=== PATIENT | female | born 1960 | race Caucasian/White ===

== ENCOUNTER 2016-11-30 17:01 | Emergency (ER) | payer BC, MEDICARE ==
--- NOTE | 2016-11-30 17:42 | ERPHSYRPT ---
- History of Present Illness Historian: patient Patient Subjective Stated Complaint: pt co loose stools for 3 months since gallbadder as been removed, pt states having a bm every 5 mins and is on new meds that do not work. Triage Nursing Assessment: pt alert and sob which she states is normal for her, skin w/d, and large and soft Timing/Duration: other (3 months) Activities at Onset: none Quality: aching Abdominal Pain Onset Location: other (left side) Pain Radiation: no radiation Severity of Pain-Max: moderate Severity of Pain-Current: moderate Modifying Factors: Improves With: nothing Associated Symptoms: diarrhea Previous symptoms: same symptoms as today Hx Tetanus, Diphtheria Vaccination/Date Given: Yes (2013) Hx Influenza Vaccination/Date Given: No Hx Pneumococcal Vaccination/Date Given: No Immunizations Up to Date: Yes <JULIET LAGOS - Last Filed: 11/30/16 19:10> <GERHARD TOUSSAINT - Last Filed: 11/30/16 20:03> - History of Present Illness Time Seen by Provider: 11/30/16 17:36 Physician History: The patient is a 56-year-old female status post cholecystectomy 3 months ago who is had daily diarrhea for the past 3 months. She saw a physician 2 weeks ago who gave her an antidiarrheal that hasn't worked. She states her abdomen on the left side is tender and painful. (JULIET LAGOS) Allergies/Adverse Reactions: Influenza Virus Vaccines [Influenza Virus Vaccine] Allergy (Intermediate, Verified 01/24/16 11:33) Swelling of Hands influenza virus vaccine, specific [influenza virus vacc,specific] Allergy ( Verified 01/24/16 11:33) oxycodone [Oxycodone] Allergy (Verified 01/24/16 11:33) Penicillins Allergy (Verified 01/24/16 11:33) venom-honey bee [bee venom (honey bee)] Allergy (Verified 01/24/16 11:33) methadone [Methadone] Adverse Reaction (Mild, Verified 01/24/16 11:33) Nausea oxycodone HCl [From OxyContin] Adverse Reaction (Mild, Verified 01/24/16 11:33) Nausea sulfamethoxazole [From Bactrim] Adverse Reaction (Unknown, Verified 01/24/16 11: 33) Nausea and Vomiting trimethoprim [From Bactrim] Adverse Reaction (Unknown, Verified 01/24/16 11:33) Nausea and Vomiting lurasidone [From Latuda] Adverse Reaction (Verified 11/30/16 17:16) Home Medications: Citalopram Hydrobromide 20 mg* [ceLEXa 20 MG] 20 mg PO DAILY 07/25/14 [ History] Lisinopril 20 mg PO DAILY 07/25/14 [History] Quetiapine Fumarate [Seroquel] 400 mg PO HS 07/25/14 [History] Simvastatin 20 mg PO DAILY 07/25/14 [History] Albuterol Sulfate [Proair Hfa] 90 mcg .ROUTE UD 01/18/16 [History] Magnesium Oxide 400 mg [Mag-Ox 400] 400 mg PO DAILY 01/18/16 [History] Sumatriptan Succinate [Imitrex] 100 mg PO DAILY 01/18/16 [History] Alprazolam 2 mg PO QID 01/24/16 [History] Levothyroxine Sodium 150 Mcg [Synthroid 150 Mcg] 150 mcg PO DAILY 01/24/16 [History] Armodafinil [Nuvigil] 150 mg DAILY 11/30/16 [History] - Review of Systems Constitutional: No Fever, No Chills Eyes: No Symptoms Ears, Nose, & Throat: No Symptoms Respiratory: No Cough, No Dyspnea Cardiac: No Chest Pain, No Edema, No Syncope Abdominal/Gastrointestinal: Abdominal Pain, Diarrhea Genitourinary Symptoms: No Dysuria Musculoskeletal: No Back Pain, No Neck Pain Skin: No Rash Neurological: No Dizziness, No Focal Weakness, No Sensory Changes Psychological: No Symptoms Endocrine: No Symptoms Hematologic/Lymphatic: No Symptoms Immunological/Allergic: No Symptoms All Other Systems: Reviewed and Negative <JULIET LAGOS - Last Filed: 11/30/16 19:10> - Past Medical History Pertinent Past Medical History: Yes Neurological History: Migraines ENT History: Other Cardiac History: Hypertension Respiratory History: COPD Endocrine Medical History: Hypothyroidism Musculoskeletal History: No Pertinent History GI Medical History: GERD, Gallbladder Disease, Ulcer, Other History: No Pertinent History Psycho-Social History: Anxiety, Bipolar, Depression Female Reproductive Disorders: No Pertinent History Other Medical History: stage IV skin cancer, Emergency visit to suture left thumb laceration, - Past Surgical History Past Surgical History: Yes Neuro Surgical History: No Pertinent History Cardiac: No Pertinent History Respiratory: No Pertinent History Gastrointestinal: Appendectomy, Cholecystectomy Genitourinary: No Pertinent History Musculoskeletal: No Pertinent History Female Surgical History: Hysterectomy Other Surgical History: tubes in ears, pre-cancerous polyps removed from colon - Social History Smoking Status: Former smoker How long have you smoked: 42 years Exposure to second hand smoke: No Drug Use: none Patient Lives Alone: No Significant Family History: hypertension - Female History Hx Last Menstrual Period: hyster Hx Now: No <JULIET LAGOS - Last Filed: 11/30/16 19:10> - Physical Exam General Appearance: no apparent distress, alert Eye Exam: PERRL/EOMI, eyes nml inspection Ears, Nose, Throat Exam: normal ENT inspection, pharynx normal, moist mucous membranes Neck Exam: normal inspection, non-tender, supple, full range of motion Respiratory Exam: normal breath sounds, lungs clear, No respiratory distress Cardiovascular Exam: regular rate/rhythm, normal heart sounds Gastrointestinal/Abdomen Exam: tenderness (left side), other (obese) Pelvic Exam: not done Rectal Exam: not done Back Exam: normal inspection, normal range of motion, No CVA tenderness, No vertebral tenderness Extremity Exam: normal inspection, normal range of motion, pelvis stable Neurologic Exam: alert, oriented x 3, cooperative, normal mood/affect, nml cerebellar function, sensation nml, No motor deficits Skin Exam: normal color, warm, dry SpO2 Interpretation: normal SpO2: 97 Oxygen Delivery: Room Air <JULIET LAGOS - Last Filed: 11/30/16 19:10> - CT Exams Abdomen/Pelvis CT Interpretation: Negative, Tele-radiologist Report <JULIET LAGOS - Last Filed: 11/30/16 19:10> - Progress Progress: improved Counseled pt/family regarding: lab results, diagnosis, need for follow-up, rad results <JULIET LAGOS - Last Filed: 11/30/16 19:10> <GERHARD TOUSSAINT - Last Filed: 11/30/16 20:03> - Progress Progress Note: 11/30/16 19:10 Case discussed and care transferred to Dr Toussaint at 19:00. (JULIET LAGOS) 11/30/16 20:01 The patient was initially seen per Dr Lagos. She has post cholecystectomy diarrhea chronically since GB surgery per Dr Bliss 3 month ago. She has seen Dr Bliss, Dr Blanco, and Dr Alvares GI. No new symptoms but it persists. No fever or chills. Some intermittent cramping very frequently. Abd soft and NT. Labs and CT reassuring. She plans follow up with Dr Jd Blanco. Will get stool for C diff when able. She might benefit from cholestyramine- that will be left to Dr Blanco's judgement. (GERHARD TOUSSAINT) <JULIET LAGOS. - Last Filed: 11/30/16 19:10> - Departure Time of Disposition: 20:02 Departure Disposition: Home Critical Care Time: No <GERHARD TOUSSAINT - Last Filed: 11/30/16 20:03> - Departure Clinical Impression: Post cholecystectomy diarrhea Condition: Stable Referrals: VENANCIO BLANCO [Primary Care Provider] - Instructions: Abdominal Pain-Adult, Cholecystectomy, Diarrhea and Traveler's Diarrhea -- Adult Additional Instructions: [place] diet with frequent fluids. Obtain stool sample for C diff. Follow up with Dr Jd Blanco and your GI Dr Alvares.
[2016-11-30] MEDS ORDERED: Sodium Chloride 0.9% 1000 ML 1,000 ML IV STA (17:44)
[2016-11-30 18:00] LABS: BASOPHIL % 0.1 % (0.0-0.4); Eosinophil % 1.6 % (0.00-5.0); Granulocytes % 63.4 % (36.0-66.0); Lymphocytes % 25.8 % (24.0-44.0); Mean Cell Volume 91.1 fl (78-100); Mean Corpuscular Hemoglobin 28.2 pg (26-32); Mean Platelet Volume 10.3 fl (6-9.5); Monocytes % 9.1 % (0.0-12.0); Platelet Count 279 K/mm3 (150-450); Red Blood Count 4.71 M/mm3 (4.1-5.4); Red Cell Distribution Width 14.3 % (11.5-14.0); White Blood Count 9.9 K/mm3 (4.0-10.5)
[2016-11-30] MEDS ORDERED: Sodium Chloride 0.9% 1000 ML 1,000 ML ONE (18:19)
[2016-11-30 19:18] LABS: Collection Type CATH; Ph 5.5 (5-6)
[2016-11-30 19:19] LABS: COMPLETE URINE MICROSCOPIC? NO
[2016-11-30 19:24] LABS: ANION GAP 10.7 MEQ/L (5-15); Carbon Dioxide 28.4 mEq/L (21-32); Potassium 3.5 mEq/L (3.5-5.1)
[2016-11-30 19:42] LABS: ALBUMIN 3.1 g/dL (3.4-5.0); BILIRUBIN,TOTAL 0.2 mg/dL (0.2-1.0); Direct Bilirubin 0.08 MG/DL (0.0-0.2); Total Protein 7.3 gm/dL (6.4-8.2)
[2016-11-30 20:07] VITALS: BP 136/84; PULSE 104; O2SAT 94
--- NOTE | 2016-12-01 08:45 | XRAY ---
Indication: Abdominal pain and diarrhea. Multiple contiguous axial images obtained through the abdomen and pelvis without contrast as ordered. Comparison: January 30, 2013 Lung bases again demonstrates minimal bibasilar atelectasis/scarring and left base bleb. Heart is not enlarged and again demonstrates tiny pericardial effusion. Noncontrasted stomach and bowel loops appear nonobstructed. Previous reported appendectomy, hysterectomy, and cholecystectomy. No free fluid/air. Stable fatty liver with hepatic cysts and left adrenal adenoma. Remaining pancreas, spleen, right adrenal gland, kidneys, ureters, and bladder appear unremarkable for noncontrast exam. Minimal aortoiliac calcifications without AAA. Osseous structures intact again with mild spinal degenerative changes. Impression: 1. No acute intra-abdominal/pelvic abnormalities on this noncontrast exam. 2. Stable fatty liver, hepatic cysts, and left adrenal adenoma. Comment: Preliminary interpretation was made by [facility]. No discrepancy. CT DI is 28.13
== END 2016-11-30 20:10 | disposition home or self-care (01) ==
LOC: ED 17:01
DX: K91.89 Other postprocedural complications and disorders of digestive system (principal); K59.1 Functional diarrhea; I10 Essential (primary) hypertension; E03.9 Hypothyroidism, unspecified; R10.9 Unspecified abdominal pain; Z79.899 Other long term (current) drug therapy
CPT/HCPCS: 36000; 36415; 74176; 80048; 80076; 81002; 83690; 85025; 96360; 99283; P9612

== ENCOUNTER 2017-04-27 12:27 | Inpatient (IN) | payer BC, MEDICARE ==
[2017-04-27] MEDS ORDERED: Zofran 4 MG/2 ML VIAL IV PRN (12:51)
[2017-04-27] MEDS ORDERED: PHARMACY DOSING REQUIRED: VANCOMYCIN IV ONE (12:54)
[2017-04-27] MEDS ORDERED: Sodium Chloride 0.9% 1000 ML 1,000 ML IV SCH (13:00)
[2017-04-27 13:30] LABS: BASOPHIL % 0.4 % (0.0-0.4); Eosinophil % 1.7 % (0.00-5.0); Granulocytes % 74.1 % (36.0-66.0); Mean Cell Volume 87.3 fl (78-100); Mean Corpuscular Hemoglobin 27.5 pg (26-32); Monocytes % 7.8 % (0.0-12.0); Platelet Count 289 K/mm3 (150-450); Red Blood Count 4.98 M/mm3 (4.1-5.4); Red Cell Distribution Width 15.2 % (11.5-14.0); White Blood Count 7.7 K/mm3 (4.0-10.5)
[2017-04-27 13:39] LABS: ALBUMIN 3.1 g/dL (3.4-5.0); ANION GAP 14.8 MEQ/L (5-15); BILIRUBIN,TOTAL 0.5 mg/dL (0.2-1.0); Carbon Dioxide 25.9 mEq/L (21-32); Potassium 4.2 mEq/L (3.5-5.1); Total Protein 8.3 gm/dL (6.4-8.2)
[2017-04-27] MEDS: ENOXAPARIN SODIUM SQ SCH (13:47)
[2017-04-27] MEDS: VANCOCIN 1 GM VIAL*** 1 GM in Sodium Chloride 0.9% 250 ML 250 ML IV SCH ×2 (13:47→22:09)
[2017-04-27] MEDS ORDERED: Norco 10/325 MG Tablet PO PRN (15:22)
[2017-04-27] MEDS ORDERED: Tessalon Perles 100 MG PO PRN (15:22)
[2017-04-27] MEDS ORDERED: ALPRAZOLAM 2 MG PO PRN (15:22)
[2017-04-27] MEDS: XANAX 1 MG PO PRN (16:43)
[2017-04-27] MEDS ORDERED: Sodium Chloride 0.9% 10 ML FLUSH Syringe IV PRN (17:14)
--- NOTE | 2017-04-27 17:14 | PCM.HP ---
History of Present Illness - Chief Complaint Chief Complaint: Cellulitis Date: 04/27/17 History of Present Illness: is a 56 year old female. left arm became swollen several weeks ago and was treated in the clinic by Cherie Oquendo with Bactrim there ws concern of allergic reaction to a bug bite at the time and she was given steroid as well. She initially had some mild improvement so stopped her bactrim then it suddenly worsened she came to clinic earlier this week and was starting to swell and be red on the right arm as well and the left was very tight and red and limiting some of her movement. She refused admission at that time and went home to continue the bactrim and keflex was added as well. It has not improved she has had chills and sweats and thought she was febrile swelling and pain in hands were worsening and much worse on the left. She otherwise has been doing well just suffering from her chronic depression/bipolar disorder and has been more shaking recently. - Review of Systems Constitutional: Fever, Chills Eyes: No Symptoms Ears, Nose, & Throat: No Symptoms Respiratory: No Cough, No Short Of Breath Cardiac: Edema, No Chest Pain, No Syncope Abdominal/Gastrointestinal: No Abdominal Pain, No Nausea, No Vomiting, No Diarrhea Genitourinary Symptoms: No Dysuria Musculoskeletal: No Back Pain, No Neck Pain Skin: No Rash Neurological: No Dizziness, No Focal Weakness, No Sensory Changes Psychological: No Symptoms Endocrine: No Symptoms Hematologic/Lymphatic: No Symptoms Immunological/Allergic: No Symptoms Medications & Allergies Home Medications: Home Medication List Citalopram Hydrobromide 20 mg* [ceLEXa 20 MG] 40 mg PO DAILY 07/25/14 [ History Confirmed 04/27/17] Lisinopril 20 mg PO DAILY 07/25/14 [History Confirmed 04/27/17] Albuterol Sulfate [Proair Hfa] 2 puffs IN Q4HPRN PRN 01/18/16 [History Confirmed 04/27/17] Magnesium Oxide 400 mg [Mag-Ox 400] 400 mg PO DAILY 01/18/16 [History Confirmed 04/27/17] Sumatriptan Succinate [Imitrex] 100 mg PO DAILY PRN PRN 01/18/16 [History Confirmed 04/27/17] Alprazolam 2 mg PO TIDPRN PRN 01/24/16 [History Confirmed 04/27/17] Levothyroxine Sodium 150 Mcg [Synthroid 150 Mcg] 150 mcg PO DAILY 01/24/16 [History Confirmed 04/27/17] Aripiprazole 10 mg [Abilify 10 MG] 15 mg PO DAILY 04/27/17 [History Confirmed 04/27/17] Benzonatate [Tessalon Perle] 100 mg PO QIDPRN PRN 04/27/17 [History Confirmed ] Cephalexin Mh 500 mg [Keflex 500 mg] 500 mg PO UD 04/27/17 [History Confirmed 04/27/17] Fenofibrate,Micronized 145 mg* [Tricor 145 MG] 145 mg PO DAILY 04/27/17 [ History Confirmed 04/27/17] Hydrocodone Bit/Acetaminophen [Hydrocodon-Acetaminophn 10-325] 1 each PO Q6HPRN PRN 04/27/17 [History Confirmed 04/27/17] Omeprazole 20 MG [Prilosec 20 mg] 20 mg PO DAILY 04/27/17 [History Confirmed 01/12] Sulfamethoxazole/Trimethoprim [Bactrim Ds Tablet] 1 each PO Q12H 04/27/17 [ History Confirmed 04/27/17] Allergies/Adverse Reactions: Allergies Allergy/AdvReac Type Severity Reaction Status Date / Time Influenza Virus Vaccines Allergy Intermediate Swelling Verified 04/27/17 13:40 [Influenza Virus Vaccine] of Hands influenza virus vaccine, Allergy Verified 04/27/17 13:40 specific [influenza virus vacc,specific] oxycodone [Oxycodone] Allergy Verified 04/27/17 13:40 Penicillins Allergy Verified 04/27/17 13:40 venom-honey bee Allergy Verified 04/27/17 13:40 [bee venom (honey bee)] oxycodone HCl AdvReac Mild Nausea Verified 04/27/17 13:40 [From OxyContin] - Past Medical History Past Medical History: Yes Neurological History: Migraines ENT History: Other Cardiac History: Hypertension Respiratory History: COPD Endocrine Medical History: Hypothyroidism Musculoskelatal History: No Pertinent History GI Medical History: GERD, Gallbladder Disease, Ulcer, Other History: No Pertinent History Pyscho-Social History: Anxiety, Bipolar, Depression Reproductive Disorders: No Pertinent History Comment: stage IV skin cancer - Female History Are you now?: No - Past Surgical History Past Surgical History: Yes Neuro Surgical History: No Pertinent History Cardiac History: No Pertinent History Respiratory Surgery: No Pertinent History GI Surgical History: Appendectomy, Cholecystectomy Genitourinary Surgical Hx: No Pertinent History Musculskeletal Surgical Hx: No Pertinent History Female Surgical History: Hysterectomy Other Surgical History: tubes in ears, pre-cancerous polyps removed from colon - Social History Smoking Status: Former smoker How long have you smoked: 42 years Exposure to second hand smoke: No Alcohol: None Drug Use: none Significant Family History: hypertension - Physical Exam Vital Signs: Vital Signs - 24 hr Temp Pulse Resp BP Pulse Ox 04/27/17 16:51 97.8 F 106 H 22 129/64 93 L 04/27/17 13:23 98.7 F 100 H 22 120/63 92 L 04/27/17 12:51 98.7 F 100 H 22 120/63 92 L General Appearance: no apparent distress, obese Neurologic Exam: alert, oriented x 3, cooperative Eye Exam: No scleral icterus, No pale conjunctivae Ears, Nose, Throat Exam: moist mucous membranes Neck Exam: non-tender, supple Respiratory Exam: normal breath sounds, lungs clear, No diminished breath sounds Cardiovascular Exam: regular rate/rhythm, normal heart sounds, normal peripheral pulses, murmur, edema, other Extremity Exam: No calf tenderness, No pedal edema Skin Exam: warm, other (left arm very edematous swollen firm hot red outlined to elbow range of motion not painful of fingers or wrist but the edema does restrict some more mild redness on the right wrist volar aspect) Results - Labs Lab/Micro Results: Lab Results-Last 24 Hours 04/27/17 04/27/17 04/27/17 Range/Units 13:00 13:00 13:05 WBC 7.7 (4.0-10.5) K/mm3 RBC 4.98 (4.1-5.4) M/mm3 Hgb 13.7 (12.0-16.0) gm/dl Hct 43.5 (35-47) % MCV 87.3 (78-100) fl MCH 27.5 (26-32) pg MCHC 31.5 L (32-36) g/dl RDW 15.2 H (11.5-14.0) % Plt Count 289 (150-450) K/mm3 MPV 10.0 H (6-9.5) fl Gran % 74.1 H (36.0-66.0) % Lymphocytes % 16.0 L (24.0-44.0) % Monocytes % 7.8 (0.0-12.0) % Eosinophils % 1.7 (0.00-5.0) % Basophils % 0.4 (0.0-0.4) % Basophils # 0.03 (0-0.4) Sodium 137 (136-145) mEq/L Potassium 4.2 (3.5-5.1) mEq/L Chloride 100 (98-107) mEq/L Carbon Dioxide 25.9 (21-32) mEq/L Anion Gap 14.8 (5-15) MEQ/L BUN 16 (9-20) mg/dL Creatinine 1.02 (0.55-1.30) mg/dl Estimated GFR 60 ML/MIN Glucose 146 H (70-110) MG/DL Lactic Acid 1.5 (0.4-2.0) Calcium 9.5 (8.5-10.1) mg/dL Total Bilirubin 0.50 (0.2-1.0) mg/dL AST 27 (15-37) U/L ALT 30 (12-78) U/L Alkaline Phosphatase 79 (46-116) U/L Serum Total Protein 8.3 H (6.4-8.2) gm/dL Albumin 3.1 L (3.4-5.0) g/dL Assessment/Plan (1) Cellulitis Current Visit: Yes Status: Acute Qualifiers: Site of cellulitis: extremity Site of cellulitis of extremity: upper extremity Laterality: left Qualified Code(s): L03.114 - Cellulitis of left upper limb Assessment & Plan: failed bactrim + Keflex (following Rocephin IM in office) use vancomycin, wbc ok tylenol for fever use her chronic pain mediations for her pain will d/c her iv fluids with normal labs and her tolerating po well and her edema keep arms elevated use ice tid if tolerated continue home medications for bipolar and hyperlipidemia lovenox for ppx Code(s): L03.90 - CELLULITIS, UNSPECIFIED (2) Failure of outpatient treatment Current Visit: Yes Status: Acute Code(s): Z78.9 - OTHER SPECIFIED HEALTH STATUS (3) COPD (chronic obstructive pulmonary disease) Current Visit: Yes Status: Chronic (4) Bipolar 1 disorder, depressed Current Visit: Yes Status: Chronic (5) Morbid obesity Current Visit: Yes Status: Chronic Code(s): E66.01 - MORBID (SEVERE) OBESITY DUE TO EXCESS CALORIES
[2017-04-27] MEDS: Sodium Chloride 0.9% 10 ML FLUSH Syringe IV SCH (22:15)
[2017-04-28] MEDS: XANAX 1 MG PO PRN ×3 (01:40→16:37)
[2017-04-28] MEDS: Sodium Chloride 0.9% 10 ML FLUSH Syringe IV SCH ×3 (06:42→22:27)
[2017-04-28] MEDS: SYNTHROID 150 MCG PO SCH ×2 (08:26→22:24)
[2017-04-28] MEDS: Abilify 10 MG PO SCH ×2 (08:26→22:25)
[2017-04-28] MEDS: MAG-OX 400 PO SCH ×2 (08:26→22:24)
[2017-04-28] MEDS: ceLEXa 20 MG PO SCH ×2 (08:26→22:25)
[2017-04-28] MEDS: Protonix 40MG Tablet PO SCH ×2 (08:26→22:25)
[2017-04-28] MEDS: Tricor 145 MG PO SCH ×2 (08:27→22:24)
[2017-04-28] MEDS: Zestril 20 MG PO SCH ×2 (08:27→22:24)
[2017-04-28] MEDS: ENOXAPARIN SODIUM SQ SCH (09:15)
[2017-04-28] MEDS: VANCOCIN 1 GM VIAL*** 1 GM in Sodium Chloride 0.9% 250 ML 250 ML IV SCH ×2 (09:15→22:29)
[2017-04-28] MEDS ORDERED: NON-FORMULARY ITEM (Omeprazole 20 Mg [Prilosec 20 Mg] 20 MG) PO SCH (10:00)
--- NOTE | 2017-04-28 12:26 | PCM.NOTE ---
Date and Time: 04/28/17 1222 Subjective Assessment: She reports that her arms are better. She reports she would like to have tylenol ordered for pain. On review of her orders, it is already ordered. She states it started with her left arm and then she had some problems with her right arm too with redness. She failed outpatient treatment. Dr. Katiana Decker's admission note reviewed. - Review of Systems Constitutional: No Symptoms Eyes: No Symptoms Ears, Nose, & Throat: No Symptoms Respiratory: No Symptoms Cardiac: No Symptoms Abdominal/Gastrointestinal: No Symptoms Genitourinary Symptoms: No Symptoms Musculoskeletal: No Symptoms Skin: Other (tenderness of skin on arms) Objective Exam General Appearance: no apparent distress, obese Neurologic Exam: alert, cooperative, normal mood/affect Skin Exam: normal color, warm, dry, other (areas of erytema marked on arms bilat. Worse on medial aspect of right wrist and also left forearm. No active drainage. The areas of redness have not extended past the marked lines.) Respiratory Exam: normal breath sounds, lungs clear, No crackles/rales, No rhonchi, No wheezing Cardiovascular Exam: regular rate/rhythm, normal heart sounds, No murmur, No friction rub, No gallop Gastrointestinal/Abdomen Exam: soft, normal bowel sounds, No tenderness, No distention, No mass Extremity Exam: other (no c/c) OBJECTIVE DATA Vital Signs: Vital Signs - 24 hr Temp Pulse Resp BP Pulse Ox 04/28/17 12:00 98.7 F 99 H 18 103/51 96 04/28/17 07:26 98.1 F 97 H 18 137/63 96 04/28/17 04:00 98.3 F 94 H 20 117/58 92 L 04/28/17 00:00 98.8 F 94 H 21 125/60 94 L 04/27/17 20:00 98.3 F 103 H 18 135/65 93 L 04/27/17 16:51 97.8 F 106 H 22 129/64 93 L 04/27/17 13:23 98.7 F 100 H 22 120/63 92 L 04/27/17 12:51 98.7 F 100 H 22 120/63 92 L Oxygen-Last 24 hours O2 Percentage 2 Liters = 28% Pain Assessment - Last Documented Pain Intensity 4 Pain Scale Used 0-10 Pain Scale Intake and Output: Intake & Output 04/26/17 04/27/17 04/28/17 04/29/17 06:59 06:59 06:59 06:59 Intake Total 2090 480 Output Total 700 Balance 1390 480 Weight 122.561 kg Lab Results: Lab Results-Last 24 Hours 04/27/17 04/27/17 04/27/17 Range/Units 13:00 13:00 13:05 WBC 7.7 (4.0-10.5) K/mm3 RBC 4.98 (4.1-5.4) M/mm3 Hgb 13.7 (12.0-16.0) gm/dl Hct 43.5 (35-47) % MCV 87.3 (78-100) fl MCH 27.5 (26-32) pg MCHC 31.5 L (32-36) g/dl RDW 15.2 H (11.5-14.0) % Plt Count 289 (150-450) K/mm3 MPV 10.0 H (6-9.5) fl Gran % 74.1 H (36.0-66.0) % Lymphocytes % 16.0 L (24.0-44.0) % Monocytes % 7.8 (0.0-12.0) % Eosinophils % 1.7 (0.00-5.0) % Basophils % 0.4 (0.0-0.4) % Basophils # 0.03 (0-0.4) Sodium 137 (136-145) mEq/L Potassium 4.2 (3.5-5.1) mEq/L Chloride 100 (98-107) mEq/L Carbon Dioxide 25.9 (21-32) mEq/L Anion Gap 14.8 (5-15) MEQ/L BUN 16 (9-20) mg/dL Creatinine 1.02 (0.55-1.30) mg/dl Estimated GFR 60 ML/MIN Glucose 146 H (70-110) MG/DL Lactic Acid 1.5 (0.4-2.0) Calcium 9.5 (8.5-10.1) mg/dL Total Bilirubin 0.50 (0.2-1.0) mg/dL AST 27 (15-37) U/L ALT 30 (12-78) U/L Alkaline Phosphatase 79 (46-116) U/L Serum Total Protein 8.3 H (6.4-8.2) gm/dL Albumin 3.1 L (3.4-5.0) g/dL Multi-Disciplinary Progress Notes: Multi-Disciplinary Progress Notes 04/27/17 13:17 Pharmacy Note by INSULATION SUPERVISOR,PHARM Pharmacy to dose vancomycin. Start 1G Q12H. Get vanc trough 6/4 at 0930. Monitor levels and renal function and adjust dose if needed. -Hemanth Guerrero , ChastityD Candidate Initialized on 04/27/17 13:17 - END OF NOTE Assessment/Plan (1) Cellulitis of arm, left Current Visit: Yes Status: Acute Assessment & Plan: Continue with vancomycin. Blood cultures are in lab. Code(s): L03.114 - CELLULITIS OF LEFT UPPER LIMB (2) Cellulitis of arm, right Current Visit: Yes Status: Acute Code(s): L03.113 - CELLULITIS OF RIGHT UPPER LIMB (3) Bipolar 1 disorder, depressed Current Visit: Yes Status: Chronic Assessment & Plan: Stable at this time.
[2017-04-28] MEDS: TYLENOL 325 MG PO PRN (14:55)
[2017-04-29] MEDS: XANAX 1 MG PO PRN ×3 (01:58→17:33)
[2017-04-29] MEDS: TYLENOL 325 MG PO PRN (07:11)
[2017-04-29] MEDS ORDERED: TROUGH DRUG LEVELS IJ ONE (09:30)
[2017-04-29] MEDS: ENOXAPARIN SODIUM SQ SCH (09:55)
[2017-04-29] MEDS: VANCOCIN 1 GM VIAL*** 1 GM in Sodium Chloride 0.9% 250 ML 250 ML IV SCH (09:55)
--- NOTE | 2017-04-29 10:20 | PCM.NOTE ---
Date and Time: 04/29/17 1008 Subjective Assessment: She reports tingling pain in her right wrist. She is using ice and this helps some. She denies any chest pain, shortness of breath or abdominal pain. She is eating well and denies constipation. - Review of Systems Constitutional: No Symptoms Eyes: No Symptoms Ears, Nose, & Throat: No Symptoms Respiratory: No Symptoms Cardiac: No Symptoms Abdominal/Gastrointestinal: No Symptoms Genitourinary Symptoms: No Symptoms Musculoskeletal: Other (pain in arms bilat and redness of forearms bilat) Skin: Other (pain in arms bilat and redness of forearms bilat) Objective Exam General Appearance: no apparent distress, alert, obese Neurologic Exam: alert, cooperative, normal mood/affect Skin Exam: normal color, warm, dry, other (right forarm with area of erythema and tenderness about 5 x 6 cm; left fore arm with area of erythema and tenderness that is more diffuse. No drainage, no fluctulance) Respiratory Exam: normal breath sounds, lungs clear, No crackles/rales, No rhonchi, No wheezing Cardiovascular Exam: regular rate/rhythm, normal heart sounds, No murmur, No friction rub, No gallop Gastrointestinal/Abdomen Exam: soft, normal bowel sounds, No tenderness, No distention, No mass Extremity Exam: other (no c/c/e of legs.) OBJECTIVE DATA Vital Signs: Vital Signs - 24 hr Temp Pulse Resp BP Pulse Ox 04/29/17 07:09 97.8 F 89 18 115/63 95 04/29/17 04:16 97.6 F 90 20 89/50 96 04/29/17 00:14 98.7 F 95 H 21 115/56 96 04/28/17 20:43 98.1 F 87 18 122/62 93 L 04/28/17 16:00 98.5 F 88 18 116/64 96 04/28/17 12:00 98.7 F 99 H 18 103/51 96 Pain Assessment - Last Documented Pain Intensity 8 Pain Scale Used 0-10 Pain Scale Intake and Output: Intake & Output 04/27/17 04/28/17 04/29/17 04/30/17 06:59 06:59 06:59 06:59 Intake Total 2090 2980 480 Output Total 700 500 Balance 1390 2480 480 Weight 122.561 kg Assessment/Plan (1) Cellulitis of arm, left Current Visit: Yes Status: Acute Assessment & Plan: Continue with vancomycin. Code(s): L03.114 - CELLULITIS OF LEFT UPPER LIMB (2) Cellulitis of arm, right Current Visit: Yes Status: Acute Assessment & Plan: Continue with vancomycin. Code(s): L03.113 - CELLULITIS OF RIGHT UPPER LIMB (3) Bipolar 1 disorder, depressed Current Visit: Yes Status: Chronic Assessment & Plan: Stable on current medication.
[2017-04-29] MEDS: Sodium Chloride 0.9% 10 ML FLUSH Syringe IV SCH ×3 (10:55→23:04)
[2017-04-29] MEDS: VANCOCIN 1 GM VIAL*** 1.5 GM in Sodium Chloride 0.9% 500 ML 500 ML IV SCH (17:28)
[2017-04-29] MEDS: Tricor 145 MG PO SCH (23:01)
[2017-04-29] MEDS: MAG-OX 400 PO SCH (23:02)
[2017-04-29] MEDS: Abilify 10 MG PO SCH (23:02)
[2017-04-29] MEDS: SYNTHROID 150 MCG PO SCH (23:02)
[2017-04-29] MEDS: Protonix 40MG Tablet PO SCH (23:02)
[2017-04-29] MEDS: ceLEXa 20 MG PO SCH (23:02)
[2017-04-29] MEDS: Zestril 20 MG PO SCH (23:03)
[2017-04-30] MEDS: XANAX 1 MG PO PRN ×2 (01:25→21:53)
[2017-04-30 06:02] LABS: ANION GAP 9.2 MEQ/L (5-15); BLOOD UREA NITROGEN 11 mg/dL (9-20); CHLORIDE 103 mEq/L (98-107); Glucose 149 MG/DL (70-110); Potassium 3.9 mEq/L (3.5-5.1); SODIUM 138 mEq/L (136-145)
[2017-04-30] MEDS: VANCOCIN 1 GM VIAL*** 1.5 GM in Sodium Chloride 0.9% 500 ML 500 ML IV SCH ×2 (06:36→17:59)
--- NOTE | 2017-04-30 08:03 | PCM.NOTE ---
Date and Time: 04/30/17 0758 Subjective Assessment: the left arm looks a little better the right is worse she is allergic to penicillins sshe ate greasy carnival food last night and vomitted this am and had an episode of diarrhea. She has not had fever but the swelling and pain in the hands and arms is severe she is trying to keep elevated and is using the ice. She feels they will suddenly swell up worse then go back down intermittently. she was given kenalog a few weeks ago and it improved the swelling some. Objective Exam General Appearance: no apparent distress, obese Neurologic Exam: alert, oriented x 3, cooperative Skin Exam: warm, other (hot indurated red with blistering on the bilateral forarms with pitting edema distal to the cellulitis areas.) Eye Exam: No scleral icterus Ears, Nose, Throat Exam: moist mucous membranes Neck Exam: non-tender, supple Respiratory Exam: normal breath sounds, lungs clear Cardiovascular Exam: regular rate/rhythm, normal heart sounds, normal peripheral pulses Gastrointestinal/Abdomen Exam: soft, normal bowel sounds, No tenderness Extremity Exam: No calf tenderness OBJECTIVE DATA Vital Signs: Vital Signs - 24 hr Temp Pulse Resp BP Pulse Ox 04/30/17 07:02 98.4 F 97 H 18 112/54 94 L 04/30/17 04:19 98.5 F 101 H 23 119/58 92 L 04/30/17 04:00 98.4 F 96 H 20 116/57 92 L 04/29/17 23:52 98.4 F 96 H 20 116/57 92 L 04/29/17 20:00 98.6 F 92 H 24 131/62 93 L 04/29/17 16:00 98.4 F 87 18 136/53 96 04/29/17 11:26 98.2 F 93 H 18 136/65 93 L Pain Assessment - Last Documented Pain Intensity 3 Pain Scale Used 0-10 Pain Scale Intake and Output: Intake & Output 04/27/17 04/28/17 04/29/17 04/30/17 11:59 11:59 11:59 11:59 Intake Total 2570 2980 3295 Output Total 700 500 Balance 1870 2480 3295 Weight 122.561 kg Lab Results: Lab Results-Last 24 Hours 04/29/17 04/30/17 Range/Units 09:40 05:10 Sodium 138 (136-145) mEq/L Potassium 3.9 (3.5-5.1) mEq/L Chloride 103 (98-107) mEq/L Carbon Dioxide 30.0 (21-32) mEq/L Anion Gap 9.2 (5-15) MEQ/L BUN 11 (9-20) mg/dL Creatinine 0.88 (0.55-1.30) mg/dl Estimated GFR > 60 ML/MIN Glucose 149 H (70-110) MG/DL Calcium 9.0 (8.5-10.1) mg/dL Vancomycin Trough 6.8 L (10-20) UG/ML Multi-Disciplinary Progress Notes: Multi-Disciplinary Progress Notes 04/29/17 11:42 Pharmacy Note by Ryan Littlejohn [facility] VANCOMYCIN DOSING: VANCOMYCIN TROUGH CAME BACK 6.8 SO DOSE INCREASED FROM 1G TO 1.5G. NEXT TROUGH FOR 05/01/17 Initialized on 04/29/17 11:42 - END OF NOTE Assessment/Plan (1) Cellulitis Current Visit: Yes Status: Acute Qualifiers: Site of cellulitis: extremity Site of cellulitis of extremity: upper extremity Laterality: unspecified laterality Qualified Code(s): L03.119 - Cellulitis of unspecified part of limb Assessment & Plan: bilateral upper extremities left mildly improved right the same or possibly a little worse. vanc dose was increased with the low trough given lack of significant clinically improvement will add gram neg coverage as well with rocephin with her severity of symptoms will try hydrocortisone IV to see if this can improve keep elevated and ice no other areas involved Code(s): L03.90 - CELLULITIS, UNSPECIFIED (2) Failure of outpatient treatment Current Visit: Yes Status: Acute Code(s): Z78.9 - OTHER SPECIFIED HEALTH STATUS (3) COPD (chronic obstructive pulmonary disease) Current Visit: Yes Status: Chronic (4) Bipolar 1 disorder, depressed Current Visit: Yes Status: Chronic (5) Morbid obesity Current Visit: Yes Status: Chronic Code(s): E66.01 - MORBID (SEVERE) OBESITY DUE TO EXCESS CALORIES
[2017-04-30] MEDS: solu-CORTEF 100MG IV SCH ×3 (08:43→19:31)
[2017-04-30] MEDS: ENOXAPARIN SODIUM SQ SCH (10:54)
[2017-04-30] MEDS: ROCEPHIN 1 Gm-D5w 50 ml Bag** 1 G/50 ML IVPB IV SCH (11:41)
[2017-04-30] MEDS: Sodium Chloride 0.9% 10 ML FLUSH Syringe IV SCH (13:04)
[2017-04-30] MEDS: MAG-OX 400 PO SCH (21:53)
[2017-04-30] MEDS: SYNTHROID 150 MCG PO SCH (21:53)
[2017-04-30] MEDS: Protonix 40MG Tablet PO SCH (21:54)
[2017-04-30] MEDS: Tricor 145 MG PO SCH (21:54)
[2017-04-30] MEDS: ceLEXa 20 MG PO SCH (21:54)
[2017-04-30] MEDS: Abilify 10 MG PO SCH (21:54)
[2017-04-30] MEDS: Zestril 20 MG PO SCH (21:54)
[2017-05-01] MEDS: solu-CORTEF 100MG IV SCH ×4 (00:49→17:27)
[2017-05-01] MEDS: Sodium Chloride 0.9% 10 ML FLUSH Syringe IV SCH ×5 (00:49→22:19)
[2017-05-01] MEDS: TYLENOL 325 MG PO PRN (06:48)
[2017-05-01] MEDS ORDERED: Abilify 10 MG PO SCH (08:09)
[2017-05-01 08:47] LABS: INR 1.08 (0.8-3.0); PROTIME 12.1 SECONDS (9.95-12.35)
[2017-05-01 08:50] LABS: PTT 32.3 SECONDS (25.3-37.0)
[2017-05-01] MEDS: VANCOCIN 1 GM VIAL*** 1.5 GM in Sodium Chloride 0.9% 500 ML 500 ML IV SCH (09:29)
[2017-05-01] MEDS: ROCEPHIN 1 Gm-D5w 50 ml Bag** 1 G/50 ML IVPB IV SCH (11:10)
[2017-05-01] MEDS: ENOXAPARIN SODIUM SQ SCH (11:10)
[2017-05-01] MEDS: XANAX 1 MG PO PRN (11:24)
--- NOTE | 2017-05-01 11:27 | XRAY ---
Indication: Ultrasound guidance for PICC line placement. Initial sonographic imaging of the right upper extremity was performed for localization of patent veins. A patent cephalic vein identified above the elbow. Ultrasound guidance was then used for PICC line insertion. Full PICC line insertion is reported separately.
--- NOTE | 2017-05-01 11:32 | XRAY ---
Indication: Long-term IV access and therapy for cellulitis. Difficulty with venous access. Informed consent obtained. Patient was placed on the fluoroscopic table in a supine position. Initial sonographic imaging of the right upper extremity was performed for localization of patent veins. The right upper extremity was then prepped and draped in sterile fashion. Tourniquet applied. 1% lidocaine plain used for local anesthesia. Using ultrasound guidance and a micropuncture needle, a cephalic vein above the elbow was successfully percutaneously cannulized. A floppy tip 0.018 guidewire inserted. Tourniquet released. Needle was exchanged for a 5 [place] dilator peel-away sheath catheter. Ultimately a 5 [place] double-lumen PICC line was inserted over a longer 0.018 guidewire with the tip positioned in the distal SVC using fluoroscopic guidance. Guidewire removed. Both ports flushed with heparinized saline. Catheter was secured. Postoperative instructions and orders given. Patient discharged in good condition. Impression: Technically successful right upper extremity PICC line placement using ultrasound and fluoroscopic guidance. No immediate complications. Approximately 5 cc blood loss. Approximately 0.9 minute of fluoroscopy used.
[2017-05-01] MEDS: VANCOCIN 1 GM VIAL*** 1.75 GM in Sodium Chloride 0.9% 500 ML 500 ML IV SCH (17:27)
[2017-05-01] MEDS ORDERED: Desyrel 150 MG PO SCH (22:00)
[2017-05-01] MEDS: Protonix 40MG Tablet PO SCH (22:16)
[2017-05-01] MEDS: Tricor 145 MG PO SCH (22:16)
[2017-05-01] MEDS: Zestril 20 MG PO SCH (22:16)
[2017-05-01] MEDS: ceLEXa 20 MG PO SCH (22:16)
[2017-05-01] MEDS: MAG-OX 400 PO SCH (22:16)
[2017-05-01] MEDS: SYNTHROID 150 MCG PO SCH (22:16)
[2017-05-02] MEDS: solu-CORTEF 100MG IV SCH ×2 (00:46→06:45)
[2017-05-02] MEDS: XANAX 1 MG PO PRN (00:46)
[2017-05-02] MEDS: VANCOCIN 1 GM VIAL*** 1.75 GM in Sodium Chloride 0.9% 500 ML 500 ML IV SCH (06:44)
[2017-05-02] MEDS: Sodium Chloride 0.9% 10 ML FLUSH Syringe IV SCH (07:08)
[2017-05-02] MEDS: TYLENOL 325 MG PO PRN (07:50)
[2017-05-02 08:05] VITALS: O2SAT 91
--- NOTE | 2017-05-02 08:17 | PCM.DCORD ---
- Discharge Discharge Date: 05/02/17 Disposition: Home, Self-Care Condition: Stable Prescriptions: New Ceftriaxone 1 GM/50 ML PREMIX* [ROCEPHIN 1 Gm-D5w 50 ml Bag] 1 g IV Q24H10 #0 ivpb Vancomycin HCl/D5w [Vancomycin 1.5 Gram/250 ml-D5w] 1.75 gm IV Q12H #0 plast..bag Continue Citalopram Hydrobromide 20 mg* [ceLEXa 20 MG] 40 mg PO DAILY Lisinopril 20 mg PO DAILY Albuterol Sulfate [Proair Hfa] 2 puffs IN Q4HPRN PRN PRN Reason: Shortness Of Breath/Wheezing Magnesium Oxide 400 mg [Mag-Ox 400] 400 mg PO DAILY Sumatriptan Succinate [Imitrex] 100 mg PO DAILY PRN PRN PRN Reason: migraine Alprazolam 2 mg PO TIDPRN PRN PRN Reason: Anxiety Levothyroxine Sodium 150 Mcg [Synthroid 150 Mcg] 150 mcg PO DAILY Omeprazole 20 MG [Prilosec 20 mg] 20 mg PO DAILY Hydrocodone Bit/Acetaminophen [Hydrocodon-Acetaminophn 10-325] 1 each PO Q6HPRN PRN PRN Reason: Pain Fenofibrate,Micronized 145 mg* [Tricor 145 MG] 145 mg PO DAILY Benzonatate [Tessalon Perle] 100 mg PO QIDPRN PRN PRN Reason: cough Aripiprazole 10 mg [Abilify 10 MG] 15 mg PO DAILY Discontinued Cephalexin Mh 500 mg [Keflex 500 mg] 500 mg PO UD Sulfamethoxazole/Trimethoprim [Bactrim Ds Tablet] 1 each PO Q12H Instructions: Cellulitis -- Adult Additional Instructions: have cbc, bmp and vanc trough drawn Sunday am outpatient infusions of vanc and ceftriaxone through sunday evening with follow up in office on Sunday. Follow up with: VENANCIO BLANCO [Primary Care Provider] - 1 Week Forms: Discharge Instructions, Patient Portal Information
[2017-05-02] MEDS: ENOXAPARIN SODIUM SQ SCH (09:08)
[2017-05-02] MEDS: ROCEPHIN 1 Gm-D5w 50 ml Bag** 1 G/50 ML IVPB IV SCH (09:08)
[2017-05-02 12:03] VITALS: BP 134/61; PULSE 76
--- NOTE | 2017-05-02 18:12 | PCM.DS ---
Discharge Summary Date of Admission: 04/27/17 12:27 Date of Discharge: 05/02/17 Admitting Physician: VENANCIO BLANCO Primary Care Provider: VENANCIO BLANCO Allergies Allergies Influenza Virus Vaccines [Influenza Virus Vaccine] Allergy (Intermediate, Verified 04/27/17 13:40) Swelling of Hands influenza virus vaccine, specific [influenza virus vacc,specific] Allergy ( Verified 04/27/17 13:40) oxycodone [Oxycodone] Allergy (Verified 04/27/17 13:40) Penicillins Allergy (Verified 04/27/17 13:40) venom-honey bee [bee venom (honey bee)] Allergy (Verified 04/27/17 13:40) oxycodone HCl [From OxyContin] Adverse Reaction (Mild, Verified 04/27/17 13:40) Nausea Hospital Summary - Hospital Course Hospital Course: she presented with cellulitis and swelling in the bilateral arms that had not improved after 2 weeks of therapy as an outpatient. She was treated with bactrim but didn't complete treatment and rocephin and then keflex with bactrim and it continued to worsen and spread. She was admitted and started on vancomycin after about 48 hours the trough levels were subtherapeutic still and dose was adjusted but there was little improvement in the cellulites thus hydrocortisone and ceftriaxone were added and she did have good improvement. She did have PICC line placed with the poor access after losing her peripheral access. She otherwise did well and used trazodone which helped her sleep more. She was showing improvement but still some redness and induration at the site and will continue for 4 more days on the iv vancomycin bid and ceftriaxone as an outpatient and we will recheck the arms then and decide on PICC removal vs continued therapy. - Vitals & Intake/Output Vital Signs: Vital Signs Temperature 97.5 F 05/02/17 11:00 Pulse Rate 76 05/02/17 11:00 Respiratory Rate 20 05/02/17 11:00 Blood Pressure 134/61 05/02/17 11:00 O2 Sat by Pulse Oximetry 91 L 05/02/17 11:00 Oxygen-Last Documented O2 Percentage 2 Liters = 28% Intake & Output: Intake & Output 04/30/17 05/01/17 05/02/17 05/03/17 11:59 11:59 11:59 11:59 Intake Total 3775 2640 2480 Balance 3775 2640 2480 Weight 122.561 kg - Lab Result Diagrams: 04/27/17 13:00 04/30/17 05:10 Micro Results-Entire Visit: Microbiology 04/27/17 13:15 - Final Blood Not Reportable Blood Culture - Final NO GROWTH 04/27/17 13:00 - Final Blood Not Reportable Blood Culture - Final NO GROWTH - Radiology Exams Ordered Rad Exams-Entire Visit: Radiology Procedures Category Date Time Status GUIDANCE FOR NEEDLE PLACEMENT [US] Routine Exams 05/01/17 Completed PICC LINE PLACEMENT Routine Exams 05/01/17 08:09 Completed - Procedures and Test Procedures and Tests throughout Hospitalization: Therapy Orders & Screens 04/27/17 13:42 OT Screen per Nursing Assess ONCE Comment: Protocol Order Physician Instructions: Greater than 3 points order OT Admission Screening Reason For Exam: Triggered on Admission Diagnosis: Cellulitis Open Wound/Cellutlitis/Pressure Ulcers: Yes Acute Fx/ORIF/Change in wt bearing status: No Severe MUSCULOSKELETAL pain: No ADL Dysfunction: No Acute CVA w/Hemiparesis/Hemiplegia: No Decreased Functional Mobility/Strength: No Sprain/Strain: No Acute Post-op Mobility Dysfunction: No Total Points: 5 PT Screen per Nursing Assess ONCE Comment: Protocol Order Physician Instructions: Greater than 3 points order PT Admission Screenin Reason For Exam: Triggered on Admission Diagnosis: Cellulitis Open Wound/Cellutlitis/Pressure Ulcers: Yes Acute Fx/ORIF/Change in wt bearing status: No Severe MUSCULOSKELETAL pain: No ADL Dysfunction: No Acute CVA w/Hemiparesis/Hemiplegia: No Decreased Functional Mobility/Strength: No Sprain/Strain: No Acute Post-op Mobility Dysfunction: No Total Points: 5 Discharge Exam General Appearance: no apparent distress, alert, obese Neurologic Exam: alert, oriented x 3, cooperative, normal mood/affect, nml cerebellar function, sensation nml, No motor deficits Skin Exam: normal color, warm, dry, other (indurated and red on the medial aspect ulnar side of the right wrist and large indurated volar aspect of the left forearm but hte redness has improved and the warmth and edema is improving as well now.) Eye Exam: PERRL, EOMI, eyes nml inspection Ears, Nose, Throat Exam: normal ENT inspection, pharynx normal, moist mucous membranes Neck Exam: normal inspection, non-tender, supple, full range of motion Respiratory Exam: normal breath sounds, lungs clear, No respiratory distress Cardiovascular Exam: regular rate/rhythm, normal heart sounds Gastrointestinal/Abdomen Exam: soft, No tenderness, No mass Extremity Exam: normal inspection, normal range of motion Back Exam: normal inspection, normal range of motion, No CVA tenderness, No vertebral tenderness Pelvic Exam: deferred Rectal Exam: deferred Final Diagnosis/Problem List - Final Discharge Diagnosis/Problem (1) Cellulitis Status: Acute (2) Failure of outpatient treatment Status: Acute (3) COPD (chronic obstructive pulmonary disease) Status: Chronic (4) Bipolar 1 disorder, depressed Status: Chronic (5) Morbid obesity Status: Chronic - Discharge Discharge Date: 05/02/17 Disposition: Home, Self-Care Condition: Stable Prescriptions: New Ceftriaxone 1 GM/50 ML PREMIX* [ROCEPHIN 1 Gm-D5w 50 ml Bag] 1 g IV Q24H10 #0 ivpb Vancomycin HCl/D5w [Vancomycin 1.5 Gram/250 ml-D5w] 1.75 gm IV Q12H #0 plast..bag Trazodone HCl 150 mg PO HS #30 tablet Continue Citalopram Hydrobromide 20 mg* [ceLEXa 20 MG] 40 mg PO DAILY Lisinopril 20 mg PO DAILY Albuterol Sulfate [Proair Hfa] 2 puffs IN Q4HPRN PRN PRN Reason: Shortness Of Breath/Wheezing Magnesium Oxide 400 mg [Mag-Ox 400] 400 mg PO DAILY Sumatriptan Succinate [Imitrex] 100 mg PO DAILY PRN PRN PRN Reason: migraine Alprazolam 2 mg PO TIDPRN PRN PRN Reason: Anxiety Levothyroxine Sodium 150 Mcg [Synthroid 150 Mcg] 150 mcg PO DAILY Omeprazole 20 MG [Prilosec 20 mg] 20 mg PO DAILY Hydrocodone Bit/Acetaminophen [Hydrocodon-Acetaminophn 10-325] 1 each PO Q6HPRN PRN PRN Reason: Pain Fenofibrate,Micronized 145 mg* [Tricor 145 MG] 145 mg PO DAILY Benzonatate [Tessalon Perle] 100 mg PO QIDPRN PRN PRN Reason: cough Aripiprazole 10 mg [Abilify 10 MG] 15 mg PO DAILY Discontinued Cephalexin Mh 500 mg [Keflex 500 mg] 500 mg PO UD Sulfamethoxazole/Trimethoprim [Bactrim Ds Tablet] 1 each PO Q12H Instructions: Cellulitis -- Adult Additional Instructions: have cbc, bmp and vanc trough drawn Sunday outpatient infusions of vanc and ceftriaxone through sunday evening with follow up in office on Sunday. PLEASE ARRIVE THIS EVENING AT 5:00 PM FOR YOUR FIRST DOSE OF IV ANTIBIOTICS. YOU MUST REGISTER PRIOR TO THIS FIRST DOSE, AND WILL BE DIRECTED TO OUTPATIENT INFUSION. YOU WILL HAVE IV ANTIBIOTICS TWICE DAILY THROUGH SUNDAY EVENING. MAKE SURE YOU KEEP FOLLOWUP APPOINTMENT WITH DR BLANCO 05/07/17 AT 8:45 AM. Follow up with: VENANCIO BLANCO [Primary Care Provider] - 05/07/17 8:45 am Forms: Discharge Instructions, Patient Portal Information
--- NOTE | 2017-05-07 22:23 | PCM.NOTE ---
Date and Time: 05/02/17 0801 Subjective Assessment: continues to have the swelling in the arms a little better today restless in the legs today has picc now in arm doing well with this Objective Exam General Appearance: obese Neurologic Exam: alert, oriented x 3, cooperative Skin Exam: warm, other (warm red swollen bilateral arms slightly improved picc in right upper arm no problems) OBJECTIVE DATA Vital Signs: Pain Assessment - Last Documented Pain Intensity 0 Pain Scale Used 0-10 Pain Scale Assessment/Plan (1) Cellulitis Status: Acute Qualifiers: Site of cellulitis: extremity Site of cellulitis of extremity: upper extremity Laterality: unspecified laterality Qualified Code(s): L03.119 - Cellulitis of unspecified part of limb Code(s): L03.90 - CELLULITIS, UNSPECIFIED (2) Failure of outpatient treatment Status: Acute Code(s): Z78.9 - OTHER SPECIFIED HEALTH STATUS (3) COPD (chronic obstructive pulmonary disease) Status: Chronic (4) Bipolar 1 disorder, depressed Status: Chronic (5) Morbid obesity Status: Chronic Code(s): E66.01 - MORBID (SEVERE) OBESITY DUE TO EXCESS CALORIES
--- NOTE | 2017-05-07 22:25 | PCM.NOTE ---
Date and Time: 05/01/17 0800 Subjective Assessment: late entry note seen 05/01/2017 at 0800 she was improving with the cellulitis and much better then the prv day but still very warm and red and vanc level subtherapeutic she wants to go home but the arms are still very indurated. Objective Exam General Appearance: obese Neurologic Exam: alert, oriented x 3 Skin Exam: warm, other (edematous firm warm red wrist bilateral volar surface with some pitting edema in the hands.) Respiratory Exam: normal breath sounds, lungs clear Cardiovascular Exam: regular rate/rhythm, normal heart sounds Extremity Exam: No pedal edema OBJECTIVE DATA Vital Signs: Pain Assessment - Last Documented Pain Intensity 0 Pain Scale Used 0-10 Pain Scale Assessment/Plan (1) Cellulitis Status: Acute Qualifiers: Site of cellulitis: extremity Site of cellulitis of extremity: upper extremity Laterality: unspecified laterality Qualified Code(s): L03.119 - Cellulitis of unspecified part of limb Code(s): L03.90 - CELLULITIS, UNSPECIFIED (2) Failure of outpatient treatment Status: Acute Code(s): Z78.9 - OTHER SPECIFIED HEALTH STATUS (3) COPD (chronic obstructive pulmonary disease) Status: Chronic (4) Bipolar 1 disorder, depressed Status: Chronic (5) Morbid obesity Status: Chronic Code(s): E66.01 - MORBID (SEVERE) OBESITY DUE TO EXCESS CALORIES
== END 2017-05-02 11:45 | disposition home or self-care (01) | DRG 603 ==
LOC: MED SURG 12:27
PROVIDERS: ADMIT Family Medicine; ATTEND Family Medicine
DX: L03.114 Cellulitis of left upper limb (principal); L03.113 Cellulitis of right upper limb; Z78.9 Other specified health status; J44.9 Chronic obstructive pulmonary disease, unspecified; F31.9 Bipolar disorder, unspecified; E78.5 Hyperlipidemia, unspecified; E66.01 Morbid (severe) obesity due to excess calories; Z79.899 Other long term (current) drug therapy
CPT/HCPCS: 36415; 36569; 76942; 77001; 80048; 80053; 80202; 83605; 85025; 85610; 85730; 87040; 87493; C1769; J0696; J1642; J1650; J1720; J2405; J3370; A9270-GY

== ENCOUNTER 2017-05-05 10:02 | Observation (INO) | payer BC ==
[2017-05-05] MEDS ORDERED: Phenergan 25 MG INJ IV PRN (10:39)
[2017-05-05] MEDS ORDERED: DEXTROSE IV SCH (11:00)
[2017-05-05] MEDS ORDERED: ALPRAZOLAM 2 MG PO PRN (11:00)
[2017-05-05] MEDS ORDERED: Norco 10/325 MG Tablet PO PRN (11:00)
[2017-05-05] MEDS ORDERED: VANCOMYCIN IV SCH (11:00)
[2017-05-05] MEDS ORDERED: Ventolin Hfa MDI IH PRN (11:00)
--- NOTE | 2017-05-05 11:09 | PCM.HP ---
History of Present Illness - Chief Complaint Chief Complaint: respiratory distress Date: 05/05/17 History of Present Illness: is a 56 year old female. being treated for bilateral arm cellulitis with outpatient IV infusions of vanc and Rocephin after protracted coarse and failure to outpatient antibiotics and was improving. She has PICC in right upper arm but today at her infusion she arrived very short of breath and respiratory rate up to 40. She did not feel she could walk due to the shortness of breath she was also having new swelling around the picc line site and some warmth and redness around the picc line site. She is not vomiting and no fever. Chronic coughing. - Review of Systems Constitutional: No Fever, No Chills Eyes: No Symptoms Ears, Nose, & Throat: No Symptoms Respiratory: Cough, Short Of Breath, Wheezing Cardiac: No Chest Pain, No Edema, No Syncope Abdominal/Gastrointestinal: No Abdominal Pain, No Nausea, No Vomiting, No Diarrhea Genitourinary Symptoms: No Dysuria Musculoskeletal: Back Pain, No Neck Pain Skin: Cellulitis Neurological: No Dizziness, No Focal Weakness, No Sensory Changes Psychological: Anxiety, Depression, Emotional Lability Endocrine: No Symptoms Hematologic/Lymphatic: No Symptoms Immunological/Allergic: No Symptoms Medications & Allergies Home Medications: Home Medication List Citalopram Hydrobromide 20 mg* [ceLEXa 20 MG] 40 mg PO HS 07/25/14 [History Confirmed 05/05/17] Lisinopril 20 mg PO HS 07/25/14 [History Confirmed 05/05/17] Albuterol Sulfate [Proair Hfa] 2 puffs IN Q4HPRN PRN 01/18/16 [History Confirmed 05/05/17] Magnesium Oxide 400 mg [Mag-Ox 400] 400 mg PO HS 01/18/16 [History Confirmed 05/05/17] Sumatriptan Succinate [Imitrex] 100 mg PO DAILY PRN PRN 01/18/16 [History Confirmed 05/05/17] Alprazolam 2 mg PO TIDPRN PRN 01/24/16 [History Confirmed 05/05/17] Levothyroxine Sodium 150 Mcg [Synthroid 150 Mcg] 150 mcg PO HS 01/24/16 [ History Confirmed 05/05/17] Aripiprazole 10 mg [Abilify 10 MG] 15 mg PO HS 04/27/17 [History Confirmed 05/05/17] Benzonatate [Tessalon Perle] 100 mg PO QIDPRN PRN 04/27/17 [History Confirmed ] Fenofibrate,Micronized 145 mg* [Tricor 145 MG] 145 mg PO HS 04/27/17 [ History Confirmed 05/05/17] Hydrocodone Bit/Acetaminophen [Hydrocodon-Acetaminophn 10-325] 1 each PO Q6HPRN PRN 04/27/17 [History Confirmed 05/05/17] Omeprazole 20 MG [Prilosec 20 mg] 20 mg PO HS 04/27/17 [History Confirmed ] Ceftriaxone 1 GM/50 ML PREMIX* [ROCEPHIN 1 Gm-D5w 50 ml Bag] 1 g IV Q24H10 #0 ivpb 05/02/17 [Rx Confirmed 05/05/17] Trazodone HCl 150 mg PO HS #30 tablet 05/02/17 [Rx Confirmed 05/05/17] Vancomycin HCl/D5w [Vancomycin 1.5 Gram/250 ml-D5w] 1.75 gm IV Q12H #0 plast..bag 05/02/17 [Rx Confirmed 05/05/17] Allergies/Adverse Reactions: Allergies Allergy/AdvReac Type Severity Reaction Status Date / Time Influenza Virus Vaccines Allergy Intermediate Swelling Verified 05/05/17 10:49 [Influenza Virus Vaccine] of Hands influenza virus vaccine, Allergy Verified 05/05/17 10:49 specific [influenza virus vacc,specific] oxycodone [Oxycodone] Allergy Verified 05/05/17 10:49 Penicillins Allergy Verified 05/05/17 10:49 venom-honey bee Allergy Verified 05/05/17 10:49 [bee venom (honey bee)] oxycodone HCl AdvReac Mild Nausea Verified 05/05/17 10:49 [From OxyContin] - Past Medical History Past Medical History: Yes Neurological History: Migraines ENT History: Other Cardiac History: Hypertension Respiratory History: COPD Endocrine Medical History: Hypothyroidism Musculoskelatal History: No Pertinent History GI Medical History: GERD, Gallbladder Disease, Ulcer, Other History: No Pertinent History Pyscho-Social History: Anxiety, Bipolar, Depression Reproductive Disorders: No Pertinent History Comment: stage IV skin cancer - Female History Are you now?: No - Past Surgical History Past Surgical History: Yes Neuro Surgical History: No Pertinent History Cardiac History: No Pertinent History Respiratory Surgery: No Pertinent History GI Surgical History: Appendectomy, Cholecystectomy Genitourinary Surgical Hx: No Pertinent History Musculskeletal Surgical Hx: No Pertinent History Female Surgical History: Hysterectomy Other Surgical History: tubes in ears, pre-cancerous polyps removed from colon - Social History Smoking Status: Former smoker How long have you smoked: 42 years Exposure to second hand smoke: No Alcohol: None Drug Use: none Significant Family History: hypertension - Physical Exam Vital Signs: Vital Signs - 24 hr Temp Pulse Resp BP Pulse Ox 05/05/17 10:14 98.7 F 69 30 H 178/87 93 L 05/05/17 10:12 98.7 F 69 22 178/87 93 L General Appearance: mild distress, obese Neurologic Exam: alert, oriented x 3, cooperative Eye Exam: No scleral icterus, No pale conjunctivae Ears, Nose, Throat Exam: moist mucous membranes Neck Exam: non-tender, supple Respiratory Exam: diminished breath sounds, No crackles/rales, No rhonchi, No wheezing Cardiovascular Exam: regular rate/rhythm, normal peripheral pulses, edema ( bilateral hands improved trace legs) Gastrointestinal/Abdomen Exam: soft, normal bowel sounds, No tenderness Extremity Exam: other (right hand with swelling pitting edema slightly improved and redness in the forarm slightly improved but new redness proximal to the PICC line insertion in the right upper extremity left arm redness and induration is improving and swelling is improving.) Skin Exam: warm, dry Results - Radiology Impressions Radiology Exams & Impressions: Radiology Procedures Category Date Time Status CHEST 1 VIEW (PORTABLE) Routine Exams 05/05/17 11:08 Ordered Ultrasound Unilateral Extremities [VENOUS UNILAT/ Exams 05/05/17 10:37 Ordered LIMITED EXTREMIT] [US] Routine - Other Procedures and Tests Respiratory Therapy 05/05/17 10:39 EKG STAT Oxygen NASAL CANNULA 2 lpm Respiratory Therapy Consult ROUTINE Assessment/Plan (1) Respiratory distress Current Visit: Yes Status: Acute Assessment & Plan: getting cxr, bnp, cbc, cmp, supplemental O2 she was 89% on room air at rest when arrived she has no significant wheezing currently. will await labs if BNP elevated and renal function ok will treat with iv lasix if wheezing develops start steroids and nebs start lovenox at ppx dosing for now get right upper extremity ultrasound rule out DVT with the PICC Code(s): R06.00 - DYSPNEA, UNSPECIFIED (2) COPD (chronic obstructive pulmonary disease) Current Visit: Yes Status: Chronic (3) Bipolar 1 disorder, depressed Current Visit: Yes Status: Chronic Assessment & Plan: will decrease her celexa and her abilify and see how we do in case the PICC needs pulled and we can't get access and have to use linezolid would need to get off the celexa, trazodone combo with the linezolid (4) Morbid obesity Current Visit: Yes Status: Chronic Code(s): E66.01 - MORBID (SEVERE) OBESITY DUE TO EXCESS CALORIES (5) Cellulitis of arm, left Current Visit: Yes Status: Acute Assessment & Plan: continue vanc and Rocephin Code(s): L03.114 - CELLULITIS OF LEFT UPPER LIMB (6) Cellulitis of arm, right Current Visit: Yes Status: Acute Code(s): L03.113 - CELLULITIS OF RIGHT UPPER LIMB
[2017-05-05] MEDS ORDERED: PROVENTIL COMMON CANISTER IH PRN (11:19)
[2017-05-05] MEDS ORDERED: Abilify 10 MG PO SCH (11:30)
[2017-05-05] MEDS ORDERED: Zestril 20 MG PO SCH (11:30)
[2017-05-05] MEDS ORDERED: Protonix 40MG Tablet PO SCH (11:30)
[2017-05-05] MEDS ORDERED: ceLEXa 20 MG PO SCH (11:30)
[2017-05-05] MEDS ORDERED: SYNTHROID 150 MCG PO SCH (11:30)
[2017-05-05] MEDS ORDERED: MAG-OX 400 PO SCH (11:30)
[2017-05-05 12:05] LABS: Mean Cell Volume 88.5 fl (78-100); Mean Corpuscular Hemoglobin 27.4 pg (26-32); Mean Platelet Volume 10.1 fl (6-9.5); Platelet Count 240 K/mm3 (150-450); Red Blood Count 4.16 M/mm3 (4.1-5.4); White Blood Count 6.9 K/mm3 (4.0-10.5)
[2017-05-05] MEDS: ENOXAPARIN SODIUM SQ SCH (12:15)
[2017-05-05 12:22] LABS: ALBUMIN 2.7 g/dL (3.4-5.0); ALKALINE PHOSPHATASE 60 U/L (46-116); ANION GAP 11.6 MEQ/L (5-15); BLOOD UREA NITROGEN 9 mg/dL (9-20); CHLORIDE 105 mEq/L (98-107); Carbon Dioxide 27.2 mEq/L (21-32); Glucose 97 MG/DL (70-110); Potassium 3.4 mEq/L (3.5-5.1); SGOT/AST 18 U/L (15-37); SGPT/ALT 29 U/L (12-78); SODIUM 140 mEq/L (136-145); Total Protein 7.1 gm/dL (6.4-8.2)
[2017-05-05 13:10] LABS: Collection Type VOID
[2017-05-05 13:11] LABS: COMPLETE URINE MICROSCOPIC? NO
[2017-05-05] MEDS ORDERED: Lasix 40 MG/4 ML IV ONE (14:18)
[2017-05-05] MEDS ORDERED: Klor Con 10 MEQ PO ONE ×2 (14:18→16:33)
[2017-05-05] MEDS ORDERED: Lasix 40 MG/4 ML ONE (16:33)
[2017-05-05] MEDS: TYLENOL 325 MG PO PRN ×2 (16:36→21:28)
[2017-05-05 17:54] LABS: Eosinophil 2 % (0.00-3.0); Platelet Estimate NORMAL (NORMAL); Total Cells Counted 100
[2017-05-05] MEDS: VANCOCIN 1 GM VIAL*** 1.75 GM in Sodium Chloride 0.9% 500 ML 500 ML IV SCH (18:36)
[2017-05-05] MEDS: Zestril 20 MG PO SCH (21:26)
[2017-05-05] MEDS: ceLEXa 20 MG PO SCH (21:26)
[2017-05-05] MEDS: MAG-OX 400 PO SCH (21:26)
[2017-05-05] MEDS: Protonix 40MG Tablet PO SCH (21:27)
[2017-05-05] MEDS: Desyrel 150 MG PO SCH (21:27)
[2017-05-05] MEDS: SYNTHROID 150 MCG PO SCH (21:27)
[2017-05-05] MEDS: Abilify 10 MG PO SCH (21:27)
[2017-05-05] MEDS: XANAX 1 MG PO PRN (21:29)
[2017-05-05] MEDS ORDERED: NON-FORMULARY ITEM (Trazodone Hcl [Trazodone Hcl] 150 MG) PO SCH (22:00)
--- NOTE | 2017-05-05 22:39 | XRAY ---
Indication: Short of breath. Comparison: May 01, 2016. Portable chest underinflated and clear. Heart is not enlarged for AP portable technique. Bony thorax intact again with spinal degenerative changes. New right arm PICC line with the tip projecting over the SVC. Impression: Nonacute underinflated chest. Comment: Preliminary interpretation was made by [facility]. No discrepancy.
--- NOTE | 2017-05-05 22:43 | XRAY ---
Indication: Cellulitis. Edema. 2-dimensional sonogram and color Doppler imaging of the major veins of the right arm was performed. Comparison: None There is a PICC line in the cephalic vein with minimal echogenic thrombus around the PICC line. No thrombus seen in the remaining right jugular, subclavian, axillary, basilic, brachial, radial, or ulnar veins. Impression: PICC line in the cephalic vein with surrounding thrombus. Remaining right arm venous ultrasound negative. Comment: Preliminary report was given.
[2017-05-06] MEDS: TYLENOL 325 MG PO PRN (06:08)
[2017-05-06] MEDS: VANCOCIN 1 GM VIAL*** 1.75 GM in Sodium Chloride 0.9% 500 ML 500 ML IV SCH ×2 (06:45→18:01)
[2017-05-06] MEDS ORDERED: ROCEPHIN 1 Gm-D5w 50 ml Bag** 1 G/50 ML IVPB IV SCH (09:00)
[2017-05-06 09:55] LABS: ANION GAP 8.6 MEQ/L (5-15); BLOOD UREA NITROGEN 10 mg/dL (9-20); CHLORIDE 107 mEq/L (98-107); Carbon Dioxide 30.6 mEq/L (21-32); Glucose 115 MG/DL (70-110); SODIUM 142 mEq/L (136-145)
[2017-05-06] MEDS ORDERED: PREVNAR 13 SYRINGE IM ONE (10:00)
[2017-05-06] MEDS ORDERED: NON-FORMULARY ITEM (Omeprazole 20 Mg [Prilosec 20 Mg] 20 MG) PO SCH (10:00)
[2017-05-06] MEDS: ENOXAPARIN SODIUM SQ SCH (10:00)
[2017-05-06] MEDS ORDERED: CEFTRIAXONE IV SCH (10:00)
[2017-05-06] MEDS ORDERED: Lasix 40 MG/4 ML IV ONE (11:03)
[2017-05-06] MEDS ORDERED: Klor Con 10 MEQ PO ONE (11:05)
--- NOTE | 2017-05-06 11:13 | PCM.DCORD ---
- Discharge Discharge Date: 05/06/17 Disposition: Home, Self-Care Condition: Stable Prescriptions: New Aripiprazole 10 mg [Abilify 10 MG] 10 mg PO HS #30 tablet Citalopram Hydrobromide 20 mg* [ceLEXa 20 MG] 20 mg PO HS #30 tablet Doxycycline Hyclate 100 mg [Vibramycin 100 MG] 100 mg PO BID #10 tab Aspirin EC 325 mg [Ecotrin 325 MG] 325 mg PO DAILY #30 tablet.ec Continue Lisinopril 20 mg PO HS Albuterol Sulfate [Proair Hfa] 2 puffs IN Q4HPRN PRN PRN Reason: Shortness Of Breath/Wheezing Magnesium Oxide 400 mg [Mag-Ox 400] 400 mg PO HS Sumatriptan Succinate [Imitrex] 100 mg PO DAILY PRN PRN PRN Reason: migraine Alprazolam 2 mg PO TIDPRN PRN PRN Reason: Anxiety Levothyroxine Sodium 150 Mcg [Synthroid 150 Mcg] 150 mcg PO HS Omeprazole 20 MG [Prilosec 20 mg] 20 mg PO HS Fenofibrate,Micronized 145 mg* [Tricor 145 MG] 145 mg PO HS Benzonatate [Tessalon Perle] 100 mg PO QIDPRN PRN PRN Reason: cough Trazodone HCl 150 mg PO HS #30 tablet Discontinued Citalopram Hydrobromide 20 mg* [ceLEXa 20 MG] 40 mg PO HS Hydrocodone Bit/Acetaminophen [Hydrocodon-Acetaminophn 10-325] 1 each PO Q6HPRN PRN PRN Reason: Pain Aripiprazole 10 mg [Abilify 10 MG] 15 mg PO HS Ceftriaxone 1 GM/50 ML PREMIX* [ROCEPHIN 1 Gm-D5w 50 ml Bag] 1 g IV Q24H10 #0 ivpb Vancomycin HCl/D5w [Vancomycin 1.5 Gram/250 ml-D5w] 1.75 gm IV Q12H #0 plast..bag Follow up with: VENANCIO BLANCO [Primary Care Provider] - 1 Week
[2017-05-06] MEDS: XANAX 1 MG PO PRN ×2 (14:25→22:56)
[2017-05-06] MEDS: MAG-OX 400 PO SCH (16:21)
[2017-05-06] MEDS: Abilify 10 MG PO SCH (22:09)
[2017-05-06] MEDS: Protonix 40MG Tablet PO SCH (22:10)
[2017-05-06] MEDS: SYNTHROID 150 MCG PO SCH (22:10)
[2017-05-06] MEDS: Zestril 20 MG PO SCH (22:10)
[2017-05-06] MEDS: Desyrel 150 MG PO SCH (22:10)
[2017-05-06] MEDS: ceLEXa 20 MG PO SCH (22:10)
[2017-05-07] MEDS ORDERED: TROUGH DRUG LEVELS IJ ONE (06:00)
[2017-05-07 07:06] VITALS: BP 126/73; PULSE 102; O2SAT 91
--- NOTE | 2017-05-07 09:00 | XRAY ---
Indication: Possible broken PICC line. Comparison: One day earlier. Portable chest remains underinflated and clear without cardiomegaly. There has been interval removal of PICC line without remnant. Comment: Preliminary interpretation was made by [facility]. No discrepancy.
--- NOTE | 2017-05-07 09:02 | XRAY ---
Indication: Possible broken PICC line. Comparison: None 2 views of the right humerus intact without PICC line or radiopaque foreign body.
--- NOTE | 2017-05-07 21:35 | PCM.DS ---
Discharge Summary Date of Admission: 05/05/17 10:02 Date of Discharge: 05/06/17 Admitting Physician: VENANCIO BLANCO Primary Care Provider: VENANCIO BLANCO Allergies Allergies Influenza Virus Vaccines [Influenza Virus Vaccine] Allergy (Intermediate, Verified 05/05/17 10:49) Swelling of Hands influenza virus vaccine, specific [influenza virus vacc,specific] Allergy ( Verified 05/05/17 10:49) oxycodone [Oxycodone] Allergy (Verified 05/05/17 10:49) Penicillins Allergy (Verified 05/05/17 10:49) venom-honey bee [bee venom (honey bee)] Allergy (Verified 05/05/17 10:49) oxycodone HCl [From OxyContin] Adverse Reaction (Mild, Verified 05/05/17 10:49) Nausea Hospital Summary - Hospital Course Hospital Course: she was receving outpatient infusions of vancomycin and ceftraixone for a refractory case of cellulitis fo the upper extremities when she showed up with respirtatyr distress with her restpiratory rate int eh 38 to 40 range and sat in the low 90's in outpatient she was too short of breath to walk back to her car. She was admitted for observation and found to have a increased swelling proximal and distal to the PICC line in the right upper arm and warm red tender area as well as swelling and signs of volume overload. She improved with supplemental oxygen and iv lasix X 2 doses. She completed an additional 3 doses of vanc and 1 extra dose of rocephin. The ultrasound showed superficial thrombus in the right cephalic around the PICC corresponding with the area of discomfort. she was given low dose lovenox on arrival ppx dose. WIth the symptomatic thrombus the PICC was removed. Initially it was felt to be broken but in fact it was cut to 46 cm prior to insertion and 46 cm of PICC was removed without complication. The symptoms in the right upper arm were improving she still had swelling and warmth in her arms distally that was improving. S Her restlessness she has had improved with decreasing her celexa and abilify. restart oral antibiotics, start aspirin compresses to right arm. f/u in 1 week decrease the celexa and abilify. - Vitals & Intake/Output Vital Signs: Vital Signs Temperature 97.4 F 05/07/17 06:45 Pulse Rate 102 H 06/12/17 06:45 Respiratory Rate 20 05/07/17 06:45 Blood Pressure 126/73 05/07/17 06:45 O2 Sat by Pulse Oximetry 91 L 05/07/17 06:45 Oxygen-Last Documented O2 Percentage 2 Liters = 28% Intake & Output: Intake & Output 05/05/17 05/06/17 05/07/17 05/08/17 11:59 11:59 11:59 11:59 Intake Total 1020 1999 Output Total 1850 4750 Balance -830 -2750 Weight 125.645 kg - Lab Result Diagrams: 05/05/17 11:15 05/06/17 09:15 Lab Results-Last 24 Hrs: Lab Results-Last 24 Hours 05/07/17 Range/Units 06:10 Vancomycin Trough 16.3 (10-20) UG/ML - Radiology Exams Ordered Rad Exams-Entire Visit: Radiology Procedures Category Date Time Status CHEST 1 VIEW (PORTABLE) Stat Exams 05/06/17 22:19 Completed HUMERUS Stat Exams 05/06/17 23:33 Completed - Procedures and Test Procedures and Tests throughout Hospitalization: Therapy Orders & Screens 05/05/17 10:39 EKG STAT Comment: Oxygen NASAL CANNULA 2 lpm Comment: Respiratory Therapy Consult ROUTINE Comment: Reason For Exam: 05/05/17 10:44 OT Screen per Nursing Assess ONCE Comment: Protocol Order Physician Instructions: Greater than 3 points order OT Admission Screening Reason For Exam: Triggered on Admission Diagnosis: SOB Open Wound/Cellutlitis/Pressure Ulcers: Yes Acute Fx/ORIF/Change in wt bearing status: No Severe MUSCULOSKELETAL pain: No ADL Dysfunction: No Acute CVA w/Hemiparesis/Hemiplegia: No Decreased Functional Mobility/Strength: No Sprain/Strain: No Acute Post-op Mobility Dysfunction: No Total Points: 5 PT Screen per Nursing Assess Comment: Protocol Order Physician Instructions: Greater than 3 points order PT Admission Screenin Reason For Exam: Triggered on Admission Diagnosis: SOB Open Wound/Cellutlitis/Pressure Ulcers: Yes Acute Fx/ORIF/Change in wt bearing status: No Severe MUSCULOSKELETAL pain: No ADL Dysfunction: No Acute CVA w/Hemiparesis/Hemiplegia: No Decreased Functional Mobility/Strength: No Sprain/Strain: No Acute Post-op Mobility Dysfunction: No Total Points: 5 05/05/17 12:21 Respiratory MDI PRN Comment: Diagnosis: respiratory distress Discharge Exam General Appearance: no apparent distress, alert, obese Neurologic Exam: alert, oriented x 3, cooperative, normal mood/affect, nml cerebellar function, sensation nml, No motor deficits Skin Exam: normal color, warm, dry Eye Exam: PERRL, EOMI, eyes nml inspection Ears, Nose, Throat Exam: normal ENT inspection, pharynx normal, moist mucous membranes Neck Exam: normal inspection, non-tender, supple, full range of motion Respiratory Exam: normal breath sounds, lungs clear, No respiratory distress Cardiovascular Exam: regular rate/rhythm, normal heart sounds Gastrointestinal/Abdomen Exam: soft, No tenderness, No mass Extremity Exam: normal inspection, normal range of motion, tenderness (right upper arm minimal bilateral distal still with redness and swelling but improved and warmth improvign.) Back Exam: normal inspection, normal range of motion, No CVA tenderness, No vertebral tenderness Pelvic Exam: deferred Rectal Exam: deferred Final Diagnosis/Problem List - Final Discharge Diagnosis/Problem (1) Respiratory distress Status: Acute (2) COPD (chronic obstructive pulmonary disease) Status: Chronic (3) Bipolar 1 disorder, depressed Status: Chronic (4) Morbid obesity Status: Chronic (5) Cellulitis of arm, left Status: Acute (6) Cellulitis of arm, right Status: Acute (7) Superficial thrombophlebitis of arm Status: Acute - Discharge Discharge Date: 05/07/17 Disposition: Home, Self-Care Condition: Stable Prescriptions: New Aripiprazole 10 mg [Abilify 10 MG] 10 mg PO HS #30 tablet Citalopram Hydrobromide 20 mg* [ceLEXa 20 MG] 20 mg PO HS #30 tablet Doxycycline Hyclate 100 mg [Vibramycin 100 MG] 100 mg PO BID #10 tab Aspirin EC 325 mg [Ecotrin 325 MG] 325 mg PO DAILY #30 tablet.ec Continue Lisinopril 20 mg PO HS Albuterol Sulfate [Proair Hfa] 2 puffs IN Q4HPRN PRN PRN Reason: Shortness Of Breath/Wheezing Magnesium Oxide 400 mg [Mag-Ox 400] 400 mg PO HS Sumatriptan Succinate [Imitrex] 100 mg PO DAILY PRN PRN PRN Reason: migraine Alprazolam 2 mg PO TIDPRN PRN PRN Reason: Anxiety Levothyroxine Sodium 150 Mcg [Synthroid 150 Mcg] 150 mcg PO HS Omeprazole 20 MG [Prilosec 20 mg] 20 mg PO HS Fenofibrate,Micronized 145 mg* [Tricor 145 MG] 145 mg PO HS Benzonatate [Tessalon Perle] 100 mg PO QIDPRN PRN PRN Reason: cough Trazodone HCl 150 mg PO HS #30 tablet Discontinued Citalopram Hydrobromide 20 mg* [ceLEXa 20 MG] 40 mg PO HS Hydrocodone Bit/Acetaminophen [Hydrocodon-Acetaminophn 10-325] 1 each PO Q6HPRN PRN PRN Reason: Pain Aripiprazole 10 mg [Abilify 10 MG] 15 mg PO HS Ceftriaxone 1 GM/50 ML PREMIX* [ROCEPHIN 1 Gm-D5w 50 ml Bag] 1 g IV Q24H10 #0 ivpb Vancomycin HCl/D5w [Vancomycin 1.5 Gram/250 ml-D5w] 1.75 gm IV Q12H #0 plast..bag Instructions: Chronic Obstructive Pulmonary Disease Follow up with: VENANCIO BLANCO [Primary Care Provider] - 1 Week
== END 2017-05-07 06:56 | disposition home or self-care (01) ==
LOC: MED SURG 10:02
PROVIDERS: ADMIT Family Medicine; ATTEND Family Medicine
DX: J44.9 Chronic obstructive pulmonary disease, unspecified (principal); F31.9 Bipolar disorder, unspecified; E66.01 Morbid (severe) obesity due to excess calories; L03.114 Cellulitis of left upper limb; L03.113 Cellulitis of right upper limb; I80.8 Phlebitis and thrombophlebitis of other sites; E03.9 Hypothyroidism, unspecified; I10 Essential (primary) hypertension; K21.9 Gastro-esophageal reflux disease without esophagitis; F41.8 Other specified anxiety disorders; Z85.828 Personal history of other malignant neoplasm of skin; Z72.0 Tobacco use
CPT/HCPCS: 36415; 71010; 73060; 80048; 80053; 80202; 81002; 83880; 85025; 90670; 93005; 93971; 94760; G0009; G0378; J0696; J1650; J1940; J3370; A9270-GY

== ENCOUNTER 2018-09-18 15:31 | Emergency (ER) | payer BC, MEDICARE ==
[2018-09-18] MEDS ORDERED: Pepcid 20 MG VIAL IV ONE ×2 (15:36→15:58)
[2018-09-18] MEDS ORDERED: Zofran 4 MG/2 ML VIAL IV ONE (15:36)
[2018-09-18] MEDS ORDERED: Carafate 1 GM PO ONE ×2 (15:36→15:58)
[2018-09-18] MEDS ORDERED: NITRO-BID 2% UD PACKETS TOP ONE (15:39)
[2018-09-18] MEDS ORDERED: BABY ASPIRIN 81 MG CHEW PO ONE (15:39)
--- NOTE | 2018-09-18 15:44 | ERPHSYRPT ---
- History of Present Illness Time Seen by Provider: 09/18/18 15:36 Historian: patient, old records Exam Limitations: no limitations Physician History: patient with CP x 10 days; substernal; heaviness with N&V; unable to keep anything down for 10-14 days; no blood or coffee ground emesis; hx of GI problems; no relief with antacids of GI meds; chronic diarrhea since GB out over a year ago; no fever but with chills; no travel or known exposures; cough mild non-productive or clear; had a breathing treatment at LMDs office before coming here; no relief; Timing/Duration: day(s) (-14), constant, gradual onset, worse Activities at Onset: rest Quality: fullness, pressure, tightness Location: substernal Chest Pain Radiation: back Severity of Pain-Max: severe (8/10) Severity of Pain-Current: severe (8/10) Modifying Factors: Improves With: eating Associated Symptoms: nausea, vomiting, heartburn, cough, chills, back pain Prior Chest Pain/Cardiac Workup: no prior chest pain Nitro Today/Relief: no nitro taken today, provided by ED Aspirin Treatment Today: provided at home Allergies/Adverse Reactions: Influenza Virus Vaccines [Influenza Virus Vaccine] Allergy (Intermediate, Verified 09/18/18 15:36) Swelling of Hands Penicillins Allergy (Verified 09/18/18 15:36) venom-honey bee [bee venom (honey bee)] Allergy (Verified 09/18/18 15:36) oxycodone HCl [From OxyContin] Adverse Reaction (Mild, Verified 09/18/18 15:36) Nausea Home Medications: Lisinopril 20 mg PO HS 07/25/14 [History] Albuterol Sulfate [Proair Hfa] 2 puffs IN Q4HPRN PRN 01/18/16 [History] Magnesium Oxide 400 mg [Mag-Ox 400] 400 mg PO HS 01/18/16 [History] Sumatriptan Succinate [Imitrex] 100 mg PO DAILY PRN PRN 01/18/16 [History] ALPRAZolam [Alprazolam] 2 mg PO TIDPRN PRN 01/24/16 [History] Levothyroxine Sodium 150 Mcg [Synthroid 150 Mcg] 150 mcg PO HS 01/24/16 [ History] Fenofibrate,Micronized 145 mg* [Tricor 145 MG] 145 mg PO HS 04/27/17 [History ] Divalproex Sodium [Depakote] 500 mg BID 09/18/18 [History] Metformin HCl 500 mg [Glucophage 500 MG] 500 mg BID 09/18/18 [History] PANTOPRAZOLE 40 mg Tablet [Protonix 40MG Tablet] 40 mg .ROUTE DAILY [History] Topiramate 25 mg DAILY 09/18/18 [History] Vortioxetine Hydrobromide [Trintellix] 20 mg DAILY 09/18/18 [History] Hx Tetanus, Diphtheria Vaccination/Date Given: Yes (2013) Hx Influenza Vaccination/Date Given: No Hx Pneumococcal Vaccination/Date Given: No - Review of Systems Constitutional: Chills Eyes: No Symptoms Ears, Nose, & Throat: No Symptoms Respiratory: Cough, Wheezing, No Cyanosis, No Dyspnea Cardiac: Chest Pain, No Palpitations, No Syncope, No Orthopnea Abdominal/Gastrointestinal: Nausea, Vomiting, Diarrhea (chronic), No Abdominal Pain, No Hematemesis, No Melena Genitourinary Symptoms: No Symptoms Musculoskeletal: Back Pain, No Fall, No Injury Skin: No Symptoms Neurological: No Symptoms Psychological: No Symptoms Endocrine: No Symptoms Hematologic/Lymphatic: No Symptoms Immunological/Allergic: No Symptoms - Past Medical History Pertinent Past Medical History: Yes Neurological History: No Pertinent History ENT History: Other Cardiac History: High Cholesterol, Hypertension Respiratory History: COPD, Pneumonia Endocrine Medical History: Diabetes Type II, Hypothyroidism Musculoskeletal History: No Pertinent History GI Medical History: GERD, Gallbladder Disease, Ulcer, Other History: No Pertinent History Psycho-Social History: Anxiety, Bipolar, Depression Female Reproductive Disorders: No Pertinent History Other Medical History: stage IV skin cancer - Past Surgical History Past Surgical History: Yes Neuro Surgical History: No Pertinent History Cardiac: No Pertinent History Respiratory: No Pertinent History Gastrointestinal: Appendectomy, Cholecystectomy Genitourinary: No Pertinent History Musculoskeletal: No Pertinent History Female Surgical History: Hysterectomy Other Surgical History: tubes in ears, pre-cancerous polyps removed from colon - Social History Smoking Status: Former smoker How long have you smoked: 42 years Exposure to second hand smoke: No Alcohol Use: None Drug Use: none Patient Lives Alone: No Significant Family History: heart disease, diabetes, hypertension - Female History Hx Now: No - Nursing Vital Signs Nursing Vital Signs: Initial Vital Signs Temperature 98.3 F 09/18/18 15:43 Pulse Rate 75 09/18/18 15:43 Respiratory Rate 20 09/18/18 15:43 Blood Pressure 160/110 09/18/18 15:43 O2 Sat by Pulse Oximetry 94 L 09/18/18 15:43 Pain Scale Pain Intensity 6 - Physical Exam General Appearance: moderate distress, alert, anxiety, obese Eye Exam: PERRL/EOMI, eyes nml inspection Ears, Nose, Throat Exam: normal ENT inspection, TMs normal, pharynx normal, moist mucous membranes Neck Exam: normal inspection, non-tender, supple, full range of motion, No carotid bruit, No JVD Respiratory Exam: normal breath sounds, lungs clear, respiratory distress (mild tachypnea), airway intact, No chest tenderness, No crackles/rales, No rhonchi, No wheezing, No pleural rub Cardiovascular Exam: regular rate/rhythm, normal heart sounds, normal peripheral pulses, capillary refill 2-3 sec, edema (trace), No murmur, No friction rub Gastrointestinal/Abdomen Exam: soft, normal bowel sounds, tenderness (epig and periumbilical only), distention (softly), No guarding, No pulsatile mass, No rebound, No organomegaly Pelvic Exam: deferred Rectal Exam: deferred Back Exam: normal inspection, normal range of motion, No CVA tenderness, No rash Extremity Exam: normal inspection, normal range of motion, pedal edema, No werner 's sign Neurologic Exam: alert, oriented x 3, cooperative, 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, normal mood/affect Skin Exam: normal color, warm, dry, No rash, No petechiae, No cyanosis SpO2 Interpretation: normal SpO2: 96 Oxygen Delivery: Room Air - Course Nursing assessment & vital signs reviewed: Yes EKG Interpreted by Me: RATE (70), Sinus Rhythm, NORMAL AXIS, NORMAL INTERVALS, NORMAL QRS, NORMAL ST-T, Other (compared to ekg from 05/05/17) Rhythm Strip: Rate (70), Normal Sinus Rhythm - Radiology Exams Chest X-ray Interpretation: Reviewed by me, Teleradiologist Report, No Pneumonia, No Pneumothorax, Nml Heart Size, No Infiltrates (COPD and hilar stranding vs atelectasis) Ordered Tests: Active Orders 24 hr Category Date Time Status EKG-ER Only STAT Care 09/18/18 15:36 Active IV Insertion STAT Care 09/18/18 15:36 Active NPO (ED) STAT Care 09/18/18 15:36 Active Re-Check Vital Signs STAT Care 09/18/18 15:36 Active CHEST 1 VIEW (PORTABLE) Stat Exams 09/18/18 15:37 Completed AMYLASE Stat Lab 09/18/18 15:50 Completed CBC W DIFF Stat Lab 09/18/18 15:50 Completed CMP Stat Lab 09/18/18 15:50 Completed LIPASE Stat Lab 09/18/18 15:50 Completed Lactic Acid Stat Lab 09/18/18 15:50 Completed Manual Differential NC Stat Lab 09/18/18 15:50 Completed NT PRO BNP Stat Lab 09/18/18 15:50 Completed Occult Blood,Stool Other Stat Lab 09/18/18 15:36 Uncollected PROTIME WITH INR Stat Lab 09/18/18 15:50 Completed TROPONIN Q3H Lab 09/18/18 15:50 Completed TROPONIN Q3H Lab 09/18/18 18:45 Ordered TROPONIN Q3H Lab 09/18/18 21:45 Ordered TROPONIN Q3H Lab 09/19/18 00:45 Ordered TROPONIN Q3H Lab 09/19/18 03:45 Ordered Medication Summary Generic Name Dose Route Start Last Admin Trade Name Freq PRN Reason Stop Dose Admin Sodium Chloride 1,000 mls @ 50 mls/hr 09/18/18 15:45 09/18/18 16:01 Sodium Chloride 0.9% 1000 Ml IV 10/18/18 15:44 50 mls/hr .Q20H YUMIKO Administration Lidocaine HCl 10 ml 09/18/18 16:00 09/18/18 16:03 Xylocaine Hcl Viscous * MM 10/18/18 15:59 10 ml UD PRN Administration PAIN Discontinued Medications Generic Name Dose Route Start Last Admin Trade Name Freq PRN Reason Stop Dose Admin Aspirin 324 mg 09/18/18 15:39 09/18/18 16:12 Baby Aspirin 81 Mg Chew PO 09/18/18 15:40 Not Given STAT ONE Famotidine 20 mg 09/18/18 15:36 09/18/18 16:02 Pepcid 20 Mg Vial IV 09/18/18 15:37 20 mg STAT ONE Administration Famotidine Confirm 09/18/18 15:58 Pepcid 20 Mg Vial Administered 09/18/18 15:59 Dose 20 mg IV .STK-MED ONE Nitroglycerin 1 gm 09/18/18 15:39 09/18/18 16:02 Nitro-Bid 2% Ud Packets TOP 09/18/18 15:40 1 gm STAT ONE Administration Nitroglycerin Confirm 09/18/18 15:58 Nitro-Bid 2% Ud Packets Administered 09/18/18 15:59 Dose 1 gm .ROUTE .STK-MED ONE Ondansetron HCl 4 mg 09/18/18 15:36 09/18/18 16:02 Zofran 4 Mg/2 Ml Vial IV 09/18/18 15:37 4 mg STAT ONE Administration Ondansetron HCl Confirm 09/18/18 15:57 Zofran 4 Mg/2 Ml Vial Administered 09/18/18 15:58 Dose 4 mg .ROUTE .STK-MED ONE Sucralfate 1 g 09/18/18 15:36 09/18/18 16:02 Carafate 1 Gm PO 09/18/18 15:37 1 g STAT ONE Administration Sucralfate Confirm 09/18/18 15:58 Carafate 1 Gm Administered 09/18/18 15:59 Dose 1 g PO .STK-MED ONE Lab/Rad Data: Laboratory Result Diagrams 09/18/18 15:50 09/18/18 15:50 Laboratory Results 09/18/18 09/18/18 09/18/18 Range/Units 15:57 15:50 15:50 WBC (4.0-10.5) K/mm3 RBC (4.1-5.4) M/mm3 Hgb (12.0-16.0) gm/dl Hct (35-47) % MCV (78-100) fl MCH (26-32) pg MCHC (32-36) g/dl RDW (11.5-14.0) % Plt Count (150-450) K/mm3 MPV (6-9.5) fl Segmented Neutrophils (36.0-66.0) % Lymphocytes (Manual) (24-44) % Monocytes (Manual) (0.0-12.0) % Eosinophils (Manual) (0.00-3.0) % Platelet Estimate (NORMAL) RBC Morphology PT 12.6 H (9.95-12.35) SECONDS INR 1.08 (0.8-3.0) Sodium (137-145) mmol/L Potassium (3.5-5.1) mmol/L Chloride (98-107) mmol/L Carbon Dioxide (22-30) mmol/L Anion Gap (5-15) MEQ/L BUN (7-17) mg/dL Creatinine (0.52-1.04) mg/dL Estimated GFR ML/MIN Glucose (74-106) mg/dL Lactic Acid (0.4-2.0) Calcium (8.4-10.2) mg/dL Total Bilirubin (0.2-1.3) mg/dL AST (14-36) U/L ALT (0-35) U/L Alkaline Phosphatase (38-126) U/L Troponin I < 0.012 (0.000-0.034) ng/mL NT-Pro-B Natriuret Pep (0-900) pg/mL Serum Total Protein (6.3-8.2) g/dL Albumin (3.5-5.0) g/dL Amylase (30-110) U/L Lipase (23-300) U/L Influenza Type A Ag NEGATIVE (NEGATIVE) Influenza Type B Ag NEGATIVE (NEGATIVE) RSV (PCR) NEGATIVE (Negative) 09/18/18 09/18/18 09/18/18 Range/Units 15:50 15:50 15:50 WBC 8.7 (4.0-10.5) K/mm3 RBC 5.00 (4.1-5.4) M/mm3 Hgb 13.9 (12.0-16.0) gm/dl Hct 43.9 (35-47) % MCV 87.8 (78-100) fl MCH 27.8 (26-32) pg MCHC 31.7 L (32-36) g/dl RDW 14.4 H (11.5-14.0) % Plt Count 246 (150-450) K/mm3 MPV 9.8 H (6-9.5) fl Segmented Neutrophils 46 (36.0-66.0) % Lymphocytes (Manual) 41 (24-44) % Monocytes (Manual) 9 (0.0-12.0) % Eosinophils (Manual) 4 H (0.00-3.0) % Platelet Estimate NORMAL (NORMAL) RBC Morphology NORMAL PT (9.95-12.35) SECONDS INR (0.8-3.0) Sodium 140 (137-145) mmol/L Potassium 4.5 (3.5-5.1) mmol/L Chloride 102 (98-107) mmol/L Carbon Dioxide 26 (22-30) mmol/L Anion Gap 16.2 H (5-15) MEQ/L BUN 18 H (7-17) mg/dL Creatinine 0.73 (0.52-1.04) mg/dL Estimated GFR > 60.0 ML/MIN Glucose 99 (74-106) mg/dL Lactic Acid 1.8 (0.4-2.0) Calcium 10.0 (8.4-10.2) mg/dL Total Bilirubin 0.50 (0.2-1.3) mg/dL AST 23 (14-36) U/L ALT 21 (0-35) U/L Alkaline Phosphatase 97 (38-126) U/L Troponin I (0.000-0.034) ng/mL NT-Pro-B Natriuret Pep 136 (0-900) pg/mL Serum Total Protein 7.8 (6.3-8.2) g/dL Albumin 4.5 (3.5-5.0) g/dL Amylase 54 (30-110) U/L Lipase 59 (23-300) U/L Influenza Type A Ag (NEGATIVE) Influenza Type B Ag (NEGATIVE) RSV (PCR) (Negative) reviewed - Progress Progress: improved (after meds), re-examined (after meds) Air Movement: good Progress Note: 09/18/18 15:50 will get ekg; cxr; labs; monitor and recheck after IV fluids and meds; EKG ok; VS and sats ok 09/18/18 16:22 resting comfortably; pain and heaviness improving; kept oral meds down- no N&V now; VS improved; sats ok; CBC and lactic ok; CXR ok; will monitor and recheck 09/18/18 16:32 BS; Renal fx a nd lytes all ok; INR ok; colleen and lip ok; pBNP ok; anion gap increase at 16.2; Trop pending; at bedside; no change 09/18/18 16:35 much improved symptoms; Trop = 0.012; will consult Dr Blanco for disposition. She has lost 40#s in last few months 09/18/18 16:42 RSV and Influ neg for A&B 09/18/18 16:56 patietn feeling ok; VS ok; reviewed results; Dr Blanco consulted and will see the patient in the office on Sunday at 3 pm. instructions given Discussed with : Yusef (consulted) Will see patient in: office (3pm Sunday09-23-18) Counseled pt/family regarding: lab results, diagnosis, need for follow-up, rad results - Departure Time of Disposition: 16:58 Departure Disposition: Home Clinical Impression: Chest pain due to GERD, COPD (chronic obstructive pulmonary disease), Reflux esophagitis Condition: Good Critical Care Time: No Referrals: VENANCIO BLANCO [Primary Care Provider] - Instructions: Chronic Obstructive Pulmonary Disease, Atypical Chest Pain, Acid Reflux (Gastroesophageal Reflux Disease), Adult (DC) Additional Instructions: bland diet; follow up Dr Blanco's office Sunday 3 pm 09-23-18 continue home meds Follow-up with family doctor as directed. Call for appointment. Return if any problems. If you smoke please stop. Call or follow up with your family doctor for assistance if you need it to stop. Please wear your seatbelt when driving. Have a nice day. Thank you for allowing us to participate in your care today. :o) Dr Tariq Sampson Prescriptions: Ondansetron [Zofran Odt] 4 mg PO Q8H PRN PRN #10 tab.rapdis PRN Reason: Vomiting Sucralfate 1000 mg/10 ml [Carafate SUSPENSION 1000 MG/10 ML] 1 gm PO ACHS # 16 oz
[2018-09-18] MEDS ORDERED: Sodium Chloride 0.9% 1000 ML 1,000 ML IV SCH (15:45)
[2018-09-18] MEDS ORDERED: Zofran 4 MG/2 ML VIAL ONE (15:57)
[2018-09-18] MEDS ORDERED: Sodium Chloride 0.9% 1000 ML 1,000 ML ONE (15:58)
[2018-09-18] MEDS ORDERED: NITRO-BID 2% UD PACKETS ONE (15:58)
[2018-09-18] MEDS ORDERED: XYLOCAINE HCl Viscous MM PRN (16:00)
[2018-09-18 16:04] LABS: Hematocrit 43.9 % (35-47); Hemoglobin 13.9 gm/dl (12.0-16.0); Mean Cell Volume 87.8 fl (78-100); Mean Corpuscular Hemoglobin 27.8 pg (26-32); Mean Corpuscular Hgb Concent. 31.7 g/dl (32-36); Mean Platelet Volume 9.8 fl (6-9.5); Platelet Count 246 K/mm3 (150-450); Red Cell Distribution Width 14.4 % (11.5-14.0); White Blood Count 8.7 K/mm3 (4.0-10.5)
[2018-09-18] MEDS ORDERED: XYLOCAINE HCl Viscous ONE (16:05)
[2018-09-18 16:21] LABS: INR 1.08 (0.8-3.0)
[2018-09-18 16:27] LABS: ALBUMIN 4.5 g/dL (3.5-5.0); ALKALINE PHOSPHATASE 97 U/L (38-126); AMYLASE 54 U/L (30-110); ANION GAP 16.2 MEQ/L (5-15); BLOOD UREA NITROGEN 18 mg/dL (7-17); CHLORIDE 102 mmol/L (98-107); Carbon Dioxide 26 mmol/L (22-30); Creatinine 1 0.73 mg/dL (0.52-1.04); Glucose 99 mg/dL (74-106); LIPASE 59 U/L (23-300); NT PRO BNP 136 pg/mL (0-900); Potassium 4.5 mmol/L (3.5-5.1); SGOT/AST 23 U/L (14-36); SGPT/ALT 21 U/L (0-35); SODIUM 140 mmol/L (137-145); Total Protein 7.8 g/dL (6.3-8.2)
--- NOTE | 2018-09-18 16:27 | XRAY ---
Indication: Cough and chest pain. Comparison: May 06, 2017. Portable chest remains clear again with incidental left midlung calcified granuloma. Heart and mediastinal structures within normal limits for AP portable technique. Bony thorax intact again with mild degenerative changes and old left 7 rib fracture. Impression: Nonacute chest with chronic features.
[2018-09-18 16:39] LABS: INFLUENZA A NEGATIVE (NEGATIVE); INFLUENZA B NEGATIVE (NEGATIVE); RESPIRATORY SYNCTIAL VIRUS NEGATIVE (Negative)
[2018-09-18 16:41] LABS: Eosinophil 4 % (0.00-3.0); Lymphocytes 41 % (24-44); Monocyte 9 % (0.0-12.0); Neutrophils 46 % (36.0-66.0); Total Cells Counted 100
[2018-09-18 16:42] LABS: Platelet Estimate NORMAL (NORMAL)
[2018-09-18 17:16] VITALS: BP 122/69; PULSE 70; O2SAT 98
== END 2018-09-18 17:16 | disposition home or self-care (01) ==
LOC: ED 15:31
DX: K21.0 Gastro-esophageal reflux disease with esophagitis (principal); J44.9 Chronic obstructive pulmonary disease, unspecified; K52.9 Noninfective gastroenteritis and colitis, unspecified; R11.2 Nausea with vomiting, unspecified; Z79.899 Other long term (current) drug therapy; E11.9 Type 2 diabetes mellitus without complications; Z79.84 Long term (current) use of oral hypoglycemic drugs; I10 Essential (primary) hypertension
CPT/HCPCS: 36000; 36415; 71045; 80053; 82150; 83605; 83690; 83880; 84484; 85025; 85610; 87631; 93005; 96360; 96374; 96375; 99284; J2405; A9270-GY

== ENCOUNTER 2019-05-01 20:37 | Emergency (ER) | payer BC, MEDICARE ==
[2019-05-01] MEDS ORDERED: Sodium Chloride 0.9% 1000 ML 1,000 ML ONE (22:31)
[2019-05-01] MEDS ORDERED: Sodium Chloride 0.9% 1000 ML 1,000 ML IV STA (22:32)
[2019-05-01] MEDS ORDERED: MORPHINE SULFATE 2 MG INJ IV ONE (22:32)
--- NOTE | 2019-05-01 22:37 | ERPHSYRPT ---
- History of Present Illness Source: patient Exam Limitations: no limitations Timing/Duration: yesterday Severity: moderate Modifying Factors: Improves With: nothing Hx Tetanus, Diphtheria Vaccination/Date Given: Yes (2013) Hx Influenza Vaccination/Date Given: No Hx Pneumococcal Vaccination/Date Given: No <JOSE BOX - Last Filed: 05/01/19 22:34> <ELIANA MARCANO - Last Filed: 05/02/19 04:45> - History of Present Illness Time Seen by Provider: 05/01/19 22:34 Physician History: Yogi is a 58-year-old white female with history of diabetes type 1, hypothyroidism, COPD, pneumonia, hypercholesterolemia, high blood pressure, GERD , gallbladder disease, anxiety, bipolar depression Patient arrives with complaint of suprapubic in back pain symptoms since yesterday patient states she's been dry heaving she has not had any fevers she has no chest pain or shortness of breath. patient states she is unable to urinate Past medical history includes diabetes type 2, hypothyroidism, COPD, pneumonia, hypercholesterolemia, high blood pressure, GERD, gallbladder disease, anxiety, bipolar depression. Past surgical history includes appendectomy, cholecystectomy, hysterectomy, myringotomy tubes, (JOSE BOX) Allergies/Adverse Reactions: Influenza Virus Vaccines [Influenza Virus Vaccine] Allergy (Intermediate, Verified 09/18/18 15:36) Swelling of Hands Penicillins Allergy (Verified 09/18/18 15:36) venom-honey bee [bee venom (honey bee)] Allergy (Verified 09/18/18 15:36) oxycodone HCl [From OxyContin] Adverse Reaction (Mild, Verified 09/18/18 15:36) Nausea Home Medications: Lisinopril 20 mg PO HS 07/25/14 [History] Albuterol Sulfate [Proair Hfa] 2 puffs IN Q4HPRN PRN 01/18/16 [History] Magnesium Oxide 400 mg [Mag-Ox 400] 400 mg PO HS 01/18/16 [History] Sumatriptan Succinate [Imitrex] 100 mg PO DAILY PRN PRN 01/18/16 [History] ALPRAZolam [Alprazolam] 2 mg PO TIDPRN PRN 01/24/16 [History] Levothyroxine Sodium 150 Mcg [Synthroid 150 Mcg] 150 mcg PO HS 01/24/16 [ History] Fenofibrate,Micronized 145 mg* [Tricor 145 MG] 145 mg PO HS 04/27/17 [History ] Divalproex Sodium [Depakote] 500 mg BID 09/18/18 [History] Metformin HCl 500 mg [Glucophage 500 MG] 500 mg BID 09/18/18 [History] PANTOPRAZOLE 40 mg Tablet [Protonix 40MG Tablet] 40 mg .ROUTE DAILY [History] Topiramate 25 mg DAILY 09/18/18 [History] Vortioxetine Hydrobromide [Trintellix] 20 mg DAILY 09/18/18 [History] - Review of Systems Constitutional: No Fever, No Chills Eyes: No Symptoms Ears, Nose, & Throat: No Symptoms Respiratory: No Cough, No Dyspnea Cardiac: No Chest Pain, No Edema, No Syncope Abdominal/Gastrointestinal: Abdominal Pain, Nausea, No Diarrhea, No Constipation , No Hematemesis, No Hematochezia, No Melena, No Dysphagia, No Appetite Changes Genitourinary Symptoms: Urinary Retention Musculoskeletal: Back Pain (low back pain) Skin: No Rash Neurological: No Dizziness, No Focal Weakness, No Sensory Changes Psychological: No Symptoms Endocrine: No Symptoms All Other Systems: Reviewed and Negative <JOSE BOX - Last Filed: 05/01/19 22:34> - Past Medical History Pertinent Past Medical History: Yes Neurological History: No Pertinent History ENT History: Other Cardiac History: High Cholesterol, Hypertension Respiratory History: COPD, Pneumonia Endocrine Medical History: Diabetes Type II, Hypothyroidism Musculoskeletal History: No Pertinent History GI Medical History: GERD, Gallbladder Disease, Ulcer, Other History: No Pertinent History Psycho-Social History: Anxiety, Bipolar, Depression Female Reproductive Disorders: No Pertinent History Other Medical History: stage IV skin cancer - Past Surgical History Past Surgical History: Yes Neuro Surgical History: No Pertinent History Cardiac: No Pertinent History Respiratory: No Pertinent History Gastrointestinal: Appendectomy, Cholecystectomy Genitourinary: No Pertinent History Musculoskeletal: No Pertinent History Female Surgical History: Hysterectomy Other Surgical History: tubes in ears, pre-cancerous polyps removed from colon - Social History Smoking Status: Former smoker How long have you smoked: 42 years Exposure to second hand smoke: No Alcohol Use: None Drug Use: none Patient Lives Alone: No Significant Family History: heart disease, diabetes, hypertension <CHARUJOSE MG - Last Filed: 05/01/19 22:34> - Physical Exam General Appearance: moderate distress, alert Eye Exam: PERRL/EOMI, eyes nml inspection Ears, Nose, Throat Exam: normal ENT inspection, TMs normal, pharynx normal, moist mucous membranes Neck Exam: normal inspection, non-tender, supple, full range of motion Respiratory Exam: normal breath sounds, lungs clear, No respiratory distress Cardiovascular Exam: regular rate/rhythm, normal heart sounds, normal peripheral pulses, capillary refill <2 sec Gastrointestinal/Abdomen Exam: soft, normal bowel sounds, tenderness ( suprapubic tenderness) Back Exam: CVA tenderness Extremity Exam: normal inspection, normal range of motion, pelvis stable Neurologic Exam: alert, oriented x 3, cooperative, 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, normal mood/affect, nml cerebellar function, nml station & gait, sensation nml, No motor deficits Skin Exam: normal color, warm, dry, No rash SpO2 Interpretation: normal (98%) SpO2: 98 <CHARUJOSE MG - Last Filed: 05/01/19 22:34> - Nursing Vital Signs Nursing Vital Signs: Initial Vital Signs Temperature 99.8 F 05/01/19 21:27 Pulse Rate 108 H 05/01/19 21:27 Respiratory Rate 22 05/01/19 21:27 Blood Pressure 95/50 05/01/19 21:27 O2 Sat by Pulse Oximetry 98 05/01/19 21:27 Pain Scale Pain Intensity 7 - Course Nursing assessment & vital signs reviewed: Yes EKG Interpreted by Me: RATE (94), Right [place] Deviation, NORMAL INTERVALS, NORMAL QRS, Other (no comparison ekg. no acute ishemia) <ELIANA MARCANO - Last Filed: 05/02/19 04:45> Ordered Tests: Active Orders 24 hr Category Date Time Status IV Insertion STAT Care 05/01/19 22:32 Active ABDOMEN AND PELVIS W/0 CONTRAS [CT] Stat Exams 05/02/19 00:41 Taken AMYLASE Stat Lab 05/01/19 22:32 Completed CBC W DIFF Stat Lab 05/01/19 22:32 Completed CMP Stat Lab 05/01/19 22:32 Completed CULTURE,URINE Stat Lab 05/01/19 23:30 Received LIPASE Stat Lab 05/01/19 22:32 Completed Lactic Acid Stat Lab 05/02/19 00:45 Completed TROPONIN Q3H Lab 05/02/19 03:45 Completed TROPONIN Q3H Lab 05/02/19 06:45 Ordered TROPONIN Q3H Lab 05/02/19 09:45 Ordered TROPONIN Q3H Lab 05/02/19 12:45 Ordered TROPONIN Q3H Lab 05/02/19 15:45 Ordered TROPONIN Q3H Lab 05/02/19 18:45 Ordered TROPONIN Q3H Lab 05/02/19 21:45 Ordered UA W/RFX UR CULTURE Stat Lab 05/01/19 23:30 Completed Medication Summary Discontinued Medications Generic Name Dose Route Start Last Admin Trade Name Freq PRN Reason Stop Dose Admin Sodium Chloride Confirm 05/01/19 22:31 Sodium Chloride 0.9% 1000 Ml Administered 05/01/19 22:32 Dose 1,000 mls @ ud .ROUTE .STK-MED ONE Sodium Chloride 1,000 mls @ 999 mls/hr 05/01/19 22:32 05/01/19 23:46 Sodium Chloride 0.9% 1000 Ml IV 05/01/19 23:32 999 mls/hr .Q1H1M STA Administration Sodium Chloride 1,000 mls @ 999 mls/hr 05/02/19 00:40 05/02/19 01:49 Sodium Chloride 0.9% 1000 Ml IV 05/02/19 01:40 999 mls/hr .Q1H1M STA Administration Sodium Chloride Confirm 05/02/19 01:42 Sodium Chloride 0.9% 1000 Ml Administered 05/02/19 01:43 Dose 1,000 mls @ ud .ROUTE .STK-MED ONE Morphine Sulfate 2 mg 05/01/19 22:32 05/02/19 01:49 Morphine Sulfate 2 Mg Inj IV 05/01/19 22:33 2 mg STAT ONE Administration Morphine Sulfate Confirm 05/02/19 01:42 Morphine Sulfate 2 Mg Inj Administered 05/02/19 01:43 Dose 2 mg .ROUTE .STK-MED ONE Ondansetron HCl 4 mg 05/02/19 03:13 05/02/19 03:57 Zofran 4 Mg/2 Ml Vial IV 05/02/19 03:14 4 mg STAT ONE Administration Ondansetron HCl Confirm 05/02/19 03:51 Zofran 4 Mg/2 Ml Vial Administered 05/02/19 03:52 Dose 4 mg .ROUTE .STK-MED ONE Lab/Rad Data: Laboratory Result Diagrams 05/01/19 22:32 05/01/19 22:32 Laboratory Results 05/02/19 05/02/19 05/01/19 Range/Units 03:45 00:45 23:30 WBC (4.0-10.5) K/mm3 RBC (4.1-5.4) M/mm3 Hgb (12.0-16.0) gm/dl Hct (35-47) % MCV (78-100) fl MCH (26-32) pg MCHC (32-36) g/dl RDW (11.5-14.0) % Plt Count (150-450) K/mm3 MPV (6-9.5) fl Gran % (36.0-66.0) % Eos # (Auto) (0-0.5) Absolute Lymphs (auto) (1.0-4.6) Absolute Monos (auto) (0.0-1.3) Lymphocytes % (24.0-44.0) % Monocytes % (0.0-12.0) % Eosinophils % (0.00-5.0) % Basophils % (0.0-0.4) % Absolute Granulocytes (1.4-6.9) Basophils # (0-0.4) Sodium (137-145) mmol/L Potassium (3.5-5.1) mmol/L Chloride (98-107) mmol/L Carbon Dioxide (22-30) mmol/L Anion Gap (5-15) MEQ/L BUN (7-17) mg/dL Creatinine (0.52-1.04) mg/dL Estimated GFR ML/MIN Glucose (74-106) mg/dL Lactic Acid 1.3 (0.4-2.0) Calcium (8.4-10.2) mg/dL Total Bilirubin (0.2-1.3) mg/dL AST (14-36) U/L ALT (0-35) U/L Alkaline Phosphatase (38-126) U/L Troponin I < 0.012 (0.000-0.034) ng/mL Serum Total Protein (6.3-8.2) g/dL Albumin (3.5-5.0) g/dL Amylase (30-110) U/L Lipase (23-300) U/L Urine Color YELLOW (YELLOW) Urine Appearance CLEAR (CLEAR) Urine pH 5.0 (5-6) Ur Specific [place] 1.008 (1.005-1.025) Urine Protein NEGATIVE (Negative) Urine Ketones NEGATIVE (NEGATIVE) Urine Blood NEGATIVE (0-5) Fredrick/ul Urine Nitrite NEGATIVE (NEGATIVE) Urine Bilirubin NEGATIVE (NEGATIVE) Urine Urobilinogen NEGATIVE (0-1) mg/dL Ur Leukocyte Esterase NEGATIVE (NEGATIVE) Urine WBC (Auto) NONE (0-5) /HPF Urine RBC (Auto) NONE (0-2) /HPF U Epithel Cells (Auto) NONE (FEW) /HPF Urine Bacteria (Auto) NONE (NEGATIVE) /HPF Urine Mucus (Auto) SLIGHT (NEGATIVE) /HPF Urine Culture Reflexed ORDERED SEPARATELY (NO) Urine Glucose NEGATIVE (NEGATIVE) mg/dL 05/01/19 05/01/19 Range/Units 22:32 22:32 WBC 9.5 (4.0-10.5) K/mm3 RBC 5.09 (4.1-5.4) M/mm3 Hgb 14.8 (12.0-16.0) gm/dl Hct 46.2 (35-47) % MCV 90.8 (78-100) fl MCH 29.1 (26-32) pg MCHC 32.0 (32-36) g/dl RDW 16.0 H (11.5-14.0) % Plt Count 161 (150-450) K/mm3 MPV 9.9 H (6-9.5) fl Gran % 61.1 (36.0-66.0) % Eos # (Auto) 0.15 (0-0.5) Absolute Lymphs (auto) 2.68 (1.0-4.6) Absolute Monos (auto) 0.87 (0.0-1.3) Lymphocytes % 28.1 (24.0-44.0) % Monocytes % 9.1 (0.0-12.0) % Eosinophils % 1.6 (0.00-5.0) % Basophils % 0.1 (0.0-0.4) % Absolute Granulocytes 5.82 (1.4-6.9) Basophils # 0.01 (0-0.4) Sodium 135 L (137-145) mmol/L Potassium 4.4 (3.5-5.1) mmol/L Chloride 95 L (98-107) mmol/L Carbon Dioxide 26 (22-30) mmol/L Anion Gap 18.5 H (5-15) MEQ/L BUN 20 H (7-17) mg/dL Creatinine 1.56 H (0.52-1.04) mg/dL Estimated GFR 36.2 ML/MIN Glucose 103 (74-106) mg/dL Lactic Acid (0.4-2.0) Calcium 9.7 (8.4-10.2) mg/dL Total Bilirubin 0.60 (0.2-1.3) mg/dL AST 24 (14-36) U/L ALT 20 (0-35) U/L Alkaline Phosphatase 76 (38-126) U/L Troponin I (0.000-0.034) ng/mL Serum Total Protein 8.1 (6.3-8.2) g/dL Albumin 4.5 (3.5-5.0) g/dL Amylase 76 (30-110) U/L Lipase 71 (23-300) U/L Urine Color (YELLOW) Urine Appearance (CLEAR) Urine pH (5-6) Ur Specific [place] (1.005-1.025) Urine Protein (Negative) Urine Ketones (NEGATIVE) Urine Blood (0-5) Fredrick/ul Urine Nitrite (NEGATIVE) Urine Bilirubin (NEGATIVE) Urine Urobilinogen (0-1) mg/dL Ur Leukocyte Esterase (NEGATIVE) Urine WBC (Auto) (0-5) /HPF Urine RBC (Auto) (0-2) /HPF U Epithel Cells (Auto) (FEW) /HPF Urine Bacteria (Auto) (NEGATIVE) /HPF Urine Mucus (Auto) (NEGATIVE) /HPF Urine Culture Reflexed (NO) Urine Glucose (NEGATIVE) mg/dL <JOSE BOX - Last Filed: 05/01/19 22:34> - Progress Progress: improved, re-examined Counseled pt/family regarding: lab results, diagnosis, need for follow-up <ELIANA MARCANO - Last Filed: 05/02/19 04:45> - Progress Progress Note: 05/02/19 04:29 pt states she no longer has any abd pain. pt states she is feeling well. pt is mehrdad pos. after 2 liters of ns, sbp improved. pt states her normal sbp is 110- 120.She states she wants to go home. she does not want marina cath to stay in place. her difficulty urinating sx have been present for 2 weeks. pt does not have cp, soa or abd pain. her back pain has resolved. 05/02/19 04:31 (ELIANA MARCANO) <JOSE BOX - Last Filed: 05/01/19 22:34> - Departure Departure Disposition: Home Critical Care Time: No <ELIANA MARCANO - Last Filed: 05/02/19 04:45> - Departure Clinical Impression: Difficulty urinating, Dehydration Condition: Stable Referrals: ARIEL [facility] FOWL [Primary Care Provider] - Additional Instructions: drink plenty of fluids. follow up with primary doctor today for further management
[2019-05-01 22:50] LABS: BASOPHIL % 0.1 % (0.0-0.4); Basophil (Absolute #) 0.01 (0-0.4); Eosinophil % 1.6 % (0.00-5.0); Eosinophil (Absolute #) 0.15 (0-0.5); Granulocyte Absolute (ANC) 5.82 (1.4-6.9); Granulocytes % 61.1 % (36.0-66.0); Hematocrit 46.2 % (35-47); Hemoglobin 14.8 gm/dl (12.0-16.0); Lymphocyte (Absolute #) 2.68 (1.0-4.6); Lymphocytes % 28.1 % (24.0-44.0); Mean Cell Volume 90.8 fl (78-100); Mean Corpuscular Hemoglobin 29.1 pg (26-32); Mean Platelet Volume 9.9 fl (6-9.5); Monocyte (Absolute #) 0.87 (0.0-1.3); Monocytes % 9.1 % (0.0-12.0); Platelet Count 161 K/mm3 (150-450); Red Blood Count 5.09 M/mm3 (4.1-5.4); White Blood Count 9.5 K/mm3 (4.0-10.5)
[2019-05-01 23:03] LABS: ALBUMIN 4.5 g/dL (3.5-5.0); ANION GAP 18.5 MEQ/L (5-15); BILIRUBIN,TOTAL 0.6 mg/dL (0.2-1.3); Calcium 9.7 mg/dL (8.4-10.2); Creatinine 1 1.56 mg/dL (0.52-1.04); Potassium 4.4 mmol/L (3.5-5.1); Total Protein 8.1 g/dL (6.3-8.2)
[2019-05-02 00:34] LABS: Appearance CLEAR (CLEAR); Bilirubin NEGATIVE (NEGATIVE); Blood NEGATIVE Ery/ul (0-5); Glucose NEGATIVE (NEGATIVE); Ketones NEGATIVE (NEGATIVE); Leukocyte Esterase NEGATIVE (NEGATIVE); Mucus SLIGHT /HPF (NEGATIVE); Nitrite NEGATIVE (NEGATIVE); Protein,Urine Dip NEGATIVE (Negative); Specific Gravity 1.008 (1.005-1.025); Urobilinogen NEGATIVE mg/dL (0-1)
[2019-05-02] MEDS ORDERED: Sodium Chloride 0.9% 1000 ML 1,000 ML IV STA (00:40)
[2019-05-02] MEDS ORDERED: MORPHINE SULFATE 2 MG INJ ONE (01:42)
[2019-05-02] MEDS ORDERED: Sodium Chloride 0.9% 1000 ML 1,000 ML ONE (01:42)
[2019-05-02] MEDS ORDERED: Zofran 4 MG/2 ML VIAL IV ONE (03:13)
[2019-05-02] MEDS ORDERED: Zofran 4 MG/2 ML VIAL ONE (03:51)
[2019-05-02 04:37] VITALS: BP 118/82; PULSE 85; O2SAT 97
--- NOTE | 2019-05-02 09:48 | XRAY ---
Indication: Suprapubic and flank pain. Multiple contiguous axial images obtained through the abdomen and pelvis without contrast as ordered. Comparison: December 27, 2018. Lung bases again demonstrates minimal fibrosis/scarring and left base bleb. No infiltrate or effusion. Heart is not enlarged. Noncontrasted stomach and bowel loops again appear nonobstructed. Stable appendectomy, cholecystectomy, and hysterectomy. Liver again demonstrates diffuse fatty attenuation with multiple cysts. Stable small left adrenal adenoma. [place] catheter empties the urinary bladder. No free fluid/air. Remaining liver, gallbladder, pancreas, spleen, adrenal glands, kidneys, and ureters appear unremarkable for noncontrast exam. Stable mild aortoiliac calcifications without AAA. Osseous structures intact again with mild degenerative changes throughout the spine. Right femoral head demonstrates stable heterogeneous serpiginous bony lesion again infarct versus avascular necrosis. Impression: 1. [place] catheter in situ. 2. Stable fatty liver, hepatic cysts, and left adrenal adenoma. 3. Stable right femur head serpiginous lesion, infarct versus avascular necrosis. 4. No acute intra-abdominal/pelvic abnormalities on this noncontrast exam. Comment: Preliminary interpretation was made by [facility]. No critical discrepancy. CT DI 23.68
== END 2019-05-02 04:59 | disposition home or self-care (01) ==
LOC: ED 20:37
DX: R39.198 Other difficulties with micturition (principal); R33.9 Retention of urine, unspecified; E86.0 Dehydration; R10.9 Unspecified abdominal pain; M54.9 Dorsalgia, unspecified; M54.5 Low back pain; I10 Essential (primary) hypertension; E11.9 Type 2 diabetes mellitus without complications; E03.9 Hypothyroidism, unspecified; E78.00 Pure hypercholesterolemia, unspecified; J44.9 Chronic obstructive pulmonary disease, unspecified; Z79.899 Other long term (current) drug therapy
CPT/HCPCS: 36000; 36415; 74176; 80053; 81001; 82150; 83605; 83690; 84484; 85025; 87086; 96360; 96361; 96374; 96375; 99284; J2270; J2405

== ENCOUNTER 2019-05-21 19:07 | Emergency (ER) | payer BC, MEDICARE ==
[2019-05-21] MEDS ORDERED: Sodium Chloride 0.9% 1000 ML 1,000 ML ONE ×2 (19:11→20:15)
--- NOTE | 2019-05-21 19:24 | ERPHSYRPT ---
- History of Present Illness Time Seen by Provider: 05/21/19 19:18 Historian: patient, EMS Exam Limitations: no limitations Physician History: 58 y/o obese white female with h/o diabetes, hypothyroidism, copd, htn, gerdz, anxiety, bipolar issues, and depression presents to ED via EMS for sudden onset of bilat upper abd pain. 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 pt arrives and now c/o associated cp. no soa. no vomiting or diarrhea. Last visit 05/01/19 bp 95/50 and hr 108. pt had an extensive negative workup including cardiac evaluation and ct abd/pelvis. pt has lost 30 pounds in last month. it is intentional in order for her to receive a right hip replacement. pts bp medication has not changed . pt has appt with pcp in the morning Timing/Duration: today, sudden Activities at Onset: other (driving) Quality: fullness Pain Radiation: no radiation Severity of Pain-Max: mild Severity of Pain-Current: mild Modifying Factors: Improves With: nothing Associated Symptoms: chest pain, nausea, weakness Previous symptoms: same symptoms as today Allergies/Adverse Reactions: Influenza Virus Vaccines [Influenza Virus Vaccine] Allergy (Intermediate, Verified 09/18/18 15:36) Swelling of Hands Penicillins Allergy (Verified 09/18/18 15:36) venom-honey bee [bee venom (honey bee)] Allergy (Verified 09/18/18 15:36) oxycodone HCl [From OxyContin] Adverse Reaction (Mild, Verified 09/18/18 15:36) Nausea Home Medications: Lisinopril 20 mg PO DAILY 07/25/14 [History] Albuterol Sulfate [Proair Hfa] 2 puffs IN Q4HPRN PRN 01/18/16 [History] Magnesium Oxide 400 mg [Mag-Ox 400] 400 mg PO DAILY 01/18/16 [History] Sumatriptan Succinate [Imitrex] 100 mg PO DAILY PRN PRN 01/18/16 [History] ALPRAZolam [Alprazolam] 2 mg PO TIDPRN PRN 01/24/16 [History] Levothyroxine Sodium 150 Mcg [Synthroid 150 Mcg] 150 mcg PO DAILY 01/24/16 [History] Fenofibrate,Micronized 145 mg* [Tricor 145 MG] 145 mg PO DAILY 04/27/17 [ History] Divalproex Sodium [Depakote] 500 mg PO DAILY 09/18/18 [History] PANTOPRAZOLE 40 mg Tablet [Protonix 40MG Tablet] 40 mg PO DAILY 09/18/18 [ History] Topiramate 25 mg PO DAILY 09/18/18 [History] Vortioxetine Hydrobromide [Trintellix] 20 mg PO DAILY 09/18/18 [History] Citalopram Hydrobromide 20 mg* [ceLEXa 20 MG] 20 mg PO DAILY 05/21/19 [ History] Hx Tetanus, Diphtheria Vaccination/Date Given: Yes (2013) Hx Influenza Vaccination/Date Given: No Hx Pneumococcal Vaccination/Date Given: No - Review of Systems Constitutional: Weakness Eyes: No Symptoms Ears, Nose, & Throat: No Symptoms Respiratory: No Symptoms Cardiac: No Symptoms Abdominal/Gastrointestinal: Abdominal Pain (mild bilat upper), Nausea, No Vomiting, No Diarrhea Genitourinary Symptoms: No Symptoms Musculoskeletal: No Symptoms Skin: No Symptoms Neurological: No Symptoms Psychological: No Symptoms Endocrine: No Symptoms Hematologic/Lymphatic: No Symptoms Immunological/Allergic: No Symptoms All Other Systems: Reviewed and Negative - Past Medical History Pertinent Past Medical History: Yes Neurological History: No Pertinent History ENT History: Other Cardiac History: High Cholesterol, Hypertension Respiratory History: COPD, Pneumonia Endocrine Medical History: Diabetes Type II, Hypothyroidism Musculoskeletal History: No Pertinent History GI Medical History: GERD, Gallbladder Disease, Ulcer, Other History: No Pertinent History Psycho-Social History: Anxiety, Bipolar, Depression Female Reproductive Disorders: No Pertinent History Other Medical History: stage IV skin cancer - Past Surgical History Past Surgical History: Yes Neuro Surgical History: No Pertinent History Cardiac: No Pertinent History Respiratory: No Pertinent History Gastrointestinal: Appendectomy, Cholecystectomy Genitourinary: No Pertinent History Musculoskeletal: No Pertinent History Female Surgical History: Hysterectomy Other Surgical History: tubes in ears, pre-cancerous polyps removed from colon - Social History Smoking Status: Former smoker How long have you smoked: 42 years Exposure to second hand smoke: No Alcohol Use: None Drug Use: none Patient Lives Alone: No Significant Family History: heart disease, diabetes, hypertension - Nursing Vital Signs Nursing Vital Signs: Initial Vital Signs Temperature 98.7 F 05/21/19 19:13 Pulse Rate 105 H 05/21/19 19:13 Respiratory Rate 20 05/21/19 19:13 Blood Pressure 86/52 05/21/19 19:13 O2 Sat by Pulse Oximetry 98 05/21/19 19:13 Pain Scale Pain Intensity 4 - Physical Exam General Appearance: no apparent distress, alert, anxiety Eye Exam: PERRL/EOMI, eyes nml inspection Ears, Nose, Throat Exam: normal ENT inspection, moist mucous membranes Neck Exam: normal inspection, non-tender, supple, full range of motion Respiratory Exam: normal breath sounds, lungs clear, airway intact, No chest tenderness, No respiratory distress Cardiovascular Exam: regular rate/rhythm, normal heart sounds, normal peripheral pulses Gastrointestinal/Abdomen Exam: soft, normal bowel sounds, No tenderness, No guarding Pelvic Exam: deferred Rectal Exam: not done Back Exam: normal inspection, normal range of motion, No CVA tenderness, No vertebral tenderness Extremity Exam: normal inspection, normal range of motion, No pelvis stable Neurologic Exam: alert, oriented x 3, cooperative, shaper setter II-XII nml as tested SpO2: 98 - Course Nursing assessment & vital signs reviewed: Yes EKG Interpreted by Me: RATE (110), Sinus Rhythm, Sinus Tach, NORMAL INTERVALS, NORMAL QRS, Other (s1/q111 pattern new) Ordered Tests: Active Orders 24 hr Category Date Time Status AMYLASE Stat Lab 05/21/19 19:39 Completed CBC W DIFF Stat Lab 05/21/19 19:39 Completed CMP Stat Lab 05/21/19 19:39 Completed LIPASE Stat Lab 05/21/19 19:39 Completed Lactic Acid Stat Lab 05/21/19 19:34 Completed PROTIME WITH INR Stat Lab 05/21/19 19:39 Completed TROPONIN Q3H Lab 05/21/19 19:39 Completed TROPONIN Q3H Lab 05/21/19 19:39 Received TROPONIN Q3H Lab 05/22/19 01:30 Ordered TROPONIN Q3H Lab 05/22/19 04:30 Ordered TROPONIN Q3H Lab 05/22/19 07:30 Ordered UA W/RFX UR CULTURE Stat Lab 05/21/19 20:55 Completed Medication Summary Discontinued Medications Generic Name Dose Route Start Last Admin Trade Name Freq PRN Reason Stop Dose Admin Sodium Chloride 1,000 mls @ 999 mls/hr 05/21/19 19:27 05/21/19 19:43 Sodium Chloride 0.9% 1000 Ml IV 05/21/19 20:27 999 mls/hr .Q1H1M STA Administration Sodium Chloride 1,000 mls @ 999 mls/hr 05/21/19 19:51 05/21/19 20:17 Sodium Chloride 0.9% 1000 Ml IV 05/21/19 20:51 999 mls/hr .Q1H1M STA Administration Sodium Chloride Confirm 05/21/19 20:15 Sodium Chloride 0.9% 1000 Ml Administered 05/21/19 20:16 Dose 1,000 mls @ ud .ROUTE .STK-MED ONE Ondansetron HCl 4 mg 05/21/19 19:28 05/21/19 19:45 Zofran 4 Mg/2 Ml Vial IV 05/21/19 19:29 4 mg STAT ONE Administration Ondansetron HCl Confirm 05/21/19 19:44 Zofran 4 Mg/2 Ml Vial Administered 05/21/19 19:45 Dose 4 mg .ROUTE .STK-MED ONE Lab/Rad Data: Laboratory Result Diagrams 05/21/19 19:39 05/21/19 19:39 Laboratory Results 05/21/19 05/21/19 05/21/19 Range/Units 20:55 19:39 19:39 WBC (4.0-10.5) K/mm3 RBC (4.1-5.4) M/mm3 Hgb (12.0-16.0) gm/dl Hct (35-47) % MCV (78-100) fl MCH (26-32) pg MCHC (32-36) g/dl RDW (11.5-14.0) % Plt Count (150-450) K/mm3 MPV (6-9.5) fl Gran % (36.0-66.0) % Eos # (Auto) (0-0.5) Absolute Lymphs (auto) (1.0-4.6) Absolute Monos (auto) (0.0-1.3) Lymphocytes % (24.0-44.0) % Monocytes % (0.0-12.0) % Eosinophils % (0.00-5.0) % Basophils % (0.0-0.4) % Absolute Granulocytes (1.4-6.9) Basophils # (0-0.4) PT 12.7 H (9.95-12.35) SECONDS INR 1.12 (0.8-3.0) Sodium (137-145) mmol/L Potassium (3.5-5.1) mmol/L Chloride (98-107) mmol/L Carbon Dioxide (22-30) mmol/L Anion Gap (5-15) MEQ/L BUN (7-17) mg/dL Creatinine (0.52-1.04) mg/dL Estimated GFR ML/MIN Glucose (74-106) mg/dL Lactic Acid (0.4-2.0) Calcium (8.4-10.2) mg/dL Total Bilirubin (0.2-1.3) mg/dL AST (14-36) U/L ALT (0-35) U/L Alkaline Phosphatase (38-126) U/L Troponin I < 0.012 (0.000-0.034) ng/mL Serum Total Protein (6.3-8.2) g/dL Albumin (3.5-5.0) g/dL Amylase (30-110) U/L Lipase (23-300) U/L Urine Color YELLOW (YELLOW) Urine Appearance SLIGHTLY CLOUDY (CLEAR) Urine pH 6.0 (5-6) Ur Specific Cascade 1.012 (1.005-1.025) Urine Protein NEGATIVE (Negative) Urine Ketones NEGATIVE (NEGATIVE) Urine Blood SMALL (0-5) Fredrick/ul Urine Nitrite NEGATIVE (NEGATIVE) Urine Bilirubin NEGATIVE (NEGATIVE) Urine Urobilinogen NEGATIVE (0-1) mg/dL Ur Leukocyte Esterase NEGATIVE (NEGATIVE) Urine WBC (Auto) NONE (0-5) /HPF Urine RBC (Auto) 26-50 (0-2) /HPF U Hyaline Cast (Auto) 6-10 (0-2) /LPF U Epithel Cells (Auto) RARE (FEW) /HPF Urine Bacteria (Auto) NONE (NEGATIVE) /HPF Urine Mucus (Auto) SLIGHT (NEGATIVE) /HPF Urine Culture Reflexed NO (NO) Urine Glucose NEGATIVE (NEGATIVE) mg/dL Valproic Acid (50-100) ug/mL 05/21/19 05/21/19 05/21/19 Range/Units 19:39 19:39 19:34 WBC 7.7 (4.0-10.5) K/mm3 RBC 4.19 (4.1-5.4) M/mm3 Hgb 12.4 (12.0-16.0) gm/dl Hct 38.6 (35-47) % MCV 92.1 (78-100) fl MCH 29.6 (26-32) pg MCHC 32.1 (32-36) g/dl RDW 15.9 H (11.5-14.0) % Plt Count 181 (150-450) K/mm3 MPV 9.5 (6-9.5) fl Gran % 59.3 (36.0-66.0) % Eos # (Auto) 0.12 (0-0.5) Absolute Lymphs (auto) 2.12 (1.0-4.6) Absolute Monos (auto) 0.90 (0.0-1.3) Lymphocytes % 27.4 (24.0-44.0) % Monocytes % 11.6 (0.0-12.0) % Eosinophils % 1.6 (0.00-5.0) % Basophils % 0.1 (0.0-0.4) % Absolute Granulocytes 4.59 (1.4-6.9) Basophils # 0.01 (0-0.4) PT (9.95-12.35) SECONDS INR (0.8-3.0) Sodium 138 (137-145) mmol/L Potassium 3.7 (3.5-5.1) mmol/L Chloride 103 (98-107) mmol/L Carbon Dioxide 25 (22-30) mmol/L Anion Gap 13.9 (5-15) MEQ/L BUN 21 H (7-17) mg/dL Creatinine 1.52 H (0.52-1.04) mg/dL Estimated GFR 37.3 ML/MIN Glucose 100 (74-106) mg/dL Lactic Acid 1.8 (0.4-2.0) Calcium 8.7 (8.4-10.2) mg/dL Total Bilirubin 0.40 (0.2-1.3) mg/dL AST 13 L (14-36) U/L ALT 15 (0-35) U/L Alkaline Phosphatase 63 (38-126) U/L Troponin I (0.000-0.034) ng/mL Serum Total Protein 6.5 (6.3-8.2) g/dL Albumin 3.5 (3.5-5.0) g/dL Amylase 62 (30-110) U/L Lipase 67 (23-300) U/L Urine Color (YELLOW) Urine Appearance (CLEAR) Urine pH (5-6) Ur Specific Cascade (1.005-1.025) Urine Protein (Negative) Urine Ketones (NEGATIVE) Urine Blood (0-5) Fredrick/ul Urine Nitrite (NEGATIVE) Urine Bilirubin (NEGATIVE) Urine Urobilinogen (0-1) mg/dL Ur Leukocyte Esterase (NEGATIVE) Urine WBC (Auto) (0-5) /HPF Urine RBC (Auto) (0-2) /HPF U Hyaline Cast (Auto) (0-2) /LPF U Epithel Cells (Auto) (FEW) /HPF Urine Bacteria (Auto) (NEGATIVE) /HPF Urine Mucus (Auto) (NEGATIVE) /HPF Urine Culture Reflexed (NO) Urine Glucose (NEGATIVE) mg/dL Valproic Acid (50-100) ug/mL 05/21/19 Range/Units 19:20 WBC (4.0-10.5) K/mm3 RBC (4.1-5.4) M/mm3 Hgb (12.0-16.0) gm/dl Hct (35-47) % MCV (78-100) fl MCH (26-32) pg MCHC (32-36) g/dl RDW (11.5-14.0) % Plt Count (150-450) K/mm3 MPV (6-9.5) fl Gran % (36.0-66.0) % Eos # (Auto) (0-0.5) Absolute Lymphs (auto) (1.0-4.6) Absolute Monos (auto) (0.0-1.3) Lymphocytes % (24.0-44.0) % Monocytes % (0.0-12.0) % Eosinophils % (0.00-5.0) % Basophils % (0.0-0.4) % Absolute Granulocytes (1.4-6.9) Basophils # (0-0.4) PT (9.95-12.35) SECONDS INR (0.8-3.0) Sodium (137-145) mmol/L Potassium (3.5-5.1) mmol/L Chloride (98-107) mmol/L Carbon Dioxide (22-30) mmol/L Anion Gap (5-15) MEQ/L BUN (7-17) mg/dL Creatinine (0.52-1.04) mg/dL Estimated GFR ML/MIN Glucose (74-106) mg/dL Lactic Acid (0.4-2.0) Calcium (8.4-10.2) mg/dL Total Bilirubin (0.2-1.3) mg/dL AST (14-36) U/L ALT (0-35) U/L Alkaline Phosphatase (38-126) U/L Troponin I (0.000-0.034) ng/mL Serum Total Protein (6.3-8.2) g/dL Albumin (3.5-5.0) g/dL Amylase (30-110) U/L Lipase (23-300) U/L Urine Color (YELLOW) Urine Appearance (CLEAR) Urine pH (5-6) Ur Specific Cascade (1.005-1.025) Urine Protein (Negative) Urine Ketones (NEGATIVE) Urine Blood (0-5) Fredrick/ul Urine Nitrite (NEGATIVE) Urine Bilirubin (NEGATIVE) Urine Urobilinogen (0-1) mg/dL Ur Leukocyte Esterase (NEGATIVE) Urine WBC (Auto) (0-5) /HPF Urine RBC (Auto) (0-2) /HPF U Hyaline Cast (Auto) (0-2) /LPF U Epithel Cells (Auto) (FEW) /HPF Urine Bacteria (Auto) (NEGATIVE) /HPF Urine Mucus (Auto) (NEGATIVE) /HPF Urine Culture Reflexed (NO) Urine Glucose (NEGATIVE) mg/dL Valproic Acid 43.7 L (50-100) ug/mL - Progress Progress: improved Progress Note: 05/21/19 19:52 pt states she does not want narcotic pain medications, does not want oxygen, and refuses xrays and ct scans. 05/21/19 21:15 pt wants to go home. she is taking her iv out herself. Counseled pt/family regarding: lab results, diagnosis, need for follow-up - Departure Departure Disposition: Home Clinical Impression: Chest pain, Weakness, Nausea Condition: Fair Critical Care Time: No Referrals: ARIEL WHITTINGTON RESE[facility] LABORATORY SPECIALIST [Primary Care Provider] - Additional Instructions: drink plenty of fluids. stop your blood pressure medications now. keep you primary doctor appointment tomorrow morning.
[2019-05-21 19:39] LABS: BASOPHIL % 0.1 % (0.0-0.4); Basophil (Absolute #) 0.01 (0-0.4); Eosinophil % 1.6 % (0.00-5.0); Eosinophil (Absolute #) 0.12 (0-0.5); Granulocyte Absolute (ANC) 4.59 (1.4-6.9); Granulocytes % 59.3 % (36.0-66.0); Hematocrit 38.6 % (35-47); Hemoglobin 12.4 gm/dl (12.0-16.0); Lymphocyte (Absolute #) 2.12 (1.0-4.6); Lymphocytes % 27.4 % (24.0-44.0); Mean Cell Volume 92.1 fl (78-100); Mean Corpuscular Hemoglobin 29.6 pg (26-32); Mean Corpuscular Hgb Concent. 32.1 g/dl (32-36); Mean Platelet Volume 9.5 fl (6-9.5); Monocytes % 11.6 % (0.0-12.0); Platelet Count 181 K/mm3 (150-450); Red Blood Count 4.19 M/mm3 (4.1-5.4); Red Cell Distribution Width 15.9 % (11.5-14.0); White Blood Count 7.7 K/mm3 (4.0-10.5)
[2019-05-21] MEDS: Sodium Chloride 0.9% 1000 ML 1,000 ML IV STA ×2 (19:43→20:17)
[2019-05-21] MEDS ORDERED: Zofran 4 MG/2 ML VIAL ONE (19:44)
[2019-05-21] MEDS: Zofran 4 MG/2 ML VIAL IV ONE (19:45)
[2019-05-21 19:47] LABS: INR 1.12 (0.8-3.0); PROTIME 12.7 SECONDS (9.95-12.35)
[2019-05-21 19:51] LABS: ALBUMIN 3.5 g/dL (3.5-5.0); ANION GAP 13.9 MEQ/L (5-15); BILIRUBIN,TOTAL 0.4 mg/dL (0.2-1.3); Calcium 8.7 mg/dL (8.4-10.2); Creatinine 1 1.52 mg/dL (0.52-1.04); Potassium 3.7 mmol/L (3.5-5.1); Total Protein 6.5 g/dL (6.3-8.2)
[2019-05-21 21:13] LABS: Appearance SLIGHTLY CLOUDY (CLEAR); Bilirubin NEGATIVE (NEGATIVE); Blood SMALL Ery/ul (0-5); Epithelial Cells RARE /HPF (FEW); Glucose NEGATIVE (NEGATIVE); Ketones NEGATIVE (NEGATIVE); Leukocyte Esterase NEGATIVE (NEGATIVE); Mucus SLIGHT /HPF (NEGATIVE); Nitrite NEGATIVE (NEGATIVE); Protein,Urine Dip NEGATIVE (Negative); RBC 26-50 /HPF (0-2); Specific Gravity 1.012 (1.005-1.025); Urobilinogen NEGATIVE mg/dL (0-1)
[2019-05-21 21:16] VITALS: BP 98/68; PULSE 98
[2019-05-21 21:21] VITALS: O2SAT 98
== END 2019-05-21 21:26 | disposition home or self-care (01) ==
LOC: ED 19:07
DX: R07.9 Chest pain, unspecified (principal); R53.1 Weakness; R11.0 Nausea
CPT/HCPCS: 36415; 80053; 80164; 81001; 82150; 83605; 83690; 84484; 85025; 85610; 96360; 96361; 96374; 99284; J2405

== ENCOUNTER 2019-07-13 22:31 | Emergency (ER) | payer BC, MEDICARE ==
[2019-07-13 22:54] VITALS: O2SAT 98
--- NOTE | 2019-07-13 23:22 | ERPHSYRPT ---
- History of Present Illness Time Seen by Provider: 07/13/19 22:50 Source: patient Exam Limitations: no limitations Patient Subjective Stated Complaint: pt states she has been having pain in her lt leg and swelling yesterday Triage Nursing Assessment: pt alert and oriented, answers questions approp. pt ambulatoryw ith slow limping gait noted. respirations nonlabored with lungs cta. pitting edema noted to lt ankle and foot. red rash noted to bilat knees and lower legs. not raised, pt reports is not itching. Physician History: 58 y/o obese white female with h/o copd and bipolar disease presents with red spots on bilat lower ext and swelling left foot and ankle. denies injury. sx worsening over a day or two. not pain and no soa. does have some achiness behind left knee. no trauma. Quality: constant Severity of Pain-Max: mild Severity of Pain-Current: mild Lower Extremities Pain: foot: left, ankle: left Modifying Factors: Improves With: movement Associated Symptoms: none Allergies/Adverse Reactions: Influenza Virus Vaccines [Influenza Virus Vaccine] Allergy (Intermediate, Verified 07/13/19 22:54) Swelling of Hands Penicillins Allergy (Verified 07/13/19 22:54) venom-honey bee [bee venom (honey bee)] Allergy (Verified 07/13/19 22:54) oxycodone HCl [From OxyContin] Adverse Reaction (Mild, Verified 07/13/19 22:54) Nausea tape Allergy (Uncoded 07/13/19 22:54) Home Medications: Lisinopril 20 mg PO DAILY 07/25/14 [History] Albuterol Sulfate [Proair Hfa] 2 puffs IN Q4HPRN PRN 01/18/16 [History] Magnesium Oxide 400 mg [Mag-Ox 400] 400 mg PO DAILY 01/18/16 [History] Sumatriptan Succinate [Imitrex] 100 mg PO DAILY PRN PRN 01/18/16 [History] ALPRAZolam [Alprazolam] 2 mg PO TIDPRN PRN 01/24/16 [History] Levothyroxine Sodium 150 Mcg [Synthroid 150 Mcg] 150 mcg PO DAILY 01/24/16 [History] Fenofibrate,Micronized 145 mg* [Tricor 145 MG] 145 mg PO DAILY 04/27/17 [ History] Divalproex Sodium [Depakote] 500 mg PO DAILY 09/18/18 [History] PANTOPRAZOLE 40 mg Tablet [Protonix 40MG Tablet] 40 mg PO DAILY 09/18/18 [ History] Topiramate 25 mg PO DAILY 09/18/18 [History] Vortioxetine Hydrobromide [Trintellix] 20 mg PO DAILY 09/18/18 [History] Citalopram Hydrobromide 20 mg* [ceLEXa 20 MG] 20 mg PO DAILY 05/21/19 [ History] Hx Tetanus, Diphtheria Vaccination/Date Given: Yes (2013) Hx Influenza Vaccination/Date Given: No Hx Pneumococcal Vaccination/Date Given: No Immunizations Up to Date: Yes - Review of Systems Constitutional: No Symptoms Ears, Nose, & Throat: No Symptoms Respiratory: No Symptoms Cardiac: No Symptoms Abdominal/Gastrointestinal: No Symptoms Genitourinary Symptoms: No Symptoms Musculoskeletal: Other (left foot and ankle swelling mild) Skin: Other (mild left foot and ankle swelling) Neurological: No Symptoms Psychological: No Symptoms Endocrine: No Symptoms Hematologic/Lymphatic: No Symptoms Immunological/Allergic: No Symptoms All Other Systems: Reviewed and Negative - Past Medical History Pertinent Past Medical History: Yes Neurological History: No Pertinent History ENT History: Other Cardiac History: High Cholesterol, Hypertension Respiratory History: COPD, Pneumonia Endocrine Medical History: Diabetes Type II, Hypothyroidism Musculoskeletal History: No Pertinent History GI Medical History: GERD, Gallbladder Disease, Ulcer, Other History: No Pertinent History Psycho-Social History: Anxiety, Bipolar, Depression Female Reproductive Disorders: No Pertinent History Other Medical History: stage IV skin cancer - Past Surgical History Past Surgical History: Yes Neuro Surgical History: No Pertinent History Cardiac: No Pertinent History Respiratory: No Pertinent History Gastrointestinal: Appendectomy, Cholecystectomy Genitourinary: No Pertinent History Musculoskeletal: No Pertinent History Female Surgical History: Hysterectomy Other Surgical History: tubes in ears, pre-cancerous polyps removed from colon - Social History Smoking Status: Former smoker How long have you smoked: 42 years Exposure to second hand smoke: No Alcohol Use: None Drug Use: none Patient Lives Alone: No Significant Family History: heart disease, diabetes, hypertension - Nursing Vital Signs Nursing Vital Signs: Initial Vital Signs Temperature 97.7 F 07/13/19 22:45 Pulse Rate 89 07/13/19 22:45 Respiratory Rate 18 07/13/19 22:45 Blood Pressure 132/87 07/13/19 22:45 O2 Sat by Pulse Oximetry 98 07/13/19 22:45 Pain Scale Pain Intensity 8 - Physical Exam General Appearance: no apparent distress, alert, anxiety Eyes, Ears, Nose, Throat Exam: normal ENT inspection, moist mucous membranes Neck Exam: normal inspection, non-tender, supple, full range of motion Cardiovascular/Respiratory Exam: chest non-tender, normal breath sounds, regular rate/rhythm, heart sounds normal, no ecchymosis, no respiratory distress Gastrointestinal/Abdominal Exam: non-tender, soft Back Exam: normal inspection, normal range of motion, No CVA tenderness, No vertebral tenderness Hips Exam: bilateral: non-tender, normal inspection, normal range of motion, no evidence of injury Legs Exam: bilateral leg: non-tender, normal inspection, normal range of motion , no evidence of injury Knees Exam: bilateral knee: non-tender, normal inspection, normal range of motion, no evidence of injury Ankle Exam: right ankle: normal inspection, left ankle: swelling, bilateral ankle: non-tender, normal range of motion Foot Exam: right foot: normal inspection, left foot: swelling, bilateral foot: non-tender, normal range of motion, no evidence of injury Neuro/Tendon Exam: normal sensation, normal motor functions, normal tendon functions, responds to pain, no evidence tendon injury Mental Status Exam: alert, oriented x 3, cooperative Skin Exam: normal color, warm, dry SpO2 Interpretation: normal SpO2: 98 O2 Delivery: Room Air - Course Nursing assessment & vital signs reviewed: Yes Ordered Tests: Active Orders 24 hr Category Date Time Status CBC Stat Lab 07/13/19 23:13 Completed D-DIMER QUANTITATION Stat Lab 07/13/19 23:13 Completed Lab/Rad Data: Laboratory Result Diagrams 07/13/19 23:13 Laboratory Results 07/13/19 07/13/19 Range/Units 23:13 23:13 WBC 6.6 (4.0-10.5) K/mm3 RBC 4.50 (4.1-5.4) M/mm3 Hgb 12.5 (12.0-16.0) gm/dl Hct 40.8 (35-47) % MCV 90.7 (78-100) fl MCH 27.8 (26-32) pg MCHC 30.6 L (32-36) g/dl RDW 15.4 H (11.5-14.0) % Plt Count 244 (150-450) K/mm3 MPV 9.6 H (6-9.5) fl D-Dimer 613 H* (215-500) ng/mL - Progress Progress: unchanged Progress Note: 07/14/19 00:32 plan d/w pt. d dimer was elevated. will give a single dose of lovenox and schedule outpt venous doppler for later today. Counseled pt/family regarding: lab results, diagnosis, need for follow-up - Departure Departure Disposition: Home Clinical Impression: Left ankle swelling, Elevated d-dimer Condition: Stable Critical Care Time: No Referrals: ARIEL WHITTINGTON NP [Primary Care Provider] -
[2019-07-13 23:50] LABS: Hematocrit 40.8 % (35-47); Hemoglobin 12.5 gm/dl (12.0-16.0); Mean Cell Volume 90.7 fl (78-100); Mean Corpuscular Hemoglobin 27.8 pg (26-32); Mean Corpuscular Hgb Concent. 30.6 g/dl (32-36); Mean Platelet Volume 9.6 fl (6-9.5); Platelet Count 244 K/mm3 (150-450); Red Cell Distribution Width 15.4 % (11.5-14.0); White Blood Count 6.6 K/mm3 (4.0-10.5)
[2019-07-14] MEDS ORDERED: ENOXAPARIN SODIUM SQ STA (00:34)
[2019-07-14] MEDS ORDERED: ENOXAPARIN SODIUM SQ ONE (00:41)
[2019-07-14 00:48] VITALS: BP 141/83; PULSE 85
== END 2019-07-14 01:00 | disposition home or self-care (01) ==
LOC: ED 22:31
DX: M25.472 Effusion, left ankle (principal); R79.89 Other specified abnormal findings of blood chemistry
CPT/HCPCS: 36415; 85027; 85379; 96372; 99283; J1650

== ENCOUNTER 2019-07-19 23:10 | Emergency (ER) | payer BC, MEDICARE | END 2019-07-20 01:30 | disposition home or self-care (01) | LOC: ED 07-20 01:30 ==

== ENCOUNTER 2019-08-24 01:04 | Emergency (ER) | payer BC, MEDICARE ==
[2019-08-24] MEDS ORDERED: Zofran 4 MG/2 ML VIAL IV ONE (01:44)
[2019-08-24] MEDS ORDERED: Hydromorphone 1 mg/ml Ampule IV ONE (01:45)
--- NOTE | 2019-08-24 01:50 | ERPHSYRPT ---
- History of Present Illness Time Seen by Provider: 08/24/19 01:40 Source: patient, EMS Exam Limitations: no limitations Patient Subjective Stated Complaint: pt states, "I was taking a shower and I felt a pop in my left hip and I had excruciating pain". Pt states, "I had scans last week about a possible hip replacement". Triage Nursing Assessment: pt arrived via ambulance to rm 4, c/o rt hip pain/rt buttock pain. Pt has large dark purple bruise to rt hip area. Pt felt a pop in the shower to hip and has been in excruciating pain ever since this happened at 2200. Pt also states she fell about 4 days ago, has several various bruises and scratches over body. Pt also states, "I've had some recent scans to get a hip replacement but the Dr said I have to lose weight first". Lungs clear, heart tones reg, abd large and soft with active bs x4 quad, non-tender. Physician History: Patient fell 3 days ago - has been walking since. Tonight took shower and felt a "pop" R hip and pain since. Brought in by EMS screaming in pain. Noted however to be able to assist with transfer from bed to commode when she felt she needed to urinate and was unable on bedpan. Indicates pain in R hip and also R flank/back/muscular area. Method of Injury: other (Standing in shower; felt a pop in Right Hip - pain since) Occurred: just prior to arrival Quality: constant Severity of Pain-Max: severe Severity of Pain-Current: severe (screaming in pain - after intake in ER patient needed to urinate; able to assist with transfer to commode without apparent pain.) Lower Extremities Pain: hip: right Modifying Factors: Improves With: nothing Allergies/Adverse Reactions: Influenza Virus Vaccines [Influenza Virus Vaccine] Allergy (Intermediate, Verified 07/13/19 22:54) Swelling of Hands Penicillins Allergy (Verified 07/13/19 22:54) venom-honey bee [bee venom (honey bee)] Allergy (Verified 07/13/19 22:54) oxycodone HCl [From OxyContin] Adverse Reaction (Mild, Verified 07/13/19 22:54) Nausea tape Allergy (Uncoded 07/13/19 22:54) Home Medications: Lisinopril 10 mg PO DAILY 07/25/14 [History] Albuterol Sulfate [Proair Hfa] 2 puffs IN Q4HPRN PRN 01/18/16 [History] Sumatriptan Succinate [Imitrex] 100 mg PO DAILY PRN PRN 01/18/16 [History] ALPRAZolam [Alprazolam] 2 mg PO TIDPRN PRN 01/24/16 [History] Levothyroxine Sodium 150 Mcg [Synthroid 150 Mcg] 150 mcg PO DAILY 01/24/16 [History] Fenofibrate,Micronized 145 mg* [Tricor 145 MG] 145 mg PO DAILY 04/27/17 [ History] Divalproex Sodium [Depakote] 500 mg PO DAILY 09/18/18 [History] Topiramate 25 mg PO DAILY 09/18/18 [History] Vortioxetine Hydrobromide [Trintellix] 20 mg PO DAILY 09/18/18 [History] Citalopram Hydrobromide 20 mg* [ceLEXa 20 MG] 20 mg PO DAILY 05/21/19 [ History] Hx Tetanus, Diphtheria Vaccination/Date Given: Yes Hx Influenza Vaccination/Date Given: No Hx Pneumococcal Vaccination/Date Given: No Immunizations Up to Date: Yes - Review of Systems Constitutional: No Symptoms Neurological: Headache (took Imitrex prior to shower) All Other Systems: Reviewed and Negative - Past Medical History Pertinent Past Medical History: Yes Neurological History: No Pertinent History ENT History: Other Cardiac History: High Cholesterol, Hypertension Respiratory History: COPD, Pneumonia Endocrine Medical History: Hypothyroidism Musculoskeletal History: No Pertinent History, Other (Has been evaluated for hip replacement due to hip pain - states it is the same side as current R hip pain) GI Medical History: GERD, Gallbladder Disease, Ulcer, Other History: No Pertinent History Psycho-Social History: Anxiety, Bipolar, Depression Female Reproductive Disorders: No Pertinent History Other Medical History: stage IV skin cancer - Past Surgical History Past Surgical History: Yes Neuro Surgical History: No Pertinent History Cardiac: No Pertinent History Respiratory: No Pertinent History Gastrointestinal: Appendectomy, Cholecystectomy Genitourinary: No Pertinent History Musculoskeletal: No Pertinent History Female Surgical History: Hysterectomy Other Surgical History: tubes in ears, pre-cancerous polyps removed from colon - Social History Smoking Status: Former smoker How long have you smoked: 42 years Exposure to second hand smoke: No Alcohol Use: None Drug Use: none Patient Lives Alone: No Significant Family History: heart disease, diabetes, hypertension - Female History Hx Now: No - Nursing Vital Signs Nursing Vital Signs: Initial Vital Signs Temperature 97.5 F 08/24/19 01:06 Pulse Rate 99 H 08/24/19 01:06 Respiratory Rate 20 08/24/19 01:06 Blood Pressure 140/96 08/24/19 01:06 O2 Sat by Pulse Oximetry 92 L 08/24/19 01:06 Pain Scale Pain Intensity [] 10 Pain Intensity 0 - Physical Exam General Appearance: severe distress (screaming and crying on arrival in ER; once settled in the apparent discomfort subsided), alert, anxiety Cardiovascular/Respiratory Exam: chest non-tender, normal breath sounds, heart sounds normal Gastrointestinal/Abdominal Exam: non-tender, soft Back Exam: normal inspection, muscle spasm (just below the R rib cage; tenderness with palpation of R flank musculature) Hips Exam: right: limited range of motion, pain, soft tissue tenderness, left: non-tender, normal inspection, no evidence of injury Neuro/Tendon Exam: normal sensation, normal motor functions Mental Status Exam: alert, oriented x 3 Skin Exam: normal color (Except for areas of ecchymosis R hip and other areas of bruising on R side and R LE (pt attributes to fall several days ago)), warm, dry SpO2 Interpretation: normal SpO2: 92 O2 Delivery: Room Air - Course Nursing assessment & vital signs reviewed: Yes - CT Exams Lumbar Spine CT Interpretation: Negative (No acute changes) Pelvis CT Interpretation: Negative (Negative for acute changes; R femoral head chronic changes ) Ordered Tests: Active Orders 24 hr Category Date Time Status LUMBAR SPINE W/O [CT] Stat Exams 08/24/19 01:50 Taken PELVIS WITHOUT CONTRAST [CT] Stat Exams 08/24/19 01:53 Taken Medication Summary Discontinued Medications Generic Name Dose Route Start Last Admin Trade Name Freq PRN Reason Stop Dose Admin Hydromorphone HCl 1 mg 08/24/19 01:45 08/24/19 02:04 Hydromorphone 1 Mg/Ml Ampule IV 08/24/19 01:46 1 mg STAT ONE Administration Hydromorphone HCl Confirm 08/24/19 01:55 Hydromorphone 1 Mg/Ml Ampule Administered 08/24/19 01:56 Dose 1 mg .ROUTE .STK-MED ONE Ondansetron HCl 4 mg 08/24/19 01:44 08/24/19 02:00 Zofran 4 Mg/2 Ml Vial IV 08/24/19 01:45 4 mg STAT ONE Administration Ondansetron HCl Confirm 08/24/19 01:55 Zofran 4 Mg/2 Ml Vial Administered 08/24/19 01:56 Dose 4 mg .ROUTE .STK-MED ONE Promethazine HCl 25 mg 08/24/19 03:04 08/24/19 03:08 Phenergan 25 Mg Inj IV 08/24/19 03:05 25 mg STAT ONE Administration Promethazine HCl Confirm 08/24/19 03:07 Phenergan 25 Mg Inj Administered 08/24/19 03:08 Dose 25 mg .ROUTE .STK-MED ONE - Progress Progress: improved Progress Note: 08/24/19 04:38 Asleap in room; dilaudid and phenergan helped ease the discomfort. 08/24/19 05:[address] results with (patient gave consent) at bedside; no findings of fracture, dislocation or other acute findings. Has a clear chronic process involving the Right femoral head consistant with her current evaluation for surgery. - Departure Departure Disposition: Home Clinical Impression: Hip pain, acute Qualifiers: Laterality: right Qualified Code(s): M25.551 - Pain in right hip Condition: Stable Critical Care Time: No Referrals: ADELSO HODGES [Primary Care Provider] - Instructions: Hip Pain (DC) Additional Instructions: Follow up with primary care provider for any chronic pain medications; keep your appointment with orthopedics as scheduled.
[2019-08-24] MEDS ORDERED: Zofran 4 MG/2 ML VIAL ONE (01:55)
[2019-08-24] MEDS ORDERED: Hydromorphone 1 mg/ml Ampule ONE (01:55)
[2019-08-24] MEDS ORDERED: Phenergan 25 MG INJ IV ONE (03:04)
[2019-08-24] MEDS ORDERED: Phenergan 25 MG INJ ONE (03:07)
[2019-08-24 04:33] VITALS: O2SAT 92
[2019-08-24 05:37] VITALS: BP 121/80; PULSE 68
--- NOTE | 2019-08-24 09:31 | XRAY ---
Indication: Pain following fall. Multiple contiguous axial images obtained through the lumbar spine. Sagittal and coronal reformatted images obtained. Comparison: CT abdomen/pelvis May 02, 2019. Axial images negative for acute fracture, suspicious bone lesions, or spinal canal stenosis. Stable L2-L5 minimal annular disc bulge and mild/moderate L3-S1 bilateral degenerative facet hypertrophy. Also stable mild bilateral SI joint degenerative changes. Sagittal and coronal reformatted images demonstrates normal alignment with vertebral body height/disc spaces maintained. No acute compression fracture or subluxation. Visualized noncontrasted soft tissues again demonstrates scattered aortoiliac calcifications, fatty liver, hepatic cysts, left adrenal adenoma, and cholecystectomy. Impression: 1. Negative acute fracture/subluxation. 2. Stable multilevel degenerative changes and incidental soft tissue CT findings. Comment: Preliminary interpretation was made by [facility]. No critical discrepancy. CTDI 70.52
--- NOTE | 2019-08-24 09:37 | XRAY ---
Indication: Right hip pain following fall. MRI proven right hip avascular necrosis. Multiple contiguous axial images obtained through the right hip. Two-dimensional sagittal and coronal reformatted images obtained. Comparison: CT abdomen/pelvis May 02, 2019. No acute fracture or dislocation. Stable right femur head MRI proven avascular necrosis. Elsewhere no suspicious bony lesions or bony remodeling. Visualized noncontrasted soft tissues again demonstrates minimal vascular calcifications and right gluteal subcutaneous calcified injection granulomas. Impression: Stable right femur head MRI proven avascular necrosis. Negative acute fracture/dislocation. Comment: Preliminary interpretation was made by [facility]. No discrepancy. CTDI 35.91
== END 2019-08-24 05:32 | disposition home or self-care (01) ==
LOC: ED 01:04
DX: M25.551 Pain in right hip (principal)
CPT/HCPCS: 72131; 72192; 96374; 96375; 99284; J1170; J2405; J2550

== ENCOUNTER 2020-05-07 01:50 | Emergency (ER) | payer BC, MEDICARE ==
[2020-05-07] MEDS ORDERED: SUBLIMAZE 100 MCG/2 ML IV ONE (02:23)
[2020-05-07] MEDS ORDERED: SUBLIMAZE 100 MCG/2 ML ONE (02:26)
[2020-05-07] MEDS ORDERED: Sodium Chloride 0.9% 1000 ML 1,000 ML ONE (02:29)
[2020-05-07] MEDS ORDERED: Sodium Chloride 0.9% 1000 ML 1,000 ML IV SCH (02:30)
[2020-05-07 03:02] LABS: Absolute Neutrophil Ct (ANC) 4.79 (1.4-6.9); BASOPHIL % 0.2 % (0.0-0.4); Basophil (Absolute #) 0.02 (0-0.4); Eosinophil % 1.3 % (0.00-5.0); Eosinophil (Absolute #) 0.12 (0-0.5); Hematocrit 43.3 % (35-47); Hemoglobin 14.1 gm/dl (12.0-16.0); Lymphocyte (Absolute #) 3.22 (1.0-4.6); Lymphocytes % 35.3 % (24.0-44.0); Mean Cell Volume 90.8 fl (78-100); Mean Corpuscular Hemoglobin 29.6 pg (26-32); Mean Corpuscular Hgb Concent. 32.6 g/dl (32-36); Mean Platelet Volume 9.3 fl (7.5-11.0); Monocyte (Absolute #) 0.97 (0.0-1.3); Monocytes % 10.6 % (0.0-12.0); Neutrophil % 52.6 % (36.0-66.0); Platelet Count 211 K/mm3 (150-450); Red Blood Count 4.77 M/mm3 (4.1-5.4); Red Cell Distribution Width 15.6 % (11.5-14.0); White Blood Count 9.1 K/mm3 (4.0-10.5)
[2020-05-07 03:03] LABS: INR 1.04 (0.8-3.0); PROTIME 11.8 SECONDS (9.95-12.35)
[2020-05-07 03:04] LABS: Appearance SLIGHTLY CLOUDY (CLEAR); Bilirubin NEGATIVE (NEGATIVE); Blood NEGATIVE Ery/ul (0-5); Epithelial Cells RARE /HPF (FEW); Glucose NEGATIVE (NEGATIVE); Ketones NEGATIVE (NEGATIVE); Leukocyte Esterase TRACE (NEGATIVE); Mucus SLIGHT /HPF (NEGATIVE); Nitrite NEGATIVE (NEGATIVE); Protein,Urine Dip NEGATIVE (Negative); Specific Gravity 1.018 (1.005-1.025); Urobilinogen NEGATIVE mg/dL (0-1); WBC 0-2 /HPF (0-5)
[2020-05-07 03:05] LABS: PTT 33.6 SECONDS (25.3-37.0)
[2020-05-07 03:07] LABS: ALBUMIN 4.3 g/dL (3.5-5.0); ALKALINE PHOSPHATASE 82 U/L (38-126); AMYLASE 79 U/L (30-110); BLOOD UREA NITROGEN 26 mg/dL (7-17); CHLORIDE 96 mmol/L (98-107); Calcium 9.6 mg/dL (8.4-10.2); Carbon Dioxide 31 mmol/L (22-30); Creatinine 1 0.85 mg/dL (0.52-1.04); Glucose 119 mg/dL (74-106); LIPASE 86 U/L (23-300); SGOT/AST 18 U/L (14-36); SGPT/ALT 14 U/L (0-35); SODIUM 137 mmol/L (137-145); Total Protein 8.1 g/dL (6.3-8.2)
--- NOTE | 2020-05-07 04:02 | ERPHSYRPT ---
- History of Present Illness Patient Subjective Stated Complaint: pt states that she took a shower and felt off, pt states that her chest began to hurt, pt states that pain is radiating to her back, pt states that she took 2mg xanax at 0000, pt states that it is not helping to calm her down, pt states that she feels "jelly", EMS states that pt had 2 nitro in route with some relief Triage Nursing Assessment: pt came into the er via ambulance, pt is axo x3, pt c /o chest pain that radiates to back, pt states 9/10 pain to back and chest, heart tones clear, clear lung sounds in all lobes, strong pulses in all extremities, no edema present, vitals wnl Physician History: Is a 59-year-old female who took a shower this evening and after the shower developed some substernal pressure type pain that went through the back. She denies any shortness of air she denies any diaphoresis nausea or vomiting. She took 2 nitroglycerin from EMS which did not help. She does not take aspirins because her PCP feels that she bleeds too easily. Risk factors include family history hypertension and cholesterol Timing/Duration: hour(s) (2) Activities at Onset: none Quality: pressure Location: substernal Chest Pain Radiation: back Severity of Pain-Max: moderate Severity of Pain-Current: moderate Modifying Factors: Improves With: nothing Associated Symptoms: denies symptoms Nitro Today/Relief: 0.4 mg x 2 Aspirin Treatment Today: no aspirin today Allergies/Adverse Reactions: Influenza Virus Vaccines [Influenza Virus Vaccine] Allergy (Intermediate, Verified 05/07/20 02:22) Swelling of Hands Penicillins Allergy (Verified 05/07/20 02:22) venom-honey bee [bee venom (honey bee)] Allergy (Verified 05/07/20 02:22) oxycodone HCl [From OxyContin] Adverse Reaction (Mild, Verified 05/07/20 02:22) Nausea tape Allergy (Uncoded 05/07/20 02:22) Home Medications: lisinopriL [Lisinopril] 10 mg PO DAILY 07/25/14 [History] Sumatriptan Succinate [Imitrex] 100 mg PO DAILY PRN PRN 01/18/16 [History] ALPRAZolam [Alprazolam] 2 mg PO TIDPRN PRN 01/24/16 [History] Levothyroxine Sodium 150 Mcg [Synthroid 150 Mcg] 150 mcg PO DAILY 01/24/16 [History] Divalproex Sodium [Depakote] 2 tab PO DAILY 09/18/18 [History] Vortioxetine Hydrobromide [Trintellix] 20 mg PO DAILY 09/18/18 [History] Atorvastatin Calcium [Lipitor 20MG Tablet] 20 mg PO DAILY 05/07/20 [History] Furosemide [Lasix] 20 mg PO DAILY 05/07/20 [History] Gabapentin 300 mg PO TID 05/07/20 [History] Potassium Chloride 10 Meq Tab* [Klor Con 10 MEQ] 10 meq PO DAILY 05/07/20 [ History] Hx Tetanus, Diphtheria Vaccination/Date Given: No Hx Influenza Vaccination/Date Given: No Hx Pneumococcal Vaccination/Date Given: No Travel Risk - International Travel Have you traveled outside of the country in past 3 weeks: No - Coronavirus Screening Close contact with a COVID-19 positive Pt in past 14-21 Days: No - Review of Systems Constitutional: No Fever, No Chills Eyes: No Symptoms Ears, Nose, & Throat: No Symptoms Respiratory: No Cough, No Dyspnea Cardiac: Chest Pain, No Edema, No Syncope Abdominal/Gastrointestinal: No Abdominal Pain, No Nausea, No Vomiting, No Diarrhea Genitourinary Symptoms: No Dysuria Musculoskeletal: No Back Pain, No Neck Pain Skin: No Rash Neurological: No Dizziness, No Focal Weakness, No Sensory Changes Psychological: No Symptoms Endocrine: No Symptoms All Other Systems: Reviewed and Negative - Past Medical History Pertinent Past Medical History: Yes Neurological History: No Pertinent History ENT History: Other Cardiac History: High Cholesterol, Hypertension Respiratory History: COPD, Pneumonia Endocrine Medical History: Hypothyroidism Musculoskeletal History: No Pertinent History, Other GI Medical History: GERD, Gallbladder Disease, Ulcer, Other History: No Pertinent History Psycho-Social History: Anxiety, Bipolar, Depression Female Reproductive Disorders: No Pertinent History Other Medical History: stage IV skin cancer - Past Surgical History Past Surgical History: Yes Neuro Surgical History: No Pertinent History Cardiac: No Pertinent History Respiratory: No Pertinent History Gastrointestinal: Appendectomy, Cholecystectomy Genitourinary: No Pertinent History Musculoskeletal: No Pertinent History Female Surgical History: Hysterectomy Other Surgical History: tubes in ears, pre-cancerous polyps removed from colon - Social History Smoking Status: Former smoker How long have you smoked: 42 years Exposure to second hand smoke: No Alcohol Use: None Drug Use: none Patient Lives Alone: No Significant Family History: heart disease, diabetes, hypertension - Female History Hx Now: No - Nursing Vital Signs Nursing Vital Signs: Initial Vital Signs Temperature 98.4 F 05/07/20 01:58 Pulse Rate 88 05/07/20 01:58 Respiratory Rate 14 05/07/20 01:58 Blood Pressure 147/77 05/07/20 01:58 O2 Sat by Pulse Oximetry 97 05/07/20 01:58 Pain Scale Pain Intensity 5 - Physical Exam General Appearance: mild distress, alert Eye Exam: PERRL/EOMI, eyes nml inspection Ears, Nose, Throat Exam: normal ENT inspection, moist mucous membranes Neck Exam: normal inspection, non-tender, supple, full range of motion Respiratory Exam: normal breath sounds, lungs clear, No respiratory distress Cardiovascular Exam: regular rate/rhythm, normal heart sounds Gastrointestinal/Abdomen Exam: soft, No tenderness, No mass Back Exam: normal inspection, No CVA tenderness, No vertebral tenderness Extremity Exam: normal inspection, normal range of motion Neurologic Exam: alert, oriented x 3, cooperative, normal mood/affect, sensation nml, No motor deficits Skin Exam: normal color, warm, dry SpO2: 95 - Course Nursing assessment & vital signs reviewed: Yes EKG Interpreted by Me: RATE (91), Right [place] Deviation, NORMAL INTERVALS, Non- specific ST Changes Ordered Tests: Active Orders 24 hr Category Date Time Status EKG-ER Only STAT Care 05/07/20 03:22 Active IV Insertion STAT Care 05/07/20 03:23 Active CHEST 1 VIEW (PORTABLE) Stat Exams 05/07/20 02:23 Taken AMYLASE Stat Lab 05/07/20 02:50 Completed CBC W DIFF Stat Lab 05/07/20 02:50 Completed CMP Stat Lab 05/07/20 02:50 Completed D-DIMER QUANTITATIVE Stat Lab 05/07/20 02:50 Completed LIPASE Stat Lab 05/07/20 02:50 Completed Lactic Acid Stat Lab 05/07/20 02:50 Completed MAGNESIUM Stat Lab 05/07/20 02:50 Completed PROTIME WITH INR Stat Lab 05/07/20 02:50 Completed PTT Stat Lab 05/07/20 02:50 Completed TROPONIN Q3H Lab 05/07/20 02:50 Completed TROPONIN Q3H Lab 05/07/20 05:40 Completed TROPONIN Q3H Lab 05/07/20 08:30 Ordered TROPONIN Q3H Lab 05/07/20 11:30 Ordered TROPONIN Q3H Lab 05/07/20 14:30 Ordered UA W/RFX UR CULTURE Stat Lab 05/07/20 02:45 Completed Medication Summary Generic Name Dose Route Start Last Admin Trade Name Freq PRN Reason Stop Dose Admin Sodium Chloride 1,000 mls @ 100 mls/hr 05/07/20 02:30 05/07/20 02:31 Sodium Chloride 0.9% 1000 Ml IV 06/06/20 02:29 100 mls/hr .Q10H YUMIKO Administration Discontinued Medications Generic Name Dose Route Start Last Admin Trade Name Freq PRN Reason Stop Dose Admin Fentanyl Citrate 75 mcg 05/07/20 02:23 05/07/20 02:31 Sublimaze 100 Mcg/2 Ml IV 05/07/20 02:24 75 mcg STAT ONE Administration Fentanyl Citrate Confirm 05/07/20 02:26 Sublimaze 100 Mcg/2 Ml Administered 05/07/20 02:27 Dose 100 mcg .ROUTE .[place] Lab/Rad Data: Laboratory Result Diagrams 05/07/20 02:50 05/07/20 02:50 Laboratory Results 05/07/20 05/07/20 05/07/20 Range/Units 05:40 02:50 02:50 WBC (4.0-10.5) K/mm3 RBC (4.1-5.4) M/mm3 Hgb (12.0-16.0) gm/dl Hct (35-47) % MCV (78-100) fl MCH (26-32) pg MCHC (32-36) g/dl RDW (11.5-14.0) % Plt Count (150-450) K/mm3 MPV (7.5-11.0) fl Gran % (36.0-66.0) % Eos # (Auto) (0-0.5) Absolute Lymphs (auto) (1.0-4.6) Absolute Monos (auto) (0.0-1.3) Lymphocytes % (24.0-44.0) % Monocytes % (0.0-12.0) % Eosinophils % (0.00-5.0) % Basophils % (0.0-0.4) % Absolute Granulocytes (1.4-6.9) Basophils # (0-0.4) PT 11.8 (9.95-12.35) SECONDS INR 1.04 (0.8-3.0) APTT 33.6 (25.3-37.0) SECONDS D-Dimer 287 (215-500) ng/mL Sodium (137-145) mmol/L Potassium (3.5-5.1) mmol/L Chloride (98-107) mmol/L Carbon Dioxide (22-30) mmol/L Anion Gap (5-15) MEQ/L BUN (7-17) mg/dL Creatinine (0.52-1.04) mg/dL Estimated GFR ML/MIN Glucose (74-106) mg/dL Lactic Acid (0.4-2.0) Calcium (8.4-10.2) mg/dL Magnesium (1.6-2.3) mg/dL Total Bilirubin (0.2-1.3) mg/dL AST (14-36) U/L ALT (0-35) U/L Alkaline Phosphatase (38-126) U/L Troponin I < 0.012 < 0.012 (0.000-0.034) ng/mL Serum Total Protein (6.3-8.2) g/dL Albumin (3.5-5.0) g/dL Amylase (30-110) U/L Lipase (23-300) U/L Urine Color (YELLOW) Urine Appearance (CLEAR) Urine pH (5-6) Ur Specific [place] (1.005-1.025) Urine Protein (Negative) Urine Ketones (NEGATIVE) Urine Blood (0-5) Fredrick/ul Urine Nitrite (NEGATIVE) Urine Bilirubin (NEGATIVE) Urine Urobilinogen (0-1) mg/dL Ur Leukocyte Esterase (NEGATIVE) Urine WBC (Auto) (0-5) /HPF Urine RBC (Auto) (0-2) /HPF U Epithel Cells (Auto) (FEW) /HPF Urine Bacteria (Auto) (NEGATIVE) /HPF Urine Mucus (Auto) (NEGATIVE) /HPF Urine Culture Reflexed (NO) Urine Glucose (NEGATIVE) mg/dL 05/07/20 05/07/20 05/07/20 Range/Units 02:50 02:50 02:50 WBC 9.1 (4.0-10.5) K/mm3 RBC 4.77 (4.1-5.4) M/mm3 Hgb 14.1 (12.0-16.0) gm/dl Hct 43.3 (35-47) % MCV 90.8 (78-100) fl MCH 29.6 (26-32) pg MCHC 32.6 (32-36) g/dl RDW 15.6 H (11.5-14.0) % Plt Count 211 (150-450) K/mm3 MPV 9.3 (7.5-11.0) fl Gran % 52.6 (36.0-66.0) % Eos # (Auto) 0.12 (0-0.5) Absolute Lymphs (auto) 3.22 (1.0-4.6) Absolute Monos (auto) 0.97 (0.0-1.3) Lymphocytes % 35.3 (24.0-44.0) % Monocytes % 10.6 (0.0-12.0) % Eosinophils % 1.3 (0.00-5.0) % Basophils % 0.2 (0.0-0.4) % Absolute Granulocytes 4.79 (1.4-6.9) Basophils # 0.02 (0-0.4) PT (9.95-12.35) SECONDS INR (0.8-3.0) APTT (25.3-37.0) SECONDS D-Dimer (215-500) ng/mL Sodium 137 (137-145) mmol/L Potassium 4.0 (3.5-5.1) mmol/L Chloride 96 L (98-107) mmol/L Carbon Dioxide 31 H (22-30) mmol/L Anion Gap 13.0 (5-15) MEQ/L BUN 26 H (7-17) mg/dL Creatinine 0.85 (0.52-1.04) mg/dL Estimated GFR > 60.0 ML/MIN Glucose 119 H (74-106) mg/dL Lactic Acid 1.0 (0.4-2.0) Calcium 9.6 (8.4-10.2) mg/dL Magnesium 2.0 (1.6-2.3) mg/dL Total Bilirubin 0.50 (0.2-1.3) mg/dL AST 18 (14-36) U/L ALT 14 (0-35) U/L Alkaline Phosphatase 82 (38-126) U/L Troponin I (0.000-0.034) ng/mL Serum Total Protein 8.1 (6.3-8.2) g/dL Albumin 4.3 (3.5-5.0) g/dL Amylase 79 (30-110) U/L Lipase 86 (23-300) U/L Urine Color (YELLOW) Urine Appearance (CLEAR) Urine pH (5-6) Ur Specific [place] (1.005-1.025) Urine Protein (Negative) Urine Ketones (NEGATIVE) Urine Blood (0-5) Fredrick/ul Urine Nitrite (NEGATIVE) Urine Bilirubin (NEGATIVE) Urine Urobilinogen (0-1) mg/dL Ur Leukocyte Esterase (NEGATIVE) Urine WBC (Auto) (0-5) /HPF Urine RBC (Auto) (0-2) /HPF U Epithel Cells (Auto) (FEW) /HPF Urine Bacteria (Auto) (NEGATIVE) /HPF Urine Mucus (Auto) (NEGATIVE) /HPF Urine Culture Reflexed (NO) Urine Glucose (NEGATIVE) mg/dL 05/07/20 Range/Units 02:45 WBC (4.0-10.5) K/mm3 RBC (4.1-5.4) M/mm3 Hgb (12.0-16.0) gm/dl Hct (35-47) % MCV (78-100) fl MCH (26-32) pg MCHC (32-36) g/dl RDW (11.5-14.0) % Plt Count (150-450) K/mm3 MPV (7.5-11.0) fl Gran % (36.0-66.0) % Eos # (Auto) (0-0.5) Absolute Lymphs (auto) (1.0-4.6) Absolute Monos (auto) (0.0-1.3) Lymphocytes % (24.0-44.0) % Monocytes % (0.0-12.0) % Eosinophils % (0.00-5.0) % Basophils % (0.0-0.4) % Absolute Granulocytes (1.4-6.9) Basophils # (0-0.4) PT (9.95-12.35) SECONDS INR (0.8-3.0) APTT (25.3-37.0) SECONDS D-Dimer (215-500) ng/mL Sodium (137-145) mmol/L Potassium (3.5-5.1) mmol/L Chloride (98-107) mmol/L Carbon Dioxide (22-30) mmol/L Anion Gap (5-15) MEQ/L BUN (7-17) mg/dL Creatinine (0.52-1.04) mg/dL Estimated GFR ML/MIN Glucose (74-106) mg/dL Lactic Acid (0.4-2.0) Calcium (8.4-10.2) mg/dL Magnesium (1.6-2.3) mg/dL Total Bilirubin (0.2-1.3) mg/dL AST (14-36) U/L ALT (0-35) U/L Alkaline Phosphatase (38-126) U/L Troponin I (0.000-0.034) ng/mL Serum Total Protein (6.3-8.2) g/dL Albumin (3.5-5.0) g/dL Amylase (30-110) U/L Lipase (23-300) U/L Urine Color YELLOW (YELLOW) Urine Appearance SLIGHTLY CLOUDY (CLEAR) Urine pH 5.0 (5-6) Ur Specific [place] 1.018 (1.005-1.025) Urine Protein NEGATIVE (Negative) Urine Ketones NEGATIVE (NEGATIVE) Urine Blood NEGATIVE (0-5) Fredrick/ul Urine Nitrite NEGATIVE (NEGATIVE) Urine Bilirubin NEGATIVE (NEGATIVE) Urine Urobilinogen NEGATIVE (0-1) mg/dL Ur Leukocyte Esterase TRACE (NEGATIVE) Urine WBC (Auto) 0-2 (0-5) /HPF Urine RBC (Auto) NONE (0-2) /HPF U Epithel Cells (Auto) RARE (FEW) /HPF Urine Bacteria (Auto) NONE (NEGATIVE) /HPF Urine Mucus (Auto) SLIGHT (NEGATIVE) /HPF Urine Culture Reflexed NO (NO) Urine Glucose NEGATIVE (NEGATIVE) mg/dL - Progress Progress: improved Progress Note: 05/07/20 06:19 Patient had a 3-hour plus troponin drawn which was negative - Departure Departure Disposition: Home Clinical Impression: Chest pain Condition: Stable Critical Care Time: No Referrals: CECE WOODARD [Primary Care Provider] - Instructions: Chest Pain (DC)
[2020-05-07 06:28] VITALS: BP 135/82; PULSE 76; O2SAT 97
--- NOTE | 2020-05-07 13:32 | XRAY ---
Exam: AP upright portable chest film from 05/07/2020. Comparison: AP portable chest film from 02/04/2020. Indication: Chest pain, back pain. Findings: The level of inspiration is not as deep as that seen on 02/04/2020. The transverse heart size appears normal. Minimal linear scarring or atelectasis is again seen at the lateral left lung base. Otherwise, the lung nichols appear clear. The patient is noted to be large. No vascular congestion, pneumothorax, or pleural fluid is seen. EKG leads are seen in place. Vascular calcification is seen within the left carotid artery bifurcation. Some degenerative changes are seen within both the cervical spine and lower thoracic spine. Impression: 1. Mild scarring versus atelectasis at lateral left lung base representing no significant change from 03/16/2020. 2. Otherwise, mildly hypoinflated chest with no evidence of other acute cardiopulmonary disease.
== END 2020-05-07 06:28 | disposition home or self-care (01) ==
LOC: ED 01:50
DX: R07.9 Chest pain, unspecified (principal); I10 Essential (primary) hypertension; E03.9 Hypothyroidism, unspecified; J44.9 Chronic obstructive pulmonary disease, unspecified; F31.9 Bipolar disorder, unspecified; K21.9 Gastro-esophageal reflux disease without esophagitis; Z85.828 Personal history of other malignant neoplasm of skin; Z79.899 Other long term (current) drug therapy
CPT/HCPCS: 36000; 36415; 71045; 80053; 81001; 82150; 83605; 83690; 83735; 84484; 85025; 85379; 85610; 85730; 93005; 96374; 99284; J3010

== ENCOUNTER 2020-05-09 18:54 | Emergency (ER) | payer BC, MEDICARE ==
[2020-05-09 19:14] VITALS: PULSE 107
--- NOTE | 2020-05-09 19:59 | ERPHSYRPT ---
- History of Present Illness Time Seen by Provider: 05/09/20 19:24 Source: patient Exam Limitations: no limitations Patient Subjective Stated Complaint: pt reports increased anxiety from normal. pt reports she typically manages her anxiety with PRN xanax but cannot seem to get through this episode. pt states that she had a recent tele visit with Dr Woodard and receieved new medication, but states that she is now having nightmare and has discontinued it. 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 pt also reports neck and back pain that is chronic for her and she is taking norco 10 for that. pt denies any thoughts of harming herself or others. Triage Nursing Assessment: pt is aox3, pupils perrl, afebrile, resps easy and non labored, cap refill < 3 seconds, radial pulses strong and equal, pt skin pink warm dry. pt tearful on exam, pt is pleasant, cooperative, talkative with staff. Physician History: 59 years old female with history of anxiety, bipolar disorder, PTSD on multiple medications presented via EMS with worsening anxiety for the last few weeks and prior to arrival she had some arguments with her significant other which according to her for the flash point. Patient reports she has been recently stressed out and her anxiety does not seems to be getting under control. She was evaluated by primary care, recent changes in her anxiety meds but she stopped taking as she was getting nightmares and some other side effects. Patient reports she takes Xanax as needed but has not taken today. Patient reports recently she feels that everything is closing out and she was having some difficulty breathing, palpitations after any kind of arguments. 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 She denies any suicidal or homicidal ideations now or in the past. Patient reports she wants some help from psych/psychotherapy. She denies any ideas of hopelessness, helplessness. She does have disturbed sleep but denies any guilt feeling. L Timing/Duration: week(s), gradual onset, worse Severity of Symptoms-Max: severe Severity of Symptoms-Current: moderate Context related to: significant other Associated Symptoms: anxiety, depressed, No suicidal ideation Previous symptoms: same symptoms as today Allergies/Adverse Reactions: Influenza Virus Vaccines [Influenza Virus Vaccine] Allergy (Intermediate, Verified 05/07/20 02:22) Swelling of Hands Penicillins Allergy (Verified 05/07/20 02:22) venom-honey bee [bee venom (honey bee)] Allergy (Verified 05/07/20 02:22) oxycodone HCl [From OxyContin] Adverse Reaction (Mild, Verified 05/07/20 02:22) Nausea tape Allergy (Uncoded 05/07/20 02:22) Home Medications: lisinopriL [Lisinopril] 10 mg PO DAILY 07/25/14 [History] Sumatriptan Succinate [Imitrex] 100 mg PO DAILY PRN PRN 01/18/16 [History] ALPRAZolam [Alprazolam] 2 mg PO TIDPRN PRN 01/24/16 [History] Levothyroxine Sodium 150 Mcg [Synthroid 150 Mcg] 150 mcg PO DAILY 01/24/16 [History] Divalproex Sodium [Depakote] 2 tab PO DAILY 09/18/18 [History] Vortioxetine Hydrobromide [Trintellix] 20 mg PO DAILY 09/18/18 [History] Atorvastatin Calcium [Lipitor 20MG Tablet] 20 mg PO DAILY 05/07/20 [History] Furosemide [Lasix] 20 mg PO DAILY 05/07/20 [History] Gabapentin 300 mg PO TID 05/07/20 [History] Potassium Chloride 10 Meq Tab* [Klor Con 10 MEQ] 10 meq PO DAILY 05/07/20 [ History] Hx Tetanus, Diphtheria Vaccination/Date Given: No Hx Influenza Vaccination/Date Given: No Hx Pneumococcal Vaccination/Date Given: Yes Immunizations Up to Date: Yes Travel Risk - International Travel Have you traveled outside of the country in past 3 weeks: No If Yes, where;: N - Coronavirus Screening Are you exhibiting any of the following symptoms?: No Close contact with a COVID-19 positive Pt in past 14-21 Days: No - Past Medical History Pertinent Past Medical History: Yes Neurological History: No Pertinent History ENT History: Other Cardiac History: High Cholesterol, Hypertension Respiratory History: COPD, Pneumonia Endocrine Medical History: Hypothyroidism Musculoskeletal History: No Pertinent History, Other GI Medical History: GERD, Gallbladder Disease, Ulcer, Other History: No Pertinent History Psycho-Social History: Anxiety, Bipolar, Depression Female Reproductive Disorders: No Pertinent History Other Medical History: stage IV skin cancer - Past Surgical History Past Surgical History: Yes Neuro Surgical History: No Pertinent History Cardiac: No Pertinent History Respiratory: No Pertinent History Gastrointestinal: Appendectomy, Cholecystectomy Genitourinary: No Pertinent History Musculoskeletal: No Pertinent History Female Surgical History: Hysterectomy Other Surgical History: tubes in ears, pre-cancerous polyps removed from colon - Social History Smoking Status: Former smoker How long have you smoked: 42 years Exposure to second hand smoke: Yes Alcohol Use: None Drug Use: none Patient Lives Alone: No Significant Family History: heart disease, diabetes, hypertension - Female History Hx Now: No - Review of Systems Constitutional: No Symptoms Eyes: No Symptoms Ears, Nose, & Throat: No Symptoms Respiratory: No Symptoms Cardiac: No Symptoms Abdominal/Gastrointestinal: No Symptoms Genitourinary Symptoms: No Symptoms Musculoskeletal: No Symptoms Skin: No Symptoms Neurological: No Symptoms Psychological: Anxiety, Depression, Emotional Lability, No Suicidal Ideations, No Homicidal Ideations Hematologic/Lymphatic: No Symptoms Immunological/Allergic: No Symptoms - Nursing Vital Signs Nursing Vital Signs: Initial Vital Signs Temperature 98 F 05/09/20 18:56 Pulse Rate 107 H 05/09/20 18:56 Respiratory Rate 20 05/09/20 18:56 Blood Pressure 159/94 05/09/20 18:56 O2 Sat by Pulse Oximetry 98 05/09/20 18:56 Pain Scale Pain Intensity 4 - Physical Exam General Appearance: no apparent distress, alert, anxiety Eyes, Ears, Nose, Throat Exam: normal ENT inspection, TMs normal, pharynx normal Neck Exam: normal inspection, non-tender, supple, full range of motion Respiratory Exam: normal breath sounds, lungs clear Cardiovascular Exam: regular rate/rhythm, normal heart sounds Gastrointestinal/Abdominal Exam: soft, normal bowel sounds, No tenderness Extremities Exam: normal inspection Current Suicidality: denies suicide plan Neurological Exam: alert, 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, 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 as tested Appearance: appropriate appearance, appropriate insight, neat, no memory impairment Behavior/Eye Contact/Speech: alert & cooperative, good eye contact, normal speech Thoughts/Hallucinations: normal thought pattern Skin Exam: normal color SpO2 Interpretation: normal SpO2: 98 O2 Delivery: Room Air Ordered Tests: Active Orders 24 hr Category Date Time Status Clean Catch Urine Specimen STAT Care 05/09/20 19:44 Active ACETAMINOPHEN Stat Lab 05/09/20 20:12 Completed CBC W DIFF Stat Lab 05/09/20 20:12 Completed CMP Stat Lab 05/09/20 20:12 Completed ETHYL ALCOHOL Stat Lab 05/09/20 20:12 Completed SALICYLATE Stat Lab 05/09/20 20:12 Completed Urine Triage Profile Stat Lab 05/09/20 21:47 Completed Lab/Rad Data: Laboratory Result Diagrams 05/09/20 20:12 05/09/20 20:12 Laboratory Results 05/09/20 05/09/20 05/09/20 Range/Units 21:47 20:12 20:12 WBC 9.3 (4.0-10.5) K/mm3 RBC 4.91 (4.1-5.4) M/mm3 Hgb 14.4 (12.0-16.0) gm/dl Hct 45.5 (35-47) % MCV 92.7 (78-100) fl MCH 29.3 (26-32) pg MCHC 31.6 L (32-36) g/dl RDW 15.6 H (11.5-14.0) % Plt Count 225 (150-450) K/mm3 MPV 9.7 (7.5-11.0) fl Gran % 57.2 (36.0-66.0) % Eos # (Auto) 0.13 (0-0.5) Absolute Lymphs (auto) 3.03 (1.0-4.6) Absolute Monos (auto) 0.79 (0.0-1.3) Lymphocytes % 32.7 (24.0-44.0) % Monocytes % 8.5 (0.0-12.0) % Eosinophils % 1.4 (0.00-5.0) % Basophils % 0.2 (0.0-0.4) % Absolute Granulocytes 5.31 (1.4-6.9) Basophils # 0.02 (0-0.4) Sodium 140 (137-145) mmol/L Potassium 4.1 (3.5-5.1) mmol/L Chloride 100 (98-107) mmol/L Carbon Dioxide 31 H (22-30) mmol/L Anion Gap 13.4 (5-15) MEQ/L BUN 20 H (7-17) mg/dL Creatinine 1.03 (0.52-1.04) mg/dL Estimated GFR 58.3 ML/MIN Glucose 117 H (74-106) mg/dL Calcium 9.9 (8.4-10.2) mg/dL Total Bilirubin 0.50 (0.2-1.3) mg/dL AST 20 (14-36) U/L ALT 16 (0-35) U/L Alkaline Phosphatase 83 (38-126) U/L Serum Total Protein 8.4 H (6.3-8.2) g/dL Albumin 4.4 (3.5-5.0) g/dL Salicylates 1.0 L (2-20) mg/dL Urine Opiates Level NEGATIVE (NEGATIVE) Ur Methadone NEGATIVE (NEGATIVE) Acetaminophen < 10 L (10-30) ug/ml Urine Barbiturates NEGATIVE (NEGATIVE) Ur Phencyclidine (PCP) NEGATIVE (NEGATIVE) Urine Amphetamine NEGATIVE (NEGATIVE) U Benzodiazepine Level POSITIVE (NEGATIVE) Urine Cocaine NEGATIVE (NEGATIVE) Urine Marijuana (THC) NEGATIVE (NEGATIVE) Ethyl Alcohol < 10 (0-10) mg/dL - Progress Progress: improved, re-examined Progress Note: Medically cleared. Behavioral health has evaluated. Do not think patient is a threat to self or anyone else, recommended outpatient follow-up which she will. I have asked patient multiple times in different ways and she denies suicidal/ homicidal ideations. Discussed signs symptoms of worsening needing return to ER which she seems understanding. Stable for discharge. Counseled pt/family regarding: lab results, diagnosis, need for follow-up, smoking cessation - Departure Departure Disposition: Home Clinical Impression: Anxiety attack, Depressive disorder Condition: Stable Critical Care Time: No Referrals: CECE WOODARD [Primary Care Provider] - (1-2 days for reevaluation) Instructions: Anxiety, Adult (DC) Additional Instructions: Call for outpatient therapist at [phone] for appointment in the morning. Take medications which you have at home as recommended. Call 911 or return to ER if has worsening anxiety, depressive symptoms or suicidal/homicidal ideations.
[2020-05-09 20:17] LABS: Absolute Neutrophil Ct (ANC) 5.31 (1.4-6.9); BASOPHIL % 0.2 % (0.0-0.4); Basophil (Absolute #) 0.02 (0-0.4); Eosinophil % 1.4 % (0.00-5.0); Eosinophil (Absolute #) 0.13 (0-0.5); Hematocrit 45.5 % (35-47); Hemoglobin 14.4 gm/dl (12.0-16.0); Lymphocyte (Absolute #) 3.03 (1.0-4.6); Lymphocytes % 32.7 % (24.0-44.0); Mean Cell Volume 92.7 fl (78-100); Mean Corpuscular Hemoglobin 29.3 pg (26-32); Mean Corpuscular Hgb Concent. 31.6 g/dl (32-36); Mean Platelet Volume 9.7 fl (7.5-11.0); Monocyte (Absolute #) 0.79 (0.0-1.3); Monocytes % 8.5 % (0.0-12.0); Neutrophil % 57.2 % (36.0-66.0); Platelet Count 225 K/mm3 (150-450); Red Blood Count 4.91 M/mm3 (4.1-5.4); Red Cell Distribution Width 15.6 % (11.5-14.0); White Blood Count 9.3 K/mm3 (4.0-10.5)
[2020-05-09 20:31] LABS: ACETAMINOPHEN < 10 ug/ml (10-30); ALBUMIN 4.4 g/dL (3.5-5.0); ALKALINE PHOSPHATASE 83 U/L (38-126); ANION GAP 13.4 MEQ/L (5-15); BLOOD UREA NITROGEN 20 mg/dL (7-17); CHLORIDE 100 mmol/L (98-107); Calcium 9.9 mg/dL (8.4-10.2); Carbon Dioxide 31 mmol/L (22-30); Creatinine 1 1.03 mg/dL (0.52-1.04); ETHYL ALCOHOL < 10 mg/dL (0-10); Glucose 117 mg/dL (74-106); Potassium 4.1 mmol/L (3.5-5.1); SGOT/AST 20 U/L (14-36); SGPT/ALT 16 U/L (0-35); SODIUM 140 mmol/L (137-145); Total Protein 8.4 g/dL (6.3-8.2)
[2020-05-09 22:06] LABS: Amphetamine,Urine NEGATIVE (NEGATIVE); Barbiturate,Urine NEGATIVE (NEGATIVE); Benzodiazepine,Urine POSITIVE (NEGATIVE); Cocaine,Urine NEGATIVE (NEGATIVE); Methadone,Urine NEGATIVE (NEGATIVE); Opiate,Urine NEGATIVE (NEGATIVE); PCP,Urine NEGATIVE (NEGATIVE); THC,Urine NEGATIVE (NEGATIVE)
[2020-05-09 22:44] VITALS: BP 129/90
[2020-05-10 06:13] VITALS: O2SAT 98
== END 2020-05-09 22:44 | disposition home or self-care (01) ==
LOC: ED 18:54
DX: F41.9 Anxiety disorder, unspecified (principal); F32.9 Major depressive disorder, single episode, unspecified; F43.10 Post-traumatic stress disorder, unspecified; Z79.899 Other long term (current) drug therapy; I10 Essential (primary) hypertension; J44.9 Chronic obstructive pulmonary disease, unspecified; E03.9 Hypothyroidism, unspecified; E78.00 Pure hypercholesterolemia, unspecified; K21.9 Gastro-esophageal reflux disease without esophagitis
CPT/HCPCS: 36415; 80053; 80307; 85025; 99283; G0481; 90791; Q3014; G0480

== ENCOUNTER 2020-09-11 23:45 | Emergency (ER) | payer BC, MEDICARE ==
[2020-09-12 00:03] VITALS: O2SAT 98
--- NOTE | 2020-09-12 00:09 | ERPHSYRPT ---
- History of Present Illness Time Seen by Provider: 09/12/20 00:03 Source: patient Exam Limitations: no limitations Patient Subjective Stated Complaint: pt states "Dr. Woodard has been treating my foot. Tonight it feels like it needs pop." Triage Nursing Assessment: pt ambulated into the er; pt is axo x4; c/o wound to left foot and toes; states 9/10 pain to left foot; red rash to left foot; dry skin present to left foot; tender with palpation; strong pedal pulses; good cap refill; hypertension Physician History: Patient is 59-year-old female came to the emergency room with rash on her left foot which is scaly and painful. Restasis only around lateral margin of the left foot on dorsum area and redness is not extending above the ankle and also only on the lateral part of the foot with some area which is open. Timing/Duration: week(s) (8 weeks), gradual onset Location: feet Possible Causes: no cause identified Associated Symptoms: change in skin texture Allergies/Adverse Reactions: Influenza Virus Vaccines [Influenza Virus Vaccine] Allergy (Intermediate, Verified 09/11/20 23:50) Swelling of Hands Penicillins Allergy (Verified 09/11/20 23:50) venom-honey bee [bee venom (honey bee)] Allergy (Verified 09/11/20 23:50) tape Allergy (Uncoded 09/11/20 23:50) Home Medications: lisinopriL [Lisinopril] 10 mg PO DAILY 07/25/14 [History] Sumatriptan Succinate [Imitrex] 100 mg PO DAILY PRN PRN 01/18/16 [History] ALPRAZolam [Alprazolam] 2 mg PO TIDPRN PRN 01/24/16 [History] Levothyroxine Sodium 150 Mcg [Synthroid 150 Mcg] 150 mcg PO DAILY 01/24/16 [History] Divalproex Sodium [Depakote] 2 tab PO DAILY 09/18/18 [History] Vortioxetine Hydrobromide [Trintellix] 20 mg PO DAILY 09/18/18 [History] Atorvastatin Calcium [Lipitor 20MG Tablet] 20 mg PO DAILY 05/07/20 [History] Furosemide [Lasix] 20 mg PO DAILY 05/07/20 [History] Gabapentin 300 mg PO TID 05/07/20 [History] Potassium Chloride 10 Meq Tab* [Klor Con 10 MEQ] 10 meq PO DAILY 05/07/20 [History] Hx Tetanus, Diphtheria Vaccination/Date Given: No (unknown) Hx Influenza Vaccination/Date Given: No Hx Pneumococcal Vaccination/Date Given: No Travel Risk - International Travel Have you traveled outside of the country in past 3 weeks: No - Coronavirus Screening Are you exhibiting any of the following symptoms?: No Close contact with a COVID-19 positive Pt in past 14-21 Days: No - Review of Systems Constitutional: No Symptoms Eyes: No Symptoms Ears, Nose, & Throat: No Symptoms Respiratory: No Symptoms Cardiac: No Symptoms Abdominal/Gastrointestinal: No Symptoms Genitourinary Symptoms: No Symptoms Musculoskeletal: No Symptoms Skin: Rash, Skin Lesions, Dryness - Past Medical History Pertinent Past Medical History: Yes Neurological History: No Pertinent History ENT History: Other Cardiac History: High Cholesterol, Hypertension Respiratory History: COPD, Pneumonia Endocrine Medical History: Hypothyroidism Musculoskeletal History: No Pertinent History, Other GI Medical History: GERD, Gallbladder Disease, Ulcer, Other History: No Pertinent History Psycho-Social History: Anxiety, Bipolar, Depression Female Reproductive Disorders: No Pertinent History Other Medical History: stage IV skin cancer - Past Surgical History Past Surgical History: Yes Neuro Surgical History: No Pertinent History Cardiac: No Pertinent History Respiratory: No Pertinent History Gastrointestinal: Appendectomy, Cholecystectomy Genitourinary: No Pertinent History Musculoskeletal: No Pertinent History Female Surgical History: Hysterectomy Other Surgical History: tubes in ears, pre-cancerous polyps removed from colon - Social History Smoking Status: Former smoker How long have you smoked: 42 years Exposure to second hand smoke: Yes Alcohol Use: None Drug Use: none Patient Lives Alone: No Significant Family History: heart disease, diabetes, hypertension - Female History Hx Now: No - Nursing Vital Signs Nursing Vital Signs: Initial Vital Signs Temperature 97.4 F 09/11/20 23:52 Pulse Rate 82 09/11/20 23:52 Respiratory Rate 18 09/11/20 23:52 Blood Pressure 210/135 09/11/20 23:52 O2 Sat by Pulse Oximetry 98 09/11/20 23:52 Pain Scale Pain Intensity 9 - Physical Exam General Appearance: no apparent distress Eye Exam: PERRL/EOMI Ears, Nose, Throat Exam: normal ENT inspection Neck Exam: normal inspection Respiratory Exam: normal breath sounds Cardiovascular Exam: regular rate/rhythm Extremity Exam: normal inspection Skin Exam: other (dry scally skin with some open area) SpO2: 98 - Course Nursing assessment & vital signs reviewed: Yes - Progress Progress: unchanged Counseled pt/family regarding: diagnosis, need for follow-up - Departure Departure Disposition: Home Clinical Impression: Dermatitis infectiosa eczematoides Condition: Stable Critical Care Time: No Referrals: CECE WOODARD [Primary Care Provider] - Follow Up with PCP/3 days Instructions: Eczema (Atopic Dermatitis)
[2020-09-12 00:24] VITALS: BP 162/98; PULSE 80
[2020-09-12] MEDS ORDERED: KENALOG 0.1% CREAM 15 GM TP SCH (10:00)
== END 2020-09-12 00:22 | disposition home or self-care (01) ==
LOC: ED 23:45
DX: L30.8 Other specified dermatitis (principal); L30.9 Dermatitis, unspecified; Z85.828 Personal history of other malignant neoplasm of skin
CPT/HCPCS: 99283; A9270-GY

== ENCOUNTER 2021-06-25 19:06 | Emergency (ER) | payer BC, MEDICARE ==
[2021-06-25] MEDS ORDERED: Pepcid 20 MG VIAL IV ONE ×2 (19:32→19:36)
[2021-06-25] MEDS ORDERED: BENADRYL 50 MG/ML IV ONE (19:32)
[2021-06-25] MEDS ORDERED: solu-MEDROL 125 MG, Sterile H2O 10 ml 2 ML IV ONE ×2 (19:32)
[2021-06-25] MEDS ORDERED: BENADRYL 50 MG/ML ONE (19:36)
[2021-06-25] MEDS ORDERED: solu-MEDROL ONE (19:36)
[2021-06-25] MEDS ORDERED: Sterile H2O 10 ml IJ ONE (19:36)
--- NOTE | 2021-06-25 19:43 | ERPHSYRPT ---
- History of Present Illness Time Seen by Provider: 06/25/21 19:25 Source: patient Exam Limitations: no limitations Patient Subjective Stated Complaint: "My throat feels tight." Triage Nursing Assessment: Patient reported acute onset of tightness in her throat and difficulty moving air. Denied shortness of breath. Denied known exposure to new lotions, food, fragerances, or medications. Took three benadryl last night. Denied headache, dizziness, chest pain, N/V/D. pain rated 8/10 and radiating into the right side of the neck. Oropharynx erythematous without tonsilar exudate. Neck supple without lymphadenopathy. heart tones S1/S2 RRR. Lungs vesicular without adeventitious sounds. No stridor noted. Peripheral pulses +2 bilateral. Gait steady. Physician History: This is a morbidly obese 60-year-old white female patient of Dr. 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 She has no no specific new exposures. She is been taking lisinopril but only for about 5 to 6 months. Patient did take 325 mg Benadryl last night. She has not had any wheezing. She has no chest pain and no shortness of breath. She has no nausea vomiting or diarrhea. Patient has a history of bipolar disorder, depression, anxiety and gastroesophageal reflux disease. Timing/Duration: yesterday Severity: mild (To moderate) Associated Symptoms: denies symptoms, No shortness of breath, No heartburn, No cough, No chest pain, No rash Allergies/Adverse Reactions: Influenza Virus Vaccines [Influenza Virus Vaccine] Allergy (Intermediate, Verified 09/11/20 23:50) Swelling of Hands venom-honey bee [bee venom (honey bee)] Allergy (Verified 09/11/20 23:50) famotidine [From Pepcid] Adverse Reaction (Intermediate, Verified 06/25/21 20:03) hot, flushed, diaphoresis, and chest pain. tape Allergy (Uncoded 09/11/20 23:50) Home Medications: ALPRAZolam [Alprazolam] 1 mg PO TIDPRN PRN 01/24/16 [History] Divalproex Sodium [Depakote] 2 tab PO DAILY 09/18/18 [History] Vortioxetine Hydrobromide [Trintellix] 20 mg PO DAILY 09/18/18 [History] Atorvastatin Calcium [Lipitor 20MG Tablet] 20 mg PO DAILY 05/07/20 [History] Furosemide [Lasix] 20 mg PO DAILY 05/07/20 [History] Gabapentin 300 mg PO TID 05/07/20 [History] Potassium Chloride 10 Meq Tab* [Klor Con 10 MEQ] 20 meq PO DAILY 05/07/20 [History] Amlodipine Besylate 2.5 mg PO DAILY 06/25/21 [History] Divalproex Sodium 1,000 mg PO DAILY 06/25/21 [History] Famotidine [Pepcid] 40 mg PO DAILY 06/25/21 [History] Furosemide 20 mg [Lasix 20 mg] 60 mg pe PO DAILY 06/25/21 [History] Hydrocodone/Acetaminophen [Hydrocodone-Acetamin 10-325 mg] 1 tab PO TID PRN 06/25/21 [History] Levothyroxine Sodium 88 Mcg [Synthroid 88 Mcg] 88 mcg PO DAILY 06/25/21 [History] Montelukast Sodium 10 mg [Singulair 10 MG] 10 mg PO DAILY 06/25/21 [History] PANTOPRAZOLE 40 mg Tablet [Protonix 40MG Tablet] 40 mg PO DAILY 06/25/21 [History] Topiramate 50 mg PO DAILY 06/25/21 [History] Zonisamide 100 mg PO TID 06/25/21 [History] Hx Tetanus, Diphtheria Vaccination/Date Given: No (unknown) Hx Influenza Vaccination/Date Given: No Hx Pneumococcal Vaccination/Date Given: No Travel Risk - International Travel Have you traveled outside of the country in past 3 weeks: No - Coronavirus Screening Are you exhibiting any of the following symptoms?: No Close contact with a COVID-19 positive Pt in past 14-21 Days: No - Vaccine Status Have you recieved a Covid-19 vaccination: No - Review of Systems Constitutional: No Symptoms Eyes: No Symptoms Ears, Nose, & Throat: Other (Tightness in her throat and mild tongue swelling) Cardiac: No Symptoms Abdominal/Gastrointestinal: No Symptoms Genitourinary Symptoms: No Symptoms Musculoskeletal: No Symptoms Skin: No Symptoms Neurological: No Symptoms Psychological: No Symptoms Endocrine: No Symptoms Hematologic/Lymphatic: No Symptoms Immunological/Allergic: No Symptoms All Other Systems: Reviewed and Negative - Past Medical History Pertinent Past Medical History: Yes Neurological History: No Pertinent History ENT History: Other Cardiac History: High Cholesterol, Hypertension Respiratory History: COPD, Pneumonia Endocrine Medical History: Hypothyroidism Musculoskeletal History: No Pertinent History, Other GI Medical History: GERD, Gallbladder Disease, Ulcer, Other History: No Pertinent History Psycho-Social History: Anxiety, Bipolar, Depression Female Reproductive Disorders: No Pertinent History Other Medical History: stage IV skin cancer - Past Surgical History Past Surgical History: Yes Neuro Surgical History: No Pertinent History Cardiac: No Pertinent History Respiratory: No Pertinent History Gastrointestinal: Appendectomy, Cholecystectomy Genitourinary: No Pertinent History Musculoskeletal: No Pertinent History Female Surgical History: Hysterectomy Other Surgical History: tubes in ears, pre-cancerous polyps removed from colon - Social History Smoking Status: Former smoker How long have you smoked: 42 years Exposure to second hand smoke: Yes Alcohol Use: None Drug Use: none Patient Lives Alone: No Significant Family History: heart disease, diabetes, hypertension - Female History Hx Now: No - Nursing Vital Signs Nursing Vital Signs: Initial Vital Signs Respiratory Rate 20 06/25/21 19:07 Blood Pressure 181/112 06/25/21 19:07 O2 Sat by Pulse Oximetry 100 06/25/21 19:07 Pain Scale Pain Intensity 8 - Physical Exam General Appearance: no apparent distress, alert, anxiety, obese Eye Exam: PERRL/EOMI, eyes nml inspection Ears, Nose, Throat Exam: moist mucous membranes, other (Swelling tongue bilaterally.) Neck Exam: normal inspection, non-tender, supple, full range of motion Respiratory Exam: normal breath sounds, lungs clear, No chest tenderness, No respiratory distress, No wheezing, No stridor Cardiovascular Exam: regular rate/rhythm, normal heart sounds, normal peripheral pulses Gastrointestinal/Abdomen Exam: soft, normal bowel sounds, No tenderness Pelvic Exam: not done Rectal Exam: not done Back Exam: normal inspection, normal range of motion, No CVA tenderness, No vertebral tenderness Extremity Exam: normal inspection, normal range of motion, pelvis stable Neurologic Exam: alert, oriented x 3, cooperative, stove mechanic II-XII nml as tested, normal mood/affect, nml cerebellar function, nml station & gait, sensation nml Skin Exam: normal color, warm, dry Lymphatic Exam: No adenopathy SpO2 Interpretation: normal SpO2: 100 O2 Delivery: Room Air - Course Nursing assessment & vital signs reviewed: Yes EKG Interpreted by Me: RATE (78), Sinus Rhythm, Right [place] Deviation, NORMAL INTERVALS, NORMAL QRS, NORMAL ST-T, Other (There are no acute ischemic changes on today's EKG. When compared to EKG dated 05/07/2020, there are no acute changes) Ordered Tests: Active Orders 24 hr Category Date Time Status EKG-ER Only STAT Care 06/25/21 19:43 Active IV Insertion STAT Care 06/25/21 19:43 Active Pulse Oximetry (ED) STAT Care 06/25/21 19:43 Active CBC W DIFF Stat Lab 06/25/21 19:50 Completed CMP Stat Lab 06/25/21 19:50 Completed TROPONIN Q3H Lab 06/25/21 19:50 Completed TROPONIN Q3H Lab 06/25/21 22:45 Ordered TROPONIN Q3H Lab 06/26/21 01:45 Ordered TROPONIN Q3H Lab 06/26/21 04:45 Ordered TROPONIN Q3H Lab 06/26/21 07:45 Ordered Transfer Order Routine Transfer 06/25/21 Ordered Medication Summary Discontinued Medications Generic Name Dose Route Start Last Admin Trade Name Freq PRN Reason Stop Dose Admin Methylprednisolone Sodium 0 mg 06/25/21 19:32 06/25/21 19:38 Succinate 125 mg/ Sterile IV 06/25/21 19:33 125 mg Water 2 ml STAT ONE Administration Diphenhydramine HCl 50 mg 06/25/21 19:32 06/25/21 19:38 Benadryl 50 Mg/Ml IV 06/25/21 19:33 50 mg STAT ONE Administration Diphenhydramine HCl Confirm 06/25/21 19:36 Benadryl 50 Mg/Ml Administered 06/25/21 19:37 Dose 50 mg .ROUTE .STK-MED ONE Enalaprilat 0.625 mg 06/25/21 20:20 06/25/21 20:25 Vasotec I.V. 2.5 Mg IV 06/25/21 20:21 0.625 mg STAT ONE Administration Enalaprilat Confirm 06/25/21 20:24 Vasotec I.V. 2.5 Mg Administered 06/25/21 20:25 Dose 2.5 mg IV .STK-MED ONE Famotidine 40 mg 06/25/21 19:32 06/25/21 19:38 Pepcid 20 Mg Vial IV 06/25/21 19:33 40 mg STAT ONE Administration Famotidine Confirm 06/25/21 19:36 Pepcid 20 Mg Vial Administered 06/25/21 19:37 Dose 40 mg IV .STK-MED ONE Methylprednisolone Sodium Succinate Confirm 06/25/21 19:36 Solu-Medrol Administered 06/25/21 19:37 Dose 125 mg .ROUTE .STK-MED ONE Sterile Water Confirm 06/25/21 19:36 Sterile H2o 10 Ml Administered 06/25/21 19:37 Dose 10 ml IJ .STK-MED ONE Lab/Rad Data: Laboratory Result Diagrams 06/25/21 19:50 06/25/21 19:50 Laboratory Results 06/25/21 06/25/21 06/25/21 Range/Units 19:50 19:50 19:50 WBC 8.5 (4.0-10.5) K/mm3 RBC 5.10 (4.1-5.4) M/mm3 Hgb 14.4 (12.0-16.0) gm/dl Hct 46.8 (35-47) % MCV 91.8 (78-100) fl MCH 28.2 (26-32) pg MCHC 30.8 L (32-36) g/dl RDW 15.5 H (11.5-14.0) % Plt Count 190 (150-450) K/mm3 MPV 10.8 (7.5-11.0) fl Gran % 59.6 (36.0-66.0) % Eos # (Auto) 0.12 (0-0.5) Absolute Lymphs (auto) 2.67 (1.0-4.6) Absolute Monos (auto) 0.64 (0.0-1.3) Lymphocytes % 31.3 (24.0-44.0) % Monocytes % 7.5 (0.0-12.0) % Eosinophils % 1.4 (0.00-5.0) % Basophils % 0.2 (0.0-0.4) % Absolute Granulocytes 5.08 (1.4-6.9) Basophils # 0.02 (0-0.4) Sodium 139 (137-145) mmol/L Potassium 4.6 (3.5-5.1) mmol/L Chloride 101 (98-107) mmol/L Carbon Dioxide 24 (22-30) mmol/L Anion Gap 18.7 H (5-15) MEQ/L BUN 17 (7-17) mg/dL Creatinine 0.76 (0.52-1.04) mg/dL Estimated GFR > 60.0 ML/MIN Glucose 115 H (74-106) mg/dL Calcium 9.5 (8.4-10.2) mg/dL Total Bilirubin 0.80 (0.2-1.3) mg/dL AST 29 (14-36) U/L ALT 13 (0-35) U/L Alkaline Phosphatase 82 (38-126) U/L Troponin I < 0.012 (0.000-0.034) ng/mL Serum Total Protein 8.3 H (6.3-8.2) g/dL Albumin 4.4 (3.5-5.0) g/dL - Progress Progress: improved Counseled pt/family regarding: lab results, diagnosis, need for follow-up - Departure Departure Disposition: Home Clinical Impression: Allergic reaction, Hypertension Condition: Stable Critical Care Time: No Referrals: CECE WOODARD [Primary Care Provider] - Additional Instructions: Stop your Reglan and lisinopril until you speak with your prescribing physician to obtain further recommendations. Continue your prescribed Pepcid. Use Benadryl 25 mg orally 3 times a day for the next 4 days. Prescriptions: Prednisone 10 mg [Deltasone 10 mg] 10 mg PO TID #12 tablet
[2021-06-25 20:12] LABS: Absolute Neutrophil Ct (ANC) 5.08 (1.4-6.9); BASOPHIL % 0.2 % (0.0-0.4); Basophil (Absolute #) 0.02 (0-0.4); Eosinophil % 1.4 % (0.00-5.0); Eosinophil (Absolute #) 0.12 (0-0.5); Hematocrit 46.8 % (35-47); Hemoglobin 14.4 gm/dl (12.0-16.0); Lymphocyte (Absolute #) 2.67 (1.0-4.6); Lymphocytes % 31.3 % (24.0-44.0); Mean Cell Volume 91.8 fl (78-100); Mean Corpuscular Hemoglobin 28.2 pg (26-32); Mean Corpuscular Hgb Concent. 30.8 g/dl (32-36); Mean Platelet Volume 10.8 fl (7.5-11.0); Monocyte (Absolute #) 0.64 (0.0-1.3); Monocytes % 7.5 % (0.0-12.0); Neutrophil % 59.6 % (36.0-66.0); Platelet Count 190 K/mm3 (150-450); Red Cell Distribution Width 15.5 % (11.5-14.0); White Blood Count 8.5 K/mm3 (4.0-10.5)
[2021-06-25 20:14] VITALS: BP 159/112
[2021-06-25] MEDS ORDERED: VASOTEC I.V. 2.5 MG IV ONE ×2 (20:20→20:24)
[2021-06-25 20:23] LABS: ALBUMIN 4.4 g/dL (3.5-5.0); ALKALINE PHOSPHATASE 82 U/L (38-126); ANION GAP 18.7 MEQ/L (5-15); BLOOD UREA NITROGEN 17 mg/dL (7-17); CHLORIDE 101 mmol/L (98-107); Calcium 9.5 mg/dL (8.4-10.2); Carbon Dioxide 24 mmol/L (22-30); Creatinine 1 0.76 mg/dL (0.52-1.04); EST GLOMERULAR FILTRATION RATE > 60.0 ML/MIN; Glucose 115 mg/dL (74-106); Potassium 4.6 mmol/L (3.5-5.1); SGOT/AST 29 U/L (14-36); SGPT/ALT 13 U/L (0-35); SODIUM 139 mmol/L (137-145); Total Protein 8.3 g/dL (6.3-8.2)
[2021-06-25 21:18] VITALS: PULSE 86; O2SAT 99
== END 2021-06-25 21:16 | disposition home or self-care (01) ==
LOC: ED 19:06
DX: T78.40XA Allergy, unspecified, initial encounter (principal); X58.XXXA Exposure to other specified factors, initial encounter; I10 Essential (primary) hypertension; J44.9 Chronic obstructive pulmonary disease, unspecified
CPT/HCPCS: 36000; 36415; 80053; 84484; 85025; 93005; 94760; 96374; 96375; 99284; J1200; J2930

== ENCOUNTER 2021-11-17 08:58 | Observation (INO) | payer BC, MEDICARE ==
[2021-11-17] MEDS ORDERED: Sodium Chloride 0.9% 1000 ML 1,000 ML IV STA (09:16)
[2021-11-17] MEDS ORDERED: solu-MEDROL 125 MG, Sterile H2O 10 ml 2 ML IV ONE ×2 (09:18)
[2021-11-17] MEDS ORDERED: HYDROCODONE-ACETAMIN 2.5-108/5 ML SOLUTION PO STA (09:19)
--- NOTE | 2021-11-17 09:25 | ERPHSYRPT ---
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 This occurred approximately 2 weeks ago. Patient complains of headache, cough and body aches over the last several days. She was seen by urgent care. Her symptoms have worsened in the last few days. She has had no nausea vomiting or diarrhea. She denies chest pain. She has mild shortness of breath. Patient has a history of elevated cholesterol, hypothyroidism, hypertension, COPD, anxiety and depression. She is a former smoker. Patient is not vaccinated for the COVID-19 virus. Patient has an allergy to influenza viral vaccines. Since her symptoms are worsening she has sought medical attention in the emergency department today. Timing/Duration: day(s) (Several days), worse Cough Quality/Degree: moderate Possible Cause: occasional episodes Modifying Factors: Improves With: albuterol inhaler, coughing Associated Symptoms: fever, cough, shortness of breath, sore throat, No chest pain/soreness Allergies/Adverse Reactions: Influenza Virus Vaccines [Influenza Virus Vaccine] Allergy (Intermediate, Verified 11/17/21 09:05) Swelling of Hands venom-honey bee [bee venom (honey bee)] Allergy (Verified 11/17/21 09:05) famotidine [From Pepcid] Adverse Reaction (Intermediate, Verified 11/17/21 09:05) hot, flushed, diaphoresis, and chest pain. tape Allergy (Uncoded 11/17/21 09:05) Home Medications: ALPRAZolam [Alprazolam] 1 mg PO TIDPRN PRN 01/24/16 [History] Divalproex Sodium [Depakote] 2 tab PO DAILY 09/18/18 [History] Vortioxetine Hydrobromide [Trintellix] 20 mg PO DAILY 09/18/18 [History] Atorvastatin Calcium [Lipitor 20MG Tablet] 20 mg PO DAILY 05/07/20 [History] Furosemide [Lasix] 20 mg PO DAILY 05/07/20 [History] Gabapentin 300 mg PO TID 05/07/20 [History] Potassium Chloride 10 Meq Tab* [Klor Con 10 MEQ] 20 meq PO DAILY 05/07/20 [History] Amlodipine Besylate 2.5 mg PO DAILY 06/25/21 [History] Divalproex Sodium 1,000 mg PO DAILY 06/25/21 [History] Famotidine [Pepcid] 40 mg PO DAILY 06/25/21 [History] Furosemide 20 mg [Lasix 20 mg] 60 mg pe PO DAILY 06/25/21 [History] Hydrocodone/Acetaminophen [Hydrocodone-Acetamin 10-325 mg] 1 tab PO TID PRN 06/25/21 [History] Levothyroxine Sodium 88 Mcg [Synthroid 88 Mcg] 88 mcg PO DAILY 06/25/21 [History] Montelukast Sodium 10 mg [Singulair 10 MG] 10 mg PO DAILY 06/25/21 [History] PANTOPRAZOLE 40 mg Tablet [Protonix 40MG Tablet] 40 mg PO DAILY 06/25/21 [History] Topiramate 50 mg PO DAILY 06/25/21 [History] Zonisamide 100 mg PO TID 06/25/21 [History] Hx Tetanus, Diphtheria Vaccination/Date Given: No (unknown) Hx Influenza Vaccination/Date Given: No Hx Pneumococcal Vaccination/Date Given: No Travel Risk - International Travel Have you traveled outside of the country in past 3 weeks: No - Coronavirus Screening Are you exhibiting any of the following symptoms?: Yes Symptoms: Fever, Cough: New Onset, Shortness of Breath, Headaches/Body Aches/Fatigue Close contact with a COVID-19 positive Pt in past 14-21 Days: Yes - Vaccine Status Have you recieved a Covid-19 vaccination: No - Review of Systems Constitutional: No Symptoms Eyes: No Symptoms Ears, Nose, & Throat: No Symptoms Respiratory: Cough, Dyspnea Cardiac: No Symptoms Abdominal/Gastrointestinal: No Symptoms Genitourinary Symptoms: No Symptoms Musculoskeletal: Arthralgias, Myalgias Skin: No Symptoms Neurological: Headache Psychological: No Symptoms Endocrine: No Symptoms Hematologic/Lymphatic: No Symptoms Immunological/Allergic: No Symptoms All Other Systems: Reviewed and Negative - Past Medical History Pertinent Past Medical History: Yes Neurological History: No Pertinent History ENT History: Other Cardiac History: High Cholesterol, Hypertension Respiratory History: COPD, Pneumonia Endocrine Medical History: Hypothyroidism Musculoskeletal History: No Pertinent History, Other GI Medical History: GERD, Gallbladder Disease, Ulcer, Other History: No Pertinent History Psycho-Social History: Anxiety, Bipolar, Depression Female Reproductive Disorders: No Pertinent History Other Medical History: stage IV skin cancer - Past Surgical History Past Surgical History: Yes Neuro Surgical History: No Pertinent History Cardiac: No Pertinent History Respiratory: No Pertinent History Gastrointestinal: Appendectomy, Cholecystectomy Genitourinary: No Pertinent History Musculoskeletal: No Pertinent History Female Surgical History: Hysterectomy Other Surgical History: tubes in ears, pre-cancerous polyps removed from colon - Social History Smoking Status: Former smoker How long have you smoked: 42 years Exposure to second hand smoke: Yes Alcohol Use: None Drug Use: none Patient Lives Alone: No Significant Family History: heart disease, diabetes, hypertension - Nursing Vital Signs Nursing Vital Signs: Initial Vital Signs Temperature 99.2 F 11/17/21 09:06 Pulse Rate 84 11/17/21 09:06 Respiratory Rate 18 11/17/21 09:06 Blood Pressure 148/89 11/17/21 09:06 O2 Sat by Pulse Oximetry 93 L 11/17/21 09:06 Pain Scale Pain Intensity 0 - Physical Exam General Appearance: mild distress, alert, anxiety Eye Exam: PERRL/EOMI, eyes nml inspection Ears, Nose, Throat Exam: normal ENT inspection, moist mucous membranes Neck Exam: normal inspection, non-tender, supple, full range of motion Respiratory Exam: normal breath sounds, lungs clear, airway intact, No chest tenderness, No respiratory distress Cardiovascular Exam: regular rate/rhythm, normal heart sounds, normal peripheral pulses Gastrointestinal/Abdomen Exam: soft, normal bowel sounds, No tenderness Pelvic Exam: not done Rectal Exam: not done Back Exam: normal inspection, normal range of motion, No CVA tenderness, No vertebral tenderness Extremity Exam: normal inspection, normal range of motion, pelvis stable Neurologic Exam: alert, oriented x 3, cooperative, blurb writer II-XII nml as tested, normal mood/affect, nml cerebellar function, nml station & gait, sensation nml Skin Exam: normal color, warm, dry Lymphatic Exam: No adenopathy SpO2 Interpretation: normal O2 Delivery: Room Air - Course Nursing assessment & vital signs reviewed: Yes EKG Interpreted by Me: RATE (84), Right [place] Deviation, NORMAL INTERVALS, NORMAL QRS, NORMAL ST-T, Other (No change on EKG when compared to the EKG dated 09/20/2021. There are no acute ischemic changes on today's EKG.) Ordered Tests: Active Orders 24 hr Category Date Time Status Speed Belt Sander STAT Care 11/17/21 09:17 Active EKG-ER Only STAT Care 11/17/21 09:16 Active IV Insertion STAT Care 11/17/21 09:16 Active Isolation, Initiate & Maintain STAT Care 11/17/21 09:16 Active Pulse Oximetry (ED) STAT Care 11/17/21 09:16 Active CHEST 1 VIEW (PORTABLE) Stat Exams 11/17/21 09:16 Completed CHEST WITH CONTRAST [CT] Stat Exams 11/17/21 11:18 Completed BLOOD CULTURE Stat Lab 11/17/21 09:15 Received CBC W DIFF Stat Lab 11/17/21 09:16 Completed CMP Stat Lab 11/17/21 10:06 Completed D-DIMER QUANTITATIVE Stat Lab 11/17/21 09:16 Completed Ferritin Stat Lab 11/17/21 10:06 Completed INFLUENZA A+B FLAVIA Stat Lab 11/17/21 09:16 Completed LDH-LACTATE DEHYDROGENASE Stat Lab 11/17/21 10:06 Completed Lactic Acid Stat Lab 11/17/21 09:16 Completed [place] Screen Stat Lab 11/17/21 10:06 Completed TROPONIN Q3H Lab 11/17/21 10:06 Completed TROPONIN Q3H Lab 11/17/21 12:38 Completed TROPONIN Q3H Lab 11/17/21 15:30 Ordered TROPONIN Q3H Lab 11/17/21 18:30 Ordered TROPONIN Q3H Lab 11/17/21 21:30 Ordered Medication Summary Discontinued Medications Generic Name Dose Route Start Last Admin Trade Name Freq PRN Reason Stop Dose Admin Hydrocodone Bitart/Acetaminophen 10 ml 11/17/21 09:19 11/17/21 10:12 Hydrocodone/Acetaminophen 5 Ml Udcup PO 11/17/21 09:20 10 ml STAT STA Administration Hydrocodone Bitart/Acetaminophen Confirm 11/17/21 10:11 Hydrocodone/Acetaminophen 5 Ml Udcup Administered 11/17/21 10:12 Dose 10 ml .ROUTE .STK-MED ONE Al Hydrox/Mg Hydrox/Simethicone Confirm 11/17/21 13:03 Mag Hydrox/Al Hydrox/Simeth 30 Ml Udcup Administered 11/17/21 13:04 Dose 30 ml .ROUTE .STK-MED ONE Methylprednisolone Sodium 0 mg 11/17/21 09:18 11/17/21 10:12 Succinate 125 mg/ Sterile IV 11/17/21 09:19 125 mg Water 2 ml STAT ONE Administration Enoxaparin Sodium 40 mg 11/17/21 12:25 11/17/21 13:24 Enoxaparin Sodium 40 Mg/0.4 Ml Syringe SQ 11/17/21 12:26 40 mg STAT ONE Administration Enoxaparin Sodium Confirm 11/17/21 13:03 Enoxaparin Sodium 80 Mg/0.8 Ml Syringe Administered 11/17/21 13:04 Dose 80 mg SQ .STK-MED ONE Sodium Chloride 1,000 mls @ 999 mls/hr 11/17/21 09:16 11/17/21 11:18 Sodium Chloride 0.9% 1000 Ml IV 11/17/21 10:16 Infused .Q1H1M STA Infusion Sodium Chloride Confirm 11/17/21 10:11 Sodium Chloride 0.9% 1000 Ml Administered 11/17/21 10:12 Dose 1,000 mls @ ud .ROUTE .STK-MED ONE Lidocaine HCl Confirm 11/17/21 13:02 Lidocaine Hcl Viscous 1 Ml Administered 11/17/21 13:03 Dose 15 ml .ROUTE .STK-MED ONE Magnesium Hydroxide 45 ml 11/17/21 12:25 11/17/21 13:25 Mag Hydrx/Alum Hyd/Simeth/Lido 45 Ml Bottle PO 11/17/21 12:26 45 ml STAT ONE Administration Methylprednisolone Sodium Succinate Confirm 11/17/21 10:11 Methylprednis Sod Succ 125 Mg/2 Ml Vial Administered 11/17/21 10:12 Dose 125 mg .ROUTE .STK-MED ONE Ondansetron HCl 4 mg 11/17/21 11:16 11/17/21 11:32 Ondansetron Hcl 4 Mg/2 Ml Vial IV 11/17/21 11:17 4 mg STAT ONE Administration Ondansetron HCl Confirm 11/17/21 11:19 Ondansetron Hcl 4 Mg/2 Ml Vial Administered 11/17/21 11:20 Dose 4 mg .ROUTE .STK-MED ONE Lab/Rad Data: Laboratory Result Diagrams 11/17/21 09:16 11/17/21 10:06 Laboratory Results 11/17/21 11/17/21 11/17/21 Range/Units 12:38 10:06 10:06 WBC (4.0-10.5) K/mm3 RBC (4.1-5.4) M/mm3 Hgb (12.0-16.0) gm/dl Hct (35-47) % MCV (78-100) fl MCH (26-32) pg MCHC (32-36) g/dl RDW (11.5-14.0) % Plt Count (150-450) K/mm3 MPV (7.5-11.0) fl Gran % (36.0-66.0) % Eos # (Auto) (0-0.5) Absolute Lymphs (auto) (1.0-4.6) Absolute Monos (auto) (0.0-1.3) Lymphocytes % (24.0-44.0) % Monocytes % (0.0-12.0) % Eosinophils % (0.00-5.0) % Basophils % (0.0-0.4) % Absolute Granulocytes (1.4-6.9) Basophils # (0-0.4) D-Dimer (215-500) ng/mL Sodium (137-145) mmol/L Potassium (3.5-5.1) mmol/L Chloride (98-107) mmol/L Carbon Dioxide (22-30) mmol/L Anion Gap (5-15) MEQ/L BUN (7-17) mg/dL Creatinine (0.52-1.04) mg/dL Estimated GFR ML/MIN Glucose (74-106) mg/dL Lactic Acid (0.4-2.0) Calcium (8.4-10.2) mg/dL Ferritin 157 (11.1-264) ng/mL Total Bilirubin (0.2-1.3) mg/dL AST (14-36) U/L ALT (0-35) U/L Alkaline Phosphatase (38-126) U/L Lactate Dehydrogenase (120-246) U/L Troponin I < 0.012 (0.000-0.034) ng/mL Serum Total Protein (6.3-8.2) g/dL Albumin (3.5-5.0) g/dL Monoscreen NEGATIVE (Negative) Influenza Type A Ag (NEGATIVE) Influenza Type B Ag (NEGATIVE) Group A Strep Antibody (NEGATIVE) 11/17/21 11/17/21 11/17/21 Range/Units 10:06 10:06 09:16 WBC (4.0-10.5) K/mm3 RBC (4.1-5.4) M/mm3 Hgb (12.0-16.0) gm/dl Hct (35-47) % MCV (78-100) fl MCH (26-32) pg MCHC (32-36) g/dl RDW (11.5-14.0) % Plt Count (150-450) K/mm3 MPV (7.5-11.0) fl Gran % (36.0-66.0) % Eos # (Auto) (0-0.5) Absolute Lymphs (auto) (1.0-4.6) Absolute Monos (auto) (0.0-1.3) Lymphocytes % (24.0-44.0) % Monocytes % (0.0-12.0) % Eosinophils % (0.00-5.0) % Basophils % (0.0-0.4) % Absolute Granulocytes (1.4-6.9) Basophils # (0-0.4) D-Dimer (215-500) ng/mL Sodium 137 (137-145) mmol/L Potassium 3.4 L (3.5-5.1) mmol/L Chloride 108 H (98-107) mmol/L Carbon Dioxide 24 (22-30) mmol/L Anion Gap 8.5 (5-15) MEQ/L BUN 12 (7-17) mg/dL Creatinine 0.99 (0.52-1.04) mg/dL Estimated GFR > 60.0 ML/MIN Glucose 97 (74-106) mg/dL Lactic Acid (0.4-2.0) Calcium 8.5 (8.4-10.2) mg/dL Ferritin (11.1-264) ng/mL Total Bilirubin 0.40 (0.2-1.3) mg/dL AST 37 H (14-36) U/L ALT 19 (0-35) U/L Alkaline Phosphatase 67 (38-126) U/L Lactate Dehydrogenase 218 (120-246) U/L Troponin I < 0.012 (0.000-0.034) ng/mL Serum Total Protein 7.2 (6.3-8.2) g/dL Albumin 3.7 (3.5-5.0) g/dL Monoscreen (Negative) Influenza Type A Ag (NEGATIVE) Influenza Type B Ag (NEGATIVE) Group A Strep Antibody NOT DETECTED (NEGATIVE) 11/17/21 11/17/21 11/17/21 Range/Units 09:16 09:16 09:16 WBC 3.3 L (4.0-10.5) K/mm3 RBC 4.86 (4.1-5.4) M/mm3 Hgb 13.7 (12.0-16.0) gm/dl Hct 44.7 (35-47) % MCV 92.0 (78-100) fl MCH 28.2 (26-32) pg MCHC 30.6 L (32-36) g/dl RDW 15.1 H (11.5-14.0) % Plt Count 162 (150-450) K/mm3 MPV 10.5 (7.5-11.0) fl Gran % 55.3 (36.0-66.0) % Eos # (Auto) 0 (0-0.5) Absolute Lymphs (auto) 1.13 (1.0-4.6) Absolute Monos (auto) 0.34 (0.0-1.3) Lymphocytes % 34.1 (24.0-44.0) % Monocytes % 10.3 (0.0-12.0) % Eosinophils % 0.0 (0.00-5.0) % Basophils % 0.3 (0.0-0.4) % Absolute Granulocytes 1.83 (1.4-6.9) Basophils # 0.01 (0-0.4) D-Dimer 845 H* (215-500) ng/mL Sodium (137-145) mmol/L Potassium (3.5-5.1) mmol/L Chloride (98-107) mmol/L Carbon Dioxide (22-30) mmol/L Anion Gap (5-15) MEQ/L BUN (7-17) mg/dL Creatinine (0.52-1.04) mg/dL Estimated GFR ML/MIN Glucose (74-106) mg/dL Lactic Acid 0.9 (0.4-2.0) Calcium (8.4-10.2) mg/dL Ferritin (11.1-264) ng/mL Total Bilirubin (0.2-1.3) mg/dL AST (14-36) U/L ALT (0-35) U/L Alkaline Phosphatase (38-126) U/L Lactate Dehydrogenase (120-246) U/L Troponin I (0.000-0.034) ng/mL Serum Total Protein (6.3-8.2) g/dL Albumin (3.5-5.0) g/dL Monoscreen (Negative) Influenza Type A Ag (NEGATIVE) Influenza Type B Ag (NEGATIVE) Group A Strep Antibody (NEGATIVE) 11/17/21 Range/Units 09:16 WBC (4.0-10.5) K/mm3 RBC (4.1-5.4) M/mm3 Hgb (12.0-16.0) gm/dl Hct (35-47) % MCV (78-100) fl MCH (26-32) pg MCHC (32-36) g/dl RDW (11.5-14.0) % Plt Count (150-450) K/mm3 MPV (7.5-11.0) fl Gran % (36.0-66.0) % Eos # (Auto) (0-0.5) Absolute Lymphs (auto) (1.0-4.6) Absolute Monos (auto) (0.0-1.3) Lymphocytes % (24.0-44.0) % Monocytes % (0.0-12.0) % Eosinophils % (0.00-5.0) % Basophils % (0.0-0.4) % Absolute Granulocytes (1.4-6.9) Basophils # (0-0.4) D-Dimer (215-500) ng/mL Sodium (137-145) mmol/L Potassium (3.5-5.1) mmol/L Chloride (98-107) mmol/L Carbon Dioxide (22-30) mmol/L Anion Gap (5-15) MEQ/L BUN (7-17) mg/dL Creatinine (0.52-1.04) mg/dL Estimated GFR ML/MIN Glucose (74-106) mg/dL Lactic Acid (0.4-2.0) Calcium (8.4-10.2) mg/dL Ferritin (11.1-264) ng/mL Total Bilirubin (0.2-1.3) mg/dL AST (14-36) U/L ALT (0-35) U/L Alkaline Phosphatase (38-126) U/L Lactate Dehydrogenase (120-246) U/L Troponin I (0.000-0.034) ng/mL Serum Total Protein (6.3-8.2) g/dL Albumin (3.5-5.0) g/dL Monoscreen (Negative) Influenza Type A Ag NEGATIVE (NEGATIVE) Influenza Type B Ag NEGATIVE (NEGATIVE) Group A Strep Antibody (NEGATIVE) - Progress Progress: improved, re-examined Air Movement: good Progress Note: 11/17/21 10:23 Chest x-ray shows no acute cardiopulmonary process. 11/17/21 12:24 CTA of the chest shows no pulmonary embolus. There are COVID-19 features including minimally diffuse bilateral peripheral, patchy airspace disease 11/17/21 13:43 Medical decision making: This patient has COVID-19 infection. I spoke with Dr. Decker who is the hospitalist for our Covid unit. I did explain to him that the patient does have an influenza virus vaccine allergy including streaking of the arm that needed to be treated with vancomycin. He stated to me that there is no cross-reactivity and therefore it is okay to use remdesivir medications. He will see the patient in the hospital. Blood Culture(s) Obtained: Yes Discussed with Dr.: Other (Dr. Kevin Decker) Counseled pt/family regarding: lab results, diagnosis, need for follow-up, rad results - Departure Departure Disposition: In-patient Admission Clinical Impression: COVID-19 virus infection, Hypoxia Condition: Fair Critical Care Time: Yes Critical Care Time(excluding separately billable procedures): Critical 30-74 mins (30) Referrals: CECE WOODARD MD [Primary Care Provider] - Follow up/PCP as directed
[2021-11-17] MEDS ORDERED: HYDROCODONE-ACETAMIN 2.5-108/5 ML SOLUTION ONE (10:11)
[2021-11-17] MEDS ORDERED: solu-MEDROL ONE (10:11)
[2021-11-17] MEDS ORDERED: Sodium Chloride 0.9% 1000 ML 1,000 ML ONE (10:11)
--- NOTE | 2021-11-17 10:11 | XRAY ---
Indication: Fever and cough. Person: May 07, 2020. Portable chest again demonstrates left base subsegmental atelectasis/scarring. Remaining heart and lungs unremarkable. Bony thorax intact again with osteopenia and degenerative changes. No new/acute findings.
[2021-11-17 10:21] LABS: INFLUENZA A NEGATIVE (NEGATIVE); INFLUENZA B NEGATIVE (NEGATIVE)
[2021-11-17 10:29] LABS: Absolute Neutrophil Ct (ANC) 1.83 (1.4-6.9); BASOPHIL % 0.3 % (0.0-0.4); Basophil (Absolute #) 0.01 (0-0.4); Eosinophil (Absolute #) 0 (0-0.5); Hematocrit 44.7 % (35-47); Hemoglobin 13.7 gm/dl (12.0-16.0); Lymphocyte (Absolute #) 1.13 (1.0-4.6); Lymphocytes % 34.1 % (24.0-44.0); Mean Corpuscular Hemoglobin 28.2 pg (26-32); Mean Corpuscular Hgb Concent. 30.6 g/dl (32-36); Mean Platelet Volume 10.5 fl (7.5-11.0); Monocyte (Absolute #) 0.34 (0.0-1.3); Monocytes % 10.3 % (0.0-12.0); Neutrophil % 55.3 % (36.0-66.0); Platelet Count 162 K/mm3 (150-450); Red Blood Count 4.86 M/mm3 (4.1-5.4); Red Cell Distribution Width 15.1 % (11.5-14.0); White Blood Count 3.3 K/mm3 (4.0-10.5)
[2021-11-17 10:40] LABS: ALBUMIN 3.7 g/dL (3.5-5.0); ALKALINE PHOSPHATASE 67 U/L (38-126); ANION GAP 8.5 MEQ/L (5-15); BLOOD UREA NITROGEN 12 mg/dL (7-17); CHLORIDE 108 mmol/L (98-107); Calcium 8.5 mg/dL (8.4-10.2); Carbon Dioxide 24 mmol/L (22-30); Creatinine 1 0.99 mg/dL (0.52-1.04); EST GLOMERULAR FILTRATION RATE > 60.0 ML/MIN; Glucose 97 mg/dL (74-106); LDH-LACTATE DEHYDROGENASE 218 U/L (120-246); Potassium 3.4 mmol/L (3.5-5.1); SGOT/AST 37 U/L (14-36); SGPT/ALT 19 U/L (0-35); SODIUM 137 mmol/L (137-145); Total Protein 7.2 g/dL (6.3-8.2)
[2021-11-17] MEDS ORDERED: Zofran 4 MG/2 ML VIAL IV ONE (11:16)
[2021-11-17] MEDS ORDERED: Zofran 4 MG/2 ML VIAL ONE (11:19)
--- NOTE | 2021-11-17 12:11 | XRAY ---
Indication: Cough, short of breath, chest pain, and dizziness. Elevated d-dimer. Multiple contiguous axial images obtained through the chest using 100 cc Isovue 370 contrast and PE protocol. Comparison: None There is good opacification of the pulmonary arteries to include the lobar and segmental branches. No pulmonary embolus. Heart is not enlarged. Aorta is minimally arteriosclerotic without aneurysm/dissection. No pathologic mediastinal/hilar lymphadenopathy. Lungs demonstrates minimal patchy peripheral bilateral airspace disease. Also bibasilar subsegmental atelectasis/scarring left greater than right. Indeterminate 9 mm medial right upper lobe noncalcified nodule. No effusion. Bony thorax intact with mild degenerative changes throughout the spine. Limited upper abdomen demonstrates multiple hepatic cysts, largest left lobe measuring 3.1 cm. Impression: 1. Negative pulmonary embolus. 2. Minimal diffuse bilateral peripheral patchy airspace disease. Commonly reporting imaging features of Covid 19 pneumonia are present. Other processes such as influenza pneumonia and organizing pneumonia, as can be seen with drug toxicity and connective tissue disease, can cause a similar imaging pattern. 3. Indeterminate subcentimeter right upper lobe noncalcified nodule. 4. Incidental hepatic cysts.
[2021-11-17] MEDS ORDERED: GI COCKTAIL 45 ML (Maalox/Lidocaine) PO ONE (12:25)
[2021-11-17] MEDS ORDERED: ENOXAPARIN SODIUM SQ ONE ×2 (12:25→13:03)
[2021-11-17] MEDS ORDERED: XYLOCAINE HCl Viscous ONE (13:02)
[2021-11-17] MEDS ORDERED: MAALOX ES 30 ML UNIT DOSE ONE (13:03)
[2021-11-17 13:23] LABS: INFLUENZA A NEGATIVE (NEGATIVE); INFLUENZA B NEGATIVE (NEGATIVE); RESPIRATORY SYNCTIAL VIRUS NEGATIVE (Negative)
[2021-11-17 13:45] LABS: SARS-CoV-2 Xpert Express POSITIVE (NEGATIVE)
[2021-11-17] MEDS ORDERED: Compazine 10 MG/2 ML IV ONE (15:09)
[2021-11-17] MEDS ORDERED: Compazine 10 MG/2 ML ONE (15:11)
[2021-11-17] MEDS ORDERED: REMDESIVIR 200 MG in Sodium Chloride 0.9% 250 ML 250 ML IV ONE (16:05)
[2021-11-17] MEDS ORDERED: Sodium Chloride 0.9% 1000 ML 1,000 ML IV SCH (16:05)
[2021-11-17] MEDS ORDERED: Zofran 4 MG/2 ML VIAL IV PRN (16:05)
[2021-11-17] MEDS: HYDROCODONE-CHLORPHEN ER SUSP PO PRN (16:35)
[2021-11-17] MEDS ORDERED: Ventolin Hfa MDI IH PRN (17:01)
[2021-11-17] MEDS ORDERED: VENTOLIN COMMON CANISTER IH PRN ×2 (17:14→17:15)
[2021-11-17] MEDS ORDERED: NORCO 7.5/325 MG TAB PO PRN (17:15)
[2021-11-17] MEDS ORDERED: MEDICATION INTERVENTION MC SCH ×2 (17:45)
[2021-11-17] MEDS: ZONISAMIDE PO SCH ×2 (21:36→21:44)
[2021-11-17] MEDS: TOPIRAMATE PO SCH ×2 (21:36→21:44)
[2021-11-17] MEDS ORDERED: MOTRIN 600 MG PO SCH (22:00)
[2021-11-17] MEDS ORDERED: ZONISAMIDE 100 MG PO SCH (22:00)
[2021-11-17] MEDS ORDERED: NON-FORMULARY ITEM (Divalproex Sodium [Depakote] 500 MG Tablet.Dr) PO SCH (22:00)
[2021-11-17] MEDS ORDERED: XANAX 1 MG PO SCH (22:00)
[2021-11-17] MEDS ORDERED: ALPRAZOLAM 2 MG PO SCH (22:00)
[2021-11-18 06:26] LABS: Hematocrit 40.9 % (35-47); Hemoglobin 12.6 gm/dl (12.0-16.0); Mean Cell Volume 91.9 fl (78-100); Mean Corpuscular Hemoglobin 28.3 pg (26-32); Mean Corpuscular Hgb Concent. 30.8 g/dl (32-36); Mean Platelet Volume 10.9 fl (7.5-11.0); Platelet Count 165 K/mm3 (150-450); Red Blood Count 4.45 M/mm3 (4.1-5.4); Red Cell Distribution Width 14.7 % (11.5-14.0); White Blood Count 2.4 K/mm3 (4.0-10.5)
[2021-11-18 06:50] LABS: ALBUMIN 3.2 g/dL (3.5-5.0); ALKALINE PHOSPHATASE 74 U/L (38-126); ANION GAP 8.6 MEQ/L (5-15); BLOOD UREA NITROGEN 15 mg/dL (7-17); CHLORIDE 107 mmol/L (98-107); Calcium 8.3 mg/dL (8.4-10.2); Carbon Dioxide 26 mmol/L (22-30); Creatinine 1 0.68 mg/dL (0.52-1.04); EST GLOMERULAR FILTRATION RATE > 60.0 ML/MIN; Glucose 146 mg/dL (74-106); Potassium 3.9 mmol/L (3.5-5.1); SGOT/AST 43 U/L (14-36); SGPT/ALT 28 U/L (0-35); SODIUM 139 mmol/L (137-145); Total Protein 6.4 g/dL (6.3-8.2)
[2021-11-18 07:45] VITALS: BP 123/72; PULSE 65
[2021-11-18] MEDS: HYDROCODONE-CHLORPHEN ER SUSP PO PRN (08:02)
[2021-11-18 08:12] VITALS: O2SAT 94
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
[2021-11-18] MEDS ORDERED: TRAMADOL HCL 200 MG PO SCH (10:00)
[2021-11-18] MEDS ORDERED: ENOXAPARIN SODIUM SQ SCH (10:00)
[2021-11-18] MEDS ORDERED: LASIX 20 MG PO SCH (10:00)
[2021-11-18] MEDS ORDERED: NORVASC 5 MG PO SCH (10:00)
[2021-11-18] MEDS ORDERED: REMDESIVIR 100 MG in Sodium Chloride 0.9% 100 ML BAG 100 ML IV SCH (10:00)
[2021-11-18] MEDS ORDERED: VORTIOXETINE HYDROBROMIDE PO SCH (10:00)
[2021-11-18] MEDS ORDERED: NON-FORMULARY ITEM (Amlodipine Besylate [Amlodipine Besylate] 2.5 MG Tablet) PO SCH (10:00)
[2021-11-18] MEDS ORDERED: ECOTRIN 81 MG PO SCH (10:00)
[2021-11-18] MEDS ORDERED: Mirapex 0.5 MG Tablet PO SCH (10:00)
[2021-11-18] MEDS ORDERED: Klor Con 10 MEQ PO SCH (10:00)
[2021-11-18] MEDS ORDERED: PRAMIPEXOLE DI HCL 1 MG PO SCH (10:00)
[2021-11-18] MEDS ORDERED: Toprol Xl 50 MG PO SCH (10:00)
[2021-11-18] MEDS ORDERED: SYNTHROID 112 MCG PO SCH (10:00)
[2021-11-18] MEDS ORDERED: NON-FORMULARY ITEM (Atorvastatin Calcium 20 MG Tab) PO SCH (10:00)
[2021-11-18] MEDS ORDERED: DECADRON 10MG INJ. IV SCH (10:00)
[2021-11-18] MEDS ORDERED: ZOCOR 20MG PO SCH (10:00)
[2021-11-18 12:06] LABS: ANISOCYTOSIS 1+; BAND 5 % (0.0-2.0); Lymphocytes 39 % (24-44); Monocyte 9 % (0.0-12.0); Neutrophils 47 % (36.0-66.0); Platelet Estimate NORMAL (NORMAL); Total Cells Counted 100
== END 2021-11-18 08:37 | disposition home or self-care (01) ==
LOC: ED 08:58 → MED SURG 15:55
PROVIDERS: ADMIT Family Medicine; ATTEND Family Medicine
DX: M79.10 Myalgia, unspecified site (principal); R53.83 Other fatigue; U07.1 COVID-19; R09.02 Hypoxemia; I10 Essential (primary) hypertension; E03.9 Hypothyroidism, unspecified; J44.9 Chronic obstructive pulmonary disease, unspecified; E78.00 Pure hypercholesterolemia, unspecified; F41.9 Anxiety disorder, unspecified; F32.A Depression, unspecified; Z79.01 Long term (current) use of anticoagulants; Z79.899 Other long term (current) drug therapy; Z20.828 Contact with and (suspected) exposure to other viral communicable diseases
CPT/HCPCS: 0241U; 36000; 36415; 71045; 71260; 80053; 82728; 83605; 83615; 84484; 85025; 85027; 85379; 86308; 87040; 87400; 87651; 93005; 93041; 93268; 94760; 94762; 96360; 96372; 96374; 99285; 99291; G0378; J1650; J2405; J2930; A9270-GY

== ENCOUNTER 2022-04-18 19:40 | Emergency (ER) | payer BC, MEDICARE ==
[2022-04-18 19:55] VITALS: O2SAT 96
[2022-04-18] MEDS ORDERED: TORAdol 30 mg Injection IM ONE (20:13)
[2022-04-18] MEDS ORDERED: DECADRON 10MG INJ. IM ONE (20:14)
[2022-04-18] MEDS ORDERED: DECADRON 10MG INJ. ONE (20:16)
[2022-04-18] MEDS ORDERED: TORAdol 30 mg Injection ONE (20:16)
--- NOTE | 2022-04-18 20:28 | ERPHSYRPT ---
- History of Present Illness Time Seen by Provider: 04/18/22 19:55 Source: patient Exam Limitations: no limitations Patient Subjective Stated Complaint: pt states she has 10/10 pain in back because she rode her lawnmower and that is when the pain began. states she took norco and it is not working. Triage Nursing Assessment: pt is unable to sit in bed due to back pain that she rated 10/10. pt ambulates slowly while holding back. vitals are wnl for pt. Physician History: Patient is a 61-year-old female with a history of chronic back pain presents to our ED for evaluation and treatment of acute on chronic back pain. Pain started yesterday. Patient states she was mowing her grass using a riding mower and shortly thereafter observed her back pain. Pain described as an ache that is well localized. No radiation. Pain worse with movement and palpation. Pain improved with rest. No associated fever. No recent back procedure. No saddle anesthesia. No change in bowel bladder function. Patient took [place] pain medication but states it did not help her back pain. Patient rates her pain 10 out of 10. However patient is conversant ambulatory and in no acute distress. Patient otherwise voices no other complaints or concerns at this time. Timing/Duration: yesterday Method of Injury: other (Riding a mower) Quality: aching Back Pain Location: lumbar spine Severity of Pain-Max: moderate Severity of Pain-Current: moderate Associated Symptoms: denies symptoms, No fever, No sweating, No urinary incontinence, No loss of bowel control, No constipation, No vomiting, No dizziness, No weakness, No sensory/motor loss, No tingling in legs/feet Previous symptoms: same symptoms as today Allergies/Adverse Reactions: Influenza Virus Vaccines [Influenza Virus Vaccine] Allergy (Intermediate, Verified 04/18/22 19:56) Swelling of Hands venom-honey bee [bee venom (honey bee)] Allergy (Verified 04/18/22 19:56) famotidine [From Pepcid] Adverse Reaction (Intermediate, Verified 04/18/22 19:56) hot, flushed, diaphoresis, and chest pain. tape Allergy (Uncoded 11/17/21 09:05) Home Medications: ALPRAZolam [Alprazolam] 1 mg PO TID 01/24/16 [History] Divalproex Sodium [Depakote] 500 mg PO BID 09/18/18 [History] Vortioxetine Hydrobromide [Trintellix] 20 mg PO DAILY 09/18/18 [History] Atorvastatin Calcium [Lipitor 20MG Tablet] 40 mg PO DAILY 05/07/20 [History] Furosemide [Lasix] 60 mg PO DAILY 05/07/20 [History] Potassium Chloride Tab* [Klor Con] 20 meq PO DAILY 05/07/20 [History] Amlodipine Besylate 2.5 mg PO DAILY 06/25/21 [History] Topiramate 50 mg PO BID 06/25/21 [History] Zonisamide 100 mg PO TID 06/25/21 [History] Albuterol Sulfate [Albuterol Sulfate Hfa] 1 puff IH Q4HPRN PRN 11/17/21 [History] Amoxicillin/Potassium Clav [Amox-Clav 875-125 mg Tablet] 1 each PO BID 11/17/21 [History] Aspirin [Lo-Dose Aspirin EC] 81 mg PO DAILY 11/17/21 [History] Benzonatate 100 mg PO TIDPRN PRN 11/17/21 [History] Fenofibrate Nanocrystallized [Fenofibrate] 145 mg PO DAILY 11/17/21 [History] Hydrocodone/Acetaminophen [Hydrocodone-Acetamin 7.5-325] 1 each PO TIDPRN 11/17/21 [History] Ibuprofen 600 mg PO TID 11/17/21 [History] Levothyroxine Sodium 112 Mcg [Synthroid 112 Mcg] 112 mcg PO DAILY 11/17/21 [History] Metoprolol Succinate 50 mg [Toprol Xl 50 MG] 50 mg PO DAILY 11/17/21 [History] Pramipexole Di-HCl [Mirapex] 1 mg PO DAILY 11/17/21 [History] Tramadol HCl [Tramadol HCl ER] 200 mg PO DAILY 11/17/21 [History] Hx Tetanus, Diphtheria Vaccination/Date Given: No Hx Influenza Vaccination/Date Given: No Hx Pneumococcal Vaccination/Date Given: No Immunizations Up to Date: No Travel Risk - International Travel Have you traveled outside of the country in past 3 weeks: No - Coronavirus Screening Are you exhibiting any of the following symptoms?: No Close contact with a COVID-19 positive Pt in past 14-21 Days: No - Vaccine Status Have you recieved a Covid-19 vaccination: No - Vaccination Dates Comment: Was exposed at a on 11/01/21 but just found out about the exposure. - Review of Systems Constitutional: No Symptoms, No Fever, No Chills Eyes: No Symptoms Ears, Nose, & Throat: No Symptoms Respiratory: No Symptoms, No Cough, No Dyspnea Cardiac: No Symptoms, No Chest Pain, No Edema, No Syncope Abdominal/Gastrointestinal: No Symptoms, No Abdominal Pain, No Nausea, No Vomiting, No Diarrhea Genitourinary Symptoms: No Symptoms, No Dysuria Musculoskeletal: No Symptoms, No Back Pain, No Neck Pain Skin: No Symptoms, No Rash Neurological: No Symptoms, No Dizziness, No Focal Weakness, No Sensory Changes Psychological: No Symptoms Endocrine: No Symptoms Hematologic/Lymphatic: No Symptoms Immunological/Allergic: No Symptoms All Other Systems: Reviewed and Negative - Past Medical History Pertinent Past Medical History: Yes Neurological History: No Pertinent History ENT History: Other Cardiac History: High Cholesterol, Hypertension Respiratory History: COPD, Pneumonia Endocrine Medical History: Hypothyroidism Musculoskeletal History: No Pertinent History, Other GI Medical History: GERD, Gallbladder Disease, Ulcer, Other History: No Pertinent History Psycho-Social History: Anxiety, Bipolar, Depression Female Reproductive Disorders: No Pertinent History Other Medical History: stage IV skin cancer - Past Surgical History Past Surgical History: Yes Neuro Surgical History: No Pertinent History Cardiac: No Pertinent History Respiratory: No Pertinent History Gastrointestinal: Appendectomy, Cholecystectomy Genitourinary: No Pertinent History Musculoskeletal: No Pertinent History Female Surgical History: Hysterectomy Other Surgical History: tubes in ears, pre-cancerous polyps removed from colon - Social History Smoking Status: Former smoker How long have you smoked: 42 years Exposure to second hand smoke: Yes Alcohol Use: None Drug Use: none Patient Lives Alone: No Significant Family History: heart disease, diabetes, hypertension - Nursing Vital Signs Nursing Vital Signs: Initial Vital Signs Temperature 98.7 F 04/18/22 19:48 Pulse Rate 106 H 04/18/22 19:48 Respiratory Rate 20 04/18/22 19:48 Blood Pressure 160/97 04/18/22 19:48 O2 Sat by Pulse Oximetry 96 04/18/22 19:48 Pain Scale Pain Intensity 10 - Physical Exam General Appearance: no apparent distress, alert Eye Exam: PERRL/EOMI, eyes nml inspection Ears, Nose, Throat Exam: normal ENT inspection, TMs normal, pharynx normal Neck Exam: normal inspection, non-tender, supple, full range of motion, No meningismus, No midline tenderness Respiratory Exam: normal breath sounds, lungs clear, airway intact, No respiratory distress Cardiovascular Exam: regular rate/rhythm, normal heart sounds, normal peripheral pulses Gastrointestinal Exam: soft, normal bowel sounds, No tenderness, No mass Back Exam: other (Tenderness to palpation along midline lumbar spine as well as increased muscle tone at bilateral lumbar paraspinal musculature. Overlying soft tissue intact. No signs of trauma.) Extremity Exam: normal inspection, normal range of motion, No calf tenderness, No pedal edema Peripheral Pulses: dorsalis-pedis (R): 2+, dorsalis-pedis (L): 2+ Neurologic Exam: alert, oriented x 3, cooperative, health services coordinator II-XII nml as tested, normal mood/affect, nml station & gait, sensation nml, No motor deficits Skin Exam: normal color, warm, dry, No rash SpO2 Interpretation: normal SpO2: 96 O2 Delivery: Room Air - Course Nursing assessment & vital signs reviewed: Yes - CT Exams Lumbar Spine CT Interpretation: Tele-radiologist Report (Mild multilevel degenerative disc disease no new acute findings.) Ordered Tests: Active Orders 24 hr Category Date Time Status LUMBAR SPINE W/O [CT] Stat Exams 04/18/22 20:12 Taken UA W/RFX CULTURE Stat Lab 04/18/22 20:24 Completed Medication Summary Discontinued Medications Generic Name Dose Route Start Last Admin Trade Name Joey PRN Reason Stop Dose Admin Dexamethasone Sodium Phosphate 8 mg 04/18/22 20:14 04/18/22 20:23 Dexamethasone Sod Phosphate 10 Mg/Ml IM 04/18/22 20:15 8 mg STAT ONE Administration Dexamethasone Sodium Phosphate Confirm 04/18/22 20:16 Dexamethasone Sod Phosphate 10 Mg/Ml Administered 04/18/22 20:17 Dose 10 mg .ROUTE .STK-MED ONE Ketorolac Tromethamine 30 mg 04/18/22 20:13 04/18/22 20:23 Ketorolac Tromethamine 30 Mg/Ml Inj IM 04/18/22 20:14 30 mg STAT ONE Administration Ketorolac Tromethamine Confirm 04/18/22 20:16 Ketorolac Tromethamine 30 Mg/Ml Inj Administered 04/18/22 20:17 Dose 30 mg .ROUTE .STK-MED ONE Lab/Rad Data: Laboratory Results 04/18/22 Range/Units 20:24 Urinalys Dipstick Clnc MAIN LAB Urine Color YELLOW (YELLOW) Urine Appearance CLEAR (CLEAR) Urine pH 7.0 (5-6) Ur Specific [place] 1.025 (1.005-1.025) POC Urine Protein Conf NEGATIVE (Negative) Urine Ketones NEGATIVE (NEGATIVE) Urine Nitrite NEGATIVE (NEGATIVE) Urine Bilirubin NEGATIVE (NEGATIVE) Urine Urobilinogen 0.2 (0-1) mg/dL Urine Leukocytes SMALL (NEGATIVE) Urine WBC (Auto) 6-10 (0-5) /HPF Urine RBC (Auto) 0-2 (0-2) /HPF U Epithel Cells (Auto) MODERATE (FEW) /HPF Urine Bacteria (Auto) NONE (NEGATIVE) /HPF Urine RBC NEGATIVE (0-5) Fredrick/ul Urine Mucus (Auto) SLIGHT (NEGATIVE) /HPF Ur Culture Indicated? NO Urine Glucose NEGATIVE (NEGATIVE) mg/dL - Progress Progress: improved Progress Note: Patient reassessed. Pain improved. UA negative for UTI. There are 6-10 WBCs however there are epithelial cells present. Patient has no urinary symptomology. CT negative for acute findings. Patient is ready for discharge. Patient agrees to follow-up with primary care doctor within 48 hours for evaluation. Portions of this note were created with voice recognition technology. There may be grammatical, spelling, punctuation or sound alike errors 04/18/22 21:30 Counseled pt/family regarding: lab results, diagnosis, need for follow-up, rad results - Departure Departure Disposition: Home Clinical Impression: Lumbosacral strain, Degenerative disc disease, Back pain Condition: Stable Critical Care Time: No Referrals: CECE WOODARD MD [Primary Care Provider] - Follow up/PCP as directed Additional Instructions: Discharge/Care Plan MINOR LEIVA was seen on 04/18/22 in the Emergency Room. The patient was counseled regarding Diagnosis,Lab results, Imaging studies, need for follow up and when to return to the Emergency Room. Prescriptions given: Discharge Note I have spoken with the patient and/or caregivers. I have explained the patient's condition, diagnosis and treatment plan based on the information available to me at this time. I have answered the patient's and/or caregiver's questions and addressed any concerns. The patient and/or caregivers have as good understanding of the patient's diagnosis, condition and treatment plan as can be expected at this point. The vital signs have been stable. The patient's condition is stable and appropriate for discharge from the emergency department. The patient will pursue further outpatient evaluation with the primary care physician or other designated or consulting physician as outlined in the discharge instructions. The patient and/or caregivers are agreeable to this plan of care and follow-up instructions have been explained in detail. The patient and/or caregivers have received these instruction. The patient/and or caregivers are aware that any significant change in condition or worsening of symptoms should prompt an immediate return to this or the closest emergency department or call 911.
[2022-04-18 20:44] LABS: Appearance CLEAR (CLEAR); Bilirubin NEGATIVE (NEGATIVE); Glucose NEGATIVE (NEGATIVE); Ketones NEGATIVE (NEGATIVE); Nitrite NEGATIVE (NEGATIVE); Protein,Urine Dip NEGATIVE (Negative); RBC NEGATIVE Ery/ul (0-5); Specific Gravity 1.025 (1.005-1.025); Urobilinogen 0.2 mg/dL (0-1)
[2022-04-18 20:45] LABS: Dipstick done @ ? MAIN LAB; Epithelial Cells MODERATE /HPF (FEW); Mucus SLIGHT /HPF (NEGATIVE); RBC 0-2 /HPF (0-2)
[2022-04-18 20:46] LABS: Urine Cultured Indicated? NO
[2022-04-18 21:45] VITALS: BP 146/87; PULSE 90
--- NOTE | 2022-04-19 08:48 | XRAY ---
Indication: Low back pain following injury. Multiple contiguous axial images obtained through the lumbar spine. Sagittal and coronal reformatted images obtained. Comparison: CT abdomen/pelvis May 25, 2021. There remains mild multilevel thoracolumbar degenerative changes. No large disc herniation or spinal canal stenosis. New T11-L1 degenerative vacuum disc phenomena. Sagittal and coronal reformatted images again demonstrates normal alignment with vertebral body height/disc spaces maintained. No acute compression fracture or subluxation. Visualized noncontrasted soft tissues again demonstrates moderate scattered aortoiliac calcifications without AAA. Again incidental posterior right lobe hepatic cyst and cholecystectomy clips. Impression: 1. Again multilevel degenerative changes, arteriosclerotic disease, and hepatic cysts. 2. Remaining CT lumbar spine is negative.
== END 2022-04-18 21:46 | disposition home or self-care (01) ==
LOC: ED 19:40
DX: S39.012A Strain of muscle, fascia and tendon of lower back, initial encounter (principal); X50.9XXA Other and unspecified overexertion or strenuous movements or postures, initial encounter; Y93.H9 Activity, other involving exterior property and land maintenance, building and construction; Y92.007 Garden or yard of unspecified non-institutional (private) residence as the place of occurrence of the external cause; G89.29 Other chronic pain; M54.50 Low back pain, unspecified; M51.37 Other intervertebral disc degeneration, lumbosacral region; E78.5 Hyperlipidemia, unspecified; I10 Essential (primary) hypertension; J44.9 Chronic obstructive pulmonary disease, unspecified; Z79.891 Long term (current) use of opiate analgesic; Z79.899 Other long term (current) drug therapy
CPT/HCPCS: 72131; 81015; 96372; 99284; J1100; J1885

== ENCOUNTER 2022-07-28 13:15 | Observation (INO) | payer BC, MEDICARE ==
[2022-07-28] MEDS ORDERED: Zofran 4 MG/2 ML VIAL IV ONE (13:59)
[2022-07-28] MEDS ORDERED: MORPHINE SULFATE 4 MG INJ IV ONE (13:59)
[2022-07-28 14:00] LABS: Absolute Neutrophil Ct (ANC) 4.73 x10^3/uL (1.4-6.9); Basophil (Absolute #) 0.05 x10^3/uL (0-0.4); Eosinophil % 2.7 % (0.00-5.0); Eosinophil (Absolute #) 0.24 x10^3/uL (0-0.5); Hematocrit 47.7 % (35-47); Lymphocyte (Absolute #) 3.03 x10^3/uL (1.0-4.6); Lymphocytes % 33.7 % (24.0-44.0); Mean Cell Volume 91.4 fL (78-100); Mean Corpuscular Hemoglobin 28.7 pg (26-32); Mean Corpuscular Hgb Concent. 31.4 g/dL (32-36); Mean Platelet Volume 9.5 fL (7.5-11.0); Monocyte (Absolute #) 0.85 x10^3/uL (0.0-1.3); Monocytes % 9.5 % (0.0-12.0); Neutrophil % 52.5 % (36.0-66.0); Platelet Count 248 x10^3/uL (150-450); Red Blood Count 5.22 x10^6/uL (4.1-5.4); Red Cell Distribution Width 15.8 % (11.5-14.0)
--- NOTE | 2022-07-28 14:03 | ERPHSYRPT ---
- History of Present Illness Time Seen by Provider: 07/28/22 13:17 Historian: patient Exam Limitations: no limitations Patient Subjective Stated Complaint: right sided chest pain, rt sided flank pain, rt arm pain, nausea Triage Nursing Assessment: Pt brought by EMS to the ER due to pain in her right chest that radiates to her right arm, right flank and back, pt took 3 nitros and 4 baby aspirin, and states that she got a little relief, nausea, denies vomiting, no edema, had labs done yesterday with Dr. Woodard and all were good, pulses normal, no difficulty breathing Physician History: 61-year-old female presented to the ER with chief complaint of right side chest pain since morning, moderate to severe intensity sharp in nature with some radiation to the back, aggravated with movements, deep breathing and minimal shortness of breath at times. Patient has been given nitro and full dose aspirin with no significant relief. Denies fever chills cough or sick contact. Timing/Duration: today, constant, gradual onset, worse Activities at Onset: rest Quality: sharpness Severity of Pain-Max: moderate Severity of Pain-Current: moderate Modifying Factors: Improves With: nothing Associated Symptoms: nausea Prior Chest Pain/Cardiac Workup: no prior chest pain Nitro Today/Relief: 0.4 mg x 1 Aspirin Treatment Today: 81 mg x 4, provided by EMS Allergies/Adverse Reactions: Influenza Virus Vaccines [Influenza Virus Vaccine] Allergy (Intermediate, Verified 07/28/22 13:50) Swelling of Hands venom-honey bee [bee venom (honey bee)] Allergy (Verified 07/28/22 13:50) famotidine [From Pepcid] Adverse Reaction (Intermediate, Verified 07/28/22 13:50) hot, flushed, diaphoresis, and chest pain. tape Allergy (Uncoded 07/28/22 13:50) Home Medications: ALPRAZolam [Alprazolam] 1 mg PO QID 01/24/16 [History] Divalproex Sodium [Depakote] 500 mg PO BID 09/18/18 [History] Vortioxetine Hydrobromide [Trintellix] 20 mg PO DAILY 09/18/18 [History] Furosemide [Lasix] 60 mg PO DAILY 05/07/20 [History] Potassium Chloride Tab* [Klor Con] 30 meq PO DAILY 05/07/20 [History] Amlodipine Besylate 2.5 mg PO DAILY 06/25/21 [History] Topiramate 50 mg PO BID 06/25/21 [History] Albuterol Sulfate [Albuterol Sulfate Hfa] 1 puff IH Q4HPRN PRN 11/17/21 [History] Aspirin [Lo-Dose Aspirin EC] 81 mg PO DAILY 11/17/21 [History] Fenofibrate Nanocrystallized [Fenofibrate] 145 mg PO DAILY 11/17/21 [History] Hydrocodone/Acetaminophen [Hydrocodone-Acetamin 7.5-325] 1 each PO TIDPRN 11/17/21 [History] Ibuprofen 600 mg PO TID 11/17/21 [History] Levothyroxine Sodium 112 Mcg [Synthroid 112 Mcg] 112 mcg PO DAILY 11/17/21 [History] Metoprolol Succinate 50 mg [Toprol Xl 50 MG] 50 mg PO DAILY 11/17/21 [History] Tramadol HCl [Tramadol HCl ER] 200 mg PO DAILY 11/17/21 [History] Bumetanide 2 mg PO DAILY 07/28/22 [History] Fluticasone/Vilanterol [Breo Ellipta 200-25 Mcg INH] 1 inh PO UD 07/28/22 [History] Hx Tetanus, Diphtheria Vaccination/Date Given: No Hx Influenza Vaccination/Date Given: No Hx Pneumococcal Vaccination/Date Given: No Travel Risk - International Travel Have you traveled outside of the country in past 3 weeks: No - Coronavirus Screening Are you exhibiting any of the following symptoms?: No Close contact with a COVID-19 positive Pt in past 14-21 Days: No - Vaccine Status Have you recieved a Covid-19 vaccination: No - Vaccination Dates Comment: . - Review of Systems Constitutional: No Symptoms Eyes: No Symptoms Ears, Nose, & Throat: No Symptoms Respiratory: No Symptoms Cardiac: Chest Pain Abdominal/Gastrointestinal: No Symptoms Genitourinary Symptoms: No Symptoms Musculoskeletal: No Symptoms Skin: No Symptoms Neurological: No Symptoms Psychological: No Symptoms Endocrine: No Symptoms Hematologic/Lymphatic: No Symptoms Immunological/Allergic: No Symptoms - Past Medical History Pertinent Past Medical History: Yes Neurological History: No Pertinent History ENT History: Other Cardiac History: High Cholesterol, Hypertension Respiratory History: COPD, Pneumonia Endocrine Medical History: Hypothyroidism Musculoskeletal History: No Pertinent History, Other GI Medical History: GERD, Gallbladder Disease, Ulcer, Other History: No Pertinent History Psycho-Social History: Anxiety, Bipolar, Depression Female Reproductive Disorders: No Pertinent History Other Medical History: stage IV skin cancer - Past Surgical History Past Surgical History: Yes Neuro Surgical History: No Pertinent History Cardiac: No Pertinent History Respiratory: No Pertinent History Gastrointestinal: Appendectomy, Cholecystectomy Genitourinary: No Pertinent History Musculoskeletal: No Pertinent History Female Surgical History: Hysterectomy Other Surgical History: tubes in ears, pre-cancerous polyps removed from colon - Social History Smoking Status: Former smoker How long have you smoked: 42 years Exposure to second hand smoke: Yes Alcohol Use: None Drug Use: none Patient Lives Alone: No Significant Family History: heart disease, diabetes, hypertension - Nursing Vital Signs Nursing Vital Signs: Initial Vital Signs Temperature 97.0 F 07/28/22 13:20 Pulse Rate 110 H 07/28/22 13:20 Blood Pressure 154/80 07/28/22 13:20 O2 Sat by Pulse Oximetry 97 07/28/22 13:20 Pain Scale Pain Intensity 3 - Physical Exam General Appearance: no apparent distress, alert Eye Exam: PERRL/EOMI Ears, Nose, Throat Exam: normal ENT inspection Neck Exam: normal inspection, full range of motion Respiratory Exam: normal breath sounds, lungs clear Cardiovascular Exam: normal heart sounds, tachycardia Gastrointestinal/Abdomen Exam: soft, normal bowel sounds, No tenderness Back Exam: normal inspection, normal range of motion Extremity Exam: normal inspection, normal range of motion Neurologic Exam: alert, oriented x 3, cooperative Skin Exam: normal color SpO2 Interpretation: normal SpO2: 97 O2 Delivery: Room Air - Course EKG Interpreted by Me: RATE (82), Sinus Rhythm, NORMAL AXIS, NORMAL INTERVALS, Other (Nonspecific T wave changes) Ordered Tests: Active Orders 24 hr Category Date Time Status Public Health Worker STAT Care 07/28/22 13:29 Active EKG-ER Only STAT Care 07/28/22 13:29 Active IV Insertion STAT Care 07/28/22 13:29 Active Oxygen-ED Only Nasal Cannula 2 lpm Care 07/28/22 15:06 Active CHEST 1 VIEW (PORTABLE) Stat Exams 07/28/22 13:29 Completed CBC W DIFF Stat Lab 07/28/22 13:35 Completed LIPASE Stat Lab 07/28/22 13:35 Received MAG [MAGNESIUM] Stat Lab 07/28/22 13:35 Received NT PRO BNP Stat Lab 07/28/22 13:35 Received PROCALCITONIN Stat Lab 07/28/22 13:35 Received TROPONIN Q4H Lab 07/28/22 17:30 Ordered TROPONIN Q4H Lab 07/28/22 21:30 Ordered Medication Summary Generic Name Dose Route Start Last Admin Trade Name Joey PRN Reason Stop Dose Admin Azithromycin 500 mg in 250 mls @ 250 mls/hr 07/28/22 15:05 07/28/22 15:22 Zithromax 500 Mg/ 250 Ml Nacl Premix IV 07/28/22 16:04 250 ml/hr STAT STA 250 mls/hr Administration Discontinued Medications Generic Name Dose Route Start Last Admin Trade Name Freq PRN Reason Stop Dose Admin Ceftriaxone Sodium/Dextrose 2 g in 50 mls @ 100 mls/hr 07/28/22 15:05 07/28/22 15:10 Rocephin 2 Gm-D5w 50ml Bag IV 07/28/22 15:34 100 ml/hr STAT STA 100 mls/hr Administration Ceftriaxone Sodium/Dextrose Confirm 07/28/22 15:08 Rocephin 2 Gm-D5w 50ml Bag Administered 07/28/22 15:09 Dose 2 g in 50 mls @ ud IV .STK-MED ONE Azithromycin Confirm 07/28/22 15:20 Zithromax 500 Mg/ 250 Ml Nacl Premix Administered 07/28/22 15:21 Dose 500 mg in 250 mls @ ud IV .STK-MED ONE Ketorolac Tromethamine 30 mg 07/28/22 15:19 07/28/22 15:22 Ketorolac Tromethamine 30 Mg/Ml Inj IV 07/28/22 15:20 30 mg STAT ONE Administration Ketorolac Tromethamine Confirm 07/28/22 15:19 Ketorolac Tromethamine 30 Mg/Ml Inj Administered 07/28/22 15:20 Dose 30 mg .ROUTE .STK-MED ONE Morphine Sulfate 4 mg 07/28/22 13:59 07/28/22 14:06 Morphine Sulfate 4 Mg/Ml Injection IV 07/28/22 14:00 4 mg STAT ONE Administration Morphine Sulfate Confirm 07/28/22 14:06 Morphine Sulfate 4 Mg/Ml Injection Administered 07/28/22 14:07 Dose 4 mg .ROUTE .STK-MED ONE Ondansetron HCl 4 mg 07/28/22 13:59 07/28/22 14:06 Ondansetron Hcl 4 Mg/2 Ml Vial IV 07/28/22 14:00 4 mg STAT ONE Administration Ondansetron HCl Confirm 07/28/22 14:06 Ondansetron Hcl 4 Mg/2 Ml Vial Administered 07/28/22 14:07 Dose 4 mg .ROUTE .STK-MED ONE Lab/Rad Data: Laboratory Result Diagrams 07/28/22 13:35 07/28/22 13:35 Laboratory Results 07/28/22 07/28/22 Range/Units 13:35 13:35 WBC 9.0 (4.0-10.5) x10^3/uL RBC 5.22 (4.1-5.4) x10^6/uL Hgb 15.0 (12.0-16.0) g/dL Hct 47.7 H (35-47) % MCV 91.4 (78-100) fL MCH 28.7 (26-32) pg MCHC 31.4 L (32-36) g/dL RDW 15.8 H (11.5-14.0) % Plt Count 248 (150-450) x10^3/uL MPV 9.5 (7.5-11.0) fL Gran % 52.5 (36.0-66.0) % Immature Gran % (Auto) 1.0 H (0.00-0.4) % Nucleat RBC Rel Count 0.0 (0.00-0.1) % Eos # (Auto) 0.24 (0-0.5) x10^3/uL Immature Gran # (Auto) 0.09 H (0.00-0.03) x10^3u/L Absolute Lymphs (auto) 3.03 (1.0-4.6) x10^3/uL Absolute Monos (auto) 0.85 (0.0-1.3) x10^3/uL Absolute Nucleated RBC 0.00 (0.00-0.01) x10^3u/L Lymphocytes % 33.7 (24.0-44.0) % Monocytes % 9.5 (0.0-12.0) % Eosinophils % 2.7 (0.00-5.0) % Basophils % 0.6 (0.0-0.4) % Absolute Granulocytes 4.73 (1.4-6.9) x10^3/uL Basophils # 0.05 (0-0.4) x10^3/uL Sodium Direct 137 L (138-146) mmol/L Potassium 4.2 (3.5-4.9) mmol/L Chloride 99 (98-109) mmol/L Carbon Dioxide 27 (24-29) mmol/L Venous BUN 17 (8-26) mg/dL Creatinine 0.9 (0.6-1.3) mg/dL Glucose 117 H (70-105) mg/dL Ionized Calcium 1.19 (1.12-1.32) mmol/L Troponin 0.00 (0.00-0.03) ng/mL NT-Pro-B Natriuret Pep Cancelled - Progress Progress: improved Air Movement: good Progress Note: 07/28/22 15:43 61-year-old is evaluated for right-sided chest pain. EKG did not show any acute ischemic changes. Negative initial troponins. She is given symptomatic treatment for pain, on reevaluation feeling better. Patient is D satting to 88/89% on room air while resting. She is placed on 2 L oxygen. Chest x-ray showed right-sided infiltrative process. Given a dose of Rocephin and Zithromax. Patient is also given DuoNeb and discussed with Dr. Woodard and is being admitted. Blood Culture(s) Obtained: Yes Antibiotics given: Yes Discussed with : Sunshine Will see patient in: hospital (observation) Counseled pt/family regarding: lab results, diagnosis, rad results - Departure Departure Disposition: Observation Clinical Impression: Pneumonia Condition: Stable Critical Care Time: No Referrals: CECE WOODARD MD [Primary Care Provider] - Follow up/PCP as directed
[2022-07-28] MEDS ORDERED: MORPHINE SULFATE 4 MG INJ ONE (14:06)
[2022-07-28] MEDS ORDERED: Zofran 4 MG/2 ML VIAL ONE (14:06)
[2022-07-28 14:40] LABS: ISTAT CREA 0.9 mg/dL (0.6-1.3); ISTAT K 4.2 mmol/L (3.5-4.9)
--- NOTE | 2022-07-28 14:44 | XRAY ---
Indication: Chest pain 1 week. Comparison: February 10, 2022 Portable chest less than inflated with new right infrahilar and lingula infiltrate versus atelectasis. Remaining heart and upper lungs unremarkable. Bony thorax intact again with mild osteopenia and degenerative changes.
[2022-07-28] MEDS ORDERED: ROCEPHIN 2 Gm-D5w 50ML BAG** 2 G/50 ML IVPB IV STA (15:05)
[2022-07-28] MEDS ORDERED: Zithromax 500 MG/ 250 ML NaCl Premix 500 MG/250 ML IVPB IV STA (15:05)
[2022-07-28] MEDS ORDERED: ROCEPHIN 2 Gm-D5w 50ML BAG** 2 G/50 ML IVPB IV ONE (15:08)
[2022-07-28] MEDS ORDERED: TORAdol 30 mg Injection IV ONE (15:19)
[2022-07-28] MEDS ORDERED: TORAdol 30 mg Injection ONE (15:19)
[2022-07-28] MEDS ORDERED: Zithromax 500 MG/ 250 ML NaCl Premix 500 MG/250 ML IVPB IV ONE (15:20)
[2022-07-28] MEDS ORDERED: DUONEB 0.5-3 MG/3 ml Neb IH ONE ×2 (15:45→15:50)
[2022-07-28] MEDS ORDERED: xanAX 0.5 MG PO ONE (15:45)
[2022-07-28] MEDS ORDERED: xanAX 0.5 MG ONE (15:50)
[2022-07-28 16:16] LABS: INFLUENZA A NEGATIVE (NEGATIVE); INFLUENZA B NEGATIVE (NEGATIVE); RESPIRATORY SYNCTIAL VIRUS NEGATIVE (Negative); SARS-CoV-2 Xpert Express NEGATIVE (NEGATIVE)
[2022-07-28 17:22] LABS: MAGNESIUM 1.7 mg/dL (1.6-2.3); NT PRO BNP 76.4 pg/mL (0-900); PROCALCITONIN 0.047 ng/mL (0.030-0.080)
[2022-07-28] MEDS ORDERED: TYLENOL 325 MG PO PRN (17:26)
[2022-07-28] MEDS: MORPHINE SULFATE 2 MG INJ IV PRN (17:33)
[2022-07-28] MEDS ORDERED: Ambien 10 MG PO PRN (18:03)
[2022-07-28] MEDS ORDERED: MOTRIN 600 MG PO PRN (18:03)
[2022-07-28] MEDS ORDERED: NON-FORMULARY ITEM (Sumatriptan Succinate [Imitrex 50 Mg] 50 MG Tablet) PO PRN (18:03)
[2022-07-28] MEDS ORDERED: VENTOLIN COMMON CANISTER IH PRN (18:03)
[2022-07-28] MEDS ORDERED: ALPRAZOLAM 2 MG PO PRN (18:03)
[2022-07-28] MEDS ORDERED: NORCO 7.5/325 MG TAB PO PRN (18:03)
[2022-07-28] MEDS ORDERED: XANAX 1 MG PO PRN (18:11)
[2022-07-28 18:22] LABS: Epithelial Cells RARE /HPF (FEW); RBC 0-2 /HPF (0-2); WBC 0-2 /HPF (0-5)
[2022-07-28 18:24] LABS: Appearance CLEAR (CLEAR); Bilirubin NEGATIVE (NEGATIVE); Dipstick done @ ? MAIN LAB; Glucose NEGATIVE (NEGATIVE); Ketones NEGATIVE (NEGATIVE); Nitrite NEGATIVE (NEGATIVE); Protein,Urine Dip NEGATIVE (Negative); RBC NEGATIVE Ery/ul (0-5); Urobilinogen 0.2 mg/dL (0-1)
[2022-07-28 18:26] LABS: Urine Cultured Indicated? NO
[2022-07-28] MEDS ORDERED: MEDICATION INTERVENTION MC SCH ×3 (18:30→18:45)
[2022-07-28] MEDS ORDERED: DUONEB 0.5-3 MG/3 ml Neb IH SCH (19:00)
[2022-07-28] MEDS: Zofran 4 MG/2 ML VIAL IV PRN (19:29)
[2022-07-28] MEDS: Mirapex 0.5 MG Tablet PO SCH ×2 (21:51→21:54)
[2022-07-28] MEDS: TOPIRAMATE PO SCH ×2 (21:52→21:54)
[2022-07-28] MEDS: Singulair 10 MG PO SCH ×2 (21:52→21:54)
[2022-07-28] MEDS ORDERED: NON-FORMULARY ITEM (Pramipexole Di-Hcl [Pramipexole Dihydrochloride] 1 MG Tablet) PO SCH (22:00)
[2022-07-28] MEDS ORDERED: NON-FORMULARY ITEM (Divalproex Sodium [Depakote] 500 MG Tablet.Dr) PO SCH (22:00)
[2022-07-29] MEDS: Zofran 4 MG/2 ML VIAL IV PRN (03:18)
[2022-07-29] MEDS: XANAX 1 MG PO PRN ×2 (03:18→09:03)
[2022-07-29 06:26] LABS: Absolute Neutrophil Ct (ANC) 6.71 x10^3/uL (1.4-6.9); Basophil (Absolute #) 0.05 x10^3/uL (0-0.4); Eosinophil % 2.1 % (0.00-5.0); Hematocrit 47.9 % (35-47); Hemoglobin 14.5 g/dL (12.0-16.0); Lymphocyte (Absolute #) 1.69 x10^3/uL (1.0-4.6); Lymphocytes % 17.7 % (24.0-44.0); Mean Cell Volume 93.6 fL (78-100); Mean Corpuscular Hemoglobin 28.3 pg (26-32); Mean Corpuscular Hgb Concent. 30.3 g/dL (32-36); Mean Platelet Volume 9.8 fL (7.5-11.0); Monocyte (Absolute #) 0.82 x10^3/uL (0.0-1.3); Monocytes % 8.6 % (0.0-12.0); Neutrophil % 70.3 % (36.0-66.0); Platelet Count 207 x10^3/uL (150-450); Red Blood Count 5.12 x10^6/uL (4.1-5.4); Red Cell Distribution Width 15.9 % (11.5-14.0); White Blood Count 9.6 x10^3/uL (4.0-10.5)
[2022-07-29] MEDS: MORPHINE SULFATE 2 MG INJ IV PRN ×2 (06:26→10:50)
[2022-07-29 06:46] LABS: ALBUMIN 4.3 g/dL (3.5-5.0); ANION GAP 14.1 MEQ/L (5-15); BILIRUBIN,TOTAL 0.5 mg/dL (0.2-1.3); Calcium 9.1 mg/dL (8.4-10.2); Creatinine 1 1.28 mg/dL (0.52-1.04); EST GLOMERULAR FILTRATION RATE 45.1 ML/MIN; Total Protein 8.1 g/dL (6.3-8.2)
[2022-07-29] MEDS ORDERED: NON-FORMULARY ITEM (Bumetanide [Bumetanide] 2 MG Tablet) PO SCH (10:00)
[2022-07-29] MEDS ORDERED: Lexapro PO SCH (10:00)
[2022-07-29] MEDS ORDERED: SYNTHROID 112 MCG PO SCH (10:00)
[2022-07-29] MEDS ORDERED: Zithromax 500 MG/ 250 ML NaCl Premix 500 MG/250 ML IVPB IV SCH (10:00)
[2022-07-29] MEDS ORDERED: CLARITIN 10 MG PO SCH (10:00)
[2022-07-29] MEDS ORDERED: NON-FORMULARY ITEM (Amlodipine Besylate [Amlodipine Besylate] 2.5 MG Tablet) PO SCH (10:00)
[2022-07-29] MEDS ORDERED: VORTIOXETINE HYDROBROMIDE PO SCH (10:00)
[2022-07-29] MEDS ORDERED: NON-FORMULARY ITEM (Fluticasone/Vilanterol [Breo Ellipta 200-25 Mcg Inh] 1 EACH Blst.W.Dev PO SCH (10:00)
[2022-07-29] MEDS ORDERED: PROTONIX 40 MG IV IV SCH (10:00)
[2022-07-29] MEDS ORDERED: Klor Con PO SCH (10:00)
[2022-07-29] MEDS ORDERED: NON-FORMULARY ITEM (Fexofenadine Hcl [Allegra Allergy] 180 MG Tablet) PO SCH (10:00)
[2022-07-29] MEDS ORDERED: NORVASC 5 MG PO SCH (10:00)
[2022-07-29] MEDS ORDERED: BUMEX 1 MG PO SCH (10:00)
[2022-07-29] MEDS ORDERED: NON-FORMULARY ITEM (Escitalopram Oxalate [Escitalopram Oxalate] 20 MG Tablet) PO SCH (10:00)
[2022-07-29] MEDS ORDERED: ECOTRIN 81 MG PO SCH (10:00)
[2022-07-29 12:48] VITALS: BP 136/65; PULSE 112; O2SAT 92
--- NOTE | 2022-07-29 13:37 | PCM.SSS ---
History of Present Illness - Chief Complaint Chief Complaint: right side chest pain for 2-3 days History of Present Illness: is a 61 year old female.presented to the ER with chief complaint of right side chest pain since morning, moderate to severe intensity sharp in nature with some radiation to the back, aggravated with movements, deep breathing and minimal shortness of breath at times. Patient has been given nitro and full dose aspirin with no significant relief. Denies fever chills cough or sick contact. Timing/Duration: today, constant, gradual onset, worse Activities at Onset: rest Quality: sharpness Severity of Pain-Max: moderate Severity of Pain-Current: moderate Modifying Factors: Improves With: nothing Associated Symptoms: nausea Prior Chest Pain/Cardiac Workup: no prior chest pain Nitro Today/Relief: 0.4 mg x 1 Aspirin Treatment Today: 81 mg x 4, provided by EMS - Review of Systems Constitutional: No Fever, No Chills Eyes: No Symptoms Ears, Nose, & Throat: No Symptoms Respiratory: Cough, No Short Of Breath Cardiac: Chest Pain, No Edema, No Syncope Abdominal/Gastrointestinal: No Abdominal Pain, No Nausea, No Vomiting, No Diarrhea Genitourinary Symptoms: No Dysuria Musculoskeletal: No Back Pain, No Neck Pain Skin: No Rash Neurological: No Dizziness, No Focal Weakness, No Sensory Changes Psychological: No Symptoms Endocrine: No Symptoms Hematologic/Lymphatic: No Symptoms Immunological/Allergic: No Symptoms Medications & Allergies Home Medications: Home Medication List ALPRAZolam [Alprazolam] 1 mg PO QID PRN 01/24/16 [History Confirmed 07/28/22] Divalproex Sodium [Depakote] 500 mg PO BID 09/18/18 [History Confirmed 07/28/22] Vortioxetine Hydrobromide [Trintellix] 20 mg PO DAILY 09/18/18 [History Confirmed 07/28/22] Potassium Chloride Tab* [Klor Con] 20 meq PO DAILY 05/07/20 [History Confirmed 07/28/22] Amlodipine Besylate 2.5 mg PO DAILY 06/25/21 [History Confirmed 07/28/22] Topiramate 50 mg PO BID 06/25/21 [History Confirmed 07/28/22] Albuterol Sulfate [Albuterol Sulfate Hfa] 1 puff IH Q4HPRN PRN 11/17/21 [History Confirmed 07/28/22] Aspirin [Lo-Dose Aspirin EC] 81 mg PO DAILY 11/17/21 [History Confirmed 07/28/22] Hydrocodone/Acetaminophen [Hydrocodone-Acetamin 7.5-325] 1 each PO Q4H PRN 11/17/21 [History Confirmed 07/28/22] Ibuprofen 600 mg PO TID PRN 11/17/21 [History Confirmed 07/28/22] Levothyroxine Sodium 112 Mcg [Synthroid 112 Mcg] 112 mcg PO DAILY 11/17/21 [History Confirmed 07/28/22] Bumetanide 2 mg PO DAILY 07/28/22 [History Confirmed 07/28/22] Escitalopram Oxalate 20 mg PO DAILY 07/28/22 [History Confirmed 07/28/22] Fexofenadine HCl [Sharon Allergy] 180 mg PO DAILY 07/28/22 [History Confirmed 07/28/22] Fluticasone/Vilanterol [Breo Ellipta 200-25 Mcg INH] 1 inh PO DAILY 07/28/22 [History Confirmed 07/28/22] Montelukast Sodium 10 mg [Singulair 10 MG] 10 mg PO QPM 07/28/22 [History Confirmed 07/28/22] Pramipexole Di-HCl [Pramipexole Dihydrochloride] 1 mg PO HS 07/28/22 [History Confirmed 07/28/22] SUMAtriptan succinate [Imitrex 50 mg] 100 mg PO DAILY PRN 07/28/22 [History Confirmed 07/28/22] Zolpidem Tartrate 10 mg [Ambien 10 MG] 10 mg PO HS PRN 07/28/22 [History Confirmed 07/28/22] Levofloxacin [Levofloxacin 500 MG Tablet] 500 mg PO DAILY #5 tablet 07/29/22 [Rx] Allergies/Adverse Reactions: Allergies Allergy/AdvReac Type Severity Reaction Status Date / Time Influenza Virus Vaccines Allergy Intermediate Swelling Verified 07/28/22 13:50 [Influenza Virus Vaccine] of Hands venom-honey bee Allergy Verified 07/28/22 13:50 [bee venom (honey bee)] famotidine [From Pepcid] AdvReac Intermediate Verified 07/28/22 13:50 tape Allergy Uncoded 07/28/22 13:50 - Past Medical History Past Medical History: Yes Neurological History: No Pertinent History ENT History: Other Cardiac History: High Cholesterol, Hypertension Respiratory History: COPD, Pneumonia Endocrine Medical History: Hypothyroidism Musculoskelatal History: No Pertinent History, Other GI Medical History: GERD, Gallbladder Disease, Ulcer, Other History: No Pertinent History Pyscho-Social History: Anxiety, Bipolar, Depression Reproductive Disorders: No Pertinent History Comment: stage IV skin cancer - Female History Are you now?: No - Past Surgical History Past Surgical History: Yes Neuro Surgical History: No Pertinent History Cardiac History: No Pertinent History Respiratory Surgery: No Pertinent History GI Surgical History: Appendectomy, Cholecystectomy Genitourinary Surgical Hx: No Pertinent History Musculskeletal Surgical Hx: No Pertinent History Female Surgical History: Hysterectomy Other Surgical History: tubes in ears, pre-cancerous polyps removed from colon - Social History Smoking Status: Former smoker How long have you smoked: 42 years Exposure to second hand smoke: Yes Alcohol: None Drug Use: none Significant Family History: heart disease, diabetes, hypertension - Physical Exam Vital Signs: Vital Signs - 24 hr Temp Pulse Resp BP BP Pulse Ox 07/29/22 12:00 97.1 F 112 H 23 136/65 92 L 07/29/22 08:00 96.9 F 111 H 25 H 131/70 85 L 07/29/22 07:57 99 H 20 93 L 07/29/22 03:55 97.9 F 109 H 20 115/72 91 L 07/29/22 00:00 97.9 F 102 H 19 123/69 91 L 07/28/22 19:52 96.8 F 115 H 15 127/78 91 L 07/28/22 19:24 110 H 22 93 L 07/28/22 16:48 97.6 F 98 H 20 127/72 127/72 92 L 07/28/22 16:10 104 H 18 96 07/28/22 16:00 100 H 18 93 L 07/28/22 15:44 97 07/28/22 15:06 100 H 18 96 07/28/22 14:27 90 14 124/80 92 L General Appearance: no apparent distress, alert Neurologic Exam: alert, oriented x 3, cooperative, normal mood/affect, nml cerebellar function, nml station & gait, sensation nml, No motor deficits Eye Exam: PERRL/EOMI, eyes nml inspection Ears, Nose, Throat Exam: normal ENT inspection, TMs normal, pharynx normal, moist mucous membranes Neck Exam: normal inspection, non-tender, supple, full range of motion Respiratory Exam: diminished breath sounds, No respiratory distress Cardiovascular Exam: regular rate/rhythm, normal heart sounds, normal peripheral pulses Gastrointestinal/Abdomen Exam: soft, normal bowel sounds, No tenderness, No mass Back Exam: normal inspection, normal range of motion, No CVA tenderness, No vertebral tenderness Extremity Exam: normal inspection, normal range of motion, pelvis stable Skin Exam: normal color, warm, dry, No rash Lymphatic Exam: No adenopathy Results - Labs Lab/Micro Results: Lab Results-Last 24 Hours 07/28/22 07/28/22 07/28/22 Range/Units 13:35 13:35 13:35 WBC 9.0 (4.0-10.5) x10^3/uL RBC 5.22 (4.1-5.4) x10^6/uL Hgb 15.0 (12.0-16.0) g/dL Hct 47.7 H (35-47) % MCV 91.4 (78-100) fL MCH 28.7 (26-32) pg MCHC 31.4 L (32-36) g/dL RDW 15.8 H (11.5-14.0) % Plt Count 248 (150-450) x10^3/uL MPV 9.5 (7.5-11.0) fL Gran % 52.5 (36.0-66.0) % Immature Gran % (Auto) 1.0 H (0.00-0.4) % Nucleat RBC Rel Count 0.0 (0.00-0.1) % Eos # (Auto) 0.24 (0-0.5) x10^3/uL Immature Gran # (Auto) 0.09 H (0.00-0.03) x10^3u/L Absolute Lymphs (auto) 3.03 (1.0-4.6) x10^3/uL Absolute Monos (auto) 0.85 (0.0-1.3) x10^3/uL Absolute Nucleated RBC 0.00 (0.00-0.01) x10^3u/L Lymphocytes % 33.7 (24.0-44.0) % Monocytes % 9.5 (0.0-12.0) % Eosinophils % 2.7 (0.00-5.0) % Basophils % 0.6 (0.0-0.4) % Absolute Granulocytes 4.73 (1.4-6.9) x10^3/uL Basophils # 0.05 (0-0.4) x10^3/uL Sodium (137-145) mmol/L Sodium Direct 137 L (138-146) mmol/L Potassium 4.2 (3.5-4.9) mmol/L Chloride 99 (98-109) mmol/L Carbon Dioxide 27 (24-29) mmol/L Anion Gap (5-15) MEQ/L BUN (7-17) mg/dL Venous BUN 17 (8-26) mg/dL Creatinine 0.9 (0.6-1.3) mg/dL Estimated GFR ML/MIN Glucose 117 H (70-105) mg/dL POC Glucometer (74 to 106) mg/dL Hemoglobin A1c (4.5-6.0) % Calcium (8.4-10.2) mg/dL Ionized Calcium 1.19 (1.12-1.32) mmol/L Magnesium 1.7 (1.6-2.3) mg/dL Total Bilirubin (0.2-1.3) mg/dL AST (14-36) U/L ALT (0-35) U/L Alkaline Phosphatase (38-126) U/L Troponin 0.00 (0.00-0.03) ng/mL Troponin I (0.000-0.034) ng/mL NT-Pro-B Natriuret Pep Cancelled 76.4 Serum Total Protein (6.3-8.2) g/dL Albumin (3.5-5.0) g/dL Lipase 65 (23-300) U/L Procalcitonin 0.047 (0.030-0.080) ng/mL Urinalys Dipstick Clnc Urine Color (YELLOW) Urine Appearance (CLEAR) Urine pH (5-6) Ur Specific [place] (1.005-1.025) POC Urine Protein Conf (Negative) Urine Ketones (NEGATIVE) Urine Nitrite (NEGATIVE) Urine Bilirubin (NEGATIVE) Urine Urobilinogen (0-1) mg/dL Urine Leukocytes (NEGATIVE) Urine WBC (Auto) (0-5) /HPF Urine RBC (Auto) (0-2) /HPF U Epithel Cells (Auto) (FEW) /HPF Urine Bacteria (Auto) (NEGATIVE) /HPF Urine RBC (0-5) Fredrick/ul Ur Culture Indicated? Urine Glucose (NEGATIVE) mg/dL Influenza Type A Ag (NEGATIVE) Influenza Type B Ag (NEGATIVE) RSV (PCR) (Negative) SARS-CoV-2 (PCR) (NEGATIVE) 07/28/22 07/28/22 07/28/22 Range/Units 17:51 17:55 17:55 WBC (4.0-10.5) x10^3/uL RBC (4.1-5.4) x10^6/uL Hgb (12.0-16.0) g/dL Hct (35-47) % MCV (78-100) fL MCH (26-32) pg MCHC (32-36) g/dL RDW (11.5-14.0) % Plt Count (150-450) x10^3/uL MPV (7.5-11.0) fL Gran % (36.0-66.0) % Immature Gran % (Auto) (0.00-0.4) % Nucleat RBC Rel Count (0.00-0.1) % Eos # (Auto) (0-0.5) x10^3/uL Immature Gran # (Auto) (0.00-0.03) x10^3u/L Absolute Lymphs (auto) (1.0-4.6) x10^3/uL Absolute Monos (auto) (0.0-1.3) x10^3/uL Absolute Nucleated RBC (0.00-0.01) x10^3u/L Lymphocytes % (24.0-44.0) % Monocytes % (0.0-12.0) % Eosinophils % (0.00-5.0) % Basophils % (0.0-0.4) % Absolute Granulocytes (1.4-6.9) x10^3/uL Basophils # (0-0.4) x10^3/uL Sodium (137-145) mmol/L Sodium Direct (138-146) mmol/L Potassium (3.5-4.9) mmol/L Chloride (98-109) mmol/L Carbon Dioxide (24-29) mmol/L Anion Gap (5-15) MEQ/L BUN (7-17) mg/dL Venous BUN (8-26) mg/dL Creatinine (0.6-1.3) mg/dL Estimated GFR ML/MIN Glucose (70-105) mg/dL POC Glucometer (74 to 106) mg/dL Hemoglobin A1c 5.73 (4.5-6.0) % Calcium (8.4-10.2) mg/dL Ionized Calcium (1.12-1.32) mmol/L Magnesium (1.6-2.3) mg/dL Total Bilirubin (0.2-1.3) mg/dL AST (14-36) U/L ALT (0-35) U/L Alkaline Phosphatase (38-126) U/L Troponin (0.00-0.03) ng/mL Troponin I < 0.012 (0.000-0.034) ng/mL NT-Pro-B Natriuret Pep Serum Total Protein (6.3-8.2) g/dL Albumin (3.5-5.0) g/dL Lipase (23-300) U/L Procalcitonin (0.030-0.080) ng/mL Urinalys Dipstick Clnc MAIN LAB Urine Color YELLOW (YELLOW) Urine Appearance CLEAR (CLEAR) Urine pH 5.0 (5-6) Ur Specific [place] 1.010 (1.005-1.025) POC Urine Protein Conf NEGATIVE (Negative) Urine Ketones NEGATIVE (NEGATIVE) Urine Nitrite NEGATIVE (NEGATIVE) Urine Bilirubin NEGATIVE (NEGATIVE) Urine Urobilinogen 0.2 (0-1) mg/dL Urine Leukocytes NEGATIVE (NEGATIVE) Urine WBC (Auto) 0-2 (0-5) /HPF Urine RBC (Auto) 0-2 (0-2) /HPF U Epithel Cells (Auto) RARE (FEW) /HPF Urine Bacteria (Auto) NONE (NEGATIVE) /HPF Urine RBC NEGATIVE (0-5) Fredrick/ul Ur Culture Indicated? NO Urine Glucose NEGATIVE (NEGATIVE) mg/dL Influenza Type A Ag (NEGATIVE) Influenza Type B Ag (NEGATIVE) RSV (PCR) (Negative) SARS-CoV-2 (PCR) (NEGATIVE) 07/28/22 07/28/22 07/28/22 Range/Units 20:39 21:50 Unknown WBC (4.0-10.5) x10^3/uL RBC (4.1-5.4) x10^6/uL Hgb (12.0-16.0) g/dL Hct (35-47) % MCV (78-100) fL MCH (26-32) pg MCHC (32-36) g/dL RDW (11.5-14.0) % Plt Count (150-450) x10^3/uL MPV (7.5-11.0) fL Gran % (36.0-66.0) % Immature Gran % (Auto) (0.00-0.4) % Nucleat RBC Rel Count (0.00-0.1) % Eos # (Auto) (0-0.5) x10^3/uL Immature Gran # (Auto) (0.00-0.03) x10^3u/L Absolute Lymphs (auto) (1.0-4.6) x10^3/uL Absolute Monos (auto) (0.0-1.3) x10^3/uL Absolute Nucleated RBC (0.00-0.01) x10^3u/L Lymphocytes % (24.0-44.0) % Monocytes % (0.0-12.0) % Eosinophils % (0.00-5.0) % Basophils % (0.0-0.4) % Absolute Granulocytes (1.4-6.9) x10^3/uL Basophils # (0-0.4) x10^3/uL Sodium (137-145) mmol/L Sodium Direct (138-146) mmol/L Potassium (3.5-4.9) mmol/L Chloride (98-109) mmol/L Carbon Dioxide (24-29) mmol/L Anion Gap (5-15) MEQ/L BUN (7-17) mg/dL Venous BUN (8-26) mg/dL Creatinine (0.6-1.3) mg/dL Estimated GFR ML/MIN Glucose (70-105) mg/dL POC Glucometer 133 H (74 to 106) mg/dL Hemoglobin A1c (4.5-6.0) % Calcium (8.4-10.2) mg/dL Ionized Calcium (1.12-1.32) mmol/L Magnesium (1.6-2.3) mg/dL Total Bilirubin (0.2-1.3) mg/dL AST (14-36) U/L ALT (0-35) U/L Alkaline Phosphatase (38-126) U/L Troponin (0.00-0.03) ng/mL Troponin I < 0.012 (0.000-0.034) ng/mL NT-Pro-B Natriuret Pep Serum Total Protein (6.3-8.2) g/dL Albumin (3.5-5.0) g/dL Lipase (23-300) U/L Procalcitonin (0.030-0.080) ng/mL Urinalys Dipstick Clnc Urine Color (YELLOW) Urine Appearance (CLEAR) Urine pH (5-6) Ur Specific [place] (1.005-1.025) POC Urine Protein Conf (Negative) Urine Ketones (NEGATIVE) Urine Nitrite (NEGATIVE) Urine Bilirubin (NEGATIVE) Urine Urobilinogen (0-1) mg/dL Urine Leukocytes (NEGATIVE) Urine WBC (Auto) (0-5) /HPF Urine RBC (Auto) (0-2) /HPF U Epithel Cells (Auto) (FEW) /HPF Urine Bacteria (Auto) (NEGATIVE) /HPF Urine RBC (0-5) Fredrick/ul Ur Culture Indicated? Urine Glucose (NEGATIVE) mg/dL Influenza Type A Ag NEGATIVE (NEGATIVE) Influenza Type B Ag NEGATIVE (NEGATIVE) RSV (PCR) NEGATIVE (Negative) SARS-CoV-2 (PCR) NEGATIVE (NEGATIVE) 07/29/22 07/29/22 07/29/22 Range/Units 05:35 05:35 07:41 WBC 9.6 (4.0-10.5) x10^3/uL RBC 5.12 (4.1-5.4) x10^6/uL Hgb 14.5 (12.0-16.0) g/dL Hct 47.9 H (35-47) % MCV 93.6 (78-100) fL MCH 28.3 (26-32) pg MCHC 30.3 L (32-36) g/dL RDW 15.9 H (11.5-14.0) % Plt Count 207 (150-450) x10^3/uL MPV 9.8 (7.5-11.0) fL Gran % 70.3 H (36.0-66.0) % Immature Gran % (Auto) 0.8 H (0.00-0.4) % Nucleat RBC Rel Count 0.0 (0.00-0.1) % Eos # (Auto) 0.20 (0-0.5) x10^3/uL Immature Gran # (Auto) 0.08 H (0.00-0.03) x10^3u/L Absolute Lymphs (auto) 1.69 (1.0-4.6) x10^3/uL Absolute Monos (auto) 0.82 (0.0-1.3) x10^3/uL Absolute Nucleated RBC 0.00 (0.00-0.01) x10^3u/L Lymphocytes % 17.7 L (24.0-44.0) % Monocytes % 8.6 (0.0-12.0) % Eosinophils % 2.1 (0.00-5.0) % Basophils % 0.5 (0.0-0.4) % Absolute Granulocytes 6.71 (1.4-6.9) x10^3/uL Basophils # 0.05 (0-0.4) x10^3/uL Sodium 138 (137-145) mmol/L Sodium Direct (138-146) mmol/L Potassium 4.0 (3.5-4.9) mmol/L Chloride 99 (98-109) mmol/L Carbon Dioxide 29 (24-29) mmol/L Anion Gap 14.1 (5-15) MEQ/L BUN 22 H (7-17) mg/dL Venous BUN (8-26) mg/dL Creatinine 1.28 H (0.6-1.3) mg/dL Estimated GFR 45.1 ML/MIN Glucose 147 H (70-105) mg/dL POC Glucometer 107 H (74 to 106) mg/dL Hemoglobin A1c (4.5-6.0) % Calcium 9.1 (8.4-10.2) mg/dL Ionized Calcium (1.12-1.32) mmol/L Magnesium (1.6-2.3) mg/dL Total Bilirubin 0.50 (0.2-1.3) mg/dL AST 45 H (14-36) U/L ALT 47 H (0-35) U/L Alkaline Phosphatase 103 (38-126) U/L Troponin (0.00-0.03) ng/mL Troponin I (0.000-0.034) ng/mL NT-Pro-B Natriuret Pep Serum Total Protein 8.1 (6.3-8.2) g/dL Albumin 4.3 (3.5-5.0) g/dL Lipase (23-300) U/L Procalcitonin (0.030-0.080) ng/mL Urinalys Dipstick Clnc Urine Color (YELLOW) Urine Appearance (CLEAR) Urine pH (5-6) Ur Specific [place] (1.005-1.025) POC Urine Protein Conf (Negative) Urine Ketones (NEGATIVE) Urine Nitrite (NEGATIVE) Urine Bilirubin (NEGATIVE) Urine Urobilinogen (0-1) mg/dL Urine Leukocytes (NEGATIVE) Urine WBC (Auto) (0-5) /HPF Urine RBC (Auto) (0-2) /HPF U Epithel Cells (Auto) (FEW) /HPF Urine Bacteria (Auto) (NEGATIVE) /HPF Urine RBC (0-5) Fredrick/ul Ur Culture Indicated? Urine Glucose (NEGATIVE) mg/dL Influenza Type A Ag (NEGATIVE) Influenza Type B Ag (NEGATIVE) RSV (PCR) (Negative) SARS-CoV-2 (PCR) (NEGATIVE) - Radiology Impressions Radiology Exams & Impressions: Radiology Procedures Category Date Time Status CHEST 1 VIEW (PORTABLE) Stat Exams 07/28/22 13:29 Completed 0026 RAD/CHEST 1 VIEW (PORTABLE) Indication: Chest pain 1 week. Comparison: February 10, 2022 Portable chest less than inflated with new right infrahilar and lingula infiltrate versus atelectasis. Remaining heart and upper lungs unremarkable. Bony thorax intact again with mild osteopenia and degenerative changes. Assessment/Plan (1) Pneumonia Status: Acute Qualifiers: Pneumonia type: due to Pneumococcus Laterality: right Lung location: middle lobe of lung Qualified Code(s): J13 - Pneumonia due to Streptococcus pneumoniae Assessment & Plan: Chief Complaint Diagnosis pneumonia Allergies Allergy/AdvReac Type Severity Reaction Status Date / Time Influenza Virus Vaccines Allergy Intermediate Swelling Verified 07/28/22 13:50 [Influenza Virus Vaccine] of Hands venom-honey bee Allergy Verified 07/28/22 13:50 [bee venom (honey bee)] famotidine [From Pepcid] AdvReac Intermediate Verified 07/28/22 13:50 tape Allergy Uncoded 07/28/22 13:50 Vital Signs (Last 24 hours) Temp Pulse Resp BP BP Pulse Ox 07/29/22 12:00 97.1 F 112 H 23 136/65 92 L 07/29/22 08:00 96.9 F 111 H 25 H 131/70 85 L 07/29/22 07:57 99 H 20 93 L 07/29/22 03:55 97.9 F 109 H 20 115/72 91 L 07/29/22 00:00 97.9 F 102 H 19 123/69 91 L 07/28/22 19:52 96.8 F 115 H 15 127/78 91 L 07/28/22 19:24 110 H 22 93 L 07/28/22 16:48 97.6 F 98 H 20 127/72 127/72 92 L 07/28/22 16:10 104 H 18 96 07/28/22 16:00 100 H 18 93 L 07/28/22 15:44 97 07/28/22 15:06 100 H 18 96 07/28/22 14:27 90 14 124/80 92 L Home Medications Medication Instructions Recorded Confirmed Last Taken Type Bumetanide 2 mg PO DAILY 07/28/22 07/28/22 07/28/22 History Escitalopram Oxalate 20 mg PO DAILY 07/28/22 07/28/22 07/28/22 History Fexofenadine HCl [Sharon Allergy] 180 mg PO DAILY 07/28/22 07/28/22 07/28/22 History Fluticasone/Vilanterol [Breo 1 inh PO DAILY 07/28/22 07/28/22 07/28/22 History Ellipta 200-25 Mcg INH] Montelukast Sodium 10 mg 10 mg PO QPM 07/28/22 07/28/22 07/27/22 History [Singulair 10 MG] Pramipexole Di-HCl [Pramipexole 1 mg PO HS 07/28/22 07/28/22 07/27/22 History Dihydrochloride] SUMAtriptan succinate [Imitrex 50 100 mg PO DAILY PRN 07/28/22 07/28/22 Unknown History mg] Zolpidem Tartrate 10 mg [Ambien 10 mg PO HS PRN 07/28/22 07/28/22 Unknown History 10 MG] Levofloxacin [Levofloxacin 500 500 mg PO DAILY #5 tablet 07/29/22 Unknown Rx MG Tablet] Current Medications Discontinued Medications Generic Name Dose Route Start Last Admin Trade Name Freq PRN Reason Stop Dose Admin Acetaminophen 650 mg 07/28/22 17:26 Acetaminophen 325 Mg Tablet PO 08/27/22 17:25 Q4H PRN PRN PAIN AND/OR FEVER Hydrocodone Bitart/Acetaminophen 1 tab 07/28/22 18:03 Hydrocodone /Apap 7.5/325 Mg 1 Each Tablet PO 08/02/22 18:02 Q4HPRN PRN PAIN Albuterol Sulfate 1 puff 07/28/22 18:03 Albuterol Common Canister Inhaler 08/27/22 18:02 Q4HPRN PRN SHORTNESS OF BREATH/WHEEZING Albuterol/Ipratropium 3 ml 07/28/22 15:45 07/28/22 15:58 Ipratropium/Albuterol Sulfate 3 Ml Ampul.Neb 07/28/22 15:46 3 ml STAT ONE Administration Albuterol/Ipratropium Confirm 07/28/22 15:50 Ipratropium/Albuterol Sulfate 3 Ml Ampul.Neb Administered 07/28/22 15:51 Dose 3 ml IH .STK-MED ONE Albuterol/Ipratropium 3 ml 07/28/22 19:00 07/28/22 19:29 Ipratropium/Albuterol Sulfate 3 Ml Ampul.Neb 08/27/22 18:59 Not Given Q6HRT YUMIKO Alprazolam 1 mg 07/28/22 15:45 07/28/22 15:51 Alprazolam 0.5 Mg Tablet PO 07/28/22 15:46 1 mg STAT ONE Administration Alprazolam Confirm 07/28/22 15:50 Alprazolam 0.5 Mg Tablet Administered 07/28/22 15:51 Dose 1 mg .ROUTE .STK-MED ONE Alprazolam 1 mg 07/28/22 18:11 Alprazolam 1 Mg Tablet PO 08/27/22 18:10 QID PRN ANXIETY Alprazolam 1 mg 07/28/22 18:15 09/03/22 09:03 Alprazolam 1 Mg Tablet PO 08/27/22 18:10 1 mg QIDPRN PRN Administration ANXIETY Amlodipine Besylate 2.5 mg 07/29/22 10:00 Amlodipine Besylate 5 Mg Tablet PO 08/28/22 09:59 DAILY YUMIKO Aspirin 81 mg 07/29/22 10:00 Aspirin 81 Mg Tablet.Ec PO 08/28/22 09:59 DAILY YUMIKO Bumetanide 2 mg 07/29/22 10:00 Bumetanide 1 Mg Tablet PO 08/28/22 09:59 DAILY YUMIKO Divalproex Sodium 500 mg 07/28/22 22:00 07/28/22 21:54 Divalproex Sodium 250 Mg Tablet Delayed Release PO 08/27/22 21:59 Not Given BID YUMIKO Escitalopram Oxalate 20 mg 07/29/22 10:00 Escitalopram Oxalate 10 Mg Tablet PO 08/28/22 09:59 DAILY YUMIKO Azithromycin 500 mg in 250 mls @ 250 mls/hr 07/28/22 15:05 07/28/22 15:22 Zithromax 500 Mg/ 250 Ml Nacl Premix IV 07/28/22 16:04 250 ml/hr STAT STA 250 mls/hr Administration Ceftriaxone Sodium/Dextrose 2 g in 50 mls @ 100 mls/hr 07/28/22 15:05 07/28/22 15:49 Rocephin 2 Gm-D5w 50ml Bag IV 07/28/22 15:34 Infused STAT STA Infusion Ceftriaxone Sodium/Dextrose Confirm 07/28/22 15:08 Rocephin 2 Gm-D5w 50ml Bag Administered 07/28/22 15:09 Dose 2 g in 50 mls @ ud IV .STK-MED ONE Azithromycin Confirm 07/28/22 15:20 Zithromax 500 Mg/ 250 Ml Nacl Premix Administered 07/28/22 15:21 Dose 500 mg in 250 mls @ ud IV .STK-MED ONE Azithromycin 500 mg in 250 mls @ 250 mls/hr 07/29/22 10:00 Zithromax 500 Mg/ 250 Ml Nacl Premix IV 08/28/22 09:59 Q24H10 YUMIKO Ibuprofen 600 mg 07/28/22 18:03 Ibuprofen 600 Mg Tablet PO 08/27/22 18:02 TID PRN PAIN Ketorolac Tromethamine 30 mg 07/28/22 15:19 07/28/22 15:22 Ketorolac Tromethamine 30 Mg/Ml Inj IV 07/28/22 15:20 30 mg STAT ONE Administration Ketorolac Tromethamine Confirm 07/28/22 15:19 Ketorolac Tromethamine 30 Mg/Ml Inj Administered 07/28/22 15:20 Dose 30 mg .ROUTE .STK-MED ONE Levothyroxine Sodium 112 mcg 07/29/22 10:00 Levothyroxine Sodium 112 Mcg Tablet PO 08/28/22 09:59 DAILY YUMIKO Loratadine 10 mg 07/29/22 10:00 Loratadine 10 Mg Tablet PO 08/28/22 09:59 DAILY YUMIKO Miscellaneous Information 1 each 07/28/22 18:30 07/29/22 07:53 Medication Intervention 1 Each Each 08/27/22 18:29 1 each .RN TO CHECK YUMIKO Administration Miscellaneous Information 1 each 07/28/22 18:45 Medication Intervention 1 Each Each MC 08/27/22 18:44 .RN TO CHECK YUMIKO Miscellaneous Information 1 each 07/28/22 18:45 Medication Intervention 1 Each Each MC 08/27/22 18:44 .RN TO CHECK YUMIKO Montelukast Sodium 10 mg 07/28/22 22:00 07/28/22 21:54 Montelukast Sodium 10 Mg Tablet PO 08/27/22 21:59 Not Given QPM YUMIKO Morphine Sulfate 4 mg 07/28/22 13:59 07/28/22 14:06 Morphine Sulfate 4 Mg/Ml Injection IV 07/28/22 14:00 4 mg STAT ONE Administration Morphine Sulfate Confirm 07/28/22 14:06 Morphine Sulfate 4 Mg/Ml Injection Administered 07/28/22 14:07 Dose 4 mg .ROUTE .STK-MED ONE Morphine Sulfate 2 mg 07/28/22 17:26 07/29/22 10:50 Morphine Sulfate 2 Mg/Ml Inj IV 08/02/22 17:25 2 mg Q4H PRN PRN Administration PAIN Ondansetron HCl 4 mg 07/28/22 13:59 07/28/22 14:06 Ondansetron Hcl 4 Mg/2 Ml Vial IV 07/28/22 14:00 4 mg STAT ONE Administration Ondansetron HCl Confirm 07/28/22 14:06 Ondansetron Hcl 4 Mg/2 Ml Vial Administered 07/28/22 14:07 Dose 4 mg .ROUTE .STK-MED ONE Ondansetron HCl 4 mg 07/28/22 17:26 07/29/22 03:18 Ondansetron Hcl 4 Mg/2 Ml Vial IV 08/27/22 17:25 4 mg Q6H PRN PRN Administration NAUSEA/VOMITING Pantoprazole Sodium 40 mg 07/29/22 10:00 Pantoprazole 40 Mg Vial IV 08/28/22 09:59 Q24H10 YUMIKO Potassium Chloride 20 meq 07/29/22 10:00 Potassium Chloride Tab 10 Meq Tab PO 08/28/22 09:59 DAILY YUMIKO Pramipexole Dihydrochloride 1 mg 07/28/22 22:00 07/28/22 21:54 Pramipexole Di-Hcl 0.5 Mg Tab PO 08/27/22 21:59 Not Given HS YUMIKO Topiramate 50 mg 07/28/22 22:00 07/28/22 21:54 Topiramate 50 Mg Tablet PO 08/27/22 21:59 Not Given BID YUMIKO Zolpidem Tartrate 10 mg 07/28/22 18:03 07/28/22 21:51 Zolpidem Tartrate 10 Mg Tablet PO 08/27/22 18:02 10 mg HS PRN Administration INSOMNIA Intake & Output (Last 24 hours) 07/27/22 07/28/22 07/29/22 07/30/22 11:59 11:59 11:59 11:59 Intake Total 1100 120 Output Total 1100 100 Balance 0 20 Weight 120 kg Microbiology Results (Last 24 hours) 07/28/22 16:05 Blood Blood Culture Gram Stain - Pending 07/28/22 16:05 Blood Blood Culture - Pending 07/28/22 16:00 Blood Blood Culture Gram Stain - Pending 07/28/22 16:00 Blood Blood Culture - Pending Laboratory Results (Last 24 hours) 07/29/22 07/29/22 07/29/22 07:41 05:35 05:35 WBC 9.6 RBC 5.12 Hgb 14.5 Hct 47.9 H MCV 93.6 MCH 28.3 MCHC 30.3 L RDW 15.9 H Plt Count 207 MPV 9.8 Gran % 70.3 H Immature Gran % (Auto) 0.8 H Nucleat RBC Rel Count 0.0 Eos # (Auto) 0.20 Immature Gran # (Auto) 0.08 H Absolute Lymphs (auto) 1.69 Absolute Monos (auto) 0.82 Absolute Nucleated RBC 0.00 Lymphocytes % 17.7 L Monocytes % 8.6 Eosinophils % 2.1 Basophils % 0.5 Absolute Granulocytes 6.71 Basophils # 0.05 Sodium 138 Sodium Direct Potassium 4.0 Chloride 99 Carbon Dioxide 29 Anion Gap 14.1 BUN 22 H Venous BUN Creatinine 1.28 H Estimated GFR 45.1 Glucose 147 H POC Glucometer 107 H Hemoglobin A1c Calcium 9.1 Ionized Calcium Magnesium Total Bilirubin 0.50 AST 45 H ALT 47 H Alkaline Phosphatase 103 Troponin Troponin I NT-Pro-B Natriuret Pep Serum Total Protein 8.1 Albumin 4.3 Lipase Procalcitonin Urinalys Dipstick Clnc Urine Color Urine Appearance Urine pH Ur Specific [place] POC Urine Protein Conf Urine Ketones Urine Nitrite Urine Bilirubin Urine Urobilinogen Urine Leukocytes Urine WBC (Auto) Urine RBC (Auto) U Epithel Cells (Auto) Urine Bacteria (Auto) Urine RBC Ur Culture Indicated? Urine Glucose Influenza Type A Ag Influenza Type B Ag RSV (PCR) SARS-CoV-2 (PCR) 07/28/22 07/28/22 07/28/22 Unknown 21:50 20:39 WBC RBC Hgb Hct MCV MCH MCHC RDW Plt Count MPV Gran % Immature Gran % (Auto) Nucleat RBC Rel Count Eos # (Auto) Immature Gran # (Auto) Absolute Lymphs (auto) Absolute Monos (auto) Absolute Nucleated RBC Lymphocytes % Monocytes % Eosinophils % Basophils % Absolute Granulocytes Basophils # Sodium Sodium Direct Potassium Chloride Carbon Dioxide Anion Gap BUN Venous BUN Creatinine Estimated GFR Glucose POC Glucometer 133 H Hemoglobin A1c Calcium Ionized Calcium Magnesium Total Bilirubin AST ALT Alkaline Phosphatase Troponin Troponin I < 0.012 NT-Pro-B Natriuret Pep Serum Total Protein Albumin Lipase Procalcitonin Urinalys Dipstick Clnc Urine Color Urine Appearance Urine pH Ur Specific [place] POC Urine Protein Conf Urine Ketones Urine Nitrite Urine Bilirubin Urine Urobilinogen Urine Leukocytes Urine WBC (Auto) Urine RBC (Auto) U Epithel Cells (Auto) Urine Bacteria (Auto) Urine RBC Ur Culture Indicated? Urine Glucose Influenza Type A Ag NEGATIVE Influenza Type B Ag NEGATIVE RSV (PCR) NEGATIVE SARS-CoV-2 (PCR) NEGATIVE 07/28/22 07/28/22 07/28/22 17:55 17:55 17:51 WBC RBC Hgb Hct MCV MCH MCHC RDW Plt Count MPV Gran % Immature Gran % (Auto) Nucleat RBC Rel Count Eos # (Auto) Immature Gran # (Auto) Absolute Lymphs (auto) Absolute Monos (auto) Absolute Nucleated RBC Lymphocytes % Monocytes % Eosinophils % Basophils % Absolute Granulocytes Basophils # Sodium Sodium Direct Potassium Chloride Carbon Dioxide Anion Gap BUN Venous BUN Creatinine Estimated GFR Glucose POC Glucometer Hemoglobin A1c 5.73 Calcium Ionized Calcium Magnesium Total Bilirubin AST ALT Alkaline Phosphatase Troponin Troponin I < 0.012 NT-Pro-B Natriuret Pep Serum Total Protein Albumin Lipase Procalcitonin Urinalys Dipstick Clnc MAIN LAB Urine Color YELLOW Urine Appearance CLEAR Urine pH 5.0 Ur Specific [place] 1.010 POC Urine Protein Conf NEGATIVE Urine Ketones NEGATIVE Urine Nitrite NEGATIVE Urine Bilirubin NEGATIVE Urine Urobilinogen 0.2 Urine Leukocytes NEGATIVE Urine WBC (Auto) 0-2 Urine RBC (Auto) 0-2 U Epithel Cells (Auto) RARE Urine Bacteria (Auto) NONE Urine RBC NEGATIVE Ur Culture Indicated? NO Urine Glucose NEGATIVE Influenza Type A Ag Influenza Type B Ag RSV (PCR) SARS-CoV-2 (PCR) 07/28/22 07/28/22 07/28/22 13:35 13:35 13:35 WBC 9.0 RBC 5.22 Hgb 15.0 Hct 47.7 H MCV 91.4 MCH 28.7 MCHC 31.4 L RDW 15.8 H Plt Count 248 MPV 9.5 Gran % 52.5 Immature Gran % (Auto) 1.0 H Nucleat RBC Rel Count 0.0 Eos # (Auto) 0.24 Immature Gran # (Auto) 0.09 H Absolute Lymphs (auto) 3.03 Absolute Monos (auto) 0.85 Absolute Nucleated RBC 0.00 Lymphocytes % 33.7 Monocytes % 9.5 Eosinophils % 2.7 Basophils % 0.6 Absolute Granulocytes 4.73 Basophils # 0.05 Sodium Sodium Direct 137 L Potassium 4.2 Chloride 99 Carbon Dioxide 27 Anion Gap BUN Venous BUN 17 Creatinine 0.9 Estimated GFR Glucose 117 H POC Glucometer Hemoglobin A1c Calcium Ionized Calcium 1.19 Magnesium 1.7 Total Bilirubin AST ALT Alkaline Phosphatase Troponin 0.00 Troponin I NT-Pro-B Natriuret Pep 76.4 Cancelled Serum Total Protein Albumin Lipase 65 Procalcitonin 0.047 Urinalys Dipstick Clnc Urine Color Urine Appearance Urine pH Ur Specific [place] POC Urine Protein Conf Urine Ketones Urine Nitrite Urine Bilirubin Urine Urobilinogen Urine Leukocytes Urine WBC (Auto) Urine RBC (Auto) U Epithel Cells (Auto) Urine Bacteria (Auto) Urine RBC Ur Culture Indicated? Urine Glucose Influenza Type A Ag Influenza Type B Ag RSV (PCR) SARS-CoV-2 (PCR) Orders (Last 24 hours) Category Date Time Status Bedrest ROUTINE Activity 07/28/22 17:26 Completed Up With Assistance ROUTINE Activity 07/28/22 17:26 Completed Security Sme STAT Care 07/28/22 13:29 Completed Code Status Order ROUTINE Care 07/28/22 17:26 Completed EKG-ER Only STAT Care 07/28/22 13:29 Completed Fall Protocol Q1H Care 07/28/22 17:26 Completed IV Care Q6H Care 07/28/22 17:26 Completed IV Insertion STAT Care 07/28/22 13:29 Completed Oxygen-ED Only Nasal Cannula 2 lpm Care 07/28/22 15:[address] in Observation ROUTINE Care 07/28/22 17:26 Completed Robb Cosby, Apply ROUTINE Care 07/28/22 17:26 Completed Weight,Daily 0600 Care 07/28/22 17:26 Completed House Regular Diet Diet 07/29/22 Breakfast Completed Discharge Routine Discharge 07/29/22 Ordered CHEST 1 VIEW (PORTABLE) Stat Exams 07/28/22 13:29 Completed BLOOD CULTURE Stat Lab 07/28/22 16:05 Received CBC W DIFF AM.LAB Lab 07/29/22 05:35 Completed CBC W DIFF Stat Lab 07/28/22 13:35 Completed CMP AM.LAB Lab 07/29/22 05:35 Completed HEMOGLOBIN A1C Urgent Lab 07/28/22 17:55 Completed LIPASE Stat Lab 07/28/22 13:35 Completed MAG [MAGNESIUM] Stat Lab 07/28/22 13:35 Completed NT PRO BNP Stat Lab 07/28/22 13:35 Completed POCT GLUCOSE Stat Lab 07/28/22 20:39 Completed POCT GLUCOSE Stat Lab 07/29/22 07:41 Completed PROCALCITONIN Stat Lab 07/28/22 13:35 Completed TROPONIN Q4H Lab 07/28/22 17:55 Completed TROPONIN Q4H Lab 07/28/22 21:50 Completed UA W/RFX CULTURE Routine Lab 07/28/22 17:51 Completed ALPRAZolam 0.5 MG [xanAX 0.5 MG] Med 07/28/22 15:50 Discontinued 1 mg .ROUTE .STK-MED ONE ALPRAZolam 0.5 MG [xanAX 0.5 MG] Med 07/28/22 15:45 Discontinued 1 mg PO STAT ONE ALPRAZolam 1 MG [Xanax 1 mg] Med 07/28/22 18:11 Discontinued 1 mg PO QID PRN ALPRAZolam 1 MG [Xanax 1 mg] Med 07/28/22 18:15 Discontinued 1 mg PO QIDPRN PRN Acetaminophen 325 mg [Tylenol 325 mg] Med 07/28/22 17:26 Discontinued 650 mg PO Q4H PRN PRN Albuterol Common Canister [Ventolin Common Canister* Med 07/28/22 18:03 Discontinued ] 1 puff IH Q4HPRN PRN Albuterol/Ipratropium 3ml Neb* [DUONEB 0.5-3 MG/3 ml Med 07/28/22 15:50 Discontinued Neb] 3 ml IH .STK-MED ONE Albuterol/Ipratropium 3ml Neb* [DUONEB 0.5-3 MG/3 ml Med 07/28/22 19:00 Discontinued Neb] 3 ml IH Q6HRT Albuterol/Ipratropium 3ml Neb* [DUONEB 0.5-3 MG/3 ml Med 07/28/22 15:45 Discontinued Neb] 3 ml IH STAT ONE Amlodipine Besylate 5 mg [Norvasc 5 mg] Med 07/29/22 10:00 Discontinued 2.5 mg PO DAILY Aspirin EC 81 mg [Ecotrin 81 mg] Med 07/29/22 10:00 Discontinued 81 mg PO DAILY Azithromycin 500 mg/250 ml [Zithromax 500 MG/ 250 ML Med 07/29/22 10:00 Discontinued NaCl Premix] 500 mg in 250 ml IV Q24H10 Azithromycin 500 mg/250 ml [Zithromax 500 MG/ 250 ML Med 07/28/22 15:05 Discontinued NaCl Premix] 500 mg in 250 ml IV STAT Azithromycin 500 mg/250 ml [Zithromax 500 MG/ 250 ML Med 07/28/22 15:20 Discontinued NaCl Premix] 500 mg in 250 ml IV UD Bumetanide 1 mg [Bumex 1 mg] Med 07/29/22 10:00 Discontinued 2 mg PO DAILY Ceftriaxone 2 GM/50 ML PREMIX* [ROCEPHIN 2 Gm-D5w 50ML Med 07/28/22 15:05 Discontinued BAG] 2 g in 50 ml IV STAT Ceftriaxone 2 GM/50 ML PREMIX* [ROCEPHIN 2 Gm-D5w 50ML Med 07/28/22 15:08 Discontinued BAG] 2 g in 50 ml IV UD Divalproex Sodium 250 mg [Divalproex DR 250 mg Tab] Med 07/28/22 22:00 Discontinued 500 mg PO BID Escitalopram Oxalate [Lexapro] Med 07/29/22 10:00 Discontinued 20 mg PO DAILY Hydrocodone /APAP 7.5/325 mg [[place] 7.5/325 mg Tab Med 07/28/22 18:03 Discontinued ] 1 tab PO Q4HPRN PRN Ibuprofen 600 mg [Motrin 600 mg] Med 07/28/22 18:03 Discontinued 600 mg PO TID PRN KETOROLAC trometh 30 mg Inj [TORAdol 30 mg Injection Med 07/28/22 15:19 Discontinued ] 30 mg .ROUTE .STK-MED ONE KETOROLAC trometh 30 mg Inj [TORAdol 30 mg Injection Med 07/28/22 15:19 Discontinued ] 30 mg IV STAT ONE Levothyroxine Sodium 112 Mcg [Synthroid 112 Mcg] Med 07/29/22 10:00 Discontinued 112 mcg PO DAILY Loratadine 10 mg [Claritin 10 mg] Med 07/29/22 10:00 Discontinued 10 mg PO DAILY Medication Intervention Med 07/28/22 18:30 Discontinued 1 each MC .RN TO CHECK Medication Intervention Med 07/28/22 18:45 Discontinued 1 each MC .RN TO CHECK Medication Intervention Med 07/28/22 18:45 Discontinued 1 each MC TyraRN TO CHECK Montelukast Sodium 10 mg [Singulair 10 MG] Med 07/28/22 22:00 Discontinued 10 mg PO QPM Morphine Sulfate 2 mg Inj Med 07/28/22 17:26 Discontinued 2 mg IV Q4H PRN PRN Morphine Sulfate 4 mg Inj Med 07/28/22 14:06 Discontinued 4 mg .ROUTE .STK-MED ONE Morphine Sulfate 4 mg Inj Med 07/28/22 13:59 Discontinued 4 mg IV STAT ONE Ondansetron HCl 4 mg/2 ml [Zofran 4 MG/2 ML VIAL] Med 07/28/22 14:06 Discontinued 4 mg .ROUTE .STK-MED ONE Ondansetron HCl 4 mg/2 ml [Zofran 4 MG/2 ML VIAL] Med 07/28/22 17:26 Discontinued 4 mg IV Q6H PRN PRN Ondansetron HCl 4 mg/2 ml [Zofran 4 MG/2 ML VIAL] Med 07/28/22 13:59 Discontinued 4 mg IV STAT ONE Pantoprazole 40 mg [Protonix 40 mg IV] Med 07/29/22 10:00 Discontinued 40 mg IV Q24H10 Potassium Chloride Tab* [Klor Con] Med 07/29/22 10:00 Discontinued 20 meq PO DAILY Pramipexole Di-HCl 0.5 mg [Mirapex 0.5 MG Tablet] Med 07/28/22 22:00 Discontinued 1 mg PO HS Topiramate Med 07/28/22 22:00 Discontinued 50 mg PO BID Zolpidem Tartrate 10 mg [Ambien 10 MG] Med 07/28/22 18:03 Discontinued 10 mg PO HS PRN Oxygen Nasal Cannula 2 lpm RT 07/28/22 17:26 Completed Pulse Oximetry .spot check RT 07/28/22 19:24 Completed Respiratory MDI UD RT 07/29/22 08:00 Completed Respiratory Therapy Assessment DAILY RT 07/28/22 16:10 Completed Code(s): J18.9 - PNEUMONIA, UNSPECIFIED ORGANISM (2) COPD (chronic obstructive pulmonary disease) Status: Chronic Qualifiers: COPD type: COPD with acute exacerbation Qualified Code(s): J44.1 - Chronic obstructive pulmonary disease with (acute) exacerbation Hospital Summary - Hospital Course Hospital Course: Chief Complaint Diagnosis pneumonia Allergies Allergy/AdvReac Type Severity Reaction Status Date / Time Influenza Virus Vaccines Allergy Intermediate Swelling Verified 07/28/22 13:50 [Influenza Virus Vaccine] of Hands venom-honey bee Allergy Verified 07/28/22 13:50 [bee venom (honey bee)] famotidine [From Pepcid] AdvReac Intermediate Verified 07/28/22 13:50 tape Allergy Uncoded 07/28/22 13:50 Vital Signs (Last 24 hours) Temp Pulse Resp BP BP Pulse Ox 07/29/22 12:00 97.1 F 112 H 23 136/65 92 L 07/29/22 08:00 96.9 F 111 H 25 H 131/70 85 L 07/29/22 07:57 99 H 20 93 L 07/29/22 03:55 97.9 F 109 H 20 115/72 91 L 07/29/22 00:00 97.9 F 102 H 19 123/69 91 L 07/28/22 19:52 96.8 F 115 H 15 127/78 91 L 07/28/22 19:24 110 H 22 93 L 07/28/22 16:48 97.6 F 98 H 20 127/72 127/72 92 L 07/28/22 16:10 104 H 18 96 07/28/22 16:00 100 H 18 93 L 07/28/22 15:44 97 07/28/22 15:06 100 H 18 96 07/28/22 14:27 90 14 124/80 92 L Home Medications Medication Instructions Recorded Confirmed Last Taken Type Bumetanide 2 mg PO DAILY 07/28/22 07/28/22 07/28/22 History Escitalopram Oxalate 20 mg PO DAILY 07/28/22 07/28/22 07/28/22 History Fexofenadine HCl [Sharon Allergy] 180 mg PO DAILY 07/28/22 07/28/22 07/28/22 History Fluticasone/Vilanterol [Breo 1 inh PO DAILY 07/28/22 07/28/22 07/28/22 History Ellipta 200-25 Mcg INH] Montelukast Sodium 10 mg 10 mg PO QPM 07/28/22 07/28/22 07/27/22 History [Singulair 10 MG] Pramipexole Di-HCl [Pramipexole 1 mg PO HS 07/28/22 07/28/22 07/27/22 History Dihydrochloride] SUMAtriptan succinate [Imitrex 50 100 mg PO DAILY PRN 07/28/22 07/28/22 Unknown History mg] Zolpidem Tartrate 10 mg [Ambien 10 mg PO HS PRN 07/28/22 07/28/22 Unknown History 10 MG] Levofloxacin [Levofloxacin 500 500 mg PO DAILY #5 tablet 07/29/22 Unknown Rx MG Tablet] Current Medications Discontinued Medications Generic Name Dose Route Start Last Admin Trade Name Freq PRN Reason Stop Dose Admin Acetaminophen 650 mg 07/28/22 17:26 Acetaminophen 325 Mg Tablet PO 08/27/22 17:25 Q4H PRN PRN PAIN AND/OR FEVER Hydrocodone Bitart/Acetaminophen 1 tab 07/28/22 18:03 Hydrocodone /Apap 7.5/325 Mg 1 Each Tablet PO 08/02/22 18:02 Q4HPRN PRN PAIN Albuterol Sulfate 1 puff 07/28/22 18:03 Albuterol Common Canister Inhaler 08/27/22 18:02 Q4HPRN PRN SHORTNESS OF BREATH/WHEEZING Albuterol/Ipratropium 3 ml 07/28/22 15:45 07/28/22 15:58 Ipratropium/Albuterol Sulfate 3 Ml Ampul.Neb 07/28/22 15:46 3 ml STAT ONE Administration Albuterol/Ipratropium Confirm 07/28/22 15:50 Ipratropium/Albuterol Sulfate 3 Ml Ampul.Neb Administered 07/28/22 15:51 Dose 3 ml IH .STK-MED ONE Albuterol/Ipratropium 3 ml 07/28/22 19:00 07/28/22 19:29 Ipratropium/Albuterol Sulfate 3 Ml Ampul.Neb 08/27/22 18:59 Not Given Q6HRT YUMIKO Alprazolam 1 mg 07/28/22 15:45 07/28/22 15:51 Alprazolam 0.5 Mg Tablet PO 07/28/22 15:46 1 mg STAT ONE Administration Alprazolam Confirm 07/28/22 15:50 Alprazolam 0.5 Mg Tablet Administered 07/28/22 15:51 Dose 1 mg .ROUTE .STK-MED ONE Alprazolam 1 mg 07/28/22 18:11 Alprazolam 1 Mg Tablet PO 08/27/22 18:10 QID PRN ANXIETY Alprazolam 1 mg 07/28/22 18:15 07/29/22 09:03 Alprazolam 1 Mg Tablet PO 08/27/22 18:10 1 mg QIDPRN PRN Administration ANXIETY Amlodipine Besylate 2.5 mg 07/29/22 10:00 Amlodipine Besylate 5 Mg Tablet PO 08/28/22 09:59 DAILY YUMIKO Aspirin 81 mg 07/29/22 10:00 Aspirin 81 Mg Tablet.Ec PO 08/28/22 09:59 DAILY YUMIKO Bumetanide 2 mg 07/29/22 10:00 Bumetanide 1 Mg Tablet PO 08/28/22 09:59 DAILY YUMIKO Divalproex Sodium 500 mg 07/28/22 22:00 07/28/22 21:54 Divalproex Sodium 250 Mg Tablet Delayed Release PO 08/27/22 21:59 Not Given BID YUMIKO Escitalopram Oxalate 20 mg 07/29/22 10:00 Escitalopram Oxalate 10 Mg Tablet PO 08/28/22 09:59 DAILY YUMIKO Azithromycin 500 mg in 250 mls @ 250 mls/hr 07/28/22 15:05 07/28/22 15:22 Zithromax 500 Mg/ 250 Ml Nacl Premix IV 07/28/22 16:04 250 ml/hr STAT STA 250 mls/hr Administration Ceftriaxone Sodium/Dextrose 2 g in 50 mls @ 100 mls/hr 07/28/22 15:05 07/28/22 15:49 Rocephin 2 Gm-D5w 50ml Bag IV 07/28/22 15:34 Infused STAT STA Infusion Ceftriaxone Sodium/Dextrose Confirm 07/28/22 15:08 Rocephin 2 Gm-D5w 50ml Bag Administered 07/28/22 15:09 Dose 2 g in 50 mls @ ud IV .STK-MED ONE Azithromycin Confirm 07/28/22 15:20 Zithromax 500 Mg/ 250 Ml Nacl Premix Administered 07/28/22 15:21 Dose 500 mg in 250 mls @ ud IV .STK-MED ONE Azithromycin 500 mg in 250 mls @ 250 mls/hr 07/29/22 10:00 Zithromax 500 Mg/ 250 Ml Nacl Premix IV 08/28/22 09:59 Q24H10 YUMIKO Ibuprofen 600 mg 07/28/22 18:03 Ibuprofen 600 Mg Tablet PO 08/27/22 18:02 TID PRN PAIN Ketorolac Tromethamine 30 mg 07/28/22 15:19 07/28/22 15:22 Ketorolac Tromethamine 30 Mg/Ml Inj IV 07/28/22 15:20 30 mg STAT ONE Administration Ketorolac Tromethamine Confirm 07/28/22 15:19 Ketorolac Tromethamine 30 Mg/Ml Inj Administered 07/28/22 15:20 Dose 30 mg .ROUTE .STK-MED ONE Levothyroxine Sodium 112 mcg 07/29/22 10:00 Levothyroxine Sodium 112 Mcg Tablet PO 08/28/22 09:59 DAILY YUMIKO Loratadine 10 mg 07/29/22 10:00 Loratadine 10 Mg Tablet PO 08/28/22 09:59 DAILY YUMIKO Miscellaneous Information 1 each 07/28/22 18:30 07/29/22 07:53 Medication Intervention 1 Each Each 08/27/22 18:29 1 each .RN TO CHECK YUMIKO Administration Miscellaneous Information 1 each 07/28/22 18:45 Medication Intervention 1 Each Each 08/27/22 18:44 .RN TO CHECK YUMIKO Miscellaneous Information 1 each 07/28/22 18:45 Medication Intervention 1 Each Each 08/27/22 18:44 .RN TO CHECK YUMIKO Montelukast Sodium 10 mg 07/28/22 22:00 07/28/22 21:54 Montelukast Sodium 10 Mg Tablet PO 08/27/22 21:59 Not Given QPM YUMIKO Morphine Sulfate 4 mg 07/28/22 13:59 07/28/22 14:06 Morphine Sulfate 4 Mg/Ml Injection IV 07/28/22 14:00 4 mg STAT ONE Administration Morphine Sulfate Confirm 07/28/22 14:06 Morphine Sulfate 4 Mg/Ml Injection Administered 07/28/22 14:07 Dose 4 mg .ROUTE .STK-MED ONE Morphine Sulfate 2 mg 07/28/22 17:26 07/29/22 10:50 Morphine Sulfate 2 Mg/Ml Inj IV 08/02/22 17:25 2 mg Q4H PRN PRN Administration PAIN Ondansetron HCl 4 mg 07/28/22 13:59 07/28/22 14:06 Ondansetron Hcl 4 Mg/2 Ml Vial IV 07/28/22 14:00 4 mg STAT ONE Administration Ondansetron HCl Confirm 07/28/22 14:06 Ondansetron Hcl 4 Mg/2 Ml Vial Administered 07/28/22 14:07 Dose 4 mg .ROUTE .STK-MED ONE Ondansetron HCl 4 mg 07/28/22 17:26 07/29/22 03:18 Ondansetron Hcl 4 Mg/2 Ml Vial IV 08/27/22 17:25 4 mg Q6H PRN PRN Administration NAUSEA/VOMITING Pantoprazole Sodium 40 mg 07/29/22 10:00 Pantoprazole 40 Mg Vial IV 08/28/22 09:59 Q24H10 YUMIKO Potassium Chloride 20 meq 07/29/22 10:00 Potassium Chloride Tab 10 Meq Tab PO 08/28/22 09:59 DAILY YUMIKO Pramipexole Dihydrochloride 1 mg 07/28/22 22:00 07/28/22 21:54 Pramipexole Di-Hcl 0.5 Mg Tab PO 08/27/22 21:59 Not Given HS YUMIKO Topiramate 50 mg 07/28/22 22:00 07/28/22 21:54 Topiramate 50 Mg Tablet PO 08/27/22 21:59 Not Given BID YUMIKO Zolpidem Tartrate 10 mg 07/28/22 18:03 07/28/22 21:51 Zolpidem Tartrate 10 Mg Tablet PO 08/27/22 18:02 10 mg HS PRN Administration INSOMNIA Intake & Output (Last 24 hours) 07/27/22 07/28/22 07/29/22 07/30/22 11:59 11:59 11:59 11:59 Intake Total 1100 120 Output Total 1100 100 Balance 0 20 Weight 120 kg Microbiology Results (Last 24 hours) 07/28/22 16:05 Blood Blood Culture Gram Stain - Pending 07/28/22 16:05 Blood Blood Culture - Pending 07/28/22 16:00 Blood Blood Culture Gram Stain - Pending 07/28/22 16:00 Blood Blood Culture - Pending Laboratory Results (Last 24 hours) 07/29/22 07/29/22 07/29/22 07:41 05:35 05:35 WBC 9.6 RBC 5.12 Hgb 14.5 Hct 47.9 H MCV 93.6 MCH 28.3 MCHC 30.3 L RDW 15.9 H Plt Count 207 MPV 9.8 Gran % 70.3 H Immature Gran % (Auto) 0.8 H Nucleat RBC Rel Count 0.0 Eos # (Auto) 0.20 Immature Gran # (Auto) 0.08 H Absolute Lymphs (auto) 1.69 Absolute Monos (auto) 0.82 Absolute Nucleated RBC 0.00 Lymphocytes % 17.7 L Monocytes % 8.6 Eosinophils % 2.1 Basophils % 0.5 Absolute Granulocytes 6.71 Basophils # 0.05 Sodium 138 Sodium Direct Potassium 4.0 Chloride 99 Carbon Dioxide 29 Anion Gap 14.1 BUN 22 H Venous BUN Creatinine 1.28 H Estimated GFR 45.1 Glucose 147 H POC Glucometer 107 H Hemoglobin A1c Calcium 9.1 Ionized Calcium Magnesium Total Bilirubin 0.50 AST 45 H ALT 47 H Alkaline Phosphatase 103 Troponin Troponin I NT-Pro-B Natriuret Pep Serum Total Protein 8.1 Albumin 4.3 Lipase Procalcitonin Urinalys Dipstick Clnc Urine Color Urine Appearance Urine pH Ur Specific [place] POC Urine Protein Conf Urine Ketones Urine Nitrite Urine Bilirubin Urine Urobilinogen Urine Leukocytes Urine WBC (Auto) Urine RBC (Auto) U Epithel Cells (Auto) Urine Bacteria (Auto) Urine RBC Ur Culture Indicated? Urine Glucose Influenza Type A Ag Influenza Type B Ag RSV (PCR) SARS-CoV-2 (PCR) 07/28/22 07/28/22 07/28/22 Unknown 21:50 20:39 WBC RBC Hgb Hct MCV MCH MCHC RDW Plt Count MPV Gran % Immature Gran % (Auto) Nucleat RBC Rel Count Eos # (Auto) Immature Gran # (Auto) Absolute Lymphs (auto) Absolute Monos (auto) Absolute Nucleated RBC Lymphocytes % Monocytes % Eosinophils % Basophils % Absolute Granulocytes Basophils # Sodium Sodium Direct Potassium Chloride Carbon Dioxide Anion Gap BUN Venous BUN Creatinine Estimated GFR Glucose POC Glucometer 133 H Hemoglobin A1c Calcium Ionized Calcium Magnesium Total Bilirubin AST ALT Alkaline Phosphatase Troponin Troponin I < 0.012 NT-Pro-B Natriuret Pep Serum Total Protein Albumin Lipase Procalcitonin Urinalys Dipstick Clnc Urine Color Urine Appearance Urine pH Ur Specific [place] POC Urine Protein Conf Urine Ketones Urine Nitrite Urine Bilirubin Urine Urobilinogen Urine Leukocytes Urine WBC (Auto) Urine RBC (Auto) U Epithel Cells (Auto) Urine Bacteria (Auto) Urine RBC Ur Culture Indicated? Urine Glucose Influenza Type A Ag NEGATIVE Influenza Type B Ag NEGATIVE RSV (PCR) NEGATIVE SARS-CoV-2 (PCR) NEGATIVE 07/28/22 07/28/22 07/28/22 17:55 17:55 17:51 WBC RBC Hgb Hct MCV MCH MCHC RDW Plt Count MPV Gran % Immature Gran % (Auto) Nucleat RBC Rel Count Eos # (Auto) Immature Gran # (Auto) Absolute Lymphs (auto) Absolute Monos (auto) Absolute Nucleated RBC Lymphocytes % Monocytes % Eosinophils % Basophils % Absolute Granulocytes Basophils # Sodium Sodium Direct Potassium Chloride Carbon Dioxide Anion Gap BUN Venous BUN Creatinine Estimated GFR Glucose POC Glucometer Hemoglobin A1c 5.73 Calcium Ionized Calcium Magnesium Total Bilirubin AST ALT Alkaline Phosphatase Troponin Troponin I < 0.012 NT-Pro-B Natriuret Pep Serum Total Protein Albumin Lipase Procalcitonin Urinalys Dipstick Clnc MAIN LAB Urine Color YELLOW Urine Appearance CLEAR Urine pH 5.0 Ur Specific [place] 1.010 POC Urine Protein Conf NEGATIVE Urine Ketones NEGATIVE Urine Nitrite NEGATIVE Urine Bilirubin NEGATIVE Urine Urobilinogen 0.2 Urine Leukocytes NEGATIVE Urine WBC (Auto) 0-2 Urine RBC (Auto) 0-2 U Epithel Cells (Auto) RARE Urine Bacteria (Auto) NONE Urine RBC NEGATIVE Ur Culture Indicated? NO Urine Glucose NEGATIVE Influenza Type A Ag Influenza Type B Ag RSV (PCR) SARS-CoV-2 (PCR) 07/28/22 07/28/22 07/28/22 13:35 13:35 13:35 WBC 9.0 RBC 5.22 Hgb 15.0 Hct 47.7 H MCV 91.4 MCH 28.7 MCHC 31.4 L RDW 15.8 H Plt Count 248 MPV 9.5 Gran % 52.5 Immature Gran % (Auto) 1.0 H Nucleat RBC Rel Count 0.0 Eos # (Auto) 0.24 Immature Gran # (Auto) 0.09 H Absolute Lymphs (auto) 3.03 Absolute Monos (auto) 0.85 Absolute Nucleated RBC 0.00 Lymphocytes % 33.7 Monocytes % 9.5 Eosinophils % 2.7 Basophils % 0.6 Absolute Granulocytes 4.73 Basophils # 0.05 Sodium Sodium Direct 137 L Potassium 4.2 Chloride 99 Carbon Dioxide 27 Anion Gap BUN Venous BUN 17 Creatinine 0.9 Estimated GFR Glucose 117 H POC Glucometer Hemoglobin A1c Calcium Ionized Calcium 1.19 Magnesium 1.7 Total Bilirubin AST ALT Alkaline Phosphatase Troponin 0.00 Troponin I NT-Pro-B Natriuret Pep 76.4 Cancelled Serum Total Protein Albumin Lipase 65 Procalcitonin 0.047 Urinalys Dipstick Clnc Urine Color Urine Appearance Urine pH Ur Specific [place] POC Urine Protein Conf Urine Ketones Urine Nitrite Urine Bilirubin Urine Urobilinogen Urine Leukocytes Urine WBC (Auto) Urine RBC (Auto) U Epithel Cells (Auto) Urine Bacteria (Auto) Urine RBC Ur Culture Indicated? Urine Glucose Influenza Type A Ag Influenza Type B Ag RSV (PCR) SARS-CoV-2 (PCR) Orders (Last 24 hours) Category Date Time Status Bedrest ROUTINE Activity 07/28/22 17:26 Completed Up With Assistance ROUTINE Activity 07/28/22 17:26 Completed Security Sme STAT Care 07/28/22 13:29 Completed Code Status Order ROUTINE Care 07/28/22 17:26 Completed EKG-ER Only STAT Care 07/28/22 13:29 Completed Fall Protocol Q1H Care 07/28/22 17:26 Completed IV Care Q6H Care 07/28/22 17:26 Completed IV Insertion STAT Care 07/28/22 13:29 Completed Oxygen-ED Only Nasal Cannula 2 lpm Care 07/28/22 15:[address] in Observation ROUTINE Care 07/28/22 17:26 Completed Robb Cosby Apply ROUTINE Care 07/28/22 17:26 Completed Weight,Daily 0600 Care 07/28/22 17:26 Completed House Regular Diet Diet 07/29/22 Breakfast Completed Discharge Routine Discharge 07/29/22 Ordered CHEST 1 VIEW (PORTABLE) Stat Exams 07/28/22 13:29 Completed BLOOD CULTURE Stat Lab 07/28/22 16:05 Received CBC W DIFF AM.LAB Lab 07/29/22 05:35 Completed CBC W DIFF Stat Lab 07/28/22 13:35 Completed CMP AM.LAB Lab 07/29/22 05:35 Completed HEMOGLOBIN A1C Urgent Lab 07/28/22 17:55 Completed LIPASE Stat Lab 07/28/22 13:35 Completed MAG [MAGNESIUM] Stat Lab 07/28/22 13:35 Completed NT PRO BNP Stat Lab 07/28/22 13:35 Completed POCT GLUCOSE Stat Lab 07/28/22 20:39 Completed POCT GLUCOSE Stat Lab 07/29/22 07:41 Completed PROCALCITONIN Stat Lab 07/28/22 13:35 Completed TROPONIN Q4H Lab 07/28/22 17:55 Completed TROPONIN Q4H Lab 07/28/22 21:50 Completed UA W/RFX CULTURE Routine Lab 07/28/22 17:51 Completed ALPRAZolam 0.5 MG [xanAX 0.5 MG] Med 07/28/22 15:50 Discontinued 1 mg .ROUTE .STK-MED ONE ALPRAZolam 0.5 MG [xanAX 0.5 MG] Med 07/28/22 15:45 Discontinued 1 mg PO STAT ONE ALPRAZolam 1 MG [Xanax 1 mg] Med 07/28/22 18:11 Discontinued 1 mg PO QID PRN ALPRAZolam 1 MG [Xanax 1 mg] Med 07/28/22 18:15 Discontinued 1 mg PO QIDPRN PRN Acetaminophen 325 mg [Tylenol 325 mg] Med 07/28/22 17:26 Discontinued 650 mg PO Q4H PRN PRN Albuterol Common Canister [Ventolin Common Canister* Med 07/28/22 18:03 Discontinued ] 1 puff IH Q4HPRN PRN Albuterol/Ipratropium 3ml Neb* [DUONEB 0.5-3 MG/3 ml Med 07/28/22 15:50 Discontinued Neb] 3 ml IH .STK-MED ONE Albuterol/Ipratropium 3ml Neb* [DUONEB 0.5-3 MG/3 ml Med 07/28/22 19:00 Discontinued Neb] 3 ml IH Q6HRT Albuterol/Ipratropium 3ml Neb* [DUONEB 0.5-3 MG/3 ml Med 07/28/22 15:45 Discontinued Neb] 3 ml IH STAT ONE Amlodipine Besylate 5 mg [Norvasc 5 mg] Med 07/29/22 10:00 Discontinued 2.5 mg PO DAILY Aspirin EC 81 mg [Ecotrin 81 mg] Med 07/29/22 10:00 Discontinued 81 mg PO DAILY Azithromycin 500 mg/250 ml [Zithromax 500 MG/ 250 ML Med 07/29/22 10:00 Discontinued NaCl Premix] 500 mg in 250 ml IV Q24H10 Azithromycin 500 mg/250 ml [Zithromax 500 MG/ 250 ML Med 07/28/22 15:05 Discontinued NaCl Premix] 500 mg in 250 ml IV STAT Azithromycin 500 mg/250 ml [Zithromax 500 MG/ 250 ML Med 07/28/22 15:20 Discontinued NaCl Premix] 500 mg in 250 ml IV UD Bumetanide 1 mg [Bumex 1 mg] Med 07/29/22 10:00 Discontinued 2 mg PO DAILY Ceftriaxone 2 GM/50 ML PREMIX* [ROCEPHIN 2 Gm-D5w 50ML Med 07/28/22 15:05 Discontinued BAG] 2 g in 50 ml IV STAT Ceftriaxone 2 GM/50 ML PREMIX* [ROCEPHIN 2 Gm-D5w 50ML Med 07/28/22 15:08 Discontinued BAG] 2 g in 50 ml IV UD Divalproex Sodium 250 mg [Divalproex DR 250 mg Tab] Med 07/28/22 22:00 Discontinued 500 mg PO BID Escitalopram Oxalate [Lexapro] Med 07/29/22 10:00 Discontinued 20 mg PO DAILY Hydrocodone /APAP 7.5/325 mg [[place] 7.5/325 mg Tab Med 07/28/22 18:03 Discontinued ] 1 tab PO Q4HPRN PRN Ibuprofen 600 mg [Motrin 600 mg] Med 07/28/22 18:03 Discontinued 600 mg PO TID PRN KETOROLAC trometh 30 mg Inj [TORAdol 30 mg Injection Med 07/28/22 15:19 Discontinued ] 30 mg .ROUTE .STK-MED ONE KETOROLAC trometh 30 mg Inj [TORAdol 30 mg Injection Med 07/28/22 15:19 Discontinued ] 30 mg IV STAT ONE Levothyroxine Sodium 112 Mcg [Synthroid 112 Mcg] Med 07/29/22 10:00 Discontinued 112 mcg PO DAILY Loratadine 10 mg [Claritin 10 mg] Med 07/29/22 10:00 Discontinued 10 mg PO DAILY Medication Intervention Med 07/28/22 18:30 Discontinued 1 each MC .RN TO CHECK Medication Intervention Med 07/28/22 18:45 Discontinued 1 each MC .RN TO CHECK Medication Intervention Med 07/28/22 18:45 Discontinued 1 each MC .RN TO CHECK Montelukast Sodium 10 mg [Singulair 10 MG] Med 07/28/22 22:00 Discontinued 10 mg PO QPM Morphine Sulfate 2 mg Inj Med 07/28/22 17:26 Discontinued 2 mg IV Q4H PRN PRN Morphine Sulfate 4 mg Inj Med 07/28/22 14:06 Discontinued 4 mg .ROUTE .STK-MED ONE Morphine Sulfate 4 mg Inj Med 07/28/22 13:59 Discontinued 4 mg IV STAT ONE Ondansetron HCl 4 mg/2 ml [Zofran 4 MG/2 ML VIAL] Med 07/28/22 14:06 Discontinued 4 mg .ROUTE .STK-MED ONE Ondansetron HCl 4 mg/2 ml [Zofran 4 MG/2 ML VIAL] Med 07/28/22 17:26 Discontinued 4 mg IV Q6H PRN PRN Ondansetron HCl 4 mg/2 ml [Zofran 4 MG/2 ML VIAL] Med 07/28/22 13:59 Discontinued 4 mg IV STAT ONE Pantoprazole 40 mg [Protonix 40 mg IV] Med 07/29/22 10:00 Discontinued 40 mg IV Q24H10 Potassium Chloride Tab* [Klor Con] Med 07/29/22 10:00 Discontinued 20 meq PO DAILY Pramipexole Di-HCl 0.5 mg [Mirapex 0.5 MG Tablet] Med 07/28/22 22:00 Discontinued 1 mg PO HS Topiramate Med 07/28/22 22:00 Discontinued 50 mg PO BID Zolpidem Tartrate 10 mg [Ambien 10 MG] Med 07/28/22 18:03 Discontinued 10 mg PO HS PRN Oxygen Nasal Cannula 2 lpm RT 07/28/22 17:26 Completed Pulse Oximetry .spot check RT 07/28/22 19:24 Completed Respiratory MDI UD RT 07/29/22 08:00 Completed Respiratory Therapy Assessment DAILY RT 07/28/22 16:10 Completed - Vitals & Intake/Output Vital Signs: Vital Signs Temperature 97.1 F 07/29/22 12:00 Pulse Rate 112 H 07/29/22 12:00 Respiratory Rate 23 07/29/22 12:00 Blood Pressure 136/65 07/29/22 12:00 O2 Sat by Pulse Oximetry 92 L 07/29/22 12:00 Intake & Output: Intake & Output 07/27/22 07/28/22 07/29/22 07/30/22 11:59 11:59 11:59 11:59 Intake Total 1100 120 Output Total 1100 100 Balance 0 20 Weight 120 kg - Lab Result Diagrams: 07/29/22 05:35 07/29/22 05:35 Lab Results-Last 24 Hrs: Lab Results-Last 24 Hours 07/28/22 07/28/22 07/28/22 Range/Units 13:35 13:35 13:35 WBC 9.0 (4.0-10.5) x10^3/uL RBC 5.22 (4.1-5.4) x10^6/uL Hgb 15.0 (12.0-16.0) g/dL Hct 47.7 H (35-47) % MCV 91.4 (78-100) fL MCH 28.7 (26-32) pg MCHC 31.4 L (32-36) g/dL RDW 15.8 H (11.5-14.0) % Plt Count 248 (150-450) x10^3/uL MPV 9.5 (7.5-11.0) fL Gran % 52.5 (36.0-66.0) % Immature Gran % (Auto) 1.0 H (0.00-0.4) % Nucleat RBC Rel Count 0.0 (0.00-0.1) % Eos # (Auto) 0.24 (0-0.5) x10^3/uL Immature Gran # (Auto) 0.09 H (0.00-0.03) x10^3u/L Absolute Lymphs (auto) 3.03 (1.0-4.6) x10^3/uL Absolute Monos (auto) 0.85 (0.0-1.3) x10^3/uL Absolute Nucleated RBC 0.00 (0.00-0.01) x10^3u/L Lymphocytes % 33.7 (24.0-44.0) % Monocytes % 9.5 (0.0-12.0) % Eosinophils % 2.7 (0.00-5.0) % Basophils % 0.6 (0.0-0.4) % Absolute Granulocytes 4.73 (1.4-6.9) x10^3/uL Basophils # 0.05 (0-0.4) x10^3/uL Sodium (137-145) mmol/L Sodium Direct 137 L (138-146) mmol/L Potassium 4.2 (3.5-4.9) mmol/L Chloride 99 (98-109) mmol/L Carbon Dioxide 27 (24-29) mmol/L Anion Gap (5-15) MEQ/L BUN (7-17) mg/dL Venous BUN 17 (8-26) mg/dL Creatinine 0.9 (0.6-1.3) mg/dL Estimated GFR ML/MIN Glucose 117 H (70-105) mg/dL POC Glucometer (74 to 106) mg/dL Hemoglobin A1c (4.5-6.0) % Calcium (8.4-10.2) mg/dL Ionized Calcium 1.19 (1.12-1.32) mmol/L Magnesium 1.7 (1.6-2.3) mg/dL Total Bilirubin (0.2-1.3) mg/dL AST (14-36) U/L ALT (0-35) U/L Alkaline Phosphatase (38-126) U/L Troponin 0.00 (0.00-0.03) ng/mL Troponin I (0.000-0.034) ng/mL NT-Pro-B Natriuret Pep Cancelled 76.4 Serum Total Protein (6.3-8.2) g/dL Albumin (3.5-5.0) g/dL Lipase 65 (23-300) U/L Procalcitonin 0.047 (0.030-0.080) ng/mL Urinalys Dipstick Clnc Urine Color (YELLOW) Urine Appearance (CLEAR) Urine pH (5-6) Ur Specific [place] (1.005-1.025) POC Urine Protein Conf (Negative) Urine Ketones (NEGATIVE) Urine Nitrite (NEGATIVE) Urine Bilirubin (NEGATIVE) Urine Urobilinogen (0-1) mg/dL Urine Leukocytes (NEGATIVE) Urine WBC (Auto) (0-5) /HPF Urine RBC (Auto) (0-2) /HPF U Epithel Cells (Auto) (FEW) /HPF Urine Bacteria (Auto) (NEGATIVE) /HPF Urine RBC (0-5) Fredrick/ul Ur Culture Indicated? Urine Glucose (NEGATIVE) mg/dL Influenza Type A Ag (NEGATIVE) Influenza Type B Ag (NEGATIVE) RSV (PCR) (Negative) SARS-CoV-2 (PCR) (NEGATIVE) 07/28/22 07/28/22 07/28/22 Range/Units 17:51 17:55 17:55 WBC (4.0-10.5) x10^3/uL RBC (4.1-5.4) x10^6/uL Hgb (12.0-16.0) g/dL Hct (35-47) % MCV (78-100) fL MCH (26-32) pg MCHC (32-36) g/dL RDW (11.5-14.0) % Plt Count (150-450) x10^3/uL MPV (7.5-11.0) fL Gran % (36.0-66.0) % Immature Gran % (Auto) (0.00-0.4) % Nucleat RBC Rel Count (0.00-0.1) % Eos # (Auto) (0-0.5) x10^3/uL Immature Gran # (Auto) (0.00-0.03) x10^3u/L Absolute Lymphs (auto) (1.0-4.6) x10^3/uL Absolute Monos (auto) (0.0-1.3) x10^3/uL Absolute Nucleated RBC (0.00-0.01) x10^3u/L Lymphocytes % (24.0-44.0) % Monocytes % (0.0-12.0) % Eosinophils % (0.00-5.0) % Basophils % (0.0-0.4) % Absolute Granulocytes (1.4-6.9) x10^3/uL Basophils # (0-0.4) x10^3/uL Sodium (137-145) mmol/L Sodium Direct (138-146) mmol/L Potassium (3.5-4.9) mmol/L Chloride (98-109) mmol/L Carbon Dioxide (24-29) mmol/L Anion Gap (5-15) MEQ/L BUN (7-17) mg/dL Venous BUN (8-26) mg/dL Creatinine (0.6-1.3) mg/dL Estimated GFR ML/MIN Glucose (70-105) mg/dL POC Glucometer (74 to 106) mg/dL Hemoglobin A1c 5.73 (4.5-6.0) % Calcium (8.4-10.2) mg/dL Ionized Calcium (1.12-1.32) mmol/L Magnesium (1.6-2.3) mg/dL Total Bilirubin (0.2-1.3) mg/dL AST (14-36) U/L ALT (0-35) U/L Alkaline Phosphatase (38-126) U/L Troponin (0.00-0.03) ng/mL Troponin I < 0.012 (0.000-0.034) ng/mL NT-Pro-B Natriuret Pep Serum Total Protein (6.3-8.2) g/dL Albumin (3.5-5.0) g/dL Lipase (23-300) U/L Procalcitonin (0.030-0.080) ng/mL Urinalys Dipstick Clnc MAIN LAB Urine Color YELLOW (YELLOW) Urine Appearance CLEAR (CLEAR) Urine pH 5.0 (5-6) Ur Specific [place] 1.010 (1.005-1.025) POC Urine Protein Conf NEGATIVE (Negative) Urine Ketones NEGATIVE (NEGATIVE) Urine Nitrite NEGATIVE (NEGATIVE) Urine Bilirubin NEGATIVE (NEGATIVE) Urine Urobilinogen 0.2 (0-1) mg/dL Urine Leukocytes NEGATIVE (NEGATIVE) Urine WBC (Auto) 0-2 (0-5) /HPF Urine RBC (Auto) 0-2 (0-2) /HPF U Epithel Cells (Auto) RARE (FEW) /HPF Urine Bacteria (Auto) NONE (NEGATIVE) /HPF Urine RBC NEGATIVE (0-5) Fredrick/ul Ur Culture Indicated? NO Urine Glucose NEGATIVE (NEGATIVE) mg/dL Influenza Type A Ag (NEGATIVE) Influenza Type B Ag (NEGATIVE) RSV (PCR) (Negative) SARS-CoV-2 (PCR) (NEGATIVE) 07/28/22 07/28/22 07/28/22 Range/Units 20:39 21:50 Unknown WBC (4.0-10.5) x10^3/uL RBC (4.1-5.4) x10^6/uL Hgb (12.0-16.0) g/dL Hct (35-47) % MCV (78-100) fL MCH (26-32) pg MCHC (32-36) g/dL RDW (11.5-14.0) % Plt Count (150-450) x10^3/uL MPV (7.5-11.0) fL Gran % (36.0-66.0) % Immature Gran % (Auto) (0.00-0.4) % Nucleat RBC Rel Count (0.00-0.1) % Eos # (Auto) (0-0.5) x10^3/uL Immature Gran # (Auto) (0.00-0.03) x10^3u/L Absolute Lymphs (auto) (1.0-4.6) x10^3/uL Absolute Monos (auto) (0.0-1.3) x10^3/uL Absolute Nucleated RBC (0.00-0.01) x10^3u/L Lymphocytes % (24.0-44.0) % Monocytes % (0.0-12.0) % Eosinophils % (0.00-5.0) % Basophils % (0.0-0.4) % Absolute Granulocytes (1.4-6.9) x10^3/uL Basophils # (0-0.4) x10^3/uL Sodium (137-145) mmol/L Sodium Direct (138-146) mmol/L Potassium (3.5-4.9) mmol/L Chloride (98-109) mmol/L Carbon Dioxide (24-29) mmol/L Anion Gap (5-15) MEQ/L BUN (7-17) mg/dL Venous BUN (8-26) mg/dL Creatinine (0.6-1.3) mg/dL Estimated GFR ML/MIN Glucose (70-105) mg/dL POC Glucometer 133 H (74 to 106) mg/dL Hemoglobin A1c (4.5-6.0) % Calcium (8.4-10.2) mg/dL Ionized Calcium (1.12-1.32) mmol/L Magnesium (1.6-2.3) mg/dL Total Bilirubin (0.2-1.3) mg/dL AST (14-36) U/L ALT (0-35) U/L Alkaline Phosphatase (38-126) U/L Troponin (0.00-0.03) ng/mL Troponin I < 0.012 (0.000-0.034) ng/mL NT-Pro-B Natriuret Pep Serum Total Protein (6.3-8.2) g/dL Albumin (3.5-5.0) g/dL Lipase (23-300) U/L Procalcitonin (0.030-0.080) ng/mL Urinalys Dipstick Clnc Urine Color (YELLOW) Urine Appearance (CLEAR) Urine pH (5-6) Ur Specific [place] (1.005-1.025) POC Urine Protein Conf (Negative) Urine Ketones (NEGATIVE) Urine Nitrite (NEGATIVE) Urine Bilirubin (NEGATIVE) Urine Urobilinogen (0-1) mg/dL Urine Leukocytes (NEGATIVE) Urine WBC (Auto) (0-5) /HPF Urine RBC (Auto) (0-2) /HPF U Epithel Cells (Auto) (FEW) /HPF Urine Bacteria (Auto) (NEGATIVE) /HPF Urine RBC (0-5) Fredrick/ul Ur Culture Indicated? Urine Glucose (NEGATIVE) mg/dL Influenza Type A Ag NEGATIVE (NEGATIVE) Influenza Type B Ag NEGATIVE (NEGATIVE) RSV (PCR) NEGATIVE (Negative) SARS-CoV-2 (PCR) NEGATIVE (NEGATIVE) 07/29/22 07/29/22 07/29/22 Range/Units 05:35 05:35 07:41 WBC 9.6 (4.0-10.5) x10^3/uL RBC 5.12 (4.1-5.4) x10^6/uL Hgb 14.5 (12.0-16.0) g/dL Hct 47.9 H (35-47) % MCV 93.6 (78-100) fL MCH 28.3 (26-32) pg MCHC 30.3 L (32-36) g/dL RDW 15.9 H (11.5-14.0) % Plt Count 207 (150-450) x10^3/uL MPV 9.8 (7.5-11.0) fL Gran % 70.3 H (36.0-66.0) % Immature Gran % (Auto) 0.8 H (0.00-0.4) % Nucleat RBC Rel Count 0.0 (0.00-0.1) % Eos # (Auto) 0.20 (0-0.5) x10^3/uL Immature Gran # (Auto) 0.08 H (0.00-0.03) x10^3u/L Absolute Lymphs (auto) 1.69 (1.0-4.6) x10^3/uL Absolute Monos (auto) 0.82 (0.0-1.3) x10^3/uL Absolute Nucleated RBC 0.00 (0.00-0.01) x10^3u/L Lymphocytes % 17.7 L (24.0-44.0) % Monocytes % 8.6 (0.0-12.0) % Eosinophils % 2.1 (0.00-5.0) % Basophils % 0.5 (0.0-0.4) % Absolute Granulocytes 6.71 (1.4-6.9) x10^3/uL Basophils # 0.05 (0-0.4) x10^3/uL Sodium 138 (137-145) mmol/L Sodium Direct (138-146) mmol/L Potassium 4.0 (3.5-4.9) mmol/L Chloride 99 (98-109) mmol/L Carbon Dioxide 29 (24-29) mmol/L Anion Gap 14.1 (5-15) MEQ/L BUN 22 H (7-17) mg/dL Venous BUN (8-26) mg/dL Creatinine 1.28 H (0.6-1.3) mg/dL Estimated GFR 45.1 ML/MIN Glucose 147 H (70-105) mg/dL POC Glucometer 107 H (74 to 106) mg/dL Hemoglobin A1c (4.5-6.0) % Calcium 9.1 (8.4-10.2) mg/dL Ionized Calcium (1.12-1.32) mmol/L Magnesium (1.6-2.3) mg/dL Total Bilirubin 0.50 (0.2-1.3) mg/dL AST 45 H (14-36) U/L ALT 47 H (0-35) U/L Alkaline Phosphatase 103 (38-126) U/L Troponin (0.00-0.03) ng/mL Troponin I (0.000-0.034) ng/mL NT-Pro-B Natriuret Pep Serum Total Protein 8.1 (6.3-8.2) g/dL Albumin 4.3 (3.5-5.0) g/dL Lipase (23-300) U/L Procalcitonin (0.030-0.080) ng/mL Urinalys Dipstick Clnc Urine Color (YELLOW) Urine Appearance (CLEAR) Urine pH (5-6) Ur Specific [place] (1.005-1.025) POC Urine Protein Conf (Negative) Urine Ketones (NEGATIVE) Urine Nitrite (NEGATIVE) Urine Bilirubin (NEGATIVE) Urine Urobilinogen (0-1) mg/dL Urine Leukocytes (NEGATIVE) Urine WBC (Auto) (0-5) /HPF Urine RBC (Auto) (0-2) /HPF U Epithel Cells (Auto) (FEW) /HPF Urine Bacteria (Auto) (NEGATIVE) /HPF Urine RBC (0-5) Fredrick/ul Ur Culture Indicated? Urine Glucose (NEGATIVE) mg/dL Influenza Type A Ag (NEGATIVE) Influenza Type B Ag (NEGATIVE) RSV (PCR) (Negative) SARS-CoV-2 (PCR) (NEGATIVE) - Radiology Exams Ordered Rad Exams-Entire Visit: Radiology Procedures Category Date Time Status CHEST 1 VIEW (PORTABLE) Stat Exams 07/28/22 13:29 Completed - Procedures and Test Procedures and Tests throughout Hospitalization: Therapy Orders & Screens 07/28/22 16:10 Respiratory Therapy Assessment DAILY Comment: 07/28/22 17:26 Oxygen Nasal Cannula 2 lpm Comment: 07/29/22 08:00 Respiratory MDI UD Comment: Diagnosis: pneumonia - Discharge Discharge Date: 07/29/22 Disposition: Home, Self-Care Condition: Stable Prescriptions: New Levofloxacin [Levofloxacin 500 MG Tablet] 500 mg PO DAILY #5 tablet Continue ALPRAZolam [Alprazolam] 1 mg PO QID PRN PRN Reason: Anxiety Vortioxetine Hydrobromide [Trintellix] 20 mg PO DAILY Divalproex Sodium [Depakote] 500 mg PO BID Potassium Chloride Tab* [Klor Con] 20 meq PO DAILY Topiramate 50 mg PO BID Amlodipine Besylate 2.5 mg PO DAILY Aspirin [Lo-Dose Aspirin EC] 81 mg PO DAILY Hydrocodone/Acetaminophen [Hydrocodone-Acetamin 7.5-325] 1 each PO Q4H PRN PRN Reason: Pain Levothyroxine Sodium 112 Mcg [Synthroid 112 Mcg] 112 mcg PO DAILY Ibuprofen 600 mg PO TID PRN PRN Reason: Pain Albuterol Sulfate [Albuterol Sulfate Hfa] 1 puff IH Q4HPRN PRN PRN Reason: Shortness Of Breath/Wheezing Bumetanide 2 mg PO DAILY Fluticasone/Vilanterol [Breo Ellipta 200-25 Mcg INH] 1 inh PO DAILY SUMAtriptan succinate [Imitrex 50 mg] 100 mg PO DAILY PRN PRN Reason: Pain Pramipexole Di-HCl [Pramipexole Dihydrochloride] 1 mg PO HS Montelukast Sodium 10 mg [Singulair 10 MG] 10 mg PO QPM Fexofenadine HCl [Sharon Allergy] 180 mg PO DAILY Escitalopram Oxalate 20 mg PO DAILY Zolpidem Tartrate 10 mg [Ambien 10 MG] 10 mg PO HS PRN PRN Reason: Insomnia Instructions: Pneumonia, Adult (DC) Follow up with: CECE WOODARD MD [Primary Care Provider] - Call for Appointment
== END 2022-07-29 11:58 | disposition home or self-care (01) ==
LOC: ED 13:15 → MED SURG 16:45
PROVIDERS: ADMIT Family Medicine; ATTEND Family Medicine
DX: J13 Pneumonia due to Streptococcus pneumoniae (principal); J18.9 Pneumonia, unspecified organism; J44.1 Chronic obstructive pulmonary disease with (acute) exacerbation; I10 Essential (primary) hypertension; E78.00 Pure hypercholesterolemia, unspecified; Z79.899 Other long term (current) drug therapy; Z20.828 Contact with and (suspected) exposure to other viral communicable diseases; Z85.828 Personal history of other malignant neoplasm of skin; Z83.3 Family history of diabetes mellitus
CPT/HCPCS: 0241U; 36000; 36415; 71045; 80047; 80053; 81015; 82947; 83036; 83690; 83735; 83880; 84145; 84484; 85025; 87040; 93005; 93041; 93268; 94640; 94760; 96365; 96374; 96375; 99285; G0378; J0456; J0696; J1885; J2270; J2405; A9270-GY

== ENCOUNTER 2022-10-31 06:06 | Day surgery (SDC) | payer BC, MEDICARE ==
[2013-08-25 10:02] VITALS: BP 143/97
== END 2022-10-31 06:20 | disposition home or self-care (01) ==
LOC: SDC 06:06
PROVIDERS: ATTEND Family Medicine
DX: Z53.8 Procedure and treatment not carried out for other reasons (principal)

== ENCOUNTER 2022-12-11 21:28 | Emergency (ER) | payer BC, MEDICARE ==
[2022-12-11 22:25] LABS: Basophil (Absolute #) 0.04 x10^3/uL (0-0.4); Eosinophil % 1.8 % (0.00-5.0); Eosinophil (Absolute #) 0.18 x10^3/uL (0-0.5); Hematocrit 43.9 % (35-47); Hemoglobin 13.8 g/dL (12.0-16.0); Lymphocyte (Absolute #) 2.21 x10^3/uL (1.0-4.6); Lymphocytes % 22.6 % (24.0-44.0); Mean Cell Volume 87.3 fL (78-100); Mean Corpuscular Hemoglobin 27.4 pg (26-32); Mean Corpuscular Hgb Concent. 31.4 g/dL (32-36); Mean Platelet Volume 9.7 fL (7.5-11.0); Monocyte (Absolute #) 0.87 x10^3/uL (0.0-1.3); Monocytes % 8.9 % (0.0-12.0); Neutrophil % 65.6 % (36.0-66.0); Platelet Count 228 x10^3/uL (150-450); Red Blood Count 5.03 x10^6/uL (4.1-5.4); Red Cell Distribution Width 14.8 % (11.5-14.0); White Blood Count 9.8 x10^3/uL (4.0-10.5)
[2022-12-11 22:40] LABS: ALBUMIN 4.3 g/dL (3.5-5.0); ALKALINE PHOSPHATASE 154 U/L (38-126); ANION GAP 10.4 MEQ/L (5-15); BLOOD UREA NITROGEN 25 mg/dL (7-17); CHLORIDE 97 mmol/L (98-107); Calcium 9.5 mg/dL (8.4-10.2); Carbon Dioxide 30 mmol/L (22-30); EST GLOMERULAR FILTRATION RATE > 60.0 ML/MIN; Glucose 130 mg/dL (74-106); SGOT/AST 24 U/L (14-36); SGPT/ALT 23 U/L (0-35); SODIUM 134 mmol/L (137-145); Total Protein 8.6 g/dL (6.3-8.2)
[2022-12-11] MEDS ORDERED: Klor Con PO ONE ×2 (22:50→22:55)
--- NOTE | 2022-12-11 22:53 | ERPHSYRPT ---
- History of Present Illness Time Seen by Provider: 12/12/22 00:06 Source: patient Exam Limitations: no limitations Patient Subjective Stated Complaint: pt was called by Dr. Cortney gunderson for potassium of 2.9 and was told to come to the ER Triage Nursing Assessment: pt ambulated into ER without diff, pt is alert and oriented x3, pleasant and cooperative. Pt came into ER due to abnormal labs today drawn at Dr. Ochoa's office. Pt's potassium was 2.9. Physician History: Patient is a 62-year-old female presents to our ED as a referral from Dr. Rodriguez for evaluation and treatment of potassium of 2.9. Patient states he has a history of hypokalemia. Patient is on 20 mEq of potassium 3 times daily for total of 60 daily. Patient was instructed by Dr. Bryant to not take her potassium today as she wanted to assess her potassium level without taking it. Patient held her potassium for today. Labs were completed. Potassium revealed 2.9. Patient was sent to our ED for potassium replacement. Patient asymptomatic. No heart palpitations. No weakness. No nausea vomiting or diaphoresis. No chest pain or shortness of breath. She has no complaints. Portions of this note were created with voice recognition technology. There may be grammatical, spelling, punctuation or sound alike errors Timing/Duration: today Severity: moderate Modifying Factors: Improves With: nothing Associated Symptoms: denies symptoms Allergies/Adverse Reactions: Influenza Virus Vaccines [Influenza Virus Vaccine] Allergy (Intermediate, Verified 12/11/22 21:51) Swelling of Hands venom-honey bee [bee venom (honey bee)] Allergy (Verified 12/11/22 21:51) famotidine [From Pepcid] Adverse Reaction (Intermediate, Verified 12/11/22 21:51) hot, flushed, diaphoresis, and chest pain. tape Allergy (Uncoded 12/11/22 21:51) Home Medications: ALPRAZolam [Alprazolam] 1 mg PO QID PRN 01/24/16 [History] Potassium Chloride Tab* [Klor Con] 4 cap PO DAILY 05/07/20 [History] Amlodipine Besylate 1 mg PO DAILY 06/25/21 [History] Topiramate 50 mg PO BID 06/25/21 [History] Aspirin [Lo-Dose Aspirin EC] 81 mg PO DAILY 11/17/21 [History] Hydrocodone/Acetaminophen [Hydrocodone-Acetamin 7.5-325] 1 each PO Q4H PRN 11/17/21 [History] Levothyroxine Sodium 112 Mcg [Synthroid 112 Mcg] 50 mcg PO UD 11/17/21 [History] Pramipexole Di-HCl [Pramipexole Dihydrochloride] 1 mg PO HS 07/28/22 [History] SUMAtriptan succinate [Imitrex 50 mg] 100 mg PO DAILY PRN 07/28/22 [History] Zolpidem Tartrate 10 mg [Ambien 10 MG] 10 mg PO HS PRN 07/28/22 [History] Levothyroxine Sodium 75 Mcg [Synthroid 75 Mcg] 75 mcg PO DAILY 10/12/22 [History] Metoprolol Tartrate 25 mg [Lopressor 25MG Tab] 25 mg PO BID 10/12/22 [History] PANTOPRAZOLE 40 mg Tablet [Protonix 40MG Tablet] 40 mg PO DAILY 10/12/22 [History] Promethazine HCl 25 mg [Phenergan 25 mg] 25 mg PO TID PRN PRN 10/12/22 [History] Sucralfate 1 gm [Carafate 1 GM] 1 g PO DAILY 10/12/22 [History] Torsemide 20 mg [Demadex 20 mg] 20 mg PO BID 10/12/22 [History] Hx Tetanus, Diphtheria Vaccination/Date Given: No Hx Influenza Vaccination/Date Given: No Hx Pneumococcal Vaccination/Date Given: No Immunizations Up to Date: No Travel Risk - International Travel Have you traveled outside of the country in past 3 weeks: No - Coronavirus Screening Are you exhibiting any of the following symptoms?: Yes Symptoms: Cough: New Onset, Shortness of Breath, Vomiting/Diarrhea, Headaches/Body Aches/Fatigue - Vaccine Status Have you recieved a Covid-19 vaccination: No - Vaccination Dates Comment: . - Review of Systems Constitutional: No Symptoms, No Fever, No Chills Eyes: No Symptoms Ears, Nose, & Throat: No Symptoms Respiratory: No Symptoms, No Cough, No Dyspnea Cardiac: No Symptoms, No Chest Pain, No Edema, No Syncope Abdominal/Gastrointestinal: No Symptoms, No Abdominal Pain, No Nausea, No Vomiting, No Diarrhea Genitourinary Symptoms: No Symptoms, No Dysuria Musculoskeletal: No Symptoms, No Back Pain, No Neck Pain Skin: No Symptoms, No Rash Neurological: No Symptoms, No Dizziness, No Focal Weakness, No Sensory Changes Psychological: No Symptoms Endocrine: No Symptoms Immunological/Allergic: No Symptoms All Other Systems: Reviewed and Negative - Past Medical History Pertinent Past Medical History: Yes Neurological History: No Pertinent History ENT History: Other Cardiac History: Congestive Heart Failure, High Cholesterol, Hypertension Respiratory History: CHF, COPD, Pneumonia Endocrine Medical History: Hypothyroidism Musculoskeletal History: No Pertinent History, Other GI Medical History: GERD, Gallbladder Disease, Ulcer, Other History: No Pertinent History Psycho-Social History: Anxiety, Bipolar, Depression Female Reproductive Disorders: No Pertinent History Other Medical History: stage IV skin cancer - Past Surgical History Past Surgical History: Yes Neuro Surgical History: No Pertinent History Cardiac: No Pertinent History Respiratory: No Pertinent History Gastrointestinal: Appendectomy, Cholecystectomy Genitourinary: No Pertinent History Musculoskeletal: No Pertinent History Female Surgical History: Hysterectomy Other Surgical History: tubes in ears, pre-cancerous polyps removed from colon - Social History Smoking Status: Former smoker How long have you smoked: 42 years Exposure to second hand smoke: No Alcohol Use: None Drug Use: none Patient Lives Alone: No Significant Family History: heart disease, diabetes, hypertension - Nursing Vital Signs Nursing Vital Signs: Initial Vital Signs Pulse Rate 107 H 12/11/22 21:38 Respiratory Rate 22 12/11/22 21:38 Blood Pressure 162/77 12/11/22 21:38 O2 Sat by Pulse Oximetry 97 12/11/22 21:38 Pain Scale Pain Intensity 0 - Physical Exam General Appearance: no apparent distress, alert Eye Exam: PERRL/EOMI, eyes nml inspection Ears, Nose, Throat Exam: normal ENT inspection, TMs normal, pharynx normal, moist mucous membranes Neck Exam: normal inspection, non-tender, supple, full range of motion Respiratory Exam: normal breath sounds, lungs clear, No respiratory distress Cardiovascular Exam: regular rate/rhythm, normal heart sounds, normal peripheral pulses Gastrointestinal/Abdomen Exam: soft, normal bowel sounds, No tenderness, No mass Back Exam: normal inspection, normal range of motion, No CVA tenderness, No vertebral tenderness Extremity Exam: normal inspection, normal range of motion, pelvis stable Neurologic Exam: alert, oriented x 3, cooperative, normal mood/affect, nml cerebellar function, nml station & gait, sensation nml, No motor deficits Skin Exam: normal color, warm, dry, No rash Lymphatic Exam: No adenopathy SpO2 Interpretation: normal SpO2: 97 O2 Delivery: Room Air - Course Nursing assessment & vital signs reviewed: Yes Ordered Tests: Active Orders 24 hr Category Date Time Status CBC W DIFF Stat Lab 12/11/22 22:20 Completed CMP Stat Lab 12/11/22 22:20 Completed Medication Summary Discontinued Medications Generic Name Dose Route Start Last Admin Trade Name Geraldq PRN Reason Stop Dose Admin Potassium Chloride 40 meq 12/11/22 22:50 12/11/22 22:55 Potassium Chloride Tab 10 Meq Tab PO 12/11/22 22:51 40 meq STAT ONE Administration Potassium Chloride Confirm 12/11/22 22:55 Potassium Chloride Tab 10 Meq Tab Administered 12/11/22 22:56 Dose 40 meq PO .STK-MED ONE Lab/Rad Data: Laboratory Result Diagrams 12/11/22 22:20 12/11/22 22:20 Laboratory Results 12/11/22 12/11/22 Range/Units 22:20 22:20 WBC 9.8 (4.0-10.5) x10^3/uL RBC 5.03 (4.1-5.4) x10^6/uL Hgb 13.8 (12.0-16.0) g/dL Hct 43.9 (35-47) % MCV 87.3 (78-100) fL MCH 27.4 (26-32) pg MCHC 31.4 L (32-36) g/dL RDW 14.8 H (11.5-14.0) % Plt Count 228 (150-450) x10^3/uL MPV 9.7 (7.5-11.0) fL Gran % 65.6 (36.0-66.0) % Immature Gran % (Auto) 0.7 H (0.00-0.4) % Nucleat RBC Rel Count 0.0 (0.00-0.1) % Eos # (Auto) 0.18 (0-0.5) x10^3/uL Immature Gran # (Auto) 0.07 H (0.00-0.03) x10^3u/L Absolute Lymphs (auto) 2.21 (1.0-4.6) x10^3/uL Absolute Monos (auto) 0.87 (0.0-1.3) x10^3/uL Absolute Nucleated RBC 0.00 (0.00-0.01) x10^3u/L Lymphocytes % 22.6 L (24.0-44.0) % Monocytes % 8.9 (0.0-12.0) % Eosinophils % 1.8 (0.00-5.0) % Basophils % 0.4 (0.0-0.4) % Absolute Granulocytes 6.40 (1.4-6.9) x10^3/uL Basophils # 0.04 (0-0.4) x10^3/uL Sodium 134 L (137-145) mmol/L Potassium 3.0 L* (3.5-5.1) mmol/L Chloride 97 L (98-107) mmol/L Carbon Dioxide 30 (22-30) mmol/L Anion Gap 10.4 (5-15) MEQ/L BUN 25 H (7-17) mg/dL Creatinine 0.80 (0.52-1.04) mg/dL Estimated GFR > 60.0 ML/MIN Glucose 130 H (74-106) mg/dL Calcium 9.5 (8.4-10.2) mg/dL Total Bilirubin 0.50 (0.2-1.3) mg/dL AST 24 (14-36) U/L ALT 23 (0-35) U/L Alkaline Phosphatase 154 H (38-126) U/L Serum Total Protein 8.6 H (6.3-8.2) g/dL Albumin 4.3 (3.5-5.0) g/dL - Progress Progress: improved Progress Note: Potassium 3.0. Patient given 40 mEq oral potassium replacement. Patient has potassium at home to continue as previous. Patient will continue her 20 mEq of potassium 3 times daily. Currently asymptomatic. Case discussed with Dr. Rodriguez who agrees with her plan of care. Patient states she has to leave because her is out side when he to pick her up. Patient voices no other complaints or concerns at this time. Patient is a 62-year-old female presents to our ED as a referral from Dr. Rodriguez for evaluation and treatment of hypokalemia. Review of system and physical exam findings are noncontributory. Patient has no symptoms at this time. Complexity of complaint is mild. No significant comorbidities to contribute the patient's symptoms. Patient was advised to stop taking her usual 60 mEq of potassium daily in preparation for a laboratory draw. Test ordered include CBC CMP. Laboratory results reviewed and contributed to medical decision making. Patient received 40 mEq of oral potassium to treat hypokalemia. Case discussed with Dr. Rodriguez. Plan of care discussed with patient. She agrees to follow-up with Dr. Bryant within 48 hours for evaluation. Level of EM service provided was straightforward. Complexity of problem was minimal. Complexity of data reviewed and analyzed was minimal. Risk of complication or risk of morbidity/mortality of patient management was minimal. No critical care time. . 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 No [employer] required. Patient is well. Asymptomatic. Patient requesting discharge. Portions of this note were created with voice recognition technology. There may be grammatical, spelling, punctuation or sound alike errors 12/12/22 00:09 Counseled pt/family regarding: lab results, diagnosis, need for follow-up - Departure Departure Disposition: Home Clinical Impression: Hypokalemia Condition: Stable Critical Care Time: No Referrals: CECE WOODARD MD [Primary Care Provider] - Follow up/PCP as directed Instructions: Hypokalemia (DC) Additional Instructions: Discharge/Care Plan MIONR LEIVA was seen on 12/12/22 in the Emergency Room. The patient was counseled regarding Diagnosis,Lab results, Imaging studies, need for follow up and when to return to the Emergency Room. Prescriptions given: Discharge Note I have spoken with the patient and/or caregivers. I have explained the patient's condition, diagnosis and treatment plan based on the information available to me at this time. I have answered the patient's and/or caregiver's questions and addressed any concerns. The patient and/or caregivers have as good understanding of the patient's diagnosis, condition and treatment plan as can be expected at this point. The vital signs have been stable. The patient's condition is stable and appropriate for discharge from the emergency department. The patient will pursue further outpatient evaluation with the primary care physician or other designated or consulting physician as outlined in the discharge instructions. The patient and/or caregivers are agreeable to this plan of care and follow-up instructions have been explained in detail. The patient and/or caregivers have received these instruction. The patient/and or caregivers are aware that any significant change in condition or worsening of symptoms should prompt an immediate return to this or the closest emergency department or call 911.
[2022-12-12 00:10] VITALS: BP 145/74; PULSE 94
[2022-12-12 00:14] VITALS: O2SAT 97
== END 2022-12-12 00:06 | disposition home or self-care (01) ==
LOC: ED 21:28
DX: E87.6 Hypokalemia (principal); E78.5 Hyperlipidemia, unspecified; I11.0 Hypertensive heart disease with heart failure; Z79.899 Other long term (current) drug therapy; Z28.310 Unvaccinated for COVID-19
CPT/HCPCS: 36415; 80053; 85025; 99283; A9270-GY

== ENCOUNTER 2022-12-12 17:09 | Observation (INO) | payer BC, MEDICARE ==
--- NOTE | 2022-12-12 17:27 | ERPHSYRPT ---
- History of Present Illness Time Seen by Provider: 12/12/22 17:27 Historian: patient Exam Limitations: no limitations Physician History: This is a morbidly obese 62-year-old white female patient who was sent to the emergency room by Dr. Bryant because she has been unable to hold any of her medications down or fluids down. Patient was diagnosed with hypokalemia and was seen in the emergency room here at [facility] yesterday and was given oral potassium supplementation. At home, the patient was unable to hold her medication down. In addition, patient sees a core blower and they provided her a prescription to treat bronchitis with an antibiotic and steroids. She also could not hold that medication down. Patient denies chest pain. She does have a cough. Patient has a history anxiety, hypertension, hypothyroidism, migraine headaches, gastroesophageal reflux disease, CHF, hyperlipidemia and COPD. Timing/Duration: worse Quality: other (Coughing) Severity of Pain-Max: none Severity of Pain-Current: none Modifying Factors: Improves With: vomiting Associated Symptoms: nausea, vomiting, other (Coughing), No chest pain Previous symptoms: same symptoms as today, recently seen, recently treated Allergies/Adverse Reactions: Influenza Virus Vaccines [Influenza Virus Vaccine] Allergy (Intermediate, Verified 12/12/22 17:22) Swelling of Hands venom-honey bee [bee venom (honey bee)] Allergy (Verified 12/12/22 17:22) famotidine [From Pepcid] Adverse Reaction (Intermediate, Verified 12/12/22 17:22) hot, flushed, diaphoresis, and chest pain. tape Allergy (Uncoded 12/12/22 17:22) Home Medications: ALPRAZolam [Alprazolam] 1 mg PO QID PRN 01/24/16 [History] Potassium Chloride Tab* [Klor Con] 20 meq PO TID 05/07/20 [History] Amlodipine Besylate 1 mg PO DAILY 06/25/21 [History] Topiramate 50 mg PO BID 06/25/21 [History] Aspirin [Lo-Dose Aspirin EC] 81 mg PO DAILY 11/17/21 [History] Hydrocodone/Acetaminophen [Hydrocodone-Acetamin 7.5-325] 1 each PO Q4H PRN 11/17/21 [History] Levothyroxine Sodium 112 Mcg [Synthroid 112 Mcg] 50 mcg PO UD 11/17/21 [History] Pramipexole Di-HCl [Pramipexole Dihydrochloride] 1 mg PO HS 07/28/22 [History] SUMAtriptan succinate [Imitrex 50 mg] 100 mg PO DAILY PRN 07/28/22 [History] Zolpidem Tartrate 10 mg [Ambien 10 MG] 10 mg PO HS PRN 07/28/22 [History] Levothyroxine Sodium 75 Mcg [Synthroid 75 Mcg] 75 mcg PO DAILY 10/12/22 [History] Metoprolol Tartrate 25 mg [Lopressor 25MG Tab] 25 mg PO BID 10/12/22 [History] PANTOPRAZOLE 40 mg Tablet [Protonix 40MG Tablet] 40 mg PO DAILY 10/12/22 [History] Promethazine HCl 25 mg [Phenergan 25 mg] 25 mg PO TID PRN PRN 10/12/22 [History] Sucralfate 1 gm [Carafate 1 GM] 1 g PO DAILY 10/12/22 [History] Torsemide 20 mg [Demadex 20 mg] 20 mg PO BID 10/12/22 [History] Hx Tetanus, Diphtheria Vaccination/Date Given: No Hx Influenza Vaccination/Date Given: No Hx Pneumococcal Vaccination/Date Given: No Travel Risk - International Travel Have you traveled outside of the country in past 3 weeks: No - Coronavirus Screening Are you exhibiting any of the following symptoms?: Yes Symptoms: Cough: New Onset, Vomiting/Diarrhea, Headaches/Body Aches/Fatigue Close contact with a COVID-19 positive Pt in past 14-21 Days: No - Vaccine Status Have you recieved a Covid-19 vaccination: No - Vaccination Dates Comment: . - Review of Systems Constitutional: Weakness Eyes: No Symptoms Ears, Nose, & Throat: No Symptoms Respiratory: Cough Cardiac: No Symptoms Abdominal/Gastrointestinal: Nausea, Vomiting, No Abdominal Pain, No Diarrhea Genitourinary Symptoms: No Symptoms Musculoskeletal: No Symptoms Skin: No Symptoms Neurological: No Symptoms Psychological: No Symptoms Endocrine: No Symptoms Hematologic/Lymphatic: No Symptoms Immunological/Allergic: No Symptoms All Other Systems: Reviewed and Negative - Past Medical History Pertinent Past Medical History: Yes Neurological History: No Pertinent History ENT History: Other Cardiac History: Congestive Heart Failure, High Cholesterol, Hypertension Respiratory History: CHF, COPD, Pneumonia Endocrine Medical History: Hypothyroidism Musculoskeletal History: No Pertinent History, Other GI Medical History: GERD, Gallbladder Disease, Ulcer, Other History: No Pertinent History Psycho-Social History: Anxiety, Bipolar, Depression Female Reproductive Disorders: No Pertinent History Other Medical History: stage IV skin cancer - Past Surgical History Past Surgical History: Yes Neuro Surgical History: No Pertinent History Cardiac: No Pertinent History Respiratory: No Pertinent History Gastrointestinal: Appendectomy, Cholecystectomy Genitourinary: No Pertinent History Musculoskeletal: No Pertinent History Female Surgical History: Hysterectomy Other Surgical History: tubes in ears, pre-cancerous polyps removed from colon - Social History Smoking Status: Former smoker How long have you smoked: 42 years Exposure to second hand smoke: No Alcohol Use: None Drug Use: none Patient Lives Alone: No Significant Family History: heart disease, diabetes, hypertension - Nursing Vital Signs Nursing Vital Signs: Initial Vital Signs Temperature 97.8 F 12/12/22 17:23 Pulse Rate 94 H 12/12/22 17:23 Respiratory Rate 20 12/12/22 17:23 Blood Pressure 125/76 12/12/22 17:23 O2 Sat by Pulse Oximetry 96 12/12/22 17:23 Pain Scale Pain Intensity 4 - Physical Exam General Appearance: mild distress, alert, anxiety, obese Eye Exam: PERRL/EOMI, eyes nml inspection Ears, Nose, Throat Exam: normal ENT inspection, moist mucous membranes Neck Exam: normal inspection, non-tender, supple, full range of motion Respiratory Exam: lungs clear, airway intact, rhonchi (Mild bilateral), No normal breath sounds, No chest tenderness, No respiratory distress Cardiovascular Exam: regular rate/rhythm, normal heart sounds, normal peripheral pulses Gastrointestinal/Abdomen Exam: soft, normal bowel sounds, No tenderness Pelvic Exam: not done Rectal Exam: not done Back Exam: normal inspection, normal range of motion, No CVA tenderness, No vertebral tenderness Extremity Exam: normal inspection, normal range of motion, pelvis stable Neurologic Exam: alert, oriented x 3, cooperative, 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, normal mood/affect, nml cerebellar function, nml station & gait, sensation nml Skin Exam: normal color, warm, dry Lymphatic Exam: No adenopathy SpO2 Interpretation: normal O2 Delivery: Room Air - Course Nursing assessment & vital signs reviewed: Yes Ordered Tests: Active Orders 24 hr Category Date Time Status IV Insertion STAT Care 12/12/22 18:24 Active Telemetry q4h Care 12/12/22 19:36 Active AMYLASE Stat Lab 12/12/22 18:18 Completed CBC W DIFF Stat Lab 12/12/22 18:18 Completed CMP Stat Lab 12/12/22 18:18 Completed LIPASE Stat Lab 12/12/22 18:18 Completed Lactic Acid Stat Lab 12/12/22 18:36 Completed MAG [MAGNESIUM] Stat Lab 12/12/22 18:18 Completed UA W/RFX UR CULTURE Stat Lab 12/12/22 19:47 Completed Transfer Order Routine Transfer 12/12/22 Ordered Medication Summary Generic Name Dose Route Start Last Admin Trade Name Freq PRN Reason Stop Dose Admin Potassium Chloride 20 meq in 100 mls @ 50 mls/hr 12/12/22 19:35 12/12/22 20:20 Potassium Chloride 20 Meq In Water 100ml IV 12/12/22 21:34 Not Given STAT ONE Sodium Chloride 1,000 mls @ 100 mls/hr 12/12/22 20:00 12/12/22 20:03 Sodium Chloride 0.9% 1000 Ml IV 01/11/23 19:59 100 mls/hr .Q10H YUMIKO Administration Discontinued Medications Generic Name Dose Route Start Last Admin Trade Name Freq PRN Reason Stop Dose Admin Hydrocodone Bitart/Acetaminophen 15 ml 12/12/22 20:28 Hydrocodone/Acetaminophen 5 Ml Udcup PO 12/12/22 20:29 STAT STA Sodium Chloride 1,000 mls @ 999 mls/hr 12/12/22 18:24 12/12/22 19:50 Sodium Chloride 0.9% 1000 Ml IV 12/12/22 19:24 Infused .Q1H1M STA Infusion Sodium Chloride Confirm 12/12/22 18:31 Sodium Chloride 0.9% 1000 Ml Administered 12/12/22 18:32 Dose 1,000 mls @ ud .ROUTE .STK-MED ONE Potassium Chloride Confirm 12/12/22 20:00 Potassium Chloride 20 Meq In Water 100ml Administered 12/12/22 20:01 Dose 100 mls @ ud IV .STK-MED ONE Ondansetron HCl 4 mg 12/12/22 18:24 12/12/22 18:32 Ondansetron Hcl 4 Mg/2 Ml Vial IV 12/12/22 18:25 4 mg STAT ONE Administration Ondansetron HCl Confirm 12/12/22 18:31 Ondansetron Hcl 4 Mg/2 Ml Vial Administered 12/12/22 18:32 Dose 4 mg .ROUTE .STK-MED ONE Pantoprazole Sodium 40 mg 12/12/22 18:24 12/12/22 18:32 Pantoprazole 40 Mg Vial IV 12/12/22 18:25 40 mg STAT ONE Administration Pantoprazole Sodium Confirm 12/12/22 18:31 Pantoprazole 40 Mg Vial Administered 12/12/22 18:32 Dose 40 mg IV .STK-MED ONE Potassium Chloride 20 meq 12/12/22 20:28 Potassium Chloride Tab 10 Meq Tab PO 12/12/22 20:29 STAT ONE Lab/Rad Data: Laboratory Result Diagrams 12/12/22 18:18 12/12/22 18:18 Laboratory Results 12/12/22 12/12/22 12/12/22 Range/Units 19:47 19:00 18:36 WBC (4.0-10.5) x10^3/uL RBC (4.1-5.4) x10^6/uL Hgb (12.0-16.0) g/dL Hct (35-47) % MCV (78-100) fL MCH (26-32) pg MCHC (32-36) g/dL RDW (11.5-14.0) % Plt Count (150-450) x10^3/uL MPV (7.5-11.0) fL Gran % (36.0-66.0) % Immature Gran % (Auto) (0.00-0.4) % Nucleat RBC Rel Count (0.00-0.1) % Eos # (Auto) (0-0.5) x10^3/uL Immature Gran # (Auto) (0.00-0.03) x10^3u/L Absolute Lymphs (auto) (1.0-4.6) x10^3/uL Absolute Monos (auto) (0.0-1.3) x10^3/uL Absolute Nucleated RBC (0.00-0.01) x10^3u/L Lymphocytes % (24.0-44.0) % Monocytes % (0.0-12.0) % Eosinophils % (0.00-5.0) % Basophils % (0.0-0.4) % Absolute Granulocytes (1.4-6.9) x10^3/uL Basophils # (0-0.4) x10^3/uL Sodium (137-145) mmol/L Potassium (3.5-5.1) mmol/L Chloride (98-107) mmol/L Carbon Dioxide (22-30) mmol/L Anion Gap (5-15) MEQ/L BUN (7-17) mg/dL Creatinine (0.52-1.04) mg/dL Estimated GFR ML/MIN Glucose (74-106) mg/dL Lactic Acid 1.3 (0.4-2.0) Calcium (8.4-10.2) mg/dL Magnesium (1.6-2.3) mg/dL Total Bilirubin (0.2-1.3) mg/dL AST (14-36) U/L ALT (0-35) U/L Alkaline Phosphatase (38-126) U/L Serum Total Protein (6.3-8.2) g/dL Albumin (3.5-5.0) g/dL Amylase (30-110) U/L Lipase (23-300) U/L Urine Color Yellow (Yellow) Urine Appearance Clear (Clear) Urine pH 5.0 (4.6-8.0) Ur Specific [place] 1.015 (1.005-1.030) Urine Protein Negative (Negative) Urine Glucose (UA) Negative (Negative) mg/dL Urine Ketones Negative (Negative) Urine Blood Negative (Negative) Urine Nitrite Negative (Negative) Urine Bilirubin Negative (Negative) Urine Urobilinogen 0.2 (0.2) mg/dL Ur Leukocyte Esterase Negative (Negative) U Hyaline Cast (Auto) NONE SEEN (0-2) /LPF Urine Microscopic RBC 0-2 (0-5) /HPF Urine Microscopic WBC 3-5 (0-5) /HPF Ur Epithelial Cells Few (None Seen) /HPF Urine Bacteria Rare A (None Seen) /HPF Urine Culture Reflexed NO (NO) Influenza Type A Ag NEGATIVE (NEGATIVE) Influenza Type B Ag NEGATIVE (NEGATIVE) RSV (PCR) NEGATIVE (Negative) SARS-CoV-2 (PCR) NEGATIVE (NEGATIVE) 12/12/22 12/12/22 12/12/22 Range/Units 18:18 18:18 18:18 WBC 8.9 (4.0-10.5) x10^3/uL RBC 4.86 (4.1-5.4) x10^6/uL Hgb 13.4 (12.0-16.0) g/dL Hct 43.0 (35-47) % MCV 88.5 (78-100) fL MCH 27.6 (26-32) pg MCHC 31.2 L (32-36) g/dL RDW 14.7 H (11.5-14.0) % Plt Count 229 (150-450) x10^3/uL MPV 10.1 (7.5-11.0) fL Gran % 64.6 (36.0-66.0) % Immature Gran % (Auto) 0.9 H (0.00-0.4) % Nucleat RBC Rel Count 0.0 (0.00-0.1) % Eos # (Auto) 0.22 (0-0.5) x10^3/uL Immature Gran # (Auto) 0.08 H (0.00-0.03) x10^3u/L Absolute Lymphs (auto) 2.04 (1.0-4.6) x10^3/uL Absolute Monos (auto) 0.79 (0.0-1.3) x10^3/uL Absolute Nucleated RBC 0.00 (0.00-0.01) x10^3u/L Lymphocytes % 22.8 L (24.0-44.0) % Monocytes % 8.8 (0.0-12.0) % Eosinophils % 2.5 (0.00-5.0) % Basophils % 0.4 (0.0-0.4) % Absolute Granulocytes 5.76 (1.4-6.9) x10^3/uL Basophils # 0.04 (0-0.4) x10^3/uL Sodium 135 L (137-145) mmol/L Potassium 3.2 L (3.5-5.1) mmol/L Chloride 97 L (98-107) mmol/L Carbon Dioxide 30 (22-30) mmol/L Anion Gap 11.3 (5-15) MEQ/L BUN 15 (7-17) mg/dL Creatinine 0.83 (0.52-1.04) mg/dL Estimated GFR > 60.0 ML/MIN Glucose 125 H (74-106) mg/dL Lactic Acid (0.4-2.0) Calcium 9.0 (8.4-10.2) mg/dL Magnesium 1.6 (1.6-2.3) mg/dL Total Bilirubin 0.70 (0.2-1.3) mg/dL AST 25 (14-36) U/L ALT 22 (0-35) U/L Alkaline Phosphatase 159 H (38-126) U/L Serum Total Protein 8.6 H (6.3-8.2) g/dL Albumin 4.3 (3.5-5.0) g/dL Amylase 75 (30-110) U/L Lipase 70 (23-300) U/L Urine Color (Yellow) Urine Appearance (Clear) Urine pH (4.6-8.0) Ur Specific [place] (1.005-1.030) Urine Protein (Negative) Urine Glucose (UA) (Negative) mg/dL Urine Ketones (Negative) Urine Blood (Negative) Urine Nitrite (Negative) Urine Bilirubin (Negative) Urine Urobilinogen (0.2) mg/dL Ur Leukocyte Esterase (Negative) U Hyaline Cast (Auto) (0-2) /LPF Urine Microscopic RBC (0-5) /HPF Urine Microscopic WBC (0-5) /HPF Ur Epithelial Cells (None Seen) /HPF Urine Bacteria (None Seen) /HPF Urine Culture Reflexed (NO) Influenza Type A Ag (NEGATIVE) Influenza Type B Ag (NEGATIVE) RSV (PCR) (Negative) SARS-CoV-2 (PCR) (NEGATIVE) - Progress Progress: improved Progress Note: 12/12/22 20:36 Medical decision making: This evaluation the emergency department is of moderate complexity. I did review old hospital charts and old labs and compared them to the new results of my work-up today. I did discuss the results of the work-up here in the emergency department with Dr. Bryant. Together we formulated a plan which was to provide the patient with potassium protocol. The patient is refusing intravenous potassium. We will place her in observation and provide her with intravenous fluids, antiemetics, oral potassium, repeat labs tomorrow morning. I will start her on intravenous steroids as well as intravenous antibiotics to treat her bronchitis. Discussed with : Laurie Counseled pt/family regarding: lab results, diagnosis - Departure Departure Disposition: Observation Clinical Impression: Hypokalemia, Bronchitis Condition: Stable Critical Care Time: No Referrals: CECE WOODARD MD [Primary Care Provider] - Follow up/PCP as directed
[2022-12-12] MEDS ORDERED: Sodium Chloride 0.9% 1000 ML 1,000 ML IV STA (18:24)
[2022-12-12] MEDS ORDERED: PROTONIX 40 MG IV IV ONE ×2 (18:24→18:31)
[2022-12-12] MEDS ORDERED: Zofran 4 MG/2 ML VIAL IV ONE ×3 (18:24→21:17)
[2022-12-12 18:29] LABS: Absolute Neutrophil Ct (ANC) 5.76 x10^3/uL (1.4-6.9); Basophil (Absolute #) 0.04 x10^3/uL (0-0.4); Eosinophil % 2.5 % (0.00-5.0); Eosinophil (Absolute #) 0.22 x10^3/uL (0-0.5); Hemoglobin 13.4 g/dL (12.0-16.0); Lymphocyte (Absolute #) 2.04 x10^3/uL (1.0-4.6); Lymphocytes % 22.8 % (24.0-44.0); Mean Cell Volume 88.5 fL (78-100); Mean Corpuscular Hemoglobin 27.6 pg (26-32); Mean Corpuscular Hgb Concent. 31.2 g/dL (32-36); Mean Platelet Volume 10.1 fL (7.5-11.0); Monocyte (Absolute #) 0.79 x10^3/uL (0.0-1.3); Monocytes % 8.8 % (0.0-12.0); Neutrophil % 64.6 % (36.0-66.0); Platelet Count 229 x10^3/uL (150-450); Red Blood Count 4.86 x10^6/uL (4.1-5.4); Red Cell Distribution Width 14.7 % (11.5-14.0); White Blood Count 8.9 x10^3/uL (4.0-10.5)
[2022-12-12] MEDS ORDERED: Sodium Chloride 0.9% 1000 ML 1,000 ML ONE ×2 (18:31→20:00)
[2022-12-12] MEDS ORDERED: Zofran 4 MG/2 ML VIAL ONE ×2 (18:31→21:18)
[2022-12-12 18:35] LABS: ALBUMIN 4.3 g/dL (3.5-5.0); ALKALINE PHOSPHATASE 159 U/L (38-126); AMYLASE 75 U/L (30-110); ANION GAP 11.3 MEQ/L (5-15); BLOOD UREA NITROGEN 15 mg/dL (7-17); CHLORIDE 97 mmol/L (98-107); Carbon Dioxide 30 mmol/L (22-30); Creatinine 1 0.83 mg/dL (0.52-1.04); EST GLOMERULAR FILTRATION RATE > 60.0 ML/MIN; Glucose 125 mg/dL (74-106); LIPASE 70 U/L (23-300); Potassium 3.2 mmol/L (3.5-5.1); SGOT/AST 25 U/L (14-36); SGPT/ALT 22 U/L (0-35); SODIUM 135 mmol/L (137-145); Total Protein 8.6 g/dL (6.3-8.2)
[2022-12-12 19:55] LABS: INFLUENZA A NEGATIVE (NEGATIVE); INFLUENZA B NEGATIVE (NEGATIVE); RESPIRATORY SYNCTIAL VIRUS NEGATIVE (Negative); SARS-CoV-2 Xpert Express NEGATIVE (NEGATIVE)
[2022-12-12] MEDS ORDERED: Sodium Chloride 0.9% 1000 ML 1,000 ML IV SCH ×2 (20:00→22:47)
[2022-12-12] MEDS ORDERED: POTASSIUM CHLORIDE 20 mEq IN WATER 100ML 0 ML IV ONE (20:00)
[2022-12-12] MEDS: POTASSIUM CHLORIDE 20 mEq IN WATER 100ML 20 MEQ/100 ML BAG IV ONE ×2 (20:02→20:20)
[2022-12-12 20:10] LABS: Appearance Clear (Clear); Bacteria Rare /HPF (None Seen); Bilirubin Negative (Negative); Blood Negative (Negative); Epithelial Cells Few /HPF (None Seen); Glucose, Urine Negative (Negative); Hyaline Casts NONE SEEN /LPF (0-2); Ketones Negative (Negative); Leukocyte Esterase Negative (Negative); Nitrite Negative (Negative); Protein,Urine Dip Negative (Negative); RBC 0-2 /HPF (0-5); Specific Gravity 1.015 (1.005-1.030); Urobilinogen 0.2 mg/dL (0.2)
[2022-12-12 20:15] LABS: ADD URINE CULTURE? NO (NO)
[2022-12-12] MEDS ORDERED: HYDROCODONE-ACETAMIN 2.5-108/5 ML SOLUTION PO STA (20:28)
[2022-12-12] MEDS ORDERED: Klor Con PO ONE ×2 (20:28→20:52)
[2022-12-12] MEDS ORDERED: HYDROCODONE-ACETAMIN 2.5-108/5 ML SOLUTION ONE (20:52)
[2022-12-12] MEDS ORDERED: TYLENOL 325 MG PO PRN (22:47)
[2022-12-12] MEDS ORDERED: HYDROCODONE-ACETAMIN 2.5-108/5 ML SOLUTION PO PRN (22:47)
[2022-12-12] MEDS ORDERED: Klor Con PO SCH (22:47)
[2022-12-12] MEDS ORDERED: Zofran 4 MG/2 ML VIAL IV PRN (22:47)
[2022-12-12] MEDS: PROVENTIL 2.5 MG/3 ML NEB IH SCH (23:15)
[2022-12-12] MEDS ORDERED: PROVENTIL 2.5 MG/3 ML NEB IH ONE (23:19)
[2022-12-13] MEDS ORDERED: Sodium Chloride 0.9% W/ 20 mEq KCl/LITER 1,000 ML IV SCH (00:45)
[2022-12-13] MEDS ORDERED: Ambien 10 MG PO ONE (00:48)
[2022-12-13] MEDS ORDERED: solu-MEDROL ONE ×2 (00:59→05:46)
[2022-12-13] MEDS ORDERED: Sodium Chloride 0.9% W/ 20 mEq KCl/LITER 1,000 ML IV ONE (01:00)
[2022-12-13] MEDS: solu-MEDROL 80 MG, Sterile H2O 10 ml 2 ML IV SCH ×8 (01:12→20:52)
[2022-12-13] MEDS: PROVENTIL 2.5 MG/3 ML NEB IH SCH ×3 (03:54→11:30)
[2022-12-13] MEDS ORDERED: Sterile H2O 10 ml IJ ONE (05:47)
[2022-12-13 05:52] LABS: Absolute Neutrophil Ct (ANC) 7.15 x10^3/uL (1.4-6.9); Basophil (Absolute #) 0.05 x10^3/uL (0-0.4); Eosinophil % 0.8 % (0.00-5.0); Eosinophil (Absolute #) 0.07 x10^3/uL (0-0.5); Hematocrit 45.3 % (35-47); Hemoglobin 13.7 g/dL (12.0-16.0); Lymphocyte (Absolute #) 1.54 x10^3/uL (1.0-4.6); Lymphocytes % 16.8 % (24.0-44.0); Mean Cell Volume 91.1 fL (78-100); Mean Corpuscular Hemoglobin 27.6 pg (26-32); Mean Corpuscular Hgb Concent. 30.2 g/dL (32-36); Mean Platelet Volume 11.3 fL (7.5-11.0); Monocyte (Absolute #) 0.22 x10^3/uL (0.0-1.3); Monocytes % 2.4 % (0.0-12.0); Neutrophil % 78.3 % (36.0-66.0); Platelet Count 142 x10^3/uL (150-450); Red Blood Count 4.97 x10^6/uL (4.1-5.4); Red Cell Distribution Width 15.3 % (11.5-14.0); White Blood Count 9.1 x10^3/uL (4.0-10.5)
[2022-12-13 06:24] LABS: ALBUMIN 4.2 g/dL (3.5-5.0); ALKALINE PHOSPHATASE 144 U/L (38-126); ANION GAP 13.5 MEQ/L (5-15); BLOOD UREA NITROGEN 18 mg/dL (7-17); CHLORIDE 101 mmol/L (98-107); Calcium 8.9 mg/dL (8.4-10.2); Carbon Dioxide 23 mmol/L (22-30); Creatinine 1 0.78 mg/dL (0.52-1.04); EST GLOMERULAR FILTRATION RATE > 60.0 ML/MIN; Glucose 214 mg/dL (74-106); MAGNESIUM 1.9 mg/dL (1.6-2.3); SGOT/AST 29 U/L (14-36); SGPT/ALT 22 U/L (0-35); SODIUM 134 mmol/L (137-145); Total Protein 8.4 g/dL (6.3-8.2)
[2022-12-13 06:28] LABS: Potassium 3.7 mmol/L (3.5-5.1)
[2022-12-13 08:10] LABS: Slide Review 1 YES
[2022-12-13] MEDS ORDERED: SYNTHROID 112 MCG PO SCH (09:15)
[2022-12-13] MEDS ORDERED: NORCO 7.5/325 MG TAB PO PRN (09:15)
[2022-12-13] MEDS ORDERED: SYNTHROID 75 MCG PO SCH ×2 (09:15→10:00)
[2022-12-13] MEDS ORDERED: PROVENTIL 2.5 MG/3 ML NEB IH PRN ×2 (09:15→11:58)
[2022-12-13] MEDS ORDERED: ALPRAZOLAM 2 MG PO PRN (09:15)
[2022-12-13] MEDS ORDERED: NON-FORMULARY ITEM (Sumatriptan Succinate [Imitrex 50 Mg] 50 MG Tablet) PO PRN (09:15)
[2022-12-13] MEDS ORDERED: MEDICATION INTERVENTION MC SCH (09:45)
[2022-12-13] MEDS ORDERED: Zithromax 500 MG/ 250 ML NaCl Premix 500 MG/250 ML IVPB IV SCH (10:00)
[2022-12-13] MEDS ORDERED: Flonase NASAL NS SCH (10:00)
[2022-12-13] MEDS ORDERED: Depakote EXTENDED RELEASE 250 MG PO SCH (10:00)
[2022-12-13] MEDS ORDERED: ROCEPHIN 1 Gm-D5w 50 ml Bag** 1 G/50 ML IVPB IV SCH (10:00)
[2022-12-13] MEDS ORDERED: DEMADEX 20 MG PO SCH (10:00)
[2022-12-13] MEDS: Protonix 40MG Tablet PO SCH (11:40)
[2022-12-13] MEDS: Toprol Xl 100 MG PO SCH (11:40)
[2022-12-13] MEDS: ECOTRIN 81 MG PO SCH (11:40)
[2022-12-13] MEDS: NORVASC 5 MG PO SCH (11:40)
[2022-12-13] MEDS: Imdur 30 MG PO SCH (11:42)
[2022-12-13] MEDS: Lasix 40 MG PO SCH ×2 (11:58→17:46)
[2022-12-13] MEDS: Klor Con PO SCH ×2 (11:59→20:53)
[2022-12-13] MEDS: XANAX 1 MG PO PRN ×3 (12:06→23:47)
[2022-12-13] MEDS: Sodium Chloride 0.9% W/ 20 mEq KCl/LITER 1,000 ML IV SCH (15:20)
[2022-12-13] MEDS: PHENERGAN 25 MG PO PRN (18:24)
[2022-12-13] MEDS ORDERED: Ambien 10 MG PO SCH (22:00)
[2022-12-13] MEDS ORDERED: NON-FORMULARY ITEM (Pramipexole Di-Hcl [Pramipexole Dihydrochloride] 1 MG Tablet) PO SCH (22:00)
[2022-12-13] MEDS ORDERED: Mirapex 0.5 MG Tablet PO SCH (22:00)
[2022-12-13] MEDS ORDERED: Singulair 10 MG PO SCH (22:00)
[2022-12-14 06:07] LABS: ANION GAP 11.2 MEQ/L (5-15); BLOOD UREA NITROGEN 20 mg/dL (7-17); CHLORIDE 99 mmol/L (98-107); Calcium 9.2 mg/dL (8.4-10.2); Carbon Dioxide 27 mmol/L (22-30); Creatinine 1 0.91 mg/dL (0.52-1.04); EST GLOMERULAR FILTRATION RATE > 60.0 ML/MIN; Glucose 418 mg/dL (74-106); Potassium 4.1 mmol/L (3.5-5.1); SODIUM 134 mmol/L (137-145)
[2022-12-14] MEDS: XANAX 1 MG PO PRN (06:08)
[2022-12-14] MEDS: solu-MEDROL 80 MG, Sterile H2O 10 ml 2 ML IV SCH ×2 (06:08)
[2022-12-14] MEDS: Sodium Chloride 0.9% W/ 20 mEq KCl/LITER 1,000 ML IV SCH (06:21)
[2022-12-14 07:05] VITALS: BP 136/63; PULSE 96; O2SAT 90
[2022-12-14] MEDS: PHENERGAN 25 MG PO PRN (08:21)
[2022-12-14] MEDS: Imdur 30 MG PO SCH (10:11)
[2022-12-14] MEDS: Toprol Xl 100 MG PO SCH (10:11)
[2022-12-14] MEDS: Protonix 40MG Tablet PO SCH (10:11)
[2022-12-14] MEDS: Klor Con PO SCH (10:11)
[2022-12-14] MEDS: NORVASC 5 MG PO SCH (10:11)
[2022-12-14] MEDS: Lasix 40 MG PO SCH (10:11)
[2022-12-14] MEDS: ECOTRIN 81 MG PO SCH (10:11)
[2022-12-16] MEDS ORDERED: SYNTHROID 50 MCG PO SCH (10:00)
== END 2022-12-14 10:38 | disposition home or self-care (01) ==
LOC: ED 17:09 → MED SURG 22:45
PROVIDERS: ADMIT Family Medicine; ATTEND Family Medicine
DX: E87.6 Hypokalemia (principal); R11.2 Nausea with vomiting, unspecified; I11.0 Hypertensive heart disease with heart failure; I50.9 Heart failure, unspecified; E03.9 Hypothyroidism, unspecified; E78.5 Hyperlipidemia, unspecified; J44.9 Chronic obstructive pulmonary disease, unspecified; C44.90 Unspecified malignant neoplasm of skin, unspecified; Z79.899 Other long term (current) drug therapy; Z20.828 Contact with and (suspected) exposure to other viral communicable diseases
CPT/HCPCS: 0241U; 36000; 36415; 80048; 80053; 81001; 82150; 83605; 83690; 83735; 85025; 93268; 94640; 94760; 94762; 96360; 96361; 96374; 96375; 96376; 99285; G0378; J0456; J0696; J2405; J2930; J3480; J7609; A9270-GY

== ENCOUNTER 2023-08-29 11:37 | Emergency (ER) | payer BC, MEDICARE ==
[2023-08-29 12:05] VITALS: TEMP 98
--- NOTE | 2023-08-29 12:44 | XRAY ---
Indication: Lethargy. Comparison: December 02, 2022 Portable chest again demonstrates mild left base discoid atelectasis/scarring. Remaining heart and lungs unremarkable. Bony thorax intact again with osteopenia and mild degenerative changes. Impression: Nonacute chest with chronic features.
[2023-08-29 12:48] LABS: Absolute Neutrophil Ct (ANC) 4.61 x10^3/uL (1.4-6.9); BASOPHIL % 0.7 % (0.0-0.4); Basophil (Absolute #) 0.05 x10^3/uL (0-0.4); Eosinophil % 2.6 % (0.00-5.0); Hematocrit 44.5 % (35-47); Hemoglobin 13.5 g/dL (12.0-16.0); IMMATURE GRAN # 0.09 x10^3u/L (0.00-0.03); IMMATURE GRAN % 1.2 % (0.00-0.4); Lymphocyte (Absolute #) 1.83 x10^3/uL (1.0-4.6); Lymphocytes % 24.2 % (24.0-44.0); Mean Cell Volume 88.3 fL (78-100); Mean Corpuscular Hemoglobin 26.8 pg (26-32); Mean Corpuscular Hgb Concent. 30.3 g/dL (32-36); Mean Platelet Volume 9.7 fL (7.5-11.0); Monocyte (Absolute #) 0.78 x10^3/uL (0.0-1.3); Monocytes % 10.3 % (0.0-12.0); Platelet Count 206 x10^3/uL (150-450); Red Blood Count 5.04 x10^6/uL (4.1-5.4); Red Cell Distribution Width 16.1 % (11.5-14.0); White Blood Count 7.6 x10^3/uL (4.0-10.5)
[2023-08-29 13:04] LABS: INR 0.95 (0.8-3.0); PROTIME 10.4 SECONDS (9.4-12.5); PTT 26.7 SECONDS (25.1-36.5)
[2023-08-29 13:05] LABS: ALBUMIN 4.1 g/dL (3.5-5.0); ALKALINE PHOSPHATASE 89 U/L (38-126); ANION GAP 14.9 MEQ/L (5-15); BLOOD UREA NITROGEN 16 mg/dL (7-17); CHLORIDE 105 mmol/L (98-107); Calcium 9.2 mg/dL (8.4-10.2); Carbon Dioxide 27 mmol/L (22-30); Creatinine 1 0.87 mg/dL (0.52-1.04); EST GLOMERULAR FILTRATION RATE > 60.0 ML/MIN; Glucose 91 mg/dL (74-106); Potassium 3.6 mmol/L (3.5-5.1); SGOT/AST 20 U/L (14-36); SGPT/ALT 18 U/L (0-35); SODIUM 143 mmol/L (137-145); Total Protein 7.6 g/dL (6.3-8.2)
[2023-08-29 13:32] VITALS: PULSE 74; RESP 22
--- NOTE | 2023-08-29 13:38 | XRAY ---
Indication: Lethargy. Multiple contiguous axial images obtained through the head without contrast. Comparison: July 15, 2014 Normal appearing brain bregma and ventricles. Bony calvarium intact with progressive worsening diffuse thickened calvarium. Visualized paranasal sinuses and mastoid air cells are clear. Impression: Continued normal CT head without contrast exam. Diffusely thickened bony calvarium commonly seen with antiepileptic seizure medications.
--- NOTE | 2023-08-29 13:55 | ERPHSYRPT ---
- History of Present Illness Source: patient Exam Limitations: other (Lethargic/Poor historian) Patient Subjective Stated Complaint: pt to ER with complaints of "passing out" for the last 3 weeks. pt states she drove to dr. ruiz office and they sent her here. Triage Nursing Assessment: pt presents to the ER in wheelchair for complaints of syncopal episodes x 3 weeks. pt appears very drowsy and doesnt answer questions when asked multiple times. pt arouses to name and sounds muffled with words. skin pwd. pt A&Ox3 Physician History: 62 yo obese Wf sent to ER by Dr. Ruiz's office w altered mental status x 3wks. Pt has N/V x1 week/diarrhea x2wks. She denies chest pain/abdominal pain/fever/focal weakness/trauma/cough/coryza/dysuria/hematuria/chest pain/dyspnea. Timing/Duration: week(s) (3 wks) Severity: moderate Character of Deficits: none, general (difuse) Deficits: falling Baseline/Normal Cognition: alert oriented x 3 Current Cognition: alert oriented x 3 Associated Symptoms: confusion, nausea, vomiting Allergies/Adverse Reactions: Influenza Virus Vaccines [Influenza Virus Vaccine] Allergy (Intermediate, Verified 08/29/23 12:05) Swelling of Hands venom-honey bee [bee venom (honey bee)] Allergy (Verified 08/29/23 12:05) famotidine [From Pepcid] Adverse Reaction (Intermediate, Verified 08/29/23 12:05) hot, flushed, diaphoresis, and chest pain. tape Allergy (Uncoded 08/29/23 12:05) Home Medications: ALPRAZolam [Alprazolam] 1 mg PO QID PRN 01/24/16 [History] Potassium Chloride Tab* [Klor Con] 30 meq PO BID 05/07/20 [History] Amlodipine Besylate 10 mg PO DAILY 06/25/21 [History] Aspirin [Lo-Dose Aspirin EC] 81 mg PO DAILY 11/17/21 [History] Hydrocodone/Acetaminophen [Hydrocodone-Acetamin 7.5-325] 1 each PO Q4H PRN 11/17/21 [History] Levothyroxine Sodium 112 Mcg [Synthroid 112 Mcg] 50 mcg PO UD 11/17/21 [History] Pramipexole Di-HCl [Pramipexole Dihydrochloride] 1 mg PO HS 07/28/22 [History] SUMAtriptan succinate [Imitrex 50 mg] 100 mg PO DAILY PRN 07/28/22 [History] Zolpidem Tartrate 10 mg [Ambien 10 MG] 10 mg PO HS 07/28/22 [History] Levothyroxine Sodium 75 Mcg [Synthroid 75 Mcg] 75 mcg PO UD 10/12/22 [History] PANTOPRAZOLE 40 mg Tablet [Protonix 40MG Tablet] 40 mg PO DAILY 10/12/22 [History] Promethazine HCl 25 mg [Phenergan 25 mg] 25 mg PO TID PRN PRN 10/12/22 [History] Albuterol 2.5 mg/3 ml Neb [Proventil 2.5 mg/3 ml Neb] 1 each IH QIDPRN PRN 12/13/22 [History] Fluticasone Propionate [Flonase NASAL] 1 spray INTRANASAL DAILY 12/13/22 [History] Isosorbide Mononitrate [Isosorbide Mononitrate ER] 30 mg PO DAILY 12/13/22 [History] Metoprolol Succinate 100 mg [Toprol Xl 100 MG] 100 mg PO DAILY 12/13/22 [History] Montelukast Sodium 10 mg [Singulair 10 MG] 10 mg PO QHS 12/13/22 [History] Hx Tetanus, Diphtheria Vaccination/Date Given: No Hx Influenza Vaccination/Date Given: No Hx Pneumococcal Vaccination/Date Given: No Travel Risk - International Travel Have you traveled outside of the country in past 3 weeks: No - Coronavirus Screening Are you exhibiting any of the following symptoms?: No Close contact with a COVID-19 positive Pt in past 14-21 Days: No - Vaccine Status Have you recieved a Covid-19 vaccination: No - Vaccination Dates Comment: . - Review of Systems Constitutional: No Symptoms, Fatigue, Lethargy, Malaise Eyes: No Symptoms Ears, Nose, & Throat: No Symptoms Respiratory: No Symptoms Cardiac: No Symptoms Abdominal/Gastrointestinal: No Symptoms, Nausea, Vomiting, Diarrhea Genitourinary Symptoms: No Symptoms Musculoskeletal: No Symptoms Skin: No Symptoms Neurological: No Symptoms Psychological: No Symptoms Endocrine: No Symptoms Hematologic/Lymphatic: No Symptoms Immunological/Allergic: No Symptoms - Past Medical History Pertinent Past Medical History: Yes Neurological History: No Pertinent History ENT History: Other Cardiac History: Congestive Heart Failure, High Cholesterol, Hypertension Respiratory History: CHF, COPD, Pneumonia Endocrine Medical History: Hypothyroidism Musculoskeletal History: No Pertinent History, Other GI Medical History: GERD, Gallbladder Disease, Ulcer, Other History: No Pertinent History Psycho-Social History: Anxiety, Bipolar, Depression Female Reproductive Disorders: No Pertinent History Other Medical History: stage IV skin cancer - Past Surgical History Past Surgical History: Yes Neuro Surgical History: No Pertinent History Cardiac: No Pertinent History, Cardiac Catheterization Respiratory: No Pertinent History Gastrointestinal: Appendectomy, Cholecystectomy Genitourinary: No Pertinent History Musculoskeletal: No Pertinent History Female Surgical History: Hysterectomy Other Surgical History: negative cardiac cath 3 weeks ago - Social History Smoking Status: Former smoker How long have you smoked: 42 years Exposure to second hand smoke: No Alcohol Use: None Drug Use: none Patient Lives Alone: No Significant Family History: heart disease, diabetes, hypertension - Nursing Vital Signs Nursing Vital Signs: Initial Vital Signs Temperature 98 F 08/29/23 11:54 Pulse Rate 82 08/29/23 11:54 Respiratory Rate 28 H 08/29/23 11:54 Blood Pressure 150/87 08/29/23 11:54 O2 Sat by Pulse Oximetry 96 08/29/23 11:54 Pain Scale Pain Intensity 8 Hypertensive - Clements Coma Scale Best Eye Response (Sonya): (3) open to voice Best Verbal Response (Sonya): (5) oriented Best Motor Response (Clements): (6) obeys commands Clements Total: 14 - Physical Exam General Appearance: no apparent distress Eye Exam: bilateral eye: normal inspection, PERRL, EOMI Ears, Nose, Throat Exam: normal ENT inspection, TMs normal, pharynx normal, moist mucous membranes Neck Exam: normal inspection, non-tender, supple, full range of motion, No meningismus, No mass, No Brudzinski, No Kernig's, No carotid bruit Respiratory: airway intact, crackles/rales (Faint rales at B bases), No respiratory distress Cardiovascular: regular rate/rhythm, normal heart sounds, normal peripheral pulses, capillary refill <2 sec, No murmur Gastrointestinal: soft, normal bowel sounds, No tenderness Back Exam: normal inspection, normal range of motion, No CVA tenderness, No vertebral tenderness Extremity Exam: normal inspection, normal range of motion Mental Status: oriented x 3, depressed affect, lethargy pediatrician active practice Exam: normal hearing, No abnormal gag reflex Motor/Sensory: no motor deficit, no sensory deficit, no pronator drift DTR: bicep (R): 2+, bicep (L): 2+ Skin Exam: normal color, warm, dry SpO2 Interpretation: borderline oxygenation SpO2: 93 O2 Delivery: Room Air - Course Nursing assessment & vital signs reviewed: Yes EKG Interpreted by Me: RATE (NSR/Rate81/Prolonged QTc/Low voltage/Artifact present/Normal T waves/No acute ST segment changes) - Radiology Exams Chest X-ray Interpretation: Discussed w/ radiologist (NAD) - CT Exams Head CT Interpretation: Discussed w/radiologist (NAD) Ordered Tests: Active Orders 24 hr Category Date Time Status EKG-ER Only STAT Care 08/29/23 12:12 Completed IV Insertion STAT Care 08/29/23 12:12 Completed CHEST 1 VIEW (PORTABLE) Stat Exams 08/29/23 12:12 Completed HEAD WITHOUT CONTRAST [CT] Stat Exams 08/29/23 12:18 Completed CBC W DIFF Stat Lab 08/29/23 12:25 Completed CMP Stat Lab 08/29/23 12:25 Completed CULTURE,URINE Stat Lab 08/29/23 14:57 Received Lactic Acid Stat Lab 08/29/23 12:41 Completed PROTIME WITH INR Stat Lab 08/29/23 12:25 Completed PTT Stat Lab 08/29/23 12:25 Completed TROPONIN Q4H Lab 08/29/23 12:25 Completed TROPONIN Q4H Lab 08/29/23 16:15 Ordered TROPONIN Q4H Lab 08/29/23 20:15 Ordered UA W/RFX UR CULTURE Stat Lab 08/29/23 14:57 Completed Urine Triage Profile Stat Lab 08/29/23 14:57 Completed Medication Summary Discontinued Medications Generic Name Dose Route Start Last Admin Trade Name Freq PRN Reason Stop Dose Admin Naloxone HCl 2 mg 08/29/23 14:00 08/29/23 14:02 Naloxone Hcl 2mg/2 Ml 2 Mg/2 Ml Syr IV 08/29/23 14:01 2 mg STAT ONE Administration Naloxone HCl Confirm 08/29/23 14:01 Naloxone Hcl 2mg/2 Ml 2 Mg/2 Ml Syr Administered 08/29/23 14:02 Dose 2 mg .ROUTE .STK-MED ONE Lab/Rad Data: Laboratory Result Diagrams 08/29/23 12:25 08/29/23 12:25 Laboratory Results 08/29/23 08/29/23 08/29/23 Range/Units 14:57 14:57 12:41 WBC (4.0-10.5) x10^3/uL RBC (4.1-5.4) x10^6/uL Hgb (12.0-16.0) g/dL Hct (35-47) % MCV (78-100) fL MCH (26-32) pg MCHC (32-36) g/dL RDW (11.5-14.0) % Plt Count (150-450) x10^3/uL MPV (7.5-11.0) fL Gran % (36.0-66.0) % Immature Gran % (Auto) (0.00-0.4) % Nucleat RBC Rel Count (0.00-0.1) % Eos # (Auto) (0-0.5) x10^3/uL Immature Gran # (Auto) (0.00-0.03) x10^3u/L Absolute Lymphs (auto) (1.0-4.6) x10^3/uL Absolute Monos (auto) (0.0-1.3) x10^3/uL Absolute Nucleated RBC (0.00-0.01) x10^3u/L Lymphocytes % (24.0-44.0) % Monocytes % (0.0-12.0) % Eosinophils % (0.00-5.0) % Basophils % (0.0-0.4) % Absolute Granulocytes (1.4-6.9) x10^3/uL Basophils # (0-0.4) x10^3/uL PT (9.4-12.5) SECONDS INR (0.8-3.0) APTT (25.1-36.5) SECONDS Sodium (137-145) mmol/L Potassium (3.5-5.1) mmol/L Chloride (98-107) mmol/L Carbon Dioxide (22-30) mmol/L Anion Gap (5-15) MEQ/L BUN (7-17) mg/dL Creatinine (0.52-1.04) mg/dL Estimated GFR ML/MIN Glucose (74-106) mg/dL Lactic Acid 1.1 (0.4-2.0) Calcium (8.4-10.2) mg/dL Total Bilirubin (0.2-1.3) mg/dL AST (14-36) U/L ALT (0-35) U/L Alkaline Phosphatase (38-126) U/L Troponin I (0.000-0.034) ng/mL Serum Total Protein (6.3-8.2) g/dL Albumin (3.5-5.0) g/dL Urine Color Dark Yellow A (Yellow) Urine Appearance Clear (Clear) Urine pH 5.5 (4.6-8.0) Ur Specific [place] >=1.030 A (1.005-1.030) Urine Protein Negative (Negative) Urine Glucose (UA) >=1000 A (Negative) mg/dL Urine Ketones Trace A (Negative) Urine Blood Negative (Negative) Urine Nitrite Negative (Negative) Urine Bilirubin Negative (Negative) Urine Urobilinogen 1.0 A (0.2) mg/dL Ur Leukocyte Esterase Negative (Negative) U Hyaline Cast (Auto) NONE SEEN (0-2) /LPF Urine Microscopic RBC 0-2 (0-5) /HPF Urine Microscopic WBC 0-2 (0-5) /HPF Ur Epithelial Cells Few (None Seen) /HPF Urine Bacteria None Seen (None Seen) /HPF Urine Culture Reflexed YES (NO) Urine Opiates Level POSITIVE (NEGATIVE) Ur Methadone NEGATIVE (NEGATIVE) Urine Barbiturates NEGATIVE (NEGATIVE) Ur Phencyclidine (PCP) NEGATIVE (NEGATIVE) Urine Amphetamine NEGATIVE (NEGATIVE) U Benzodiazepine Level POSITIVE (NEGATIVE) Urine Cocaine NEGATIVE (NEGATIVE) Urine Marijuana (THC) NEGATIVE (NEGATIVE) 08/29/23 08/29/23 08/29/23 Range/Units 12:25 12:25 12:25 WBC (4.0-10.5) x10^3/uL RBC (4.1-5.4) x10^6/uL Hgb (12.0-16.0) g/dL Hct (35-47) % MCV (78-100) fL MCH (26-32) pg MCHC (32-36) g/dL RDW (11.5-14.0) % Plt Count (150-450) x10^3/uL MPV (7.5-11.0) fL Gran % (36.0-66.0) % Immature Gran % (Auto) (0.00-0.4) % Nucleat RBC Rel Count (0.00-0.1) % Eos # (Auto) (0-0.5) x10^3/uL Immature Gran # (Auto) (0.00-0.03) x10^3u/L Absolute Lymphs (auto) (1.0-4.6) x10^3/uL Absolute Monos (auto) (0.0-1.3) x10^3/uL Absolute Nucleated RBC (0.00-0.01) x10^3u/L Lymphocytes % (24.0-44.0) % Monocytes % (0.0-12.0) % Eosinophils % (0.00-5.0) % Basophils % (0.0-0.4) % Absolute Granulocytes (1.4-6.9) x10^3/uL Basophils # (0-0.4) x10^3/uL PT 10.4 (9.4-12.5) SECONDS INR 0.95 (0.8-3.0) APTT 26.7 (25.1-36.5) SECONDS Sodium 143 (137-145) mmol/L Potassium 3.6 (3.5-5.1) mmol/L Chloride 105 (98-107) mmol/L Carbon Dioxide 27 (22-30) mmol/L Anion Gap 14.9 (5-15) MEQ/L BUN 16 (7-17) mg/dL Creatinine 0.87 (0.52-1.04) mg/dL Estimated GFR > 60.0 ML/MIN Glucose 91 (74-106) mg/dL Lactic Acid (0.4-2.0) Calcium 9.2 (8.4-10.2) mg/dL Total Bilirubin 0.50 (0.2-1.3) mg/dL AST 20 (14-36) U/L ALT 18 (0-35) U/L Alkaline Phosphatase 89 (38-126) U/L Troponin I < 0.012 (0.000-0.034) ng/mL Serum Total Protein 7.6 (6.3-8.2) g/dL Albumin 4.1 (3.5-5.0) g/dL Urine Color (Yellow) Urine Appearance (Clear) Urine pH (4.6-8.0) Ur Specific [place] (1.005-1.030) Urine Protein (Negative) Urine Glucose (UA) (Negative) mg/dL Urine Ketones (Negative) Urine Blood (Negative) Urine Nitrite (Negative) Urine Bilirubin (Negative) Urine Urobilinogen (0.2) mg/dL Ur Leukocyte Esterase (Negative) U Hyaline Cast (Auto) (0-2) /LPF Urine Microscopic RBC (0-5) /HPF Urine Microscopic WBC (0-5) /HPF Ur Epithelial Cells (None Seen) /HPF Urine Bacteria (None Seen) /HPF Urine Culture Reflexed (NO) Urine Opiates Level (NEGATIVE) Ur Methadone (NEGATIVE) Urine Barbiturates (NEGATIVE) Ur Phencyclidine (PCP) (NEGATIVE) Urine Amphetamine (NEGATIVE) U Benzodiazepine Level (NEGATIVE) Urine Cocaine (NEGATIVE) Urine Marijuana (THC) (NEGATIVE) 08/29/23 Range/Units 12:25 WBC 7.6 (4.0-10.5) x10^3/uL RBC 5.04 (4.1-5.4) x10^6/uL Hgb 13.5 (12.0-16.0) g/dL Hct 44.5 (35-47) % MCV 88.3 (78-100) fL MCH 26.8 (26-32) pg MCHC 30.3 L (32-36) g/dL RDW 16.1 H (11.5-14.0) % Plt Count 206 (150-450) x10^3/uL MPV 9.7 (7.5-11.0) fL Gran % 61.0 (36.0-66.0) % Immature Gran % (Auto) 1.2 H (0.00-0.4) % Nucleat RBC Rel Count 0.0 (0.00-0.1) % Eos # (Auto) 0.20 (0-0.5) x10^3/uL Immature Gran # (Auto) 0.09 H (0.00-0.03) x10^3u/L Absolute Lymphs (auto) 1.83 (1.0-4.6) x10^3/uL Absolute Monos (auto) 0.78 (0.0-1.3) x10^3/uL Absolute Nucleated RBC 0.00 (0.00-0.01) x10^3u/L Lymphocytes % 24.2 (24.0-44.0) % Monocytes % 10.3 (0.0-12.0) % Eosinophils % 2.6 (0.00-5.0) % Basophils % 0.7 (0.0-0.4) % Absolute Granulocytes 4.61 (1.4-6.9) x10^3/uL Basophils # 0.05 (0-0.4) x10^3/uL PT (9.4-12.5) SECONDS INR (0.8-3.0) APTT (25.1-36.5) SECONDS Sodium (137-145) mmol/L Potassium (3.5-5.1) mmol/L Chloride (98-107) mmol/L Carbon Dioxide (22-30) mmol/L Anion Gap (5-15) MEQ/L BUN (7-17) mg/dL Creatinine (0.52-1.04) mg/dL Estimated GFR ML/MIN Glucose (74-106) mg/dL Lactic Acid (0.4-2.0) Calcium (8.4-10.2) mg/dL Total Bilirubin (0.2-1.3) mg/dL AST (14-36) U/L ALT (0-35) U/L Alkaline Phosphatase (38-126) U/L Troponin I (0.000-0.034) ng/mL Serum Total Protein (6.3-8.2) g/dL Albumin (3.5-5.0) g/dL Urine Color (Yellow) Urine Appearance (Clear) Urine pH (4.6-8.0) Ur Specific [place] (1.005-1.030) Urine Protein (Negative) Urine Glucose (UA) (Negative) mg/dL Urine Ketones (Negative) Urine Blood (Negative) Urine Nitrite (Negative) Urine Bilirubin (Negative) Urine Urobilinogen (0.2) mg/dL Ur Leukocyte Esterase (Negative) U Hyaline Cast (Auto) (0-2) /LPF Urine Microscopic RBC (0-5) /HPF Urine Microscopic WBC (0-5) /HPF Ur Epithelial Cells (None Seen) /HPF Urine Bacteria (None Seen) /HPF Urine Culture Reflexed (NO) Urine Opiates Level (NEGATIVE) Ur Methadone (NEGATIVE) Urine Barbiturates (NEGATIVE) Ur Phencyclidine (PCP) (NEGATIVE) Urine Amphetamine (NEGATIVE) U Benzodiazepine Level (NEGATIVE) Urine Cocaine (NEGATIVE) Urine Marijuana (THC) (NEGATIVE) - Progress Progress: improved Progress Note: 08/29/23 15:44 Nursing note and vital signs reviewed No food or housing insecurities noted Additional history per All lab results reviewed and shared w pt All CT results reviewed and shared w pt 2mg IV narcan w greatly improved mental status Pt's symptoms due to chronic narcotic/benzo use wo evidence of critical respiratory depression. 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/painter barrel and to cut back on her Campbell/Xanax use 08/29/23 16:03 Counseled pt/family regarding: lab results, diagnosis, need for follow-up, rad results Medical Desision Making - Diagnostic Testing Diagnostic test were ordered, analyzed, and reviewed by me: Yes Radiological Interpretation: Reviewed by me, Discussed w/ radiologist - Risk of complications The pt has a mod risk of morbidity or mortality based on: Need for prescription drug management - Departure Departure Disposition: Home Clinical Impression: Polypharmacy Condition: Stable Critical Care Time: No Referrals: CECE RUIZ MD [Primary Care Provider] - Follow up/PCP as directed Instructions: Syncope (Fainting) (DC) Additional Instructions: Follow up with your family MD Decrease your Campbell/Xanax use Return to ER as needed
[2023-08-29] MEDS ORDERED: NARCAN 2 MG/2 ML IV ONE (14:00)
[2023-08-29] MEDS ORDERED: NARCAN 2 MG/2 ML ONE (14:01)
[2023-08-29 14:45] VITALS: BP 111/54
[2023-08-29 15:24] LABS: Appearance Clear (Clear); Bacteria None Seen /HPF (None Seen); Bilirubin Negative (Negative); Blood Negative (Negative); Glucose, Urine >=1000 mg/dL (Negative); Hyaline Casts NONE SEEN /LPF (0-2); Ketones Trace (Negative); Leukocyte Esterase Negative (Negative); Nitrite Negative (Negative); Ph 5.5 (4.6-8.0); Protein,Urine Dip Negative (Negative); RBC 0-2 /HPF (0-5); Specific Gravity >=1.030 (1.005-1.030); WBC 0-2 /HPF (0-5)
[2023-08-29 15:25] LABS: ADD URINE CULTURE? YES (NO)
[2023-08-29 15:26] LABS: Epithelial Cells Few /HPF (None Seen)
[2023-08-29 15:31] LABS: Amphetamine,Urine NEGATIVE (NEGATIVE); Barbiturate,Urine NEGATIVE (NEGATIVE); Benzodiazepine,Urine POSITIVE (NEGATIVE); Cocaine,Urine NEGATIVE (NEGATIVE); Methadone,Urine NEGATIVE (NEGATIVE); Opiate,Urine POSITIVE (NEGATIVE); PCP,Urine NEGATIVE (NEGATIVE); THC,Urine NEGATIVE (NEGATIVE)
[2023-08-29 15:43] VITALS: O2SAT 93
== END 2023-08-29 15:52 | disposition home or self-care (01) ==
LOC: ED 11:37
DX: R41.82 Altered mental status, unspecified (principal); T40.2X5A Adverse effect of other opioids, initial encounter; T42.4X5A Adverse effect of benzodiazepines, initial encounter; R11.2 Nausea with vomiting, unspecified; R19.7 Diarrhea, unspecified; I11.0 Hypertensive heart disease with heart failure; I50.9 Heart failure, unspecified; E78.5 Hyperlipidemia, unspecified; Z79.891 Long term (current) use of opiate analgesic; Z79.899 Other long term (current) drug therapy; Z28.310 Unvaccinated for COVID-19
CPT/HCPCS: 36000; 36415; 70450; 71045; 80053; 80307; 81001; 83605; 84484; 85025; 85610; 85730; 87086; 93005; 96374; 99284; P9612; J2310

== ENCOUNTER 2023-10-01 13:40 | Observation (INO) | payer BC, MEDICARE ==
[2023-10-01] MEDS ORDERED: DUONEB 0.5-3 MG/3 ml Neb IH ONE ×2 (13:56→14:05)
[2023-10-01] MEDS ORDERED: solu-MEDROL 125 MG, Sterile H2O 10 ml 2 ML IV ONE ×2 (13:56)
[2023-10-01] MEDS ORDERED: Sodium Chloride 0.9% 1000 ML 1,000 ML IV SCH (14:00)
[2023-10-01 14:27] LABS: Absolute Neutrophil Ct (ANC) 5.81 x10^3/uL (1.4-6.9); BASOPHIL % 0.4 % (0.0-0.4); Basophil (Absolute #) 0.04 x10^3/uL (0-0.4); Eosinophil % 2.8 % (0.00-5.0); Eosinophil (Absolute #) 0.25 x10^3/uL (0-0.5); Hemoglobin 14.1 g/dL (12.0-16.0); IMMATURE GRAN # 0.04 x10^3u/L (0.00-0.03); IMMATURE GRAN % 0.4 % (0.00-0.4); Lymphocyte (Absolute #) 2.19 x10^3/uL (1.0-4.6); Lymphocytes % 24.2 % (24.0-44.0); Mean Cell Volume 90.6 fL (78-100); Mean Corpuscular Hemoglobin 27.2 pg (26-32); Mean Platelet Volume 9.7 fL (7.5-11.0); Monocyte (Absolute #) 0.73 x10^3/uL (0.0-1.3); Monocytes % 8.1 % (0.0-12.0); Neutrophil % 64.1 % (36.0-66.0); Platelet Count 202 x10^3/uL (150-450); Red Blood Count 5.19 x10^6/uL (4.1-5.4); Red Cell Distribution Width 16.6 % (11.5-14.0); White Blood Count 9.1 x10^3/uL (4.0-10.5)
[2023-10-01 14:43] LABS: INR 0.94 (0.8-3.0); PROTIME 10.3 SECONDS (9.4-12.5)
[2023-10-01 14:44] LABS: BILIRUBIN,TOTAL 0.5 mg/dL (0.2-1.3); Calcium 9.6 mg/dL (8.4-10.2); Creatinine 1 0.81 mg/dL (0.52-1.04); Potassium 3.9 mmol/L (3.5-5.1); Total Protein 7.3 g/dL (6.3-8.2)
[2023-10-01] MEDS ORDERED: Sterile H2O 10 ml IJ ONE ×2 (14:58→21:58)
[2023-10-01] MEDS ORDERED: solu-MEDROL ONE ×2 (14:58→21:58)
[2023-10-01] MEDS ORDERED: Sodium Chloride 0.9% 1000 ML 1,000 ML ONE (14:58)
--- NOTE | 2023-10-01 15:04 | XRAY ---
Indication: Chest pain and short of breath. Comparison: August 29, 2023 Portable chest less inflated with stable left base discoid atelectasis/scarring. Remaining heart and lungs unremarkable. Bony thorax intact again with osteopenia and degenerative changes. No new/acute findings.
[2023-10-01 15:05] LABS: INFLUENZA A NEGATIVE (NEGATIVE); INFLUENZA B NEGATIVE (NEGATIVE); RESPIRATORY SYNCTIAL VIRUS NEGATIVE (NEGATIVE); SARS-CoV-2 Xpert Express NEGATIVE (NEGATIVE)
[2023-10-01 15:43] LABS: Appearance Clear (Clear); Bacteria None Seen /HPF (None Seen); Bilirubin Negative (Negative); Blood Negative (Negative); Epithelial Cells None Seen /HPF (None Seen); Glucose, Urine >=1000 mg/dL (Negative); Hyaline Casts NONE SEEN /LPF (0-2); Ketones Negative (Negative); Leukocyte Esterase Negative (Negative); Nitrite Negative (Negative); Ph 5.5 (4.6-8.0); Protein,Urine Dip Negative (Negative); RBC 0-2 /HPF (0-5); Urobilinogen 0.2 mg/dL (0.2); WBC 0-2 /HPF (0-5)
[2023-10-01 15:45] LABS: ADD URINE CULTURE? ORDERED SEPARATELY (NO)
--- NOTE | 2023-10-01 18:23 | ERPHSYRPT ---
- History of Present Illness Time Seen by Provider: 10/01/23 13:50 Source: patient Exam Limitations: no limitations Patient Subjective Stated Complaint: pt here for not feeling well for 3 weeks now, was seen 2 days ago by family ,no meds given, she states she has had a f ever, cough and sob, pt is poor historian Triage Nursing Assessment: pt opens eyes to verbal stimuli. assist of one to bed. resp labored at times. dry cough, edema to lower legs Physician History: Patient is a 62-year-old white female who states that she has been sick for 3 weeks she has been weak and falling at home in fact she is on his feet he fell 3 times this morning. She has longstanding COPD. She says he has had some chest pressure cough producing some sputum and congestion she has also had some nausea and vomiting. She has not taken albuterol for 2 weeks for reasons that are unclear. She did have fever at home. Timing/Duration: week(s) (3) Allergies/Adverse Reactions: Influenza Virus Vaccines [Influenza Virus Vaccine] Allergy (Intermediate, Verified 10/01/23 13:46) Swelling of Hands venom-honey bee [bee venom (honey bee)] Allergy (Verified 10/01/23 13:46) famotidine [From Pepcid] Adverse Reaction (Intermediate, Verified 10/01/23 13:46) hot, flushed, diaphoresis, and chest pain. tape Allergy (Uncoded 10/01/23 13:46) Home Medications: ALPRAZolam [Alprazolam] 1 mg PO QID PRN 01/24/16 [History] Potassium Chloride Tab* [Klor Con] 30 meq PO BID 05/07/20 [History] Amlodipine Besylate 10 mg PO DAILY 06/25/21 [History] Aspirin [Lo-Dose Aspirin EC] 81 mg PO DAILY 11/17/21 [History] Hydrocodone/Acetaminophen [Hydrocodone-Acetamin 7.5-325] 1 each PO Q4H PRN 11/17/21 [History] SUMAtriptan succinate [Imitrex 50 mg] 100 mg PO DAILY PRN 07/28/22 [History] Zolpidem Tartrate 10 mg [Ambien 10 MG] 10 mg PO HS 07/28/22 [History] Levothyroxine Sodium 75 Mcg [Synthroid 75 Mcg] 75 mcg PO UD 10/12/22 [History] Albuterol 2.5 mg/3 ml Neb [Proventil 2.5 mg/3 ml Neb] 1 each IH QIDPRN PRN 12/13/22 [History] Fluticasone Propionate [Flonase NASAL] 1 spray INTRANASAL DAILY 12/13/22 [History] Isosorbide Mononitrate [Isosorbide Mononitrate ER] 30 mg PO DAILY 12/13/22 [History] Metoprolol Succinate 100 mg [Toprol Xl 100 MG] 100 mg PO DAILY 12/13/22 [History] Montelukast Sodium 10 mg [Singulair 10 MG] 10 mg PO QHS 12/13/22 [History] Bumetanide 1 mg [Bumex 1 mg] 1 mg PO DAILY 10/01/23 [History] Empagliflozin [Jardiance] 1 ea DAILY 10/01/23 [History] Gabapentin [Neurontin ] 300 mg PO DAILY 10/01/23 [History] Liraglutide [Victoza 2-Benson] 1 ea UD 10/01/23 [History] PANTOPRAZOLE 40 mg Tablet [Protonix 40MG Tablet] 40 mg PO QAM 10/01/23 [History] Spironolactone 25 mg [Aldactone 25 MG] 25 mg PO DAILY 10/01/23 [History] Topiramate [Topiramate ER] 180 mg DAILY 10/01/23 [History] Hx Tetanus, Diphtheria Vaccination/Date Given: No Hx Influenza Vaccination/Date Given: No Hx Pneumococcal Vaccination/Date Given: No Immunizations Up to Date: Yes Travel Risk - International Travel Have you traveled outside of the country in past 3 weeks: No - Coronavirus Screening Are you exhibiting any of the following symptoms?: Yes Symptoms: Fever, Cough: New Onset, Shortness of Breath Close contact with a COVID-19 positive Pt in past 14-21 Days: No - Vaccine Status Have you recieved a Covid-19 vaccination: No - Vaccination Dates Comment: . - Review of Systems Constitutional: Fever, Fatigue, Malaise, Weakness Eyes: No Symptoms Ears, Nose, & Throat: No Symptoms Respiratory: Cough, Dyspnea, Dyspnea on Exertion (PEÑA), Wheezing Cardiac: Chest Pain, No Edema, No Syncope Abdominal/Gastrointestinal: No Abdominal Pain, No Nausea, No Vomiting, No Diarrhea Genitourinary Symptoms: No Dysuria Musculoskeletal: No Back Pain, No Neck Pain Skin: No Rash Neurological: No Symptoms Psychological: No Symptoms Endocrine: No Symptoms Hematologic/Lymphatic: No Symptoms - Past Medical History Pertinent Past Medical History: Yes Neurological History: No Pertinent History ENT History: Other Cardiac History: Congestive Heart Failure, High Cholesterol, Hypertension Respiratory History: CHF, COPD, Pneumonia Endocrine Medical History: Hypothyroidism Musculoskeletal History: No Pertinent History, Other GI Medical History: GERD, Gallbladder Disease, Ulcer, Other History: No Pertinent History Psycho-Social History: Anxiety, Bipolar, Depression Female Reproductive Disorders: No Pertinent History Other Medical History: stage IV skin cancer - Past Surgical History Past Surgical History: Yes Neuro Surgical History: No Pertinent History Cardiac: No Pertinent History, Cardiac Catheterization Respiratory: No Pertinent History Gastrointestinal: Appendectomy, Cholecystectomy Genitourinary: No Pertinent History Musculoskeletal: No Pertinent History Female Surgical History: Hysterectomy Other Surgical History: negative cardiac cath 3 weeks ago - Social History Smoking Status: Current some day smoker How long have you smoked: 42 years Exposure to second hand smoke: No Alcohol Use: None Drug Use: none Patient Lives Alone: No Significant Family History: heart disease, diabetes, hypertension - Nursing Vital Signs Nursing Vital Signs: Initial Vital Signs Pulse Rate 88 10/01/23 13:44 Respiratory Rate 20 10/01/23 13:44 Blood Pressure 115/70 10/01/23 13:44 O2 Sat by Pulse Oximetry 97 10/01/23 13:44 Pain Scale Pain Intensity 4 - Physical Exam General Appearance: mild distress, alert Eye Exam: PERRL/EOMI Neck Exam: normal inspection, supple Respiratory Exam: respiratory distress, diminished breath sounds, crackles/rales, rhonchi, wheezing Cardiovascular/Chest Exam: normal heart sounds, regular rate/rhythm Abdominal/Gastrointestinal Exam: soft, No tenderness, No distention, No mass Extremity Exam: non-tender, normal range of motion, normal inspection, no calf tenderness, no pedal edema Neurologic Exam: alert, oriented x 3, cooperative, cigarette inspector II-XII nml as tested, sensation nml, No motor deficits Skin Exam: normal color, warm, No dry SpO2 Interpretation: normal SpO2: 94 O2 Delivery: Room Air - Course Nursing assessment & vital signs reviewed: Yes EKG Interpreted by Me: RATE (86), Sinus Rhythm, NORMAL AXIS, Non-specific ST Changes, Other (Low voltage in the precordial leads) - Radiology Exams Chest X-ray Interpretation: Reviewed by me Ordered Tests: Active Orders 24 hr Category Date Time Status EKG-ER Only STAT Care 10/01/23 13:56 Active IV Insertion STAT Care 10/01/23 13:56 Active CHEST 1 VIEW (PORTABLE) Stat Exams 10/01/23 13:57 Completed BLOOD CULTURE Stat Lab 10/01/23 14:23 Received BNPII [NT PRO BNPII] Stat Lab 10/01/23 14:10 Completed CBC W DIFF Stat Lab 10/01/23 14:10 Completed CMP Stat Lab 10/01/23 14:10 Completed CULTURE,URINE Stat Lab 10/01/23 14:45 Received Lactic Acid Stat Lab 10/01/23 14:07 Completed PROCALCITONIN Stat Lab 10/01/23 14:10 Completed PROTIME WITH INR Stat Lab 10/01/23 14:10 Completed TROPONIN Q4H Lab 10/01/23 14:10 Completed TROPONIN Q4H Lab 10/01/23 18:00 Ordered TROPONIN Q4H Lab 10/01/23 22:00 Ordered UA W/RFX UR CULTURE Stat Lab 10/01/23 14:45 Completed Respiratory Therapy Assessment DAILY RT 10/01/23 14:08 Completed Medication Summary Generic Name Dose Route Start Last Admin Trade Name Freq PRN Reason Stop Dose Admin Sodium Chloride 1,000 mls @ 100 mls/hr 10/01/23 14:00 10/01/23 15:00 Sodium Chloride 0.9% 1000 Ml IV 10/31/23 13:59 100 mls/hr .Q10H YUMIKO Administration Discontinued Medications Generic Name Dose Route Start Last Admin Trade Name Freq PRN Reason Stop Dose Admin Albuterol/Ipratropium 3 ml 10/01/23 13:56 10/01/23 14:10 Ipratropium/Albuterol Sulfate 3 Ml Ampul.Neb IH 10/01/23 13:57 3 ml STAT ONE Administration Albuterol/Ipratropium Confirm 10/01/23 14:05 Ipratropium/Albuterol Sulfate 3 Ml Ampul.Neb Administered 10/01/23 14:06 Dose 3 ml IH .STK-MED ONE Methylprednisolone Sodium 0 mg 10/01/23 13:56 10/01/23 15:00 Succinate 125 mg/ Sterile IV 10/01/23 13:57 125 mg Water 2 ml STAT ONE Administration Methylprednisolone Sodium Succinate Confirm 10/01/23 14:58 Methylprednis Sod Succ 125 Mg/2 Ml Vial Administered 10/01/23 14:59 Dose 125 mg .ROUTE .STK-MED ONE Sterile Water Confirm 10/01/23 14:58 Water For Injection,Sterile 10 Ml Vial Administered 10/01/23 14:59 Dose 10 ml IJ .STK-MED ONE Lab/Rad Data: Laboratory Result Diagrams 10/01/23 14:10 10/01/23 14:10 Laboratory Results 10/01/23 10/01/23 10/01/23 Range/Units 14:45 14:10 14:10 WBC (4.0-10.5) x10^3/uL RBC (4.1-5.4) x10^6/uL Hgb (12.0-16.0) g/dL Hct (35-47) % MCV (78-100) fL MCH (26-32) pg MCHC (32-36) g/dL RDW (11.5-14.0) % Plt Count (150-450) x10^3/uL MPV (7.5-11.0) fL Gran % (36.0-66.0) % Immature Gran % (Auto) (0.00-0.4) % Nucleat RBC Rel Count (0.00-0.1) % Eos # (Auto) (0-0.5) x10^3/uL Immature Gran # (Auto) (0.00-0.03) x10^3u/L Absolute Lymphs (auto) (1.0-4.6) x10^3/uL Absolute Monos (auto) (0.0-1.3) x10^3/uL Absolute Nucleated RBC (0.00-0.01) x10^3u/L Lymphocytes % (24.0-44.0) % Monocytes % (0.0-12.0) % Eosinophils % (0.00-5.0) % Basophils % (0.0-0.4) % Absolute Granulocytes (1.4-6.9) x10^3/uL Basophils # (0-0.4) x10^3/uL PT (9.4-12.5) SECONDS INR (0.8-3.0) Sodium (137-145) mmol/L Potassium (3.5-5.1) mmol/L Chloride (98-107) mmol/L Carbon Dioxide (22-30) mmol/L Anion Gap (5-15) MEQ/L BUN (7-17) mg/dL Creatinine (0.52-1.04) mg/dL Estimated GFR ML/MIN Glucose (74-106) mg/dL Lactic Acid (0.4-2.0) Calcium (8.4-10.2) mg/dL Total Bilirubin (0.2-1.3) mg/dL AST (14-36) U/L ALT (0-35) U/L Alkaline Phosphatase (38-126) U/L Troponin I (0.000-0.034) ng/mL NT-Pro-B Natriuret Pep 139 (<300) pg/mL Serum Total Protein (6.3-8.2) g/dL Albumin (3.5-5.0) g/dL Procalcitonin (0.030-0.080) ng/mL Urine Color Yellow (Yellow) Urine Appearance Clear (Clear) Urine pH 5.5 (4.6-8.0) Ur Specific Walker 1.020 (1.005-1.030) Urine Protein Negative (Negative) Urine Glucose (UA) >=1000 A (Negative) mg/dL Urine Ketones Negative (Negative) Urine Blood Negative (Negative) Urine Nitrite Negative (Negative) Urine Bilirubin Negative (Negative) Urine Urobilinogen 0.2 (0.2) mg/dL Ur Leukocyte Esterase Negative (Negative) U Hyaline Cast (Auto) NONE SEEN (0-2) /LPF Urine Microscopic RBC 0-2 (0-5) /HPF Urine Microscopic WBC 0-2 (0-5) /HPF Ur Epithelial Cells None Seen (None Seen) /HPF Urine Bacteria None Seen (None Seen) /HPF Urine Culture Reflexed ORDERED SEPARATELY (NO) Influenza Type A Ag NEGATIVE (NEGATIVE) Influenza Type B Ag NEGATIVE (NEGATIVE) RSV (PCR) NEGATIVE (NEGATIVE) SARS-CoV-2 (PCR) NEGATIVE (NEGATIVE) 10/01/23 10/01/23 10/01/23 Range/Units 14:10 14:10 14:10 WBC (4.0-10.5) x10^3/uL RBC (4.1-5.4) x10^6/uL Hgb (12.0-16.0) g/dL Hct (35-47) % MCV (78-100) fL MCH (26-32) pg MCHC (32-36) g/dL RDW (11.5-14.0) % Plt Count (150-450) x10^3/uL MPV (7.5-11.0) fL Gran % (36.0-66.0) % Immature Gran % (Auto) (0.00-0.4) % Nucleat RBC Rel Count (0.00-0.1) % Eos # (Auto) (0-0.5) x10^3/uL Immature Gran # (Auto) (0.00-0.03) x10^3u/L Absolute Lymphs (auto) (1.0-4.6) x10^3/uL Absolute Monos (auto) (0.0-1.3) x10^3/uL Absolute Nucleated RBC (0.00-0.01) x10^3u/L Lymphocytes % (24.0-44.0) % Monocytes % (0.0-12.0) % Eosinophils % (0.00-5.0) % Basophils % (0.0-0.4) % Absolute Granulocytes (1.4-6.9) x10^3/uL Basophils # (0-0.4) x10^3/uL PT 10.3 (9.4-12.5) SECONDS INR 0.94 (0.8-3.0) Sodium (137-145) mmol/L Potassium (3.5-5.1) mmol/L Chloride (98-107) mmol/L Carbon Dioxide (22-30) mmol/L Anion Gap (5-15) MEQ/L BUN (7-17) mg/dL Creatinine (0.52-1.04) mg/dL Estimated GFR ML/MIN Glucose (74-106) mg/dL Lactic Acid (0.4-2.0) Calcium (8.4-10.2) mg/dL Total Bilirubin (0.2-1.3) mg/dL AST (14-36) U/L ALT (0-35) U/L Alkaline Phosphatase (38-126) U/L Troponin I < 0.012 (0.000-0.034) ng/mL NT-Pro-B Natriuret Pep (<300) pg/mL Serum Total Protein (6.3-8.2) g/dL Albumin (3.5-5.0) g/dL Procalcitonin 0.041 (0.030-0.080) ng/mL Urine Color (Yellow) Urine Appearance (Clear) Urine pH (4.6-8.0) Ur Specific Walker (1.005-1.030) Urine Protein (Negative) Urine Glucose (UA) (Negative) mg/dL Urine Ketones (Negative) Urine Blood (Negative) Urine Nitrite (Negative) Urine Bilirubin (Negative) Urine Urobilinogen (0.2) mg/dL Ur Leukocyte Esterase (Negative) U Hyaline Cast (Auto) (0-2) /LPF Urine Microscopic RBC (0-5) /HPF Urine Microscopic WBC (0-5) /HPF Ur Epithelial Cells (None Seen) /HPF Urine Bacteria (None Seen) /HPF Urine Culture Reflexed (NO) Influenza Type A Ag (NEGATIVE) Influenza Type B Ag (NEGATIVE) RSV (PCR) (NEGATIVE) SARS-CoV-2 (PCR) (NEGATIVE) 10/01/23 10/01/23 10/01/23 Range/Units 14:10 14:10 14:07 WBC 9.1 (4.0-10.5) x10^3/uL RBC 5.19 (4.1-5.4) x10^6/uL Hgb 14.1 (12.0-16.0) g/dL Hct 47.0 (35-47) % MCV 90.6 (78-100) fL MCH 27.2 (26-32) pg MCHC 30.0 L (32-36) g/dL RDW 16.6 H (11.5-14.0) % Plt Count 202 (150-450) x10^3/uL MPV 9.7 (7.5-11.0) fL Gran % 64.1 (36.0-66.0) % Immature Gran % (Auto) 0.4 (0.00-0.4) % Nucleat RBC Rel Count 0.0 (0.00-0.1) % Eos # (Auto) 0.25 (0-0.5) x10^3/uL Immature Gran # (Auto) 0.04 H (0.00-0.03) x10^3u/L Absolute Lymphs (auto) 2.19 (1.0-4.6) x10^3/uL Absolute Monos (auto) 0.73 (0.0-1.3) x10^3/uL Absolute Nucleated RBC 0.00 (0.00-0.01) x10^3u/L Lymphocytes % 24.2 (24.0-44.0) % Monocytes % 8.1 (0.0-12.0) % Eosinophils % 2.8 (0.00-5.0) % Basophils % 0.4 (0.0-0.4) % Absolute Granulocytes 5.81 (1.4-6.9) x10^3/uL Basophils # 0.04 (0-0.4) x10^3/uL PT (9.4-12.5) SECONDS INR (0.8-3.0) Sodium 140 (137-145) mmol/L Potassium 3.9 (3.5-5.1) mmol/L Chloride 106 (98-107) mmol/L Carbon Dioxide 23 (22-30) mmol/L Anion Gap 15.0 (5-15) MEQ/L BUN 14 (7-17) mg/dL Creatinine 0.81 (0.52-1.04) mg/dL Estimated GFR 82.0 ML/MIN Glucose 117 H (74-106) mg/dL Lactic Acid 1.7 (0.4-2.0) Calcium 9.6 (8.4-10.2) mg/dL Total Bilirubin 0.50 (0.2-1.3) mg/dL AST 16 (14-36) U/L ALT 18 (0-35) U/L Alkaline Phosphatase 107 (38-126) U/L Troponin I (0.000-0.034) ng/mL NT-Pro-B Natriuret Pep (<300) pg/mL Serum Total Protein 7.3 (6.3-8.2) g/dL Albumin 4.0 (3.5-5.0) g/dL Procalcitonin (0.030-0.080) ng/mL Urine Color (Yellow) Urine Appearance (Clear) Urine pH (4.6-8.0) Ur Specific Walker (1.005-1.030) Urine Protein (Negative) Urine Glucose (UA) (Negative) mg/dL Urine Ketones (Negative) Urine Blood (Negative) Urine Nitrite (Negative) Urine Bilirubin (Negative) Urine Urobilinogen (0.2) mg/dL Ur Leukocyte Esterase (Negative) U Hyaline Cast (Auto) (0-2) /LPF Urine Microscopic RBC (0-5) /HPF Urine Microscopic WBC (0-5) /HPF Ur Epithelial Cells (None Seen) /HPF Urine Bacteria (None Seen) /HPF Urine Culture Reflexed (NO) Influenza Type A Ag (NEGATIVE) Influenza Type B Ag (NEGATIVE) RSV (PCR) (NEGATIVE) SARS-CoV-2 (PCR) (NEGATIVE) - Progress Air Movement: good Blood Culture(s) Obtained: No Antibiotics given: No Medical Desision Making - Discussion of managment Care discussed with:: hospitalist (Tea) Reviewed:: Test results, Need for additional workup Agreed on:: Treatment plan, decision to admit Will see patient: in hospital - Diagnostic Testing Diagnostic test were ordered, analyzed, and reviewed by me: Yes Radiological Interpretation: Reviewed by me - Risk of complications Low Risk: Low risk of morbidity from additional dx testing or treatment - Departure Departure Disposition: Observation Clinical Impression: COPD exacerbation, COPD (chronic obstructive pulmonary disease), Weakness Condition: Fair Critical Care Time: No Referrals: CECE WOODARD MD [Primary Care Provider] - Follow up/PCP as directed Instructions: Chronic Obstructive Pulmonary Disease
[2023-10-01] MEDS ORDERED: ALPRAZOLAM 2 MG PO PRN (21:20)
[2023-10-01] MEDS: DUONEB 0.5-3 MG/3 ml Neb IH SCH (21:22)
[2023-10-01] MEDS ORDERED: HUMULIN R SQ PRN (21:33)
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
[2023-10-01] MEDS ORDERED: Mirapex 0.5 MG Tablet ONE (21:55)
[2023-10-01] MEDS ORDERED: Lactated Ringers 1,000 ML IV SCH (22:00)
[2023-10-01] MEDS ORDERED: Klor Con PO SCH (22:00)
[2023-10-01] MEDS ORDERED: NON-FORMULARY ITEM (Divalproex Sodium [Divalproex Sodium Er] 500 MG Tab.Er.24h) PO SCH (22:00)
[2023-10-01] MEDS ORDERED: PRAMIPEXOLE DI HCL 1 MG PO SCH (22:00)
[2023-10-01] MEDS ORDERED: BUMEX 1 MG PO SCH (22:00)
[2023-10-01] MEDS ORDERED: HUMALOG ONE (22:22)
[2023-10-01] MEDS: Singulair 10 MG PO SCH (22:33)
[2023-10-01] MEDS: Ranexa 500 MG PO SCH (22:33)
[2023-10-01] MEDS: NEURONTIN PO SCH (22:33)
[2023-10-01] MEDS: TOPIRAMATE PO SCH (22:34)
[2023-10-01] MEDS: solu-MEDROL 60 MG, Sterile H2O 10 ml 2 ML IV SCH ×2 (22:34)
[2023-10-01] MEDS ORDERED: DUONEB 0.5-3 MG/3 ml Neb IH SCH (23:00)
[2023-10-01] MEDS ORDERED: xanAX 0.25 MG ONE (23:59)
[2023-10-02] MEDS ORDERED: xanAX 0.25 MG PO PRN
[2023-10-02] MEDS: DUONEB 0.5-3 MG/3 ml Neb IH SCH ×6 (02:48→22:00)
[2023-10-02 04:53] LABS: BASOPHIL % 0.4 % (0.0-0.4); Basophil (Absolute #) 0.03 x10^3/uL (0-0.4); Eosinophil (Absolute #) 0 x10^3/uL (0-0.5); Hemoglobin 13.2 g/dL (12.0-16.0); IMMATURE GRAN # 0.08 x10^3u/L (0.00-0.03); Lymphocyte (Absolute #) 0.95 x10^3/uL (1.0-4.6); Lymphocytes % 12.4 % (24.0-44.0); Mean Cell Volume 88.4 fL (78-100); Mean Corpuscular Hemoglobin 26.5 pg (26-32); Mean Platelet Volume 9.6 fL (7.5-11.0); Monocyte (Absolute #) 0.13 x10^3/uL (0.0-1.3); Monocytes % 1.7 % (0.0-12.0); Neutrophil % 84.5 % (36.0-66.0); Platelet Count 218 x10^3/uL (150-450); Red Blood Count 4.98 x10^6/uL (4.1-5.4); White Blood Count 7.7 x10^3/uL (4.0-10.5)
[2023-10-02 05:05] LABS: ANION GAP 15.7 MEQ/L (5-15); Calcium 9.5 mg/dL (8.4-10.2); Creatinine 1 0.76 mg/dL (0.52-1.04); EST GLOMERULAR FILTRATION RATE 88.5 ML/MIN
[2023-10-02] MEDS ORDERED: solu-MEDROL ONE (05:16)
[2023-10-02] MEDS ORDERED: Sterile H2O 10 ml IJ ONE (05:16)
[2023-10-02] MEDS: solu-MEDROL 60 MG, Sterile H2O 10 ml 2 ML IV SCH ×6 (05:20→22:53)
[2023-10-02] MEDS: Advair Hfa 115/21 Common canister IH SCH ×2 (07:18→18:24)
[2023-10-02] MEDS ORDERED: MEDICATION INTERVENTION MC SCH (07:30)
[2023-10-02] MEDS: Amaryl 2 MG PO SCH (08:12)
--- NOTE | 2023-10-02 09:47 | XRAY ---
Indication: Weakness. COPD. Multiple contiguous axial images obtained through the chest without contrast. Comparison: October 18, 2022 Lung bases are slightly degraded by respiration artifact. There remains mild left base and minimal right base subsegmental atelectasis/scarring. Inferior medial right upper lobe demonstrates 8 mm noncalcified nodule unchanged with respect to November 17, 2021 and favored to be benign given stability over the years. No new pulmonary mass/nodule, infiltrate, or effusion. Heart remains borderline enlarged again with scattered coronary calcifications. Aorta again minimally arteriosclerotic without aneurysm. No pathologic mediastinal lymphadenopathy. Bony thorax intact again with osteopenia and mild degenerative changes throughout the spine. Limited upper abdomen again demonstrates fatty liver, multiple hepatic cysts, small left adrenal adenoma, and cholecystectomy. Stomach is markedly distended with food/fluid. Impression: 1. Respiration artifact. 2. Grossly stable bibasilar atelectasis/scarring, benign right upper lobe noncalcified nodule, borderline cardiomegaly, arteriosclerotic disease, chronic bony findings, fatty liver, hepatic cysts, and left adrenal adenoma. 3. Remaining CT chest without contrast exam is negative.
[2023-10-02] MEDS ORDERED: Aldactone 25 MG PO SCH (10:00)
[2023-10-02] MEDS ORDERED: NON-FORMULARY ITEM (Vortioxetine Hydrobromide [Trintellix] 20 MG Tablet) PO SCH (10:00)
[2023-10-02 10:07] LABS: A-aADO2 36; ABG HEMOGLOBIN 14.4; ABG POTASSIUM 4.2 (3.5-5.1); ARTERIAL BLOOD GAS BASE EXCESS -2.9 (-2.0-2.0); ARTERIAL BLOOD GAS FIO2 21 %; ARTERIAL BLOOD GAS PCO2 41 mmHg (35-45); ARTERIAL BLOOD GAS PO2 62 mmHg (75-100); ARTERIAL BLOOD GAS pH 7.35 (7.35-7.45); CARBOXYHEMOGLOBIN 0.4 % THgb (0.0-6.9); HCO3- 22.6 (22-28); HGB O2 SAT 89.4 g/dF (94-100); Methhemoglobin 0.3 % (1.4-1.5); paO2 pAO1 0.63
[2023-10-02 10:08] LABS: ABG SITE rt brach
[2023-10-02] MEDS: Imdur 60MG PO SCH (10:54)
[2023-10-02] MEDS: ECOTRIN 81 MG PO SCH (10:54)
[2023-10-02] MEDS: NEURONTIN PO SCH ×3 (10:55→22:53)
[2023-10-02] MEDS: Toprol Xl 100 MG PO SCH (10:55)
[2023-10-02] MEDS: Ditropan XL 5 MG PO SCH (10:55)
[2023-10-02] MEDS: SYNTHROID 75 MCG PO SCH (10:55)
[2023-10-02] MEDS: NORVASC 5 MG PO SCH (10:55)
[2023-10-02] MEDS: Ranexa 500 MG PO SCH ×2 (10:55→22:54)
[2023-10-02] MEDS: TOPIRAMATE PO SCH ×2 (10:55→22:53)
[2023-10-02] MEDS: Zithromax 250 MG TABLET PO SCH (10:55)
[2023-10-02] MEDS: JARDIANCE PO SCH (10:56)
[2023-10-02] MEDS: ENOXAPARIN SODIUM SQ SCH (10:56)
[2023-10-02] MEDS: HUMALOG SQ PRN ×3 (11:05→23:18)
[2023-10-02] MEDS: ROCEPHIN 1 Gm-D5w 50 ml Bag** 1 G/50 ML IVPB IV SCH (11:26)
--- NOTE | 2023-10-02 12:36 | PCM.NOTE ---
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 with a multitude of subpleural infiltrate. -CT: 10/02 Impression: 1. Respiration artifact. 2. Grossly stable bibasilar atelectasis/scarring, benign right upper lobe noncalcified nodule, borderline cardiomegaly, arteriosclerotic disease, chronic bony findings, fatty liver, hepatic cysts, and left adrenal adenoma. 3. Remaining CT chest without contrast exam is negative. - [facility] assisting with CPAP replacement - Case management to plan on HHC assistance if she does not go to IP psych placement. - Will need O2 OP setup. Code(s): J44.1 - CHRONIC OBSTRUCTIVE PULMONARY DISEASE W (ACUTE) EXACERBATION (2) Syncope Current Visit: Yes Status: Acute Assessment & Plan: -Orthostatic by history. - NS @ 150 - Continue telemetry. - 10/02/23: Echo EF 77%- awaiting to be read by cardiology - 10/17/22: Echo EF 55-60% IMPRESSION: 1) TECHNICALLY DIFFICULT STUDY. 2) MILD CONCENTRIC LEFT VENTRICULAR HYPERTROPHY WITH NORMAL LEFT VENTRICULAR SYSTOLIC FUNCTION. 3) DIASTOLIC DYSFUNCTION. 4) MILD MITRAL REGURGITATION Code(s): R55 - SYNCOPE AND COLLAPSE (3) Dehydration Current Visit: Yes Status: Acute Assessment & Plan: - anion gap 15.7- monitor - pt eating and drinking well Code(s): E86.0 - DEHYDRATION (4) CHF (congestive heart failure) Current Visit: Yes Status: Acute Assessment & Plan: - Bumex gave in the ER - Echo EF 77% - BNP 139 - Cont jardiance, ASA, metoprolol - Does not appear to be having an exacerbation Code(s): I50.9 - HEART FAILURE, UNSPECIFIED (5) Chronic diarrhea Current Visit: Yes Status: Acute Assessment & Plan: - pt reports chronic after gallbladder removed. - Add cholestyramine. - stool culture and c-diff studies Code(s): K52.9 - NONINFECTIVE GASTROENTERITIS AND COLITIS, UNSPECIFIED (6) Bipolar 1 disorder, depressed Current Visit: No Status: Chronic Assessment & Plan: - added seroquel BID - Not currently on any psych meds - admits to depression - request to speak with psychiatrist - mental health consult. (7) Morbid obesity Current Visit: No Status: Chronic Assessment & Plan: - advised diet and exercise control VTE: Lovenox Code status: full D/C plan 1-2 days Next of Kin: Spouse- BRANDEE Russo [phone] Code(s): E66.01 - MORBID (SEVERE) OBESITY DUE TO EXCESS CALORIES <MEERA HENLEY - Last Filed: 10/02/23 13:48> AGNIESZKA Encounter - AGNIESZKA Encounter Attestation AGNIESZKA Encounter Attestation: "IhzaidpersonallysMINOR Donnelly andhavediscussed pertinent aspects of their care with Meera Lamin-Hesterand agree with the history, physical exam (any modifications based on my personal exam will be noted below), assessment, and plan as outlined in original note. Please see immediately below for my summary of findings and additional assessment and plan along with any meaningful corrections/explanations to the Subjective/Objective portions of the AGNIESZKA note will be noted." My portion of the encounter took place via telemedicine. -Patient currently being treated for COPD exacerbation. Patient does report depressed mood and would like to speak with a psychiatrist. Psych consulted. <BLESSING WHITE - Last Filed: 10/02/23 19:55>
[2023-10-02] MEDS: QUESTRAN Light 4 GM Packet PO SCH ×2 (13:23→13:28)
[2023-10-02] MEDS: Seroquel 25 MG PO SCH ×2 (13:24→22:53)
[2023-10-02] MEDS ORDERED: TYLENOL 325 MG PO PRN (17:12)
[2023-10-02] MEDS: Singulair 10 MG PO SCH (22:53)
[2023-10-02] MEDS: Mirapex 0.5 MG Tablet PO SCH (22:53)
[2023-10-03] MEDS: DUONEB 0.5-3 MG/3 ml Neb IH SCH ×6 (02:57→23:56)
[2023-10-03 05:41] LABS: Hematocrit 43.2 % (35-47); Mean Cell Volume 87.8 fL (78-100); Mean Corpuscular Hemoglobin 26.4 pg (26-32); Mean Corpuscular Hgb Concent. 30.1 g/dL (32-36); Mean Platelet Volume 9.8 fL (7.5-11.0); Platelet Count 230 x10^3/uL (150-450); Red Blood Count 4.92 x10^6/uL (4.1-5.4); Red Cell Distribution Width 16.9 % (11.5-14.0); White Blood Count 10.1 x10^3/uL (4.0-10.5)
[2023-10-03] MEDS: solu-MEDROL 60 MG, Sterile H2O 10 ml 2 ML IV SCH ×6 (05:46→22:18)
[2023-10-03 06:04] LABS: ANION GAP 15.7 MEQ/L (5-15); BILIRUBIN,TOTAL 0.3 mg/dL (0.2-1.3); Calcium 9.6 mg/dL (8.4-10.2); Creatinine 1 0.7 mg/dL (0.52-1.04); EST GLOMERULAR FILTRATION RATE 97.7 ML/MIN; Potassium 4.3 mmol/L (3.5-5.1); Total Protein 7.8 g/dL (6.3-8.2)
[2023-10-03] MEDS: Advair Hfa 115/21 Common canister IH SCH (07:19)
[2023-10-03] MEDS: HUMALOG SQ PRN ×3 (07:26→22:19)
[2023-10-03] MEDS: Amaryl 2 MG PO SCH (07:27)
[2023-10-03] MEDS: ENOXAPARIN SODIUM SQ SCH (09:38)
[2023-10-03] MEDS: ROCEPHIN 1 Gm-D5w 50 ml Bag** 1 G/50 ML IVPB IV SCH (09:38)
[2023-10-03] MEDS: Ranexa 500 MG PO SCH ×2 (09:39→22:20)
[2023-10-03] MEDS: Imdur 60MG PO SCH (09:39)
[2023-10-03] MEDS: Ditropan XL 5 MG PO SCH (09:39)
[2023-10-03] MEDS: ECOTRIN 81 MG PO SCH (09:39)
[2023-10-03] MEDS: Seroquel 25 MG PO SCH ×2 (09:39→22:19)
[2023-10-03] MEDS: NORVASC 5 MG PO SCH (09:39)
[2023-10-03] MEDS: NEURONTIN PO SCH ×3 (09:39→22:19)
[2023-10-03] MEDS: Toprol Xl 100 MG PO SCH (09:39)
[2023-10-03] MEDS: TOPIRAMATE PO SCH ×2 (09:39→22:20)
[2023-10-03] MEDS: Zithromax 250 MG TABLET PO SCH (09:39)
[2023-10-03] MEDS: SYNTHROID 75 MCG PO SCH (09:40)
[2023-10-03] MEDS: JARDIANCE PO SCH (09:41)
[2023-10-03] MEDS ORDERED: NON-FORMULARY ITEM (Sumatriptan Succinate [Imitrex 50 Mg] 50 MG Tablet) PO PRN (09:48)
[2023-10-03] MEDS ORDERED: DICLOFENAC SODIUM TP PRN (09:50)
[2023-10-03] MEDS ORDERED: MEDICATION INTERVENTION MC SCH (10:00)
[2023-10-03] MEDS: NORCO 7.5/325 MG TAB PO PRN ×2 (10:21→19:57)
[2023-10-03] MEDS: PULMICORT 0.5 MG/2 ML RESPULES IH SCH ×2 (11:39→20:07)
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
[2023-10-03] MEDS: QUESTRAN Light 4 GM Packet PO SCH (13:26)
[2023-10-03] MEDS: PATIENT OWN MEDICATION SQ SCH (13:29)
[2023-10-03] MEDS ORDERED: PROVENTIL 2.5 MG/3 ML NEB IH PRN (20:14)
[2023-10-03] MEDS: Singulair 10 MG PO SCH (22:20)
[2023-10-03] MEDS: Mirapex 0.5 MG Tablet PO SCH (22:20)
[2023-10-04 01:06] LABS: 027 TOX PROD PRESUMPTIVE NEGATIVE (NEGATIVE); TOXIGENIC C. DIFF ORG NEGATIVE (NEGATIVE)
[2023-10-04] MEDS: DUONEB 0.5-3 MG/3 ml Neb IH SCH ×4 (03:57→15:21)
[2023-10-04] MEDS: NORCO 7.5/325 MG TAB PO PRN ×2 (04:46→14:54)
[2023-10-04 05:17] LABS: Hematocrit 44.9 % (35-47); Hemoglobin 13.4 g/dL (12.0-16.0); Mean Cell Volume 89.4 fL (78-100); Mean Corpuscular Hemoglobin 26.7 pg (26-32); Mean Corpuscular Hgb Concent. 29.8 g/dL (32-36); Mean Platelet Volume 9.5 fL (7.5-11.0); Platelet Count 232 x10^3/uL (150-450); Red Blood Count 5.02 x10^6/uL (4.1-5.4); Red Cell Distribution Width 16.8 % (11.5-14.0); White Blood Count 11.6 x10^3/uL (4.0-10.5)
[2023-10-04 05:32] LABS: ALBUMIN 4.3 g/dL (3.5-5.0); ANION GAP 16.6 MEQ/L (5-15); BILIRUBIN,TOTAL 0.4 mg/dL (0.2-1.3); Calcium 9.6 mg/dL (8.4-10.2); Creatinine 1 0.82 mg/dL (0.52-1.04); EST GLOMERULAR FILTRATION RATE 80.8 ML/MIN; Potassium 4.1 mmol/L (3.5-5.1)
[2023-10-04] MEDS: solu-MEDROL 60 MG, Sterile H2O 10 ml 2 ML IV SCH ×6 (05:44→15:10)
[2023-10-04] MEDS: PULMICORT 0.5 MG/2 ML RESPULES IH SCH (07:19)
[2023-10-04] MEDS: Amaryl 2 MG PO SCH (08:09)
[2023-10-04] MEDS: HUMALOG SQ PRN ×3 (08:13→17:59)
[2023-10-04] MEDS: Ditropan XL 5 MG PO SCH (10:33)
[2023-10-04] MEDS: Imdur 60MG PO SCH (10:33)
[2023-10-04] MEDS: ECOTRIN 81 MG PO SCH (10:34)
[2023-10-04] MEDS: Ranexa 500 MG PO SCH (10:34)
[2023-10-04] MEDS: Seroquel 25 MG PO SCH (10:35)
[2023-10-04] MEDS: NORVASC 5 MG PO SCH (10:35)
[2023-10-04] MEDS: NEURONTIN PO SCH ×2 (10:35→14:54)
[2023-10-04] MEDS: Zithromax 250 MG TABLET PO SCH (10:35)
[2023-10-04] MEDS: SYNTHROID 75 MCG PO SCH (10:35)
[2023-10-04] MEDS: TOPIRAMATE PO SCH (10:36)
[2023-10-04] MEDS: Toprol Xl 100 MG PO SCH (10:36)
[2023-10-04] MEDS: ENOXAPARIN SODIUM SQ SCH (10:36)
[2023-10-04] MEDS: PATIENT OWN MEDICATION SQ SCH (10:37)
[2023-10-04] MEDS: JARDIANCE PO SCH (10:37)
[2023-10-04 11:39] VITALS: TEMP 98
[2023-10-04] MEDS: QUESTRAN Light 4 GM Packet PO SCH (12:03)
--- NOTE | 2023-10-04 12:55 | ECHO ---
Transthoracic echocardiographic examination and color Doppler was done on 10/02/2023. INDICATION: Syncope. IMPRESSION: 1) NO REGIONAL WALL MOTION ABNORMALITY. ESTIMATED GLOBAL LEFT VENTRICULAR EJECTION FRACTION OF ABOUT 60 TO 65%. 2) MILD MITRAL REGURGITATION. 3) TRACE TRICUSPID REGURGITATION. 4) LEFT VENTRICULAR HYPERTROPHY. The left ventricle is visualized and demonstrated adequate motion of all the segments. Estimated global left ventricular ejection fraction between 60 to 65%. There is mild left ventricular hypertrophy. The mitral valve is partially seen and this appears to open adequately. There is mild mitral regurgitation. Left atrium appears to be normal. The aortic valve is mildly thickened. The peak gradient across the aortic valve is 21 mm of Mercury. The right side chambers are normal with normal right ventricular contractility. There is trace tricuspid regurgitation.
[2023-10-04 15:24] VITALS: PULSE 82; RESP 20; O2SAT 90
[2023-10-04 17:31] VITALS: BP 156/78
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
== END 2023-10-04 18:31 | disposition home health service (06) ==
LOC: ED 13:40 → MED SURG 19:50 → UNDOADMOB 19:50 → MED SURG 10-02 04:09 → UNDOADMOB 10-02 04:09
PROVIDERS: ADMIT Internal Medicine Critical Care Medicine; ATTEND Internal Medicine Critical Care Medicine
DX: J44.1 Chronic obstructive pulmonary disease with (acute) exacerbation (principal); R55 Syncope and collapse; J96.11 Chronic respiratory failure with hypoxia; E86.0 Dehydration; J44.9 Chronic obstructive pulmonary disease, unspecified; I11.0 Hypertensive heart disease with heart failure; I50.9 Heart failure, unspecified; E78.5 Hyperlipidemia, unspecified; R07.9 Chest pain, unspecified; F31.9 Bipolar disorder, unspecified; K52.9 Noninfective gastroenteritis and colitis, unspecified; F41.9 Anxiety disorder, unspecified; E66.01 Morbid (severe) obesity due to excess calories; Z79.899 Other long term (current) drug therapy; Z20.828 Contact with and (suspected) exposure to other viral communicable diseases; Z85.828 Personal history of other malignant neoplasm of skin
CPT/HCPCS: 0241U; 36000; 36415; 36600; 71045; 71250; 80048; 80053; 81001; 82375; 82803; 82947; 83605; 83880; 84145; 84484; 85025; 85027; 85610; 87040; 87045; 87046; 87086; 87427; 87493; 93005; 93306; 94640; 94660; 94760; 94762; 96374; 97161; 99285; Q3014; 90791; G0378; J0696; J1650; J1817; J2930; J7609; A9270-GY

== ENCOUNTER 2023-12-19 08:21 | Day surgery (SDC) | payer BC, MEDICARE ==
[2013-08-25 10:02] VITALS: BP 143/97
[2023-12-19] MEDS ORDERED: Decadron 4 MG INJ IV ONE (08:22)
[2023-12-19] MEDS ORDERED: LIDOCAINE HCL 2% 100 MG/5 ML IJ ONE (08:22)
[2023-12-19] MEDS ORDERED: DIPRIVAN 200 MG/20 ML IV ONE (09:54)
--- NOTE | 2023-12-19 12:04 | XRAY ---
Indication: Left C2-C4 MBB. Intraoperative fluoroscopy provided for 24 seconds. 3 digital spot image submitted for interpretation demonstrates posterior needle tips projecting over the expected left C2-C4 nerve roots. Correlate with intraoperative findings/report.
--- NOTE | 2023-12-19 12:08 | XRAY ---
24 seconds of fluoroscopy was used in surgery for a left C2-C4 MBB.
[2023-12-19] MEDS ORDERED: Lactated Ringers 1,000 ML IV ONE (14:20)
== END 2023-12-19 10:24 | disposition home or self-care (01) ==
LOC: SDC-PAIN 08:21
PROVIDERS: ATTEND Psychiatry & Neurology Pain Medicine
DX: M47.812 Spondylosis without myelopathy or radiculopathy, cervical region (principal); E11.9 Type 2 diabetes mellitus without complications
CPT/HCPCS: 64490; 64491; 72040; 77002; 82947; J1100; J2704

== ENCOUNTER 2024-01-14 10:48 | Emergency (ER) | payer BC, MEDICARE ==
--- NOTE | 2024-01-14 10:54 | ERPHSYRPT ---
- History of Present Illness Time Seen by Provider: 01/14/24 10:53 Historian: patient, family Exam Limitations: no limitations Physician History: This is a 63-year-old obese white female patient of Dr. Woodard who has had intermittent aches in the substernal central chest without radiation over the last 2 to 3 days. 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 Patient had recently been on a Z-Benson to treat an infection. She also complains of some watery diarrhea in the last few days. Patient denies any nausea vomiting symptoms. Patient has a history of stage III congestive heart failure, hyperlipidemia, hypertension, COPD, hypothyroidism, gastroesophageal reflux disease, anxiety and depression. Timing/Duration: day(s) (2 to 3 days), worse Quality: aching Location: substernal, central Chest Pain Radiation: no radiation Severity of Pain-Max: mild Severity of Pain-Current: mild Modifying Factors: Improves With: nothing Associated Symptoms: other (Watery diarrhea), No nausea, No vomiting, No palpitations, No abdominal pain, No shortness of breath, No cough Nitro Today/Relief: no nitro taken today Aspirin Treatment Today: no aspirin today Allergies/Adverse Reactions: Influenza Virus Vaccines [Influenza Virus Vaccine] Allergy (Intermediate, Verified 01/14/24 10:51) Swelling of Hands venom-honey bee [bee venom (honey bee)] Allergy (Verified 01/14/24 10:51) famotidine [From Pepcid] Adverse Reaction (Intermediate, Verified 01/14/24 10:51) hot, flushed, diaphoresis, and chest pain. tape Allergy (Uncoded 01/14/24 10:51) Home Medications: ALPRAZolam [Alprazolam] 1 mg PO QID PRN 01/24/16 [History] Potassium Chloride Tab* [Klor Con] 30 meq PO BID 05/07/20 [History] Aspirin [Lo-Dose Aspirin EC] 81 mg PO DAILY 11/17/21 [History] Hydrocodone/Acetaminophen [Hydrocodone-Acetamin 7.5-325] 1 tab PO Q4-6HPRN PRN 11/17/21 [History] SUMAtriptan succinate [Imitrex 50 mg] 50 mg PO UD PRN 07/28/22 [History] Zolpidem Tartrate 10 mg [Ambien 10 MG] 10 mg PO HS 07/28/22 [History] Levothyroxine Sodium 75 Mcg [Synthroid 75 Mcg] 75 mcg PO DAILY 10/12/22 [History] Albuterol 2.5 mg/3 ml Neb [Proventil 2.5 mg/3 ml Neb] 1 each IH QIDPRN PRN 12/13/22 [History] Metoprolol Succinate 100 mg [Toprol Xl 100 MG] 100 mg PO DAILY 12/13/22 [History] Montelukast Sodium 10 mg [Singulair 10 MG] 10 mg PO QHS 12/13/22 [History] Amlodipine Besylate 10 mg PO DAILY 10/01/23 [History] Bumetanide 1 mg [Bumex 1 mg] 1 mg PO BID 10/01/23 [History] Divalproex Sodium [Divalproex Sodium ER] 500 mg PO BID 10/01/23 [History] Empagliflozin [Jardiance] 10 mg PO DAILY 10/01/23 [History] Gabapentin [Neurontin ] 300 mg PO TID 10/01/23 [History] Glimepiride 2 mg [Amaryl 2 MG] 2 mg PO DAILY 10/01/23 [History] Isosorbide Mononitrate [Isosorbide Mononitrate ER] 60 mg PO DAILY 10/01/23 [History] Pantoprazole Sodium 40 mg PO DAILY 10/01/23 [History] Pramipexole Di-HCl [Mirapex] 0.5 - 1 mg PO QHS 10/01/23 [History] Ranolazine [Ranolazine ER] 500 mg PO BID 10/01/23 [History] Spironolactone 25 mg [Aldactone 25 MG] 25 mg PO DAILY 10/01/23 [History] Topiramate 50 mg PO BID 10/01/23 [History] Vortioxetine Hydrobromide [Trintellix] 20 mg PO DAILY 10/01/23 [History] Hx Tetanus, Diphtheria Vaccination/Date Given: No Hx Influenza Vaccination/Date Given: No Hx Pneumococcal Vaccination/Date Given: No Travel Risk - International Travel Have you traveled outside of the country in past 3 weeks: No - Coronavirus Screening Are you exhibiting any of the following symptoms?: Yes Symptoms: Vomiting/Diarrhea Close contact with a COVID-19 positive Pt in past 14-21 Days: No - Vaccine Status Have you recieved a Covid-19 vaccination: No - Vaccination Dates Comment: . - Review of Systems Constitutional: No Symptoms Eyes: No Symptoms Ears, Nose, & Throat: No Symptoms Respiratory: No Symptoms Cardiac: Chest Pain Abdominal/Gastrointestinal: Diarrhea, No Abdominal Pain, No Nausea, No Vomiting, No Constipation, No Appetite Changes Genitourinary Symptoms: No Symptoms Musculoskeletal: No Symptoms Skin: No Symptoms Neurological: No Symptoms Psychological: No Symptoms Endocrine: No Symptoms Hematologic/Lymphatic: No Symptoms Immunological/Allergic: No Symptoms All Other Systems: Reviewed and Negative - Past Medical History Pertinent Past Medical History: Yes Neurological History: No Pertinent History ENT History: Other Cardiac History: Congestive Heart Failure, High Cholesterol, Hypertension Respiratory History: CHF, COPD, Pneumonia Endocrine Medical History: Hypothyroidism Musculoskeletal History: No Pertinent History, Other GI Medical History: GERD, Gallbladder Disease, Ulcer, Other History: No Pertinent History Psycho-Social History: Anxiety, Bipolar, Depression Female Reproductive Disorders: No Pertinent History Other Medical History: stage IV skin cancer - Past Surgical History Past Surgical History: Yes Neuro Surgical History: No Pertinent History Cardiac: No Pertinent History, Cardiac Catheterization Respiratory: No Pertinent History Gastrointestinal: Appendectomy, Cholecystectomy Genitourinary: No Pertinent History Musculoskeletal: No Pertinent History Female Surgical History: Hysterectomy Other Surgical History: negative cardiac cath 3 weeks ago - Social History Smoking Status: Never smoker How long have you smoked: 42 years Exposure to second hand smoke: No Alcohol Use: None Drug Use: none Patient Lives Alone: No Significant Family History: heart disease, diabetes, hypertension - Nursing Vital Signs Nursing Vital Signs: Initial Vital Signs Pulse Rate 81 01/14/24 11:00 Respiratory Rate 20 01/14/24 11:00 Blood Pressure 112/68 01/14/24 11:00 O2 Sat by Pulse Oximetry 96 01/14/24 11:00 Pain Scale Pain Intensity 8 - Physical Exam General Appearance: no apparent distress, alert, anxiety, obese Eye Exam: PERRL/EOMI, eyes nml inspection Ears, Nose, Throat Exam: normal ENT inspection, moist mucous membranes Neck Exam: normal inspection, non-tender, supple, full range of motion Respiratory Exam: normal breath sounds, lungs clear, airway intact, No chest tenderness, No respiratory distress Cardiovascular Exam: regular rate/rhythm, normal heart sounds, normal peripheral pulses Gastrointestinal/Abdomen Exam: soft, normal bowel sounds, No tenderness Pelvic Exam: not done Rectal Exam: not done Back Exam: normal inspection, normal range of motion, No CVA tenderness, No vertebral tenderness Extremity Exam: normal range of motion, pelvis stable, pedal edema (Mild ankle bilateral) Neurologic Exam: alert, oriented x 3, cooperative, microsoft dynamics manager architect II-XII nml as tested, normal mood/affect, nml cerebellar function, nml station & gait, sensation nml Skin Exam: normal color, warm, dry Lymphatic Exam: No adenopathy SpO2 Interpretation: normal O2 Delivery: Room Air - Course Nursing assessment & vital signs reviewed: Yes EKG Interpreted by Me: RATE (82), Right Revere Deviation (Borderline), NORMAL INTERVALS, NORMAL QRS, NORMAL ST-T, Other (No acute ischemic changes on today's twelve-lead EKG.) Ordered Tests: Active Orders 24 hr Category Date Time Status Training Coordinator STAT Care 01/14/24 11:09 Active EKG-ER Only STAT Care 01/14/24 11:09 Active IV Insertion STAT Care 01/14/24 11:09 Active Pulse Oximetry (ED) STAT Care 01/14/24 11:09 Active CHEST 1 VIEW (PORTABLE) Stat Exams 01/14/24 11:09 Completed CBC W DIFF Stat Lab 01/14/24 11:10 Completed CMP Stat Lab 01/14/24 11:10 Completed D-DIMER QUANTITATIVE Stat Lab 01/14/24 11:10 Completed NT PRO BNPII Stat Lab 01/14/24 Completed PROTIME WITH INR Stat Lab 01/14/24 11:10 Completed TROPONIN Q4H Lab 01/14/24 11:10 Completed TROPONIN Q4H Lab 01/14/24 15:15 Ordered TROPONIN Q4H Lab 01/14/24 19:15 Ordered Medication Summary Discontinued Medications Generic Name Dose Route Start Last Admin Trade Name Freq PRN Reason Stop Dose Admin Aspirin 324 mg 01/14/24 11:09 01/14/24 11:33 Aspirin 81 Mg Tab.Chew PO 01/14/24 11:10 324 mg STAT ONE Administration Aspirin Confirm 01/14/24 11:32 Aspirin 81 Mg Tab.Chew Administered 01/14/24 11:33 Dose 324 mg .ROUTE .STK-MED ONE Lab/Rad Data: Laboratory Result Diagrams 01/14/24 11:10 01/14/24 11:10 Laboratory Results 01/14/24 01/14/24 01/14/24 Range/Units Unknown 12:29 11:10 WBC (4.0-10.5) x10^3/uL RBC (4.1-5.4) x10^6/uL Hgb (12.0-16.0) g/dL Hct (35-47) % MCV (78-100) fL MCH (26-32) pg MCHC (32-36) g/dL RDW (11.5-14.0) % Plt Count (150-450) x10^3/uL MPV (7.5-11.0) fL Gran % (36.0-66.0) % Immature Gran % (Auto) (0.00-0.4) % Nucleat RBC Rel Count (0.00-0.1) % Eos # (Auto) (0-0.5) x10^3/uL Immature Gran # (Auto) (0.00-0.03) x10^3u/L Absolute Lymphs (auto) (1.0-4.6) x10^3/uL Absolute Monos (auto) (0.0-1.3) x10^3/uL Absolute Nucleated RBC (0.00-0.01) x10^3u/L Lymphocytes % (24.0-44.0) % Monocytes % (0.0-12.0) % Eosinophils % (0.00-5.0) % Basophils % (0.0-0.4) % Absolute Granulocytes (1.4-6.9) x10^3/uL Basophils # (0-0.4) x10^3/uL PT (9.4-12.5) SECONDS INR (0.8-3.0) D-Dimer (0.0-0.50) mg/L Sodium (137-145) mmol/L Potassium (3.5-5.1) mmol/L Chloride (98-107) mmol/L Carbon Dioxide (22-30) mmol/L Anion Gap (5-15) MEQ/L BUN (7-17) mg/dL Creatinine (0.52-1.04) mg/dL Estimated GFR ML/MIN Glucose (74-106) mg/dL Calcium (8.4-10.2) mg/dL Total Bilirubin (0.2-1.3) mg/dL AST (14-36) U/L ALT (0-35) U/L Alkaline Phosphatase (38-126) U/L Troponin I < 0.012 (0.000-0.034) ng/mL NT-Pro-B Natriuret Pep 145 (<300) pg/mL Serum Total Protein (6.3-8.2) g/dL Albumin (3.5-5.0) g/dL Influenza Type A Ag NEGATIVE (NEGATIVE) Influenza Type B Ag NEGATIVE (NEGATIVE) RSV (PCR) NEGATIVE (NEGATIVE) SARS-CoV-2 (PCR) NEGATIVE (NEGATIVE) 01/14/24 01/14/24 01/14/24 Range/Units 11:10 11:10 11:10 WBC 8.7 (4.0-10.5) x10^3/uL RBC 4.88 (4.1-5.4) x10^6/uL Hgb 13.5 (12.0-16.0) g/dL Hct 43.2 (35-47) % MCV 88.5 (78-100) fL MCH 27.7 (26-32) pg MCHC 31.3 L (32-36) g/dL RDW 17.8 H (11.5-14.0) % Plt Count 212 (150-450) x10^3/uL MPV 10.4 (7.5-11.0) fL Gran % 60.2 (36.0-66.0) % Immature Gran % (Auto) 1.5 H (0.00-0.4) % Nucleat RBC Rel Count 0.0 (0.00-0.1) % Eos # (Auto) 0.26 (0-0.5) x10^3/uL Immature Gran # (Auto) 0.13 H (0.00-0.03) x10^3u/L Absolute Lymphs (auto) 2.27 (1.0-4.6) x10^3/uL Absolute Monos (auto) 0.73 (0.0-1.3) x10^3/uL Absolute Nucleated RBC 0.00 (0.00-0.01) x10^3u/L Lymphocytes % 26.2 (24.0-44.0) % Monocytes % 8.4 (0.0-12.0) % Eosinophils % 3.0 (0.00-5.0) % Basophils % 0.7 (0.0-0.4) % Absolute Granulocytes 5.20 (1.4-6.9) x10^3/uL Basophils # 0.06 (0-0.4) x10^3/uL PT 10.2 (9.4-12.5) SECONDS INR 0.93 (0.8-3.0) D-Dimer 0.36 (0.0-0.50) mg/L Sodium 138 (137-145) mmol/L Potassium 3.6 (3.5-5.1) mmol/L Chloride 106 (98-107) mmol/L Carbon Dioxide 26 (22-30) mmol/L Anion Gap 10.4 (5-15) MEQ/L BUN 9 (7-17) mg/dL Creatinine 0.90 (0.52-1.04) mg/dL Estimated GFR 71.8 ML/MIN Glucose 78 (74-106) mg/dL Calcium 9.6 (8.4-10.2) mg/dL Total Bilirubin 0.60 (0.2-1.3) mg/dL AST 14 (14-36) U/L ALT 16 (0-35) U/L Alkaline Phosphatase 92 (38-126) U/L Troponin I (0.000-0.034) ng/mL NT-Pro-B Natriuret Pep (<300) pg/mL Serum Total Protein 7.6 (6.3-8.2) g/dL Albumin 4.2 (3.5-5.0) g/dL Influenza Type A Ag (NEGATIVE) Influenza Type B Ag (NEGATIVE) RSV (PCR) (NEGATIVE) SARS-CoV-2 (PCR) (NEGATIVE) - Progress Progress: improved, re-examined Air Movement: good Progress Note: 01/14/24 12:00 This patient's medical issue is 1 of moderate complexity. The level of complexity and the workup performed is based on review of the patient's past medical history, the patient's medication list, review of the patient's drug allergy list, history of present illness, and physical findings on examination. The workup includes placement of an intravenous line, twelve-lead EKG, CBC, CMP, D-dimer, BNP, troponin level, viral swabs and chest x-ray. 01/14/24 13:14 I interpreted the patient's laboratory data results. Based on her laboratory data results, the patient does not have any acute or emergent medical issue at this time. We are awaiting the final lab which is the BNP. If the BNP is in a reasonable range, we will discharge the patient to home. 01/14/24 13:15 01/14/24 13:31 The BNP has now returned and it is in normal range. Chest x-ray was interpreted by the radiologist and I reviewed the impression. Impression states new right infrahilar infiltrate without consolidation or large effusion. We will provide the patient with a dose of Rocephin intravenously and then discharge her to home. I will remotely send a prescription of Levaquin to her pharmacy. Blood Culture(s) Obtained: No Antibiotics given: Yes Counseled pt/family regarding: lab results, diagnosis, need for follow-up, rad results Medical Desision Making - Diagnostic Testing Diagnostic test were ordered, analyzed, and reviewed by me: Yes Radiological Interpretation: Reviewed by me, Teleradiologist Report - Risk of complications The pt has a mod risk of morbidity or mortality based on: Need for prescription drug management - Departure Departure Disposition: Home Clinical Impression: Nonspecific chest pain, Right pulmonary infiltrate on CXR Condition: Stable Critical Care Time: No Referrals: CECE WOODARD MD [Primary Care Provider] - Follow up/PCP as directed Additional Instructions: Take your medication as prescribed. Call your primary care provider today, 01/14/2024 to make arranges for follow-up appointment for further evaluation and management. Prescriptions: Levofloxacin [Levaquin 500 MG Tablet] 500 mg PO DAILY #7 tablet
--- NOTE | 2024-01-14 11:29 | XRAY ---
Indication: Chest pain. Comparison: January 01, 2024 Portable chest demonstrates new right infrahilar infiltrate without consolidation/large effusion. Stable left base subsegmental atelectasis/scarring. Heart not enlarged. Bony thorax intact again with osteopenia and mild degenerative changes.
[2024-01-14] MEDS ORDERED: BABY ASPIRIN 81 MG CHEW ONE (11:32)
[2024-01-14] MEDS: BABY ASPIRIN 81 MG CHEW PO ONE (11:33)
[2024-01-14 12:18] LABS: BASOPHIL % 0.7 % (0.0-0.4); Basophil (Absolute #) 0.06 x10^3/uL (0-0.4); Eosinophil (Absolute #) 0.26 x10^3/uL (0-0.5); Hematocrit 43.2 % (35-47); Hemoglobin 13.5 g/dL (12.0-16.0); IMMATURE GRAN # 0.13 x10^3u/L (0.00-0.03); IMMATURE GRAN % 1.5 % (0.00-0.4); Lymphocyte (Absolute #) 2.27 x10^3/uL (1.0-4.6); Lymphocytes % 26.2 % (24.0-44.0); Mean Cell Volume 88.5 fL (78-100); Mean Corpuscular Hemoglobin 27.7 pg (26-32); Mean Corpuscular Hgb Concent. 31.3 g/dL (32-36); Mean Platelet Volume 10.4 fL (7.5-11.0); Monocyte (Absolute #) 0.73 x10^3/uL (0.0-1.3); Monocytes % 8.4 % (0.0-12.0); Neutrophil % 60.2 % (36.0-66.0); Platelet Count 212 x10^3/uL (150-450); Red Blood Count 4.88 x10^6/uL (4.1-5.4); Red Cell Distribution Width 17.8 % (11.5-14.0); White Blood Count 8.7 x10^3/uL (4.0-10.5)
[2024-01-14 12:38] LABS: ALBUMIN 4.2 g/dL (3.5-5.0); ANION GAP 10.4 MEQ/L (5-15); BILIRUBIN,TOTAL 0.6 mg/dL (0.2-1.3); Calcium 9.6 mg/dL (8.4-10.2); Creatinine 1 0.9 mg/dL (0.52-1.04); EST GLOMERULAR FILTRATION RATE 71.8 ML/MIN; Potassium 3.6 mmol/L (3.5-5.1); Total Protein 7.6 g/dL (6.3-8.2)
[2024-01-14 12:39] LABS: D-DIMER QUANTITATIVE 0.36 mg/L (0.0-0.50); INR 0.93 (0.8-3.0); PROTIME 10.2 SECONDS (9.4-12.5)
[2024-01-14 13:10] LABS: INFLUENZA A NEGATIVE (NEGATIVE); INFLUENZA B NEGATIVE (NEGATIVE); RESPIRATORY SYNCTIAL VIRUS NEGATIVE (NEGATIVE); SARS-CoV-2 Xpert Express NEGATIVE (NEGATIVE)
[2024-01-14] MEDS: Rocephin 1000 MG INJ IM ONE (14:00)
[2024-01-14] MEDS ORDERED: ROCEPHIN 1 GM / 100 ML NaCl 1 GM/100 ML IVPB IV ONE (14:00)
[2024-01-14] MEDS: ROCEPHIN 1 GM / 100 ML NaCl 1 GM/100 ML IVPB IV ONE (14:03)
[2024-01-14 14:28] VITALS: BP 128/60; PULSE 85; RESP 22; O2SAT 95
== END 2024-01-14 15:00 | disposition home or self-care (01) ==
LOC: ED 10:48
DX: R91.8 Other nonspecific abnormal finding of lung field (principal); R07.9 Chest pain, unspecified; R19.7 Diarrhea, unspecified; E78.5 Hyperlipidemia, unspecified; I11.0 Hypertensive heart disease with heart failure; I50.9 Heart failure, unspecified; Z79.84 Long term (current) use of oral hypoglycemic drugs; Z79.899 Other long term (current) drug therapy; Z28.310 Unvaccinated for COVID-19; Z20.828 Contact with and (suspected) exposure to other viral communicable diseases
CPT/HCPCS: 0241U; 36000; 36415; 71045; 80053; 83880; 84484; 85025; 85379; 85610; 93005; 93041; 94760; 99284; J0696; A9270-GY

== ENCOUNTER 2024-02-13 07:38 | Day surgery (SDC) | payer BC, MEDICARE ==
[2013-08-25 10:02] VITALS: BP 143/97
[2024-02-13] MEDS ORDERED: BUPIVACAINE 0.5% VIAL IJ ONE (07:39)
[2024-02-13] MEDS ORDERED: Depo-Medrol 40 MG/ML IM ONE (07:39)
[2024-02-13] MEDS ORDERED: DIPRIVAN 200 MG/20 ML IV ONE (09:17)
[2024-02-13] MEDS ORDERED: MORPHINE SULFATE 2 MG INJ ONE (09:41)
[2024-02-13] MEDS ORDERED: Lactated Ringers 1,000 ML IV ONE (10:55)
--- NOTE | 2024-02-13 11:39 | XRAY ---
Indication: Right shoulder and subacromial bursa injection. Intraoperative fluoroscopy provided for 22 seconds. 2 frontal digital spot image submitted for interpretation demonstrates anterior needle tip projecting over right glenohumeral joint superiorly. Second needle tip subacromial. Small amount of contrast injected for needle tip placement. Correlate with intraoperative findings/report.
--- NOTE | 2024-02-13 13:07 | XRAY ---
22 seconds of fluoroscopy was used in surgery for a right intra-articular shoulder and subacromial bursa injection.
== END 2024-02-13 10:12 | disposition home or self-care (01) ==
LOC: SDC-PAIN 07:38
PROVIDERS: ATTEND Psychiatry & Neurology Pain Medicine
DX: M19.011 Primary osteoarthritis, right shoulder (principal); E11.9 Type 2 diabetes mellitus without complications
CPT/HCPCS: 20610; 73030; 77002; 82947; J1030; J2270; J2704; Q9966

== ENCOUNTER 2024-02-28 17:10 | Observation (INO) | payer BC, MEDICARE ==
[2024-02-28] MEDS ORDERED: DUONEB 0.5-3 MG/3 ml Neb IH ONE (17:22)
[2024-02-28] MEDS: DUONEB 0.5-3 MG/3 ml Neb IH ONE (17:27)
[2024-02-28] MEDS ORDERED: solu-MEDROL ONE (17:38)
[2024-02-28] MEDS ORDERED: Sterile H2O 10 ml IJ ONE (17:38)
--- NOTE | 2024-02-28 17:39 | ERPHSYRPT ---
- History of Present Illness Time Seen by Provider: 02/28/24 17:28 Source: patient Exam Limitations: no limitations Patient Subjective Stated Complaint: SOB Triage Nursing Assessment: Patient ambulated back to ED and transferred self to bed. Patient A+O x3. Patient's skin flushed, warm and dry. Patient complains of increased SOB since earlier this am. Patient states she is having pain to upper/lower arms and legs 6/10. Patient complains of non productive cough. Patient has wheezing noted throughout. Physician History: 63 years old female with history of COPD, hypertension, hyperlipidemia, diabetes mellitus presented in the ER with complaint of increasing shortness of breath along with aches and pains all over started last night. Patient reports nonproductive cough and wheezing despite using her inhalers. Denies any chest pain but tightness all over. Subjective feeling of fever and chills. Positive sick contact with other family members. Getting short of breath with minimal activity. Has chronic lower extremity swellings which is not any worse than usual. Allergies/Adverse Reactions: Influenza Virus Vaccines [Influenza Virus Vaccine] Allergy (Intermediate, Verified 02/28/24 17:14) Swelling of Hands venom-honey bee [bee venom (honey bee)] Allergy (Verified 02/28/24 17:14) famotidine [From Pepcid] Adverse Reaction (Intermediate, Verified 02/28/24 17:14) hot, flushed, diaphoresis, and chest pain. tape Allergy (Uncoded 02/28/24 17:14) Home Medications: ALPRAZolam [Alprazolam] 1 mg PO QID PRN 01/24/16 [History] Potassium Chloride Tab* [Klor Con] 30 meq PO BID 05/07/20 [History] Aspirin [Lo-Dose Aspirin EC] 81 mg PO DAILY 11/17/21 [History] Hydrocodone/Acetaminophen [Hydrocodone-Acetamin 7.5-325] 1 tab PO Q4-6HPRN PRN 11/17/21 [History] SUMAtriptan succinate [Imitrex 50 mg] 50 mg PO UD PRN 07/28/22 [History] Zolpidem Tartrate 10 mg [Ambien 10 MG] 10 mg PO HS 07/28/22 [History] Levothyroxine Sodium 75 Mcg [Synthroid 75 Mcg] 75 mcg PO DAILY 10/12/22 [History] Albuterol 2.5 mg/3 ml Neb [Proventil 2.5 mg/3 ml Neb] 1 each IH QIDPRN PRN 12/13/22 [History] Metoprolol Succinate 100 mg [Toprol Xl 100 MG] 100 mg PO DAILY 12/13/22 [History] Montelukast Sodium 10 mg [Singulair 10 MG] 10 mg PO QHS 12/13/22 [History] Amlodipine Besylate 10 mg PO DAILY 10/01/23 [History] Bumetanide 1 mg [Bumex 1 mg] 1 mg PO BID 10/01/23 [History] Divalproex Sodium [Divalproex Sodium ER] 500 mg PO BID 10/01/23 [History] Empagliflozin [Jardiance] 10 mg PO DAILY 10/01/23 [History] Gabapentin [Neurontin ] 300 mg PO TID 10/01/23 [History] Glimepiride 2 mg [Amaryl 2 MG] 2 mg PO DAILY 10/01/23 [History] Isosorbide Mononitrate [Isosorbide Mononitrate ER] 60 mg PO DAILY 10/01/23 [History] Pantoprazole Sodium 40 mg PO DAILY 10/01/23 [History] Pramipexole Di-HCl [Mirapex] 0.5 - 1 mg PO QHS 10/01/23 [History] Ranolazine [Ranolazine ER] 500 mg PO BID 10/01/23 [History] Spironolactone 25 mg [Aldactone 25 MG] 25 mg PO DAILY 10/01/23 [History] Topiramate 50 mg PO BID 10/01/23 [History] Vortioxetine Hydrobromide [Trintellix] 20 mg PO DAILY 10/01/23 [History] Hx Tetanus, Diphtheria Vaccination/Date Given: No Hx Influenza Vaccination/Date Given: No Hx Pneumococcal Vaccination/Date Given: No Immunizations Up to Date: Yes Travel Risk - International Travel Have you traveled outside of the country in past 3 weeks: No - Emerging Infectious Disease Are you exhibiting symptoms associated with any current EIDs: No - Review of Systems Constitutional: Fever, Chills, Fatigue, Weakness Eyes: No Symptoms Ears, Nose, & Throat: Throat Swelling Respiratory: Cough, Dyspnea, Dyspnea on Exertion (PEÑA), Wheezing Cardiac: Edema Abdominal/Gastrointestinal: No Symptoms Genitourinary Symptoms: No Symptoms Musculoskeletal: Arthralgias, Myalgias Skin: No Symptoms Neurological: No Symptoms Psychological: No Symptoms Endocrine: No Symptoms Hematologic/Lymphatic: No Symptoms Immunological/Allergic: No Symptoms - Past Medical History Pertinent Past Medical History: Yes Neurological History: No Pertinent History ENT History: Other Cardiac History: Congestive Heart Failure, High Cholesterol, Hypertension Respiratory History: CHF, COPD, Pneumonia Endocrine Medical History: Hypothyroidism Musculoskeletal History: No Pertinent History, Other GI Medical History: GERD, Gallbladder Disease, Ulcer, Other History: No Pertinent History Psycho-Social History: Anxiety, Bipolar, Depression Female Reproductive Disorders: No Pertinent History Other Medical History: stage IV skin cancer - Past Surgical History Past Surgical History: Yes Neuro Surgical History: No Pertinent History Cardiac: No Pertinent History, Cardiac Catheterization Respiratory: No Pertinent History Gastrointestinal: Appendectomy, Cholecystectomy Genitourinary: No Pertinent History Musculoskeletal: No Pertinent History Female Surgical History: Hysterectomy Other Surgical History: negative cardiac cath 3 weeks ago Significant Family History: heart disease, diabetes, hypertension - Social History Smoking Status: Never smoker How long have you smoked: 42 years Exposure to second hand smoke: No Alcohol Use: None Drug Use: none Patient Lives Alone: No - Nursing Vital Signs Nursing Vital Signs: Initial Vital Signs Temperature 99.7 F 02/28/24 17:14 Pulse Rate 123 H 02/28/24 17:14 Respiratory Rate 27 H 02/28/24 17:14 Blood Pressure 133/86 02/28/24 17:14 O2 Sat by Pulse Oximetry 95 02/28/24 17:14 Pain Scale Pain Intensity 6 - Physical Exam General Appearance: mild distress, alert Eye Exam: PERRL/EOMI, eyes nml inspection Ears, Nose, Throat Exam: hearing grossly normal, normal ENT inspection, normal pharynx Neck Exam: normal inspection, non-tender, supple, full range of motion Respiratory Exam: respiratory distress (mild), diminished breath sounds, rhonchi, wheezing Cardiovascular/Chest Exam: regular rate/rhythm, tachycardia Abdominal/Gastrointestinal Exam: soft, normal bowel sounds, No tenderness Extremity Exam: non-tender, normal range of motion Neurologic Exam: alert, oriented x 3, cooperative Skin Exam: normal color SpO2 Interpretation: normal SpO2: 94 O2 Delivery: Room Air - Course EKG Interpreted by Me: RATE (126), Sinus Tach, Right [place] Deviation, NORMAL INTERVALS, Non-specific ST Changes Ordered Tests: Active Orders 24 hr Category Date Time Status [employer] STAT Care 02/28/24 17:36 Active EKG-ER Only STAT Care 02/28/24 17:36 Active IV Insertion STAT Care 02/28/24 17:36 Active Oxygen-ED Only Nasal Cannula 2 lpm Care 02/28/24 17:36 Active CHEST 1 VIEW (PORTABLE) Stat Exams 02/28/24 17:36 Taken CHEST WITH CONTRAST [CT] Stat Exams 02/28/24 21:42 Taken BLOOD CULTURE Stat Lab 02/28/24 18:18 Received CBC W DIFF Stat Lab 02/28/24 18:18 Completed CMP Stat Lab 02/28/24 18:18 Completed D-DIMER QUANTITATIVE Stat Lab 02/28/24 18:18 Completed Lactic Acid Stat Lab 02/28/24 17:36 Completed Lactic Acid Stat Lab 02/28/24 20:06 Completed MAGNESIUM Stat Lab 02/28/24 18:18 Completed NT PRO BNPII Stat Lab 02/28/24 18:18 Completed PROCALCITONIN Stat Lab 02/28/24 18:18 Completed TROPONIN Q4H Lab 02/28/24 22:05 Completed TROPONIN Q4H Lab 02/29/24 01:45 Ordered TROPONIN Stat Lab 02/28/24 18:18 Completed Respiratory Therapy Assessment DAILY RT 02/28/24 17:30 Active Transfer Order Routine Transfer 02/28/24 Ordered Medication Summary Discontinued Medications Generic Name Dose Route Start Last Admin Trade Name Freq PRN Reason Stop Dose Admin Albuterol/Ipratropium Confirm 02/28/24 17:22 Ipratropium/Albuterol Sulfate 3 Ml Ampul.Neb Administered 02/28/24 17:23 Dose 3 ml IH .STK-MED ONE Albuterol/Ipratropium 3 ml 02/28/24 17:23 02/28/24 17:27 Ipratropium/Albuterol Sulfate 3 Ml Ampul.Neb IH 02/28/24 17:24 3 ml STAT ONE Administration Methylprednisolone Sodium 0 mg 02/28/24 17:36 02/28/24 17:40 Succinate 125 mg/ Sterile IV 02/28/24 17:37 125 mg Water 2 ml STAT ONE Administration Fentanyl Citrate 50 mcg 02/28/24 18:58 02/28/24 19:21 Fentanyl Citrate 100 Mcg/2 Ml* Vial IV 02/28/24 18:59 50 mcg STAT ONE Administration Fentanyl Citrate Confirm 02/28/24 19:20 Fentanyl Citrate 100 Mcg/2 Ml* Vial Administered 02/28/24 19:21 Dose 100 mcg .ROUTE .STK-MED ONE Ceftriaxone Sodium 2 gm in 100 mls @ 200 mls/hr 02/28/24 18:31 02/28/24 21:33 Rocephin 2 Gm/100 Ml Nacl IV 02/28/24 19:00 Infused STAT ONE Infusion Azithromycin 500 mg in 250 mls @ 250 mls/hr 02/28/24 18:31 02/28/24 21:33 Zithromax 500 Mg/ 250 Ml Nacl Premix IV 02/28/24 19:30 Infused STAT STA Infusion Ceftriaxone Sodium Confirm 02/28/24 18:49 Rocephin 2 Gm/100 Ml Nacl Administered 02/28/24 18:50 Dose 2 gm in 100 mls @ ud IV .STK-MED ONE Azithromycin Confirm 02/28/24 19:29 Zithromax 500 Mg/ 250 Ml Nacl Premix Administered 02/28/24 19:30 Dose 500 mg in 250 mls @ ud IV .STK-MED ONE Methylprednisolone Sodium Succinate Confirm 02/28/24 17:38 Methylprednis Sod Succ 125 Mg/2 Ml Vial Administered 02/28/24 17:39 Dose 125 mg .ROUTE .STK-MED ONE Ondansetron HCl 4 mg 02/28/24 18:58 02/28/24 19:21 Ondansetron Hcl 4 Mg/2 Ml Vial IV 02/28/24 18:59 4 mg STAT ONE Administration Ondansetron HCl Confirm 02/28/24 19:20 Ondansetron Hcl 4 Mg/2 Ml Vial Administered 02/28/24 19:21 Dose 4 mg .ROUTE .STK-MED ONE Sterile Water Confirm 02/28/24 17:38 Water For Injection,Sterile 10 Ml Vial Administered 02/28/24 17:39 Dose 10 ml IJ .STK-MED ONE Lab/Rad Data: Laboratory Result Diagrams 02/28/24 18:18 02/28/24 18:18 Laboratory Results 02/28/24 02/28/24 02/28/24 Range/Units 22:05 20:06 18:18 WBC (4.0-10.5) x10^3/uL RBC (4.1-5.4) x10^6/uL Hgb (12.0-16.0) g/dL Hct (35-47) % MCV (78-100) fL MCH (26-32) pg MCHC (32-36) g/dL RDW (11.5-14.0) % Plt Count (150-450) x10^3/uL MPV (7.5-11.0) fL Gran % (36.0-66.0) % Immature Gran % (Auto) (0.00-0.4) % Nucleat RBC Rel Count (0.00-0.1) % Eos # (Auto) (0-0.5) x10^3/uL Immature Gran # (Auto) (0.00-0.03) x10^3u/L Absolute Lymphs (auto) (1.0-4.6) x10^3/uL Absolute Monos (auto) (0.0-1.3) x10^3/uL Absolute Nucleated RBC (0.00-0.01) x10^3u/L Lymphocytes % (24.0-44.0) % Monocytes % (0.0-12.0) % Eosinophils % (0.00-5.0) % Basophils % (0.0-0.4) % Absolute Granulocytes (1.4-6.9) x10^3/uL Basophils # (0-0.4) x10^3/uL D-Dimer 0.51 H (0.0-0.50) mg/L Sodium (135-145) mmol/L Potassium (3.5-5.1) mmol/L Chloride (98-107) mmol/L Carbon Dioxide (22-30) mmol/L Anion Gap (5-15) MEQ/L BUN (7-17) mg/dL Creatinine (0.52-1.04) mg/dL Estimated GFR ML/MIN Glucose (74-106) mg/dL Lactic Acid 1.8 (0.4-2.0) Calcium (8.4-10.2) mg/dL Magnesium (1.6-2.3) mg/dL Total Bilirubin (0.2-1.3) mg/dL AST (14-36) U/L ALT (0-35) U/L Alkaline Phosphatase (38-126) U/L Troponin I < 0.012 (0.000-0.033) ng/mL NT-Pro-B Natriuret Pep (<300) pg/mL Serum Total Protein (6.3-8.2) g/dL Albumin (3.5-5.0) g/dL Procalcitonin (0.030-0.080) ng/mL Influenza Type A Ag (NEGATIVE) Influenza Type B Ag (NEGATIVE) RSV (PCR) (NEGATIVE) SARS-CoV-2 (PCR) (NEGATIVE) 02/28/24 02/28/24 02/28/24 Range/Units 18:18 18:18 18:18 WBC (4.0-10.5) x10^3/uL RBC (4.1-5.4) x10^6/uL Hgb (12.0-16.0) g/dL Hct (35-47) % MCV (78-100) fL MCH (26-32) pg MCHC (32-36) g/dL RDW (11.5-14.0) % Plt Count (150-450) x10^3/uL MPV (7.5-11.0) fL Gran % (36.0-66.0) % Immature Gran % (Auto) (0.00-0.4) % Nucleat RBC Rel Count (0.00-0.1) % Eos # (Auto) (0-0.5) x10^3/uL Immature Gran # (Auto) (0.00-0.03) x10^3u/L Absolute Lymphs (auto) (1.0-4.6) x10^3/uL Absolute Monos (auto) (0.0-1.3) x10^3/uL Absolute Nucleated RBC (0.00-0.01) x10^3u/L Lymphocytes % (24.0-44.0) % Monocytes % (0.0-12.0) % Eosinophils % (0.00-5.0) % Basophils % (0.0-0.4) % Absolute Granulocytes (1.4-6.9) x10^3/uL Basophils # (0-0.4) x10^3/uL D-Dimer (0.0-0.50) mg/L Sodium 139 (135-145) mmol/L Potassium 3.7 (3.5-5.1) mmol/L Chloride 106 (98-107) mmol/L Carbon Dioxide 24 (22-30) mmol/L Anion Gap 12.5 (5-15) MEQ/L BUN 12 (7-17) mg/dL Creatinine 0.91 (0.52-1.04) mg/dL Estimated GFR 70.9 ML/MIN Glucose 86 (74-106) mg/dL Lactic Acid (0.4-2.0) Calcium 9.2 (8.4-10.2) mg/dL Magnesium 1.9 (1.6-2.3) mg/dL Total Bilirubin 0.80 (0.2-1.3) mg/dL AST 16 (14-36) U/L ALT 17 (0-35) U/L Alkaline Phosphatase 95 (38-126) U/L Troponin I < 0.012 (0.000-0.033) ng/mL NT-Pro-B Natriuret Pep 169 (<300) pg/mL Serum Total Protein 7.9 (6.3-8.2) g/dL Albumin 4.1 (3.5-5.0) g/dL Procalcitonin 0.060 (0.030-0.080) ng/mL Influenza Type A Ag NEGATIVE (NEGATIVE) Influenza Type B Ag NEGATIVE (NEGATIVE) RSV (PCR) NEGATIVE (NEGATIVE) SARS-CoV-2 (PCR) POSITIVE (NEGATIVE) 02/28/24 02/28/24 Range/Units 18:18 17:36 WBC 10.7 H (4.0-10.5) x10^3/uL RBC 5.10 (4.1-5.4) x10^6/uL Hgb 14.4 (12.0-16.0) g/dL Hct 45.7 (35-47) % MCV 89.6 (78-100) fL MCH 28.2 (26-32) pg MCHC 31.5 L (32-36) g/dL RDW 16.1 H (11.5-14.0) % Plt Count 189 (150-450) x10^3/uL MPV 9.6 (7.5-11.0) fL Gran % 71.2 H (36.0-66.0) % Immature Gran % (Auto) 0.7 H (0.00-0.4) % Nucleat RBC Rel Count 0.0 (0.00-0.1) % Eos # (Auto) 0.12 (0-0.5) x10^3/uL Immature Gran # (Auto) 0.07 H (0.00-0.03) x10^3u/L Absolute Lymphs (auto) 1.95 (1.0-4.6) x10^3/uL Absolute Monos (auto) 0.90 (0.0-1.3) x10^3/uL Absolute Nucleated RBC 0.00 (0.00-0.01) x10^3u/L Lymphocytes % 18.2 L (24.0-44.0) % Monocytes % 8.4 (0.0-12.0) % Eosinophils % 1.1 (0.00-5.0) % Basophils % 0.4 (0.0-0.4) % Absolute Granulocytes 7.65 H (1.4-6.9) x10^3/uL Basophils # 0.04 (0-0.4) x10^3/uL D-Dimer (0.0-0.50) mg/L Sodium (135-145) mmol/L Potassium (3.5-5.1) mmol/L Chloride (98-107) mmol/L Carbon Dioxide (22-30) mmol/L Anion Gap (5-15) MEQ/L BUN (7-17) mg/dL Creatinine (0.52-1.04) mg/dL Estimated GFR ML/MIN Glucose (74-106) mg/dL Lactic Acid 2.1 H (0.4-2.0) Calcium (8.4-10.2) mg/dL Magnesium (1.6-2.3) mg/dL Total Bilirubin (0.2-1.3) mg/dL AST (14-36) U/L ALT (0-35) U/L Alkaline Phosphatase (38-126) U/L Troponin I (0.000-0.033) ng/mL NT-Pro-B Natriuret Pep (<300) pg/mL Serum Total Protein (6.3-8.2) g/dL Albumin (3.5-5.0) g/dL Procalcitonin (0.030-0.080) ng/mL Influenza Type A Ag (NEGATIVE) Influenza Type B Ag (NEGATIVE) RSV (PCR) (NEGATIVE) SARS-CoV-2 (PCR) (NEGATIVE) - Progress Progress: improved, re-examined Air Movement: fair Progress Note: 02/28/24 21:10 63 years old is evaluated for cough shortness of breath with subjective fever chills since yesterday along with body aches. Patient is given neb treatment on presentation as she was having wheezing especially on the left side, on reevaluation she is feeling better but she continues to desat to 86 to 88%. She is on 3 L currently with saturation around 94%. Workup showed white count of 10, EKG showed sinus rhythm with no acute ischemic changes. Negative initial troponins. Chemistry is unremarkable. Chest x-ray showed left-sided effusion but no other focal consolidation reviewed by me, official report is pending. She is given a dose of antibiotic as well along with steroids. Patient has a positive COVID-19. D-dimer 0.51 which is barely above the normal but with her effusion and COVID, discussed with Dr. Garza and will obtain CTA chest. If CTA chest did not show big parapneumonic effusion that needs to be tapped patient would be admitted to hospitalist service. I have discussed the results of workup and plan of admission with patient and family who understand and agree with it. 02/28/24 22:45 CTA chest is negative for PE, no pneumonic consolidation, no obvious/large pleural effusion per preliminary report. Official report is pending. Patient is stable to be transferred to floor Blood Culture(s) Obtained: Yes Antibiotics given: Yes Discussed with Dr.: Other (Dr. Garza hospitalist) Will see patient in: hospital (observation) Counseled pt/family regarding: lab results, diagnosis, rad results Medical Desision Making - Independent Historian Additional History obtained from: Spouse - Discussion of managment Care discussed with:: hospitalist (Dr. Garza) Reviewed:: Test results Agreed on:: Treatment plan Will see patient: in hospital - Diagnostic Testing Diagnostic test were ordered, analyzed, and reviewed by me: Yes Radiological Interpretation: Interpreted by me, Reviewed by me, Teleradiologist Report - Risk of complications The pt has a high risk of morbidity or mortality based on: Decision regarding hospitilization or escalation of hosp level of care - Departure Departure Disposition: In-patient Admission Clinical Impression: Pneumonia due to COVID-19 virus Respiratory failure Qualifiers: Chronicity: acute Respiratory failure complication: hypoxia Qualified Code(s): J96.01 - Acute respiratory failure with hypoxia Condition: Stable Critical Care Time: No Referrals: CECE WOODARD MD [Primary Care Provider] - Follow up/PCP as directed
[2024-02-28] MEDS: solu-MEDROL 125 MG, Sterile H2O 10 ml 2 ML IV ONE (17:40)
[2024-02-28 18:24] LABS: Absolute Neutrophil Ct (ANC) 7.65 x10^3/uL (1.4-6.9); BASOPHIL % 0.4 % (0.0-0.4); Basophil (Absolute #) 0.04 x10^3/uL (0-0.4); Eosinophil % 1.1 % (0.00-5.0); Eosinophil (Absolute #) 0.12 x10^3/uL (0-0.5); Hematocrit 45.7 % (35-47); Hemoglobin 14.4 g/dL (12.0-16.0); IMMATURE GRAN # 0.07 x10^3u/L (0.00-0.03); IMMATURE GRAN % 0.7 % (0.00-0.4); Lymphocyte (Absolute #) 1.95 x10^3/uL (1.0-4.6); Lymphocytes % 18.2 % (24.0-44.0); Mean Cell Volume 89.6 fL (78-100); Mean Corpuscular Hemoglobin 28.2 pg (26-32); Mean Corpuscular Hgb Concent. 31.5 g/dL (32-36); Mean Platelet Volume 9.6 fL (7.5-11.0); Monocytes % 8.4 % (0.0-12.0); Neutrophil % 71.2 % (36.0-66.0); Platelet Count 189 x10^3/uL (150-450); Red Cell Distribution Width 16.1 % (11.5-14.0); White Blood Count 10.7 x10^3/uL (4.0-10.5)
[2024-02-28 18:37] LABS: ALBUMIN 4.1 g/dL (3.5-5.0); ANION GAP 12.5 MEQ/L (5-15); BILIRUBIN,TOTAL 0.8 mg/dL (0.2-1.3); Calcium 9.2 mg/dL (8.4-10.2); Creatinine 1 0.91 mg/dL (0.52-1.04); EST GLOMERULAR FILTRATION RATE 70.9 ML/MIN; MAGNESIUM 1.9 mg/dL (1.6-2.3); Potassium 3.7 mmol/L (3.5-5.1); Total Protein 7.9 g/dL (6.3-8.2)
[2024-02-28] MEDS ORDERED: ROCEPHIN 2 GM/100 ML NACL 2 GM/100 ML IVPB IV ONE (18:49)
[2024-02-28] MEDS: ROCEPHIN 2 GM/100 ML NACL 2 GM/100 ML IVPB IV ONE (18:50)
[2024-02-28 18:57] LABS: NT PRO BNPII 169 pg/mL (<300); TROPONIN < 0.012 ng/mL (0.000-0.033)
[2024-02-28 19:00] LABS: INFLUENZA A NEGATIVE (NEGATIVE); INFLUENZA B NEGATIVE (NEGATIVE); RESPIRATORY SYNCTIAL VIRUS NEGATIVE (NEGATIVE)
[2024-02-28 19:10] LABS: SARS-CoV-2 Xpert Express POSITIVE (NEGATIVE)
[2024-02-28] MEDS ORDERED: Zofran 4 MG/2 ML VIAL ONE (19:20)
[2024-02-28] MEDS ORDERED: SUBLIMAZE 100 MCG/2 ML ONE (19:20)
[2024-02-28] MEDS: SUBLIMAZE 100 MCG/2 ML IV ONE (19:21)
[2024-02-28] MEDS: Zofran 4 MG/2 ML VIAL IV ONE (19:21)
[2024-02-28] MEDS ORDERED: Zithromax 500 MG/ 250 ML NaCl Premix 500 MG/250 ML IVPB IV ONE (19:29)
[2024-02-28] MEDS: Zithromax 500 MG/ 250 ML NaCl Premix 500 MG/250 ML IVPB IV STA (19:30)
--- NOTE | 2024-02-29 02:17 | PCM.HP ---
History of Present Illness - Chief Complaint Date: 02/29/24 History of Present Illness: Ms. Russo is a 63 year-old female with morbid obesity, COPD, HTN, HLD, DM2, and hypothyroidism who presents with shortness of breath and cough. She admits to 1- 2 days of symptoms, and upon arrival to [place], her laboratory data revealed a positive COVID test and an elevated lactate. Her chest imaging shows a possible some mild infiltrate at the left base, and initially she was requiring 3L NC oxygen, but currently she is 91% on RA. She remains with stable vital signs and is sleeping. - Review of Systems Constitutional: Other (UNABLE TO OBTAIN) Medications & Allergies Home Medications: Home Medication List ALPRAZolam [Alprazolam] 1 mg PO QID PRN 01/24/16 [History Confirmed 01/14/24] Potassium Chloride Tab* [Klor Con] 30 meq PO BID 05/07/20 [History Confirmed 01/14/24] Aspirin [Lo-Dose Aspirin EC] 81 mg PO DAILY 11/17/21 [History Confirmed 01/14/24] Hydrocodone/Acetaminophen [Hydrocodone-Acetamin 7.5-325] 1 tab PO Q4-6HPRN PRN 11/17/21 [History Confirmed 01/14/24] SUMAtriptan succinate [Imitrex 50 mg] 50 mg PO UD PRN 07/28/22 [History Confirmed 01/14/24] Zolpidem Tartrate 10 mg [Ambien 10 MG] 10 mg PO HS 07/28/22 [History Confirmed 01/14/24] Levothyroxine Sodium 75 Mcg [Synthroid 75 Mcg] 75 mcg PO DAILY 10/12/22 [History Confirmed 01/14/24] Albuterol 2.5 mg/3 ml Neb [Proventil 2.5 mg/3 ml Neb] 1 each IH QIDPRN PRN 12/13/22 [History Confirmed 01/14/24] Metoprolol Succinate 100 mg [Toprol Xl 100 MG] 100 mg PO DAILY 12/13/22 [History Confirmed 01/14/24] Montelukast Sodium 10 mg [Singulair 10 MG] 10 mg PO QHS 12/13/22 [History Confirmed 01/14/24] Oxybutynin Chloride 10 mg Xl [Ditropan Xl 10 MG] 10 mg PO DAILY #30 tab 12/14/22 [Rx Confirmed 01/14/24] Amlodipine Besylate 10 mg PO DAILY 10/01/23 [History Confirmed 01/14/24] Bumetanide 1 mg [Bumex 1 mg] 1 mg PO BID 10/01/23 [History Confirmed 01/14/24] Divalproex Sodium [Divalproex Sodium ER] 500 mg PO BID 10/01/23 [History Confirmed 01/14/24] Empagliflozin [Jardiance] 10 mg PO DAILY 10/01/23 [History Confirmed 01/14/24] Gabapentin [Neurontin ] 300 mg PO TID 10/01/23 [History Confirmed 01/14/24] Glimepiride 2 mg [Amaryl 2 MG] 2 mg PO DAILY 10/01/23 [History Confirmed 01/14/24] Isosorbide Mononitrate [Isosorbide Mononitrate ER] 60 mg PO DAILY 10/01/23 [History Confirmed 01/14/24] Pantoprazole Sodium 40 mg PO DAILY 10/01/23 [History Confirmed 01/14/24] Pramipexole Di-HCl [Mirapex] 0.5 - 1 mg PO QHS 10/01/23 [History Confirmed 01/14/24] Ranolazine [Ranolazine ER] 500 mg PO BID 10/01/23 [History Confirmed 01/14/24] Spironolactone 25 mg [Aldactone 25 MG] 25 mg PO DAILY 10/01/23 [History Confirmed 01/14/24] Topiramate 50 mg PO BID 10/01/23 [History Confirmed 01/14/24] Vortioxetine Hydrobromide [Trintellix] 20 mg PO DAILY 10/01/23 [History Confirmed 01/14/24] Atorvastatin Calcium [Lipitor] 20 mg PO DAILY 30 Days #30 tablet 10/04/23 [Rx Confirmed 01/14/24] Prednisone 20 mg [Deltasone 20 mg] 40 mg PO DAILY 5 Days #10 tablet 10/04/23 [Rx Confirmed 01/14/24] Levofloxacin [Levaquin 500 MG Tablet] 500 mg PO DAILY #7 tablet 01/14/24 [Rx] Allergies/Adverse Reactions: Allergies Allergy/AdvReac Type Severity Reaction Status Date / Time Influenza Virus Vaccines Allergy Intermediate Swelling Verified 02/28/24 17:14 [Influenza Virus Vaccine] of Hands venom-honey bee Allergy Verified 02/28/24 17:14 [bee venom (honey bee)] famotidine [From Pepcid] AdvReac Intermediate Verified 02/28/24 17:14 tape Allergy Uncoded 02/28/24 17:14 - Past Medical History Past Medical History: Yes Neurological History: No Pertinent History ENT History: Other Cardiac History: Congestive Heart Failure, High Cholesterol, Hypertension Respiratory History: CHF, COPD, Pneumonia Endocrine Medical History: Diabetes Type II, Hypothyroidism Musculoskelatal History: No Pertinent History, Other GI Medical History: GERD, Gallbladder Disease, Ulcer, Other History: No Pertinent History Pyscho-Social History: Anxiety, Bipolar, Depression Reproductive Disorders: No Pertinent History Comment: stage IV skin cancer - Past Surgical History Past Surgical History: Yes Neuro Surgical History: No Pertinent History Cardiac History: No Pertinent History, Cardiac Catheterization Respiratory Surgery: No Pertinent History GI Surgical History: Appendectomy, Cholecystectomy Genitourinary Surgical Hx: No Pertinent History Musculskeletal Surgical Hx: No Pertinent History Female Surgical History: Hysterectomy Other Surgical History: negative cardiac cath 3 weeks ago Significant Family History: heart disease, diabetes, hypertension - Social History Smoking Status: Never smoker How long have you smoked: 42 years Exposure to second hand smoke: No Alcohol: Rarely Drug Use: none - Social Determinants of Health Will the patient participate in the screening: Declined to provide Do you worry about a steady place to live?: No In the past 12 months,have you had to go without utilities?: No Have you or anyone in your house had to go without enough: Yes Transportation Issues: No Has anyone in your support network made you feel unsafe?: No Does the patient want assistance with any of the above?: Yes Comment: Wants assistance with food - Physical Exam Vital Signs: Vital Signs - 24 hr Temp Pulse Resp BP BP Pulse Ox 02/29/24 00:25 91 L 02/29/24 00:00 99 H 24 118/68 95 02/28/24 23:46 94 L 02/28/24 23:00 101 H 20 106/74 94 L 02/28/24 21:00 103 H 22 112/72 94 L 02/28/24 20:48 106 H 22 124/74 93 L 02/28/24 20:30 110 H 19 71/39 95 02/28/24 20:01 105 H 22 80/45 95 02/28/24 20:00 104 H 27 H 94 L 02/28/24 19:50 108 H 26 H 83 L 02/28/24 19:40 101 H 22 91 L 02/28/24 19:36 106 H 32 H 90 L 02/28/24 19:25 122/81 02/28/24 19:00 115 H 18 99/63 94 L 02/28/24 18:59 110 H 31 H 114/61 90 L 02/28/24 18:56 108 H 24 91 L 02/28/24 18:00 104/65 02/28/24 17:30 113 H 26 H 108/82 94 L 02/28/24 17:14 99.7 F 123 H 27 H 133/86 95 General Appearance: no apparent distress, alert Neurologic Exam: alert, oriented x 3, cooperative, normal mood/affect, nml cerebellar function, nml station & gait, sensation nml, No motor deficits Eye Exam: PERRL/EOMI, eyes nml inspection Ears, Nose, Throat Exam: normal ENT inspection, TMs normal, pharynx normal, moist mucous membranes Neck Exam: normal inspection, non-tender, supple, full range of motion Respiratory Exam: wheezing Cardiovascular Exam: regular rate/rhythm, normal heart sounds, normal peripheral pulses Gastrointestinal/Abdomen Exam: soft, normal bowel sounds, No tenderness, No mass Back Exam: normal inspection, normal range of motion, No CVA tenderness, No vertebral tenderness Extremity Exam: normal inspection, normal range of motion, pelvis stable Skin Exam: normal color, warm, dry, No rash Lymphatic Exam: No adenopathy Results - Labs Lab/Micro Results: Lab Results-Last 24 Hours 02/28/24 02/28/24 02/28/24 Range/Units 17:36 18:18 18:18 WBC 10.7 H (4.0-10.5) x10^3/uL RBC 5.10 (4.1-5.4) x10^6/uL Hgb 14.4 (12.0-16.0) g/dL Hct 45.7 (35-47) % MCV 89.6 (78-100) fL MCH 28.2 (26-32) pg MCHC 31.5 L (32-36) g/dL RDW 16.1 H (11.5-14.0) % Plt Count 189 (150-450) x10^3/uL MPV 9.6 (7.5-11.0) fL Gran % 71.2 H (36.0-66.0) % Immature Gran % (Auto) 0.7 H (0.00-0.4) % Nucleat RBC Rel Count 0.0 (0.00-0.1) % Eos # (Auto) 0.12 (0-0.5) x10^3/uL Immature Gran # (Auto) 0.07 H (0.00-0.03) x10^3u/L Absolute Lymphs (auto) 1.95 (1.0-4.6) x10^3/uL Absolute Monos (auto) 0.90 (0.0-1.3) x10^3/uL Absolute Nucleated RBC 0.00 (0.00-0.01) x10^3u/L Lymphocytes % 18.2 L (24.0-44.0) % Monocytes % 8.4 (0.0-12.0) % Eosinophils % 1.1 (0.00-5.0) % Basophils % 0.4 (0.0-0.4) % Absolute Granulocytes 7.65 H (1.4-6.9) x10^3/uL Basophils # 0.04 (0-0.4) x10^3/uL D-Dimer (0.0-0.50) mg/L Sodium 139 (135-145) mmol/L Potassium 3.7 (3.5-5.1) mmol/L Chloride 106 (98-107) mmol/L Carbon Dioxide 24 (22-30) mmol/L Anion Gap 12.5 (5-15) MEQ/L BUN 12 (7-17) mg/dL Creatinine 0.91 (0.52-1.04) mg/dL Estimated GFR 70.9 ML/MIN Glucose 86 (74-106) mg/dL POC Glucometer (74 to 106) mg/dL Lactic Acid 2.1 H (0.4-2.0) Calcium 9.2 (8.4-10.2) mg/dL Magnesium 1.9 (1.6-2.3) mg/dL Total Bilirubin 0.80 (0.2-1.3) mg/dL AST 16 (14-36) U/L ALT 17 (0-35) U/L Alkaline Phosphatase 95 (38-126) U/L Troponin I (0.000-0.033) ng/mL NT-Pro-B Natriuret Pep (<300) pg/mL Serum Total Protein 7.9 (6.3-8.2) g/dL Albumin 4.1 (3.5-5.0) g/dL Procalcitonin (0.030-0.080) ng/mL Influenza Type A Ag (NEGATIVE) Influenza Type B Ag (NEGATIVE) RSV (PCR) (NEGATIVE) SARS-CoV-2 (PCR) (NEGATIVE) 02/28/24 02/28/24 02/28/24 Range/Units 18:18 18:18 18:18 WBC (4.0-10.5) x10^3/uL RBC (4.1-5.4) x10^6/uL Hgb (12.0-16.0) g/dL Hct (35-47) % MCV (78-100) fL MCH (26-32) pg MCHC (32-36) g/dL RDW (11.5-14.0) % Plt Count (150-450) x10^3/uL MPV (7.5-11.0) fL Gran % (36.0-66.0) % Immature Gran % (Auto) (0.00-0.4) % Nucleat RBC Rel Count (0.00-0.1) % Eos # (Auto) (0-0.5) x10^3/uL Immature Gran # (Auto) (0.00-0.03) x10^3u/L Absolute Lymphs (auto) (1.0-4.6) x10^3/uL Absolute Monos (auto) (0.0-1.3) x10^3/uL Absolute Nucleated RBC (0.00-0.01) x10^3u/L Lymphocytes % (24.0-44.0) % Monocytes % (0.0-12.0) % Eosinophils % (0.00-5.0) % Basophils % (0.0-0.4) % Absolute Granulocytes (1.4-6.9) x10^3/uL Basophils # (0-0.4) x10^3/uL D-Dimer 0.51 H (0.0-0.50) mg/L Sodium (135-145) mmol/L Potassium (3.5-5.1) mmol/L Chloride (98-107) mmol/L Carbon Dioxide (22-30) mmol/L Anion Gap (5-15) MEQ/L BUN (7-17) mg/dL Creatinine (0.52-1.04) mg/dL Estimated GFR ML/MIN Glucose (74-106) mg/dL POC Glucometer (74 to 106) mg/dL Lactic Acid (0.4-2.0) Calcium (8.4-10.2) mg/dL Magnesium (1.6-2.3) mg/dL Total Bilirubin (0.2-1.3) mg/dL AST (14-36) U/L ALT (0-35) U/L Alkaline Phosphatase (38-126) U/L Troponin I < 0.012 (0.000-0.033) ng/mL NT-Pro-B Natriuret Pep 169 (<300) pg/mL Serum Total Protein (6.3-8.2) g/dL Albumin (3.5-5.0) g/dL Procalcitonin 0.060 (0.030-0.080) ng/mL Influenza Type A Ag NEGATIVE (NEGATIVE) Influenza Type B Ag NEGATIVE (NEGATIVE) RSV (PCR) NEGATIVE (NEGATIVE) SARS-CoV-2 (PCR) POSITIVE (NEGATIVE) 02/28/24 02/28/24 02/29/24 Range/Units 20:06 22:05 00:35 WBC (4.0-10.5) x10^3/uL RBC (4.1-5.4) x10^6/uL Hgb (12.0-16.0) g/dL Hct (35-47) % MCV (78-100) fL MCH (26-32) pg MCHC (32-36) g/dL RDW (11.5-14.0) % Plt Count (150-450) x10^3/uL MPV (7.5-11.0) fL Gran % (36.0-66.0) % Immature Gran % (Auto) (0.00-0.4) % Nucleat RBC Rel Count (0.00-0.1) % Eos # (Auto) (0-0.5) x10^3/uL Immature Gran # (Auto) (0.00-0.03) x10^3u/L Absolute Lymphs (auto) (1.0-4.6) x10^3/uL Absolute Monos (auto) (0.0-1.3) x10^3/uL Absolute Nucleated RBC (0.00-0.01) x10^3u/L Lymphocytes % (24.0-44.0) % Monocytes % (0.0-12.0) % Eosinophils % (0.00-5.0) % Basophils % (0.0-0.4) % Absolute Granulocytes (1.4-6.9) x10^3/uL Basophils # (0-0.4) x10^3/uL D-Dimer (0.0-0.50) mg/L Sodium (135-145) mmol/L Potassium (3.5-5.1) mmol/L Chloride (98-107) mmol/L Carbon Dioxide (22-30) mmol/L Anion Gap (5-15) MEQ/L BUN (7-17) mg/dL Creatinine (0.52-1.04) mg/dL Estimated GFR ML/MIN Glucose (74-106) mg/dL POC Glucometer 242 H (74 to 106) mg/dL Lactic Acid 1.8 (0.4-2.0) Calcium (8.4-10.2) mg/dL Magnesium (1.6-2.3) mg/dL Total Bilirubin (0.2-1.3) mg/dL AST (14-36) U/L ALT (0-35) U/L Alkaline Phosphatase (38-126) U/L Troponin I < 0.012 (0.000-0.033) ng/mL NT-Pro-B Natriuret Pep (<300) pg/mL Serum Total Protein (6.3-8.2) g/dL Albumin (3.5-5.0) g/dL Procalcitonin (0.030-0.080) ng/mL Influenza Type A Ag (NEGATIVE) Influenza Type B Ag (NEGATIVE) RSV (PCR) (NEGATIVE) SARS-CoV-2 (PCR) (NEGATIVE) - Radiology Impressions Radiology Exams & Impressions: Radiology Procedures Category Date Time Status CHEST 1 VIEW (PORTABLE) Stat Exams 02/28/24 17:36 Taken CHEST WITH CONTRAST [CT] Stat Exams 02/28/24 21:42 Taken - Other Procedures and Tests Respiratory Therapy 02/29/24 00:25 Oxygen Nasal Cannula 3 lpm Respiratory Therapy Consult ONCE Assessment/Plan (1) COPD (chronic obstructive pulmonary disease) Current Visit: No Status: Chronic Qualifiers: Assessment & Plan: ANTIBIOTICS AND STEROIDS Levaquin Solumedrol ASSESSMENT 1. SARS-CoV-2 2. Possible Pneumonia 3. COPD Exacerbation 4. Elevated Lactate 5. Hypertension 6. Hyperlipidemia 7. Type II Diabetes Mellitus 8. Morbid Obesity 9. Hypothyroidism PLAN 1. Currently 91% on RA 2. IV steroids + duonebs 3. Empiric Levaquin x 5 days 4. Gentle fluids 5. Home medication reconciliation in the AM as she does not know her current medical regimen Lovenox The entirety of this encounter was done via telemedicine Marcelino Garza MD Pulmonary and Critical Care Medicine Telemedicine Encounter - Telemedicine Encounter Telemedicine Encounter: The entirety of this encounter was performed via Telemedicine"
[2024-02-29] MEDS ORDERED: DUONEB 0.5-3 MG/3 ml Neb IH ONE (02:21)
[2024-02-29] MEDS: DUONEB 0.5-3 MG/3 ml Neb IH SCH (02:27)
[2024-02-29] MEDS ORDERED: Lactated Ringers 1,000 ML IV SCH ×2 (02:30)
[2024-02-29 02:31] LABS: Hematocrit 45.3 % (35-47); Hemoglobin 14.1 g/dL (12.0-16.0); Mean Cell Volume 90.8 fL (78-100); Mean Corpuscular Hemoglobin 28.3 pg (26-32); Mean Corpuscular Hgb Concent. 31.1 g/dL (32-36); Mean Platelet Volume 9.8 fL (7.5-11.0); Platelet Count 188 x10^3/uL (150-450); Red Blood Count 4.99 x10^6/uL (4.1-5.4); Red Cell Distribution Width 16.2 % (11.5-14.0); White Blood Count 8.6 x10^3/uL (4.0-10.5)
[2024-02-29] MEDS ORDERED: HUMALOG SQ PRN (02:39)
[2024-02-29 02:50] LABS: ALBUMIN 3.8 g/dL (3.5-5.0); ANION GAP 14.9 MEQ/L (5-15); BILIRUBIN,TOTAL 0.3 mg/dL (0.2-1.3); Calcium 8.7 mg/dL (8.4-10.2); Creatinine 1 1.09 mg/dL (0.52-1.04); EST GLOMERULAR FILTRATION RATE 57.1 ML/MIN; Potassium 4.1 mmol/L (3.5-5.1); Total Protein 7.4 g/dL (6.3-8.2)
[2024-02-29] MEDS: xanAX 0.5 MG PO ONE (03:43)
[2024-02-29] MEDS ORDERED: solu-MEDROL ONE (06:24)
[2024-02-29] MEDS ORDERED: Sterile H2O 10 ml IJ ONE (06:24)
[2024-02-29] MEDS: solu-MEDROL 40 MG, Sterile H2O 10 ml 1 ML IV SCH (06:37)
--- NOTE | 2024-02-29 09:25 | XRAY ---
Indication: Short of breath. Positive Covid 19. Elevated d-dimer. Multiple contiguous axial images obtained through the chest using 80 cc Isovue 370 contrast and PE protocol. Comparison: CT chest without contrast October 02, 2023 Good opacification of the pulmonary arteries to include the lobar and segmental branches. No pulmonary embolus. Heart remains borderline enlarged again with prominent left epicardiac fat. Aorta again mildly arteriosclerotic without aneurysm/dissection. No pathologic mediastinal/hilar lymphadenopathy. Lungs again demonstrates mild pulmonary emphysema, benign right upper lobe noncalcified micronodule, and bibasilar subsegmental atelectasis/scarring. No new pulmonary mass/nodule, infiltrate, or effusion. Bony thorax intact again with osteopenia and mild degenerative changes throughout spine. Limited upper abdomen again demonstrates fatty liver, hepatic cysts, cholecystectomy clips, and left adrenal adenoma. Impression: 1. Negative pulmonary embolus. No new/acute abnormalities. 2. Again chronic findings including pulmonary emphysema, borderline cardiomegaly, benign right upper lobe noncalcified micronodule, bibasilar atelectasis/scarring, arteriosclerotic disease, chronic bony findings, fatty liver, hepatic cysts, and left adrenal adenoma.
--- NOTE | 2024-02-29 09:29 | XRAY ---
Indication: Short of breath. Comparison: January 14, 2024 Portable chest demonstrates stable left base subsegmental atelectasis/scarring. Remaining heart and lungs unremarkable. Bony thorax intact again with osteopenia and degenerative changes. No new/acute findings.
[2024-02-29] MEDS: ENOXAPARIN SODIUM SQ SCH (11:11)
[2024-02-29] MEDS: LEVOFLOXACIN 750MG/150ML D5W 750 MG/150 ML BAG IV SCH (11:11)
[2024-02-29] MEDS ORDERED: Lasix 40 MG PO SCH ×2 (11:15→17:00)
--- NOTE | 2024-02-29 11:31 | PCM.NOTE ---
Ms. Russo is a 63 year-old female with morbid obesity, COPD, HTN, HLD, DM2, and hypothyroidism who presents with shortness of breath and cough. She admits to 1- 2 days of symptoms, and upon arrival to [place], her laboratory data revealed a positive COVID test and an elevated lactate. Her chest imaging shows a possible some mild infiltrate at the left base, and initially she was requiring 3L NC oxygen, but currently she is 91% on RA. She remains with stable vital signs and is sleeping. 02/29/24: Met with patient bedside. Endorses continued shortness of breath, requiring 3L of oxygen. CT noting chronic findings, no acute abnormalities. Patient refusing SSI. Will resume her Amaryl for now. Will need to hold metformin for 48 hours.
[2024-02-29] MEDS: JARDIANCE PO SCH (12:17)
[2024-02-29] MEDS: NORVASC 5 MG PO SCH (12:18)
[2024-02-29] MEDS: Klor Con PO SCH (12:18)
[2024-02-29] MEDS: TOPIRAMATE PO SCH (12:19)
[2024-02-29] MEDS: Mirapex 0.5 MG Tablet PO SCH (12:19)
[2024-02-29] MEDS: ECOTRIN 81 MG PO SCH (12:19)
[2024-02-29] MEDS: Aldactone 25 MG PO SCH (12:19)
[2024-02-29] MEDS: Protonix 40MG Tablet PO SCH (12:19)
[2024-02-29] MEDS: ZOCOR 20MG PO SCH (12:19)
[2024-02-29] MEDS: SYNTHROID 75 MCG PO SCH (12:20)
[2024-02-29] MEDS: Lasix 40 MG PO SCH (12:20)
[2024-02-29] MEDS: Imdur 60MG PO SCH (12:20)
[2024-02-29] MEDS ORDERED: Amaryl 2 MG PO SCH (12:30)
[2024-02-29] MEDS ORDERED: Depakote EXTENDED RELEASE 250 MG PO SCH (12:30)
[2024-02-29] MEDS ORDERED: REMDESIVIR 200 MG in Sodium Chloride 0.9% 250 ML 250 ML IV ONE (12:30)
[2024-02-29] MEDS: XANAX 1 MG PO SCH (13:07)
[2024-02-29] MEDS: NORCO 10-325 MG PO PRN (13:07)
[2024-02-29] MEDS: HUMALOG SQ PRN (13:07)
[2024-02-29] MEDS: Singulair 10 MG PO SCH (21:55)
[2024-02-29] MEDS: Lopressor 25MG Tab PO SCH (21:55)
[2024-02-29] MEDS ORDERED: NON-FORMULARY ITEM (Divalproex Sodium [Divalproex Sodium Er] 500 MG Tab.Er.24h) PO SCH (22:00)
[2024-02-29] MEDS ORDERED: PRAMIPEXOLE DI HCL 1 MG PO SCH (22:00)
[2024-02-29] MEDS ORDERED: NON-FORMULARY ITEM (Divalproex Sodium [Depakote] 500 MG Tablet.Dr) PO SCH (22:00)
[2024-03-01 03:31] VITALS: O2SAT 96
[2024-03-01 08:35] VITALS: BP 114/60; RESP 18; TEMP 97.5
[2024-03-01 08:48] VITALS: PULSE 108
[2024-03-01] MEDS: HOLD METFORMIN PRODUCTS FOR 48 HOURS MC SCH (09:30)
--- NOTE | 2024-03-01 09:38 | PCM.DS ---
Discharge Summary Date of Admission: 02/29/24 00:22 Date of Discharge: 03/01/24 Admitting Physician: ABDIRASHID LOVELACE MD Primary Care Provider: CECE WOODARD Allergies Allergies Influenza Virus Vaccines [Influenza Virus Vaccine] Allergy (Intermediate, Verified 02/28/24 17:14) Swelling of Hands venom-honey bee [bee venom (honey bee)] Allergy (Verified 02/28/24 17:14) famotidine [From Pepcid] Adverse Reaction (Intermediate, Verified 02/28/24 17:14) hot, flushed, diaphoresis, and chest pain. tape Allergy (Uncoded 02/28/24 17:14) Hospital Summary - Hospital Course Hospital Course: Ms. Russo is a 63 year-old female with morbid obesity, COPD, HTN, HLD, DM2, and hypothyroidism admitted for COVID and possible superimposed pneumonia. She admits to 1-2 days of symptoms, and upon arrival to [place], her laboratory data revealed a positive COVID test and an elevated lactate. Her chest imaging shows a possible some mild infiltrate at the left base, and initially she was requiring 3L NC oxygen, but currently she is 94% on RA. Received IP treatment with levaquin and solumedrol. Patient has refused treatment with Remdesivir for COVID. Dyspnea has improved. She does not qualify for home oxygen. Patient adamantly requesting discharge today. Discharge Note New Diagnosis:COVID/COPD exacerbation New Medications:levaquin/medrol dose pack/nebulizer machine with DuoNebs/symbicort Follow Up: PCP Latest Assessment & Plan 1. SARS-CoV-2 2. Possible Pneumonia 3. COPD Exacerbation 4. Elevated Lactate 5. Hypertension 6. Hyperlipidemia 7. Type II Diabetes Mellitus 8. Morbid Obesity 9. Hypothyroidism PLAN 1. Currently 91% on RA 2. IV steroids + duonebs 3. Empiric Levaquin x 5 days 4. Gentle fluids 5. Home medication reconciliation in the AM as she does not know her current medical regimen I spent 35 minutes [id number] with the patient on the day of discharge performing discharge exam, discussing hospital stay and discharge instructions with patient and caregivers, preparation of discharge records, prescriptions & referral forms and addressing any questions/concerns the patient had as documented above. - Vitals & Intake/Output Vital Signs: Vital Signs Temperature 97.5 F 03/01/24 08:00 Pulse Rate 108 H 03/01/24 08:27 Respiratory Rate 18 03/01/24 08:27 Blood Pressure 114/60 03/01/24 08:00 O2 Sat by Pulse Oximetry 96 03/01/24 08:27 Intake & Output: Intake & Output 02/27/24 02/28/24 02/29/24 03/01/24 11:59 11:59 11:59 11:59 Intake Total 1360 2290 Balance 1360 2290 Weight 120.8 kg - Lab Result Diagrams: 02/29/24 02:25 02/29/24 02:25 Lab Results-Last 24 Hrs: Lab Results-Last 24 Hours 02/29/24 02/29/24 02/29/24 Range/Units 11:15 11:50 11:50 D-Dimer (0.0-0.50) mg/L POC Glucometer 216 H (74 to 106) mg/dL Hemoglobin A1c (4.5-6.0) % Magnesium 2.0 (1.6-2.3) mg/dL Procalcitonin 0.049 (0.030-0.080) ng/mL 02/29/24 02/29/24 02/29/24 Range/Units 11:50 11:50 16:12 D-Dimer 1.09 H* (0.0-0.50) mg/L POC Glucometer 284 H (74 to 106) mg/dL Hemoglobin A1c 5.60 (4.5-6.0) % Magnesium (1.6-2.3) mg/dL Procalcitonin (0.030-0.080) ng/mL Micro Results-Entire Visit: Microbiology 02/28/24 18:18 Blood Culture - Preliminary Blood 02/28/24 18:18 Blood Culture - Preliminary Blood Accuchecks Date 03/01/24 Date 02/29/24 Date 02/29/24 Time 05:40 Time 11:41 Time 11:41 - Radiology Exams Ordered Rad Exams-Entire Visit: Radiology Procedures Category Date Time Status CHEST 1 VIEW (PORTABLE) Stat Exams 02/28/24 17:36 Completed CHEST WITH CONTRAST [CT] Stat Exams 02/28/24 21:42 Completed - Procedures and Test Procedures and Tests throughout Hospitalization: Therapy Orders & Screens 02/28/24 17:30 Respiratory Therapy Assessment DAILY Comment: 02/29/24 00:25 Oxygen Nasal Cannula 3 lpm Comment: Respiratory Therapy Consult ONCE Comment: Reason For Exam: 02/29/24 02:30 Respiratory Therapy Assessment DAILY Comment: 02/29/24 02:38 RT Screen per Nursing Assess ONCE Comment: Protocol Order Physician Instructions: Greater than 3 points order RT Admission Screen Reason For Exam: Triggered on Admission Diagnosis: covid Diagnosis: covid Pneumonia: Yes Home O2: No Asthma: No CHF: Yes Home CPAP/BIPAP: No Home Nebs/MDI: Yes Total Points: 11 02/29/24 04:35 BiPap/CPAP ROUTINE Comment: Diagnosis: covid 02/29/24 11:35 Respiratory Therapy Consult ROUTINE Comment: Reason For Exam: Diagnosis: covid Discharge Exam General Appearance: no apparent distress Neurologic Exam: alert, oriented x 3, cooperative Eye Exam: PERRL Ears, Nose, Throat Exam: normal ENT inspection Neck Exam: normal inspection Respiratory Exam: diminished breath sounds Cardiovascular Exam: regular rate/rhythm, normal heart sounds Gastrointestinal/Abdomen Exam: soft, normal bowel sounds Pelvic Exam: deferred Rectal Exam: deferred Back Exam: normal inspection Extremity Exam: normal inspection Skin Exam: normal color Final Diagnosis/Problem List - Final Discharge Diagnosis/Problem (1) COVID Current Visit: Yes Status: Acute Assessment & Plan: -Patient refuses Remdesivir -solumedrol -lovenox -RT eval -Supplemental oxygen for spo2 goal >88-92% -Nebs/bronchodilator -Levaquin for possible superimposed pneumonia Code(s): U07.1 - COVID-19 (2) COPD exacerbation Current Visit: Yes Status: Acute Assessment & Plan: -supplemental oxygen for goal spo2> 88-92% -Patient on RA - does not qualify for home oxygen -Will discharge with nebulizer machine, duonebs, symbicort, medrol dose pack, levaquin Code(s): J44.1 - CHRONIC OBSTRUCTIVE PULMONARY DISEASE W (ACUTE) EXACERBATION (3) Diabetes mellitus Current Visit: Yes Status: Acute Assessment & Plan: -resume home management - advised patient to contact PCP for adjustments if needed due to steroids Code(s): E11.9 - TYPE 2 DIABETES MELLITUS WITHOUT COMPLICATIONS (4) Pneumonia due to COVID-19 virus Current Visit: Yes Status: Acute Assessment & Plan: -see covid Code(s): U07.1 - COVID-19; J12.82 - PNEUMONIA DUE TO CORONAVIRUS DISEASE 2019 (5) Respiratory failure Current Visit: Yes Status: Acute Assessment & Plan: -secondary to COVID/COPD exac/PNA -see above Code(s): J96.90 - RESPIRATORY FAILURE, UNSP, UNSP W HYPOXIA OR HYPERCAPNIA - Discharge Disposition: Home, Self-Care Condition: Stable Prescriptions: New Budesonide/Formoterol Fumarate [Breyna 80-4.5 Mcg Inhaler] 2 puff IH BID 30 Days #1 inh Albuterol/Ipratropium 3ml Neb* [DUONEB 0.5-3 MG/3 ml Neb] 3 ml IH Q4HPRN PRN 30 Days #120 amp PRN Reason: Shortness Of Breath/Wheezing levoFLOXacin [Levofloxacin] 750 mg PO DAILY 3 Days #3 tablet Methylprednisolone Packet [Medrol Dosepack] 4 mg PO UD #30 packet Nebulizer See Rx Instructions .ROUTE .COMPLEX 90 Days #1 unit Continue Potassium Chloride Tab* [Klor Con] 30 meq PO BID Aspirin [Lo-Dose Aspirin EC] 81 mg PO DAILY Levothyroxine Sodium 75 Mcg [Synthroid 75 Mcg] 75 mcg PO DAILY Montelukast Sodium 10 mg [Singulair 10 MG] 10 mg PO QHS Spironolactone 25 mg [Aldactone 25 MG] 25 mg PO DAILY Pantoprazole Sodium 40 mg PO DAILY Pramipexole Di-HCl [Mirapex] 0.5 - 1 mg PO QHS Amlodipine Besylate 10 mg PO DAILY Topiramate 50 mg PO BID Isosorbide Mononitrate [Isosorbide Mononitrate ER] 60 mg PO DAILY Glimepiride 2 mg [Amaryl 2 MG] 2 mg PO DAILY Atorvastatin Calcium [Lipitor] 20 mg PO DAILY 30 Days #30 tablet Metoprolol Tartrate 25 mg [Lopressor 25MG Tab] 25 mg PO HS Empagliflozin [Jardiance] 10 mg PO DAILY Furosemide 40 mg [Lasix 40 MG] 40 mg PO UD Ibuprofen 600 mg PO TID PRN PRN PRN Reason: Pain Divalproex Sodium [Depakote] 500 mg PO BID ALPRAZolam 1 MG [Xanax 1 mg] 1 mg PO QID Hydrocodone/Acetaminophen [Hydrocodone-Acetamin 10-325 mg] 1 each PO Q4-6HPRN PRN PRN Reason: Pain Follow up with: CECE WOODARD MD [Primary Care Provider] - 03/12/24 11:00 am
[2024-03-01] MEDS ORDERED: REMDESIVIR 100 MG in Sodium Chloride 100ML MINI-BAG PLUS 100 ML IV SCH (10:00)
[2024-03-01] MEDS ORDERED: NON-FORMULARY ITEM (Amlodipine Besylate [Amlodipine Besylate] 10 MG Tablet) PO SCH (10:00)
[2024-03-01] MEDS ORDERED: NON-FORMULARY ITEM (Atorvastatin Calcium [Lipitor] 20 MG Tablet) PO SCH (10:00)
== END 2024-03-01 11:12 | disposition home health service (06) ==
LOC: ED 17:10 → MED SURG 02-29 00:22 → INTOOBSV 02-29 00:22
PROVIDERS: ADMIT Internal Medicine Critical Care Medicine; ATTEND Internal Medicine Critical Care Medicine
DX: U07.1 COVID-19 (principal); J44.1 Chronic obstructive pulmonary disease with (acute) exacerbation; E11.9 Type 2 diabetes mellitus without complications; J12.82 Pneumonia due to coronavirus disease 2019; J96.90 Respiratory failure, unspecified, unspecified whether with hypoxia or hypercapnia; E78.5 Hyperlipidemia, unspecified; E03.9 Hypothyroidism, unspecified; I11.0 Hypertensive heart disease with heart failure; I50.9 Heart failure, unspecified; Z79.899 Other long term (current) drug therapy; Z20.828 Contact with and (suspected) exposure to other viral communicable diseases; Z85.828 Personal history of other malignant neoplasm of skin; Z59.41 Food insecurity
CPT/HCPCS: 0241U; 36000; 36415; 71045; 71260; 80053; 82947; 83036; 83605; 83735; 83880; 84145; 84484; 85025; 85027; 85379; 87040; 93005; 93041; 94640; 94660; 94762; 96365; 96367; 96374; 96375; 99284; Q3014; 93268; J0456; J0696; J1650; J1817; J1956; J2405; J2920; J2930; J3010; A9270-GY; G0378

== ENCOUNTER 2024-06-01 17:47 | Observation (INO) | payer BC, MEDICARE ==
[2024-06-01] MEDS ORDERED: Romazicon 0.5 MG/5 ML Injection ONE ×2 (18:01→22:28)
[2024-06-01] MEDS: Romazicon 0.5 MG/5 ML Injection IV ONE ×2 (18:04→22:29)
[2024-06-01] MEDS: Sodium Chloride 0.9% 1000 ML 1,000 ML IV STA (18:04)
[2024-06-01] MEDS ORDERED: Sodium Chloride 0.9% 1000 ML 1,000 ML ONE ×2 (18:04→22:39)
[2024-06-01 18:14] LABS: BASOPHIL % 0.6 % (0.1-1.2); Basophil (Absolute #) 0.04 x10^3/uL (0.01-0.08); Eosinophil % 2.8 % (0.7-5.8); Hematocrit 48.9 % (34.1-44.9); Hemoglobin 14.9 g/dL (11.2-15.7); IMMATURE GRAN # 0.06 x10^3u/L (0.001-0.031); IMMATURE GRAN % 0.8 % (0.001-0.429); Lymphocyte (Absolute #) 2.05 x10^3/uL (1.18-3.74); Mean Cell Volume 94.2 fL (79.4-94.8); Mean Corpuscular Hemoglobin 28.7 pg (25.6-32.2); Mean Corpuscular Hgb Concent. 30.5 g/dL (32.2-35.5); Monocyte (Absolute #) 0.73 x10^3/uL (0.24-0.86); Monocytes % 10.3 % (4.7-12.5); Neutrophil % 56.5 % (34.0-71.1); Platelet Count 199 x10^3/uL (182-369); Red Blood Count 5.19 x10^6/uL (3.93-5.22); Red Cell Distribution Width 17.5 % (11.7-14.4); White Blood Count 7.1 x10^3/uL (3.98-10.04)
[2024-06-01 18:37] LABS: ACETAMINOPHEN < 10 ug/ml (10-30); ALKALINE PHOSPHATASE 77 U/L (38-126); ANION GAP 13.9 MEQ/L (5-15); BLOOD UREA NITROGEN 15 mg/dL (7-17); CHLORIDE 107 mmol/L (98-107); Calcium 9.3 mg/dL (8.4-10.2); Carbon Dioxide 24 mmol/L (22-30); Creatinine 1 1.09 mg/dL (0.52-1.04); EST GLOMERULAR FILTRATION RATE 57.1 ML/MIN; ETHYL ALCOHOL < 10 mg/dL (0-10); Glucose 108 mg/dL (74-106); Potassium 4.4 mmol/L (3.5-5.1); SALICYLATE < 1.0 mg/dL (2-20); SGOT/AST 26 U/L (14-36); SGPT/ALT 19 U/L (0-35); SODIUM 140 mmol/L (135-145); Total Protein 7.8 g/dL (6.3-8.2)
--- NOTE | 2024-06-01 18:42 | ERPHSYRPT ---
- History of Present Illness Source: family, EMS Exam Limitations: clinical condition Patient Subjective Stated Complaint: Ems states "Her said he came in from working outside and she was sitting on the floor with pillows around her and some food, he thinks she might have fallen and he thinks she has been there for about 4 hours. He said she also got mad at him and took 4 of her sleeping pills to help her fall asleep. She took 4 xanax, 1 mg each." Triage Nursing Assessment: PT presented alert and sleepy. Pt keeps stating she wants a turkey leg. PT snoring and sleeping. pt will answer questions but is sleepy. Timing/Duration: today Hx Tetanus, Diphtheria Vaccination/Date Given: No Hx Influenza Vaccination/Date Given: No Hx Pneumococcal Vaccination/Date Given: No Immunizations Up to Date: No <ALBERT PRATER - Last Filed: 06/01/24 18:44> <JULIET BARRERA - Last Filed: 06/01/24 21:31> - History of Present Illness Time Seen by Provider: 06/01/24 18:39 Physician History: Ems states "Her said he came in from working outside and she was sitting on the floor with pillows around her and some food, he thinks she might have fa llen and he thinks she has been there for about 4 hours. He said she also got mad at him and took 4 of her sleeping pills to help her fall asleep. She took 4 xanax, 1 mg each." unable to get other history due to patient drowsiness (JOSI,ALBERT) Allergies/Adverse Reactions: Influenza Virus Vaccines [Influenza Virus Vaccine] Allergy (Intermediate, Verified 02/28/24 17:14) Swelling of Hands venom-honey bee [bee venom (honey bee)] Allergy (Verified 02/28/24 17:14) famotidine [From Pepcid] Adverse Reaction (Intermediate, Verified 02/28/24 17:14) hot, flushed, diaphoresis, and chest pain. tape Allergy (Uncoded 02/28/24 17:14) Home Medications: Potassium Chloride Tab* [Klor Con] 30 meq PO BID 05/07/20 [History] Aspirin [Lo-Dose Aspirin EC] 81 mg PO DAILY 11/17/21 [History] Levothyroxine Sodium 75 Mcg [Synthroid 75 Mcg] 75 mcg PO DAILY 10/12/22 [History] Montelukast Sodium 10 mg [Singulair 10 MG] 10 mg PO QHS 12/13/22 [History] Amlodipine Besylate 10 mg PO DAILY 10/01/23 [History] Glimepiride 2 mg [Amaryl 2 MG] 2 mg PO DAILY 10/01/23 [History] Isosorbide Mononitrate [Isosorbide Mononitrate ER] 60 mg PO DAILY 10/01/23 [History] Pantoprazole Sodium 40 mg PO DAILY 10/01/23 [History] Pramipexole Di-HCl [Mirapex] 0.5 - 1 mg PO QHS 10/01/23 [History] Spironolactone 25 mg [Aldactone 25 MG] 25 mg PO DAILY 10/01/23 [History] Topiramate 50 mg PO BID 10/01/23 [History] ALPRAZolam 1 MG [Xanax 1 mg] 1 mg PO QID 02/29/24 [History] Divalproex Sodium [Depakote] 500 mg PO BID 02/29/24 [History] Empagliflozin [Jardiance] 10 mg PO DAILY 02/29/24 [History] Furosemide 40 mg [Lasix 40 MG] 40 mg PO UD 02/29/24 [History] Hydrocodone/Acetaminophen [Hydrocodone-Acetamin 10-325 mg] 1 each PO Q4-6HPRN PRN 02/29/24 [History] Ibuprofen 600 mg PO TID PRN PRN 02/29/24 [History] Metoprolol Tartrate 25 mg [Lopressor 25MG Tab] 25 mg PO HS 02/29/24 [History] Travel Risk - International Travel Have you traveled outside of the country in past 3 weeks: No - Emerging Infectious Disease Are you exhibiting symptoms associated with any current EIDs: No Symptoms: Cough: New Onset, Fever, Headaches/Body Aches/, Joint Pain <JOSI,ALBERT - Last Filed: 06/01/24 18:44> - Review of Systems Constitutional: Lethargy Eyes: No Symptoms Ears, Nose, & Throat: No Symptoms Respiratory: Wheezing Cardiac: No Symptoms Abdominal/Gastrointestinal: No Symptoms Genitourinary Symptoms: No Symptoms Musculoskeletal: No Symptoms Skin: No Symptoms Neurological: Lethargy Psychological: Anxiety Endocrine: No Symptoms Hematologic/Lymphatic: No Symptoms Immunological/Allergic: No Symptoms All Other Systems: Unable due to condition <JOSI,ALBERT - Last Filed: 06/01/24 18:44> - Past Medical History Pertinent Past Medical History: Yes Neurological History: No Pertinent History ENT History: Other Cardiac History: Congestive Heart Failure, High Cholesterol, Hypertension Respiratory History: CHF, COPD, Pneumonia Endocrine Medical History: Diabetes Type II, Hypothyroidism Musculoskeletal History: No Pertinent History, Other GI Medical History: GERD, Gallbladder Disease, Ulcer, Other History: No Pertinent History Psycho-Social History: Anxiety, Bipolar, Depression Female Reproductive Disorders: No Pertinent History Other Medical History: stage IV skin cancer - Past Surgical History Past Surgical History: Yes Neuro Surgical History: No Pertinent History Cardiac: No Pertinent History, Cardiac Catheterization Respiratory: No Pertinent History Gastrointestinal: Appendectomy, Cholecystectomy Genitourinary: No Pertinent History Musculoskeletal: No Pertinent History Female Surgical History: Hysterectomy Other Surgical History: negative cardiac cath 3 weeks ago Significant Family History: heart disease, diabetes, hypertension - Social History Smoking Status: Never smoker How long have you smoked: 42 years Exposure to second hand smoke: No Alcohol Use: None Drug Use: none Patient Lives Alone: No - Social Determinants of Health Will the patient participate in the screening: Yes Do you worry about a steady place to live?: No Do you have any problems with any of the following?: No known problems In the past 12 months,have you had to go without utilities?: No Transportation Issues: No Has anyone in your support network made you feel unsafe?: No Have you or anyone in your house had to go without enough: Yes Comment: Wants assistance with food <JOSI,ALBERT - Last Filed: 06/01/24 18:44> - Physical Exam General Appearance: mild distress, lethargy, obese Eye Exam: PERRL/EOMI, eyes nml inspection Ears, Nose, Throat Exam: normal ENT inspection, TMs normal, pharynx normal, moist mucous membranes Neck Exam: normal inspection, non-tender, supple, full range of motion Respiratory Exam: diminished breath sounds, wheezing, No respiratory distress Cardiovascular Exam: regular rate/rhythm, normal heart sounds, normal peripheral pulses Gastrointestinal/Abdomen Exam: soft, normal bowel sounds, No tenderness, No mass Back Exam: normal inspection, normal range of motion, No CVA tenderness, No vertebral tenderness Extremity Exam: normal inspection, normal range of motion, pelvis stable Neurologic Exam: disoriented, agitation, intoxicated appearance, No motor deficits, No sensory deficit Skin Exam: normal color, warm, dry, No rash Lymphatic Exam: No adenopathy SpO2 Interpretation: normal SpO2: 95 O2 Delivery: Room Air <ALBERT PRATER - Last Filed: 06/01/24 18:44> - Nursing Vital Signs Nursing Vital Signs: Initial Vital Signs Temperature 97.1 F 06/01/24 17:49 Pulse Rate 84 06/01/24 17:49 Respiratory Rate 16 06/01/24 17:49 Blood Pressure 109/70 06/01/24 17:49 O2 Sat by Pulse Oximetry 96 06/01/24 17:49 Pain Scale Pain Intensity 5 - Course Nursing assessment & vital signs reviewed: Yes EKG Interpreted by Me: Sinus Rhythm - Radiology Exams Chest X-ray Interpretation: Interpreted by me, Reviewed by me <ALBERT PRATER - Last Filed: 06/01/24 18:44> - CT Exams Head CT Interpretation: Tele-radiologist Report (No bleeding or major tentorial infarction. No fractures. See rest of report.) <JULIET ABRRERA - Last Filed: 06/01/24 21:31> Ordered Tests: Active Orders 24 hr Category Date Time Status EKG-ER Only STAT Care 06/01/24 18:00 Active Oxygen-ED Only Nasal Cannula 3 lpm Care 06/01/24 18:00 Active ACO SDOH Referral ONCE Cons 06/01/24 18:02 Active CHEST 1 VIEW (PORTABLE) Stat Exams 06/01/24 18:43 Taken HEAD WITHOUT CONTRAST [CT] Stat Exams 06/01/24 18:43 Completed ACETAMINOPHEN Stat Lab 06/01/24 18:12 Completed CBC W DIFF Stat Lab 06/01/24 18:12 Completed CMP Stat Lab 06/01/24 18:12 Completed ETHYL ALCOHOL Stat Lab 06/01/24 18:12 Completed Lactic Acid Stat Lab 06/01/24 18:50 Completed Lactic Acid Stat Lab 06/01/24 20:53 Received SALICYLATE Stat Lab 06/01/24 18:12 Completed UA W/RFX UR CULTURE Stat Lab 06/01/24 18:01 Ordered Urine Triage Profile Stat Lab 06/01/24 18:01 Ordered Respiratory Therapy Assessment DAILY RT 06/01/24 20:28 Active Medication Summary Discontinued Medications Generic Name Dose Route Start Last Admin Trade Name Joey PRN Reason Stop Dose Admin Albuterol Sulfate 2.5 mg 06/01/24 20:13 06/01/24 20:22 Albuterol Sulfate 2.5 Mg/3 Ml Neb IH 06/01/24 20:14 2.5 mg STAT ONE Administration Albuterol Sulfate Confirm 06/01/24 20:20 Albuterol Sulfate 2.5 Mg/3 Ml Neb Administered 06/01/24 20:21 Dose 2.5 mg IH .STK-MED ONE Flumazenil Confirm 06/01/24 18:01 Flumazenil 0.5 Mg/5 Ml Vial Administered 06/01/24 18:02 Dose 0.1 mg .ROUTE .STK-MED ONE Flumazenil 0.5 mg 06/01/24 18:00 06/01/24 18:04 Flumazenil 0.5 Mg/5 Ml Vial IV 06/01/24 18:01 0.5 mg STAT ONE Administration Sodium Chloride 1,000 mls @ 999 mls/hr 06/01/24 18:00 06/01/24 18:04 Sodium Chloride 0.9% 1000 Ml IV 06/01/24 19:00 999 mls/hr .Q1H1M STA Administration Sodium Chloride Confirm 06/01/24 18:04 Sodium Chloride 0.9% 1000 Ml Administered 06/01/24 18:05 Dose 1,000 mls @ ud .ROUTE .STK-MED ONE Clindamycin HCl/Dextrose 900 mg in 50 mls @ 100 mls/hr 06/01/24 20:15 06/01/24 20:25 Clindamycin-D5w 900 Mg/50 Ml IV 06/01/24 20:44 100 ml/hr STAT STA 100 mls/hr Administration Clindamycin HCl/Dextrose Confirm 06/01/24 20:23 Clindamycin-D5w 900 Mg/50 Ml Administered 06/01/24 20:24 Dose 900 mg in 50 mls @ ud IV .STK-MED ONE Lab/Rad Data: Laboratory Result Diagrams 06/01/24 18:12 06/01/24 18:12 Laboratory Results 06/01/24 06/01/24 06/01/24 Range/Units 18:50 18:12 18:12 WBC 7.1 (3.98-10.04) x10^3/uL RBC 5.19 (3.93-5.22) x10^6/uL Hgb 14.9 (11.2-15.7) g/dL Hct 48.9 H (34.1-44.9) % MCV 94.2 (79.4-94.8) fL MCH 28.7 (25.6-32.2) pg MCHC 30.5 L (32.2-35.5) g/dL RDW 17.5 H (11.7-14.4) % Plt Count 199 (182-369) x10^3/uL MPV 10.0 (9.4-12.3) fL Gran % 56.5 (34.0-71.1) % Immature Gran % (Auto) 0.8 H (0.001-0.429) % Nucleat RBC Rel Count 0.0 (0.00-0.2) % Eos # (Auto) 0.20 (0.04-0.36) x10^3/uL Immature Gran # (Auto) 0.06 H (0.001-0.031) x10^3u/L Absolute Lymphs (auto) 2.05 (1.18-3.74) x10^3/uL Absolute Monos (auto) 0.73 (0.24-0.86) x10^3/uL Absolute Nucleated RBC 0.00 (0.00-0.012) x10^3u/L Lymphocytes % 29.0 (19.3-51.7) % Monocytes % 10.3 (4.7-12.5) % Eosinophils % 2.8 (0.7-5.8) % Basophils % 0.6 (0.1-1.2) % Absolute Granulocytes 4.00 (1.56-6.13) x10^3/uL Basophils # 0.04 (0.01-0.08) x10^3/uL Sodium 140 (135-145) mmol/L Potassium 4.4 (3.5-5.1) mmol/L Chloride 107 (98-107) mmol/L Carbon Dioxide 24 (22-30) mmol/L Anion Gap 13.9 (5-15) MEQ/L BUN 15 (7-17) mg/dL Creatinine 1.09 H (0.52-1.04) mg/dL Estimated GFR 57.1 ML/MIN Glucose 108 H (74-106) mg/dL Lactic Acid 1.9 (0.4-2.0) Calcium 9.3 (8.4-10.2) mg/dL Total Bilirubin 0.80 (0.2-1.3) mg/dL AST 26 (14-36) U/L ALT 19 (0-35) U/L Alkaline Phosphatase 77 (38-126) U/L Serum Total Protein 7.8 (6.3-8.2) g/dL Albumin 4.0 (3.5-5.0) g/dL Salicylates < 1.0 L (2-20) mg/dL Acetaminophen < 10 L (10-30) ug/ml Ethyl Alcohol < 10 (0-10) mg/dL - Progress Progress: unchanged Discussed with : Puma (Spoke with & discussed pt with Dr. Taylor([id number]) - obs) Counseled pt/family regarding: lab results, diagnosis, rad results <JULIET BARRERA - Last Filed: 06/01/24 21:31> - Progress Progress Note: 06/01/24 20:[address] Barrera @ 1959: perrl, eomi, pharynx pink, lungs have mild expiratory wheezing, no cardiac rub, abdominal B.S. normal, lower legs are warm and erythematous, cooperative. (JULIET BARRERA) Medical Desision Making - Diagnostic Testing Diagnostic test were ordered, analyzed, and reviewed by me: Yes Radiological Interpretation: Teleradiologist Report <JULIET BARRERA - Last Filed: 06/01/24 21:31> <ALBERT PRATER - Last Filed: 06/01/24 18:44> - Departure Departure Disposition: Observation Critical Care Time: No <JULIET BARRERA - Last Filed: 06/01/24 21:31> - Departure Clinical Impression: Xanax overdose, cellulitis of legs, Depression Condition: Stable Referrals: CECE WOODARD MD [Primary Care Provider] - Follow up/PCP as directed
[2024-06-01] MEDS ORDERED: PROVENTIL 2.5 MG/3 ML NEB IH ONE (20:20)
[2024-06-01] MEDS: PROVENTIL 2.5 MG/3 ML NEB IH ONE (20:22)
[2024-06-01] MEDS ORDERED: CLINDAMYCIN-D5W 900 MG/50 ML*** 900 MG/50 ML BAG IV ONE (20:23)
[2024-06-01] MEDS: CLINDAMYCIN-D5W 900 MG/50 ML*** 900 MG/50 ML BAG IV STA (20:25)
--- NOTE | 2024-06-01 20:49 | XRAY ---
CLINICAL HISTORY: lethargy COMPARISON: None. TECHNIQUE: An axial non-contrast CT scan of the brain was performed from the skull base to the high parietal region. One of the following dose-reduction techniques was utilized for this exam. Automated exposure control, adjustment of the mA and/or kV according to patient size, and use of iterative reconstruction. FINDINGS: The CSF spaces are normal in size. No intracerebral or extra axial hematoma. No major infarction. The visualized brain parenchyma shows a normal appearance. Bradley-white matter differentiation is maintained. No midline shifts or deformity. Normal CT appearance of the posterior fossa structures namely the cerebellar hemispheres, brainstem, and cerebellar peduncles. The cerebello-pontine angles are clear. The pituitary gland, the pineal gland, and the optic chiasm are unremarkable. The osseous structures in the skull base are unremarkable. Hyperostosis frontoparietalis internal noted. No definite calvarium fractures. No changes of sinusitis. IMPRESSION: 1. No bleeding or major territorial infarction. If acute stroke is clinically suspected, further evaluation by brain MRI with diffusion is advised. 2. Hyperostosis frontoparietalis internal. No fractures. Electronically Signed by: Kelli Wilson MD. (06/01/2024 20:45:26 EDT)
[2024-06-01] MEDS ORDERED: CLINDAMYCIN-D5W 900 MG/50 ML*** 900 MG/50 ML BAG IV SCH (22:00)
[2024-06-01] MEDS ORDERED: DUONEB 0.5-3 MG/3 ml Neb IH PRN (22:28)
[2024-06-01] MEDS ORDERED: TYLENOL 325 MG PO PRN (22:29)
[2024-06-01] MEDS ORDERED: HUMALOG SQ PRN (22:29)
--- NOTE | 2024-06-01 23:52 | PCM.HP ---
History of Present Illness - Chief Complaint Chief Complaint: xanax overdose Date: 06/01/24 History of Present Illness: 63 y/o F with h/o morbid obesity, COPD, DM2, HTN, and hypothyroidism, who presents with lethargy, confusion, and hypoxia after intentional Xanax overdose. Note, history obtained from chart as patient is somnolent, does not answer my questions, only speaks up when staff attempts to place a simple face mask or biPAP mask over her, which she refuses to allow. Discussed with ED physician, who reported that found patient on the floor, with pillows and food around her, stating she had taken 4 of her Xanax 1 mg pills because she was mad at her . Per report, she responded well to Flumazenil 0.5 in the ED, was alert, and wanted to speak with [facility] tomorrow. However, when patient arrived to the floor and I examined her, she was lethargic, unable to answer questions. Was hypoxic, quickly requiring increase to 10 L oxygen. She refused facemask or BiPAP (staff familiar with patient, states she has DEVIN/OHS but always refuses BiPAP), and had to be placed on Oxymizer. No further history was available. - Review of Systems All Other Systems: Unable due to condition Medications & Allergies Home Medications: Home Medication List Potassium Chloride Tab* [Klor Con] 30 meq PO BID 05/07/20 [History Confirmed 02/29/24] Aspirin [Lo-Dose Aspirin EC] 81 mg PO DAILY 11/17/21 [History Confirmed 02/29/24] Levothyroxine Sodium 75 Mcg [Synthroid 75 Mcg] 75 mcg PO DAILY 10/12/22 [History Confirmed 02/29/24] Montelukast Sodium 10 mg [Singulair 10 MG] 10 mg PO QHS 12/13/22 [History Confirmed 02/29/24] Amlodipine Besylate 10 mg PO DAILY 10/01/23 [History Confirmed 02/29/24] Glimepiride 2 mg [Amaryl 2 MG] 2 mg PO DAILY 10/01/23 [History Confirmed 02/29/24] Isosorbide Mononitrate [Isosorbide Mononitrate ER] 60 mg PO DAILY 10/01/23 [History Confirmed 02/29/24] Pantoprazole Sodium 40 mg PO DAILY 10/01/23 [History Confirmed 02/29/24] Pramipexole Di-HCl [Mirapex] 0.5 - 1 mg PO QHS 10/01/23 [History Confirmed 02/29/24] Spironolactone 25 mg [Aldactone 25 MG] 25 mg PO DAILY 10/01/23 [History Confirmed 02/29/24] Topiramate 50 mg PO BID 10/01/23 [History Confirmed 02/29/24] Atorvastatin Calcium [Lipitor] 20 mg PO DAILY 30 Days #30 tablet 10/04/23 [Rx Confirmed 02/29/24] ALPRAZolam 1 MG [Xanax 1 mg] 1 mg PO QID 02/29/24 [History Confirmed 02/29/24] Divalproex Sodium [Depakote] 500 mg PO BID 02/29/24 [History Confirmed 02/29/24] Empagliflozin [Jardiance] 10 mg PO DAILY 02/29/24 [History Confirmed 02/29/24] Furosemide 40 mg [Lasix 40 MG] 40 mg PO UD 02/29/24 [History Confirmed 02/29/24] Hydrocodone/Acetaminophen [Hydrocodone-Acetamin 10-325 mg] 1 each PO Q4-6HPRN PRN 02/29/24 [History Confirmed 02/29/24] Ibuprofen 600 mg PO TID PRN PRN 02/29/24 [History Confirmed 02/29/24] Metoprolol Tartrate 25 mg [Lopressor 25MG Tab] 25 mg PO HS 02/29/24 [History Confirmed 02/29/24] Albuterol 8 gm Mdi Hfa [Ventolin Hfa MDI] See Rx Instructions .ROUTE .COMPLEX 06/01/24 [History Confirmed 06/01/24] Diclofenac Sodium 50 mg [Voltaren 50 mg] 75 mg PO BID 06/01/24 [History Confirmed 06/01/24] Ferrous Sulfate 325 mg [Feosol 325 mg] 325 mg PO DAILY 06/01/24 [History Confirmed 06/01/24] Allergies/Adverse Reactions: Allergies Allergy/AdvReac Type Severity Reaction Status Date / Time Influenza Virus Vaccines Allergy Intermediate Swelling Verified 02/28/24 17:14 [Influenza Virus Vaccine] of Hands venom-honey bee Allergy Verified 02/28/24 17:14 [bee venom (honey bee)] famotidine [From Pepcid] AdvReac Intermediate Verified 02/28/24 17:14 tape Allergy Uncoded 02/28/24 17:14 - Past Medical History Past Medical History: Yes Neurological History: No Pertinent History ENT History: Other Cardiac History: Congestive Heart Failure, High Cholesterol, Hypertension Respiratory History: CHF, COPD, Pneumonia Endocrine Medical History: Diabetes Type II, Hypothyroidism Musculoskelatal History: No Pertinent History, Other GI Medical History: GERD, Gallbladder Disease, Ulcer, Other History: No Pertinent History Pyscho-Social History: Anxiety, Bipolar, Depression Reproductive Disorders: No Pertinent History Comment: stage IV skin cancer - Past Surgical History Past Surgical History: Yes Neuro Surgical History: No Pertinent History Cardiac History: No Pertinent History, Cardiac Catheterization Respiratory Surgery: No Pertinent History GI Surgical History: Appendectomy, Cholecystectomy Genitourinary Surgical Hx: No Pertinent History Musculskeletal Surgical Hx: No Pertinent History Female Surgical History: Hysterectomy Other Surgical History: negative cardiac cath 3 weeks ago Significant Family History: heart disease, diabetes, hypertension - Social History Smoking Status: Former smoker How long have you smoked: 42 years Exposure to second hand smoke: No Alcohol: Rarely Drug Use: none - Social Determinants of Health Will the patient participate in the screening: Unable to obtain Do you worry about a steady place to live?: No Do you have any problems with any of the following?: No known problems In the past 12 months,have you had to go without utilities?: No Have you or anyone in your house had to go without enough: Yes Transportation Issues: No Has anyone in your support network made you feel unsafe?: No Does the patient want assistance with any of the above?: Yes Comment: Wants assistance with food - Physical Exam Vital Signs: Vital Signs - 24 hr Temp Pulse Resp BP BP Pulse Ox 06/01/24 22:33 91 L 06/01/24 22:32 85 L 06/01/24 21:59 96.9 F 82 24 112/70 82 L 06/01/24 21:38 79 06/01/24 21:30 85 20 112/53 95 06/01/24 21:10 81 17 95/65 93 L 06/01/24 20:33 86 25 H 119/73 95 06/01/24 20:22 87 26 H 92 L 06/01/24 19:30 97 H 19 102/78 94 L 06/01/24 18:44 95 06/01/24 18:30 86 25 H 115/59 95 06/01/24 18:08 85 21 143/75 91 L 06/01/24 17:49 97.1 F 84 16 109/70 96 GEN: Lethargic, pushes RT away at one point and yells "no", but otherwise not answering questions or interactive NEURO: face symmetric, moving all extremities, but extremely lethargic CV: regular rate & rhythm, no murmurs, no edema PULM: Shallow breathing, with some coarse breath sounds at bases and minimal wheezing. No accessory muscle usage. On 10L Oxymizer ABD: Soft, non-distended PSYCH: lethargic MSK: Obese Wound Assessment: Skin/Wound Assessment Wound/Incision Assessment Start: 06/01/24 22:25 Text: Status: Active Freq: Q6H Protocol: Document 06/01/24 22:25 MM (Rec: 06/01/24 22:49 MM [id number]) Wound/Incision Assessment Wound Assessment Admission Wound Type scab Drainage Amount None Comment scab noted to L medial leg/ richardson, no drainage, reports previous stitches in that area. Wound Photo Photo Taken No Results - Labs Lab/Micro Results: Lab Results-Last 24 Hours 06/01/24 06/01/24 06/01/24 Range/Units 18:12 18:12 18:50 WBC 7.1 (3.98-10.04) x10^3/uL RBC 5.19 (3.93-5.22) x10^6/uL Hgb 14.9 (11.2-15.7) g/dL Hct 48.9 H (34.1-44.9) % MCV 94.2 (79.4-94.8) fL MCH 28.7 (25.6-32.2) pg MCHC 30.5 L (32.2-35.5) g/dL RDW 17.5 H (11.7-14.4) % Plt Count 199 (182-369) x10^3/uL MPV 10.0 (9.4-12.3) fL Gran % 56.5 (34.0-71.1) % Immature Gran % (Auto) 0.8 H (0.001-0.429) % Nucleat RBC Rel Count 0.0 (0.00-0.2) % Eos # (Auto) 0.20 (0.04-0.36) x10^3/uL Immature Gran # (Auto) 0.06 H (0.001-0.031) x10^3u/L Absolute Lymphs (auto) 2.05 (1.18-3.74) x10^3/uL Absolute Monos (auto) 0.73 (0.24-0.86) x10^3/uL Absolute Nucleated RBC 0.00 (0.00-0.012) x10^3u/L Lymphocytes % 29.0 (19.3-51.7) % Monocytes % 10.3 (4.7-12.5) % Eosinophils % 2.8 (0.7-5.8) % Basophils % 0.6 (0.1-1.2) % Absolute Granulocytes 4.00 (1.56-6.13) x10^3/uL Basophils # 0.04 (0.01-0.08) x10^3/uL Sodium 140 (135-145) mmol/L Potassium 4.4 (3.5-5.1) mmol/L Chloride 107 (98-107) mmol/L Carbon Dioxide 24 (22-30) mmol/L Anion Gap 13.9 (5-15) MEQ/L BUN 15 (7-17) mg/dL Creatinine 1.09 H (0.52-1.04) mg/dL Estimated GFR 57.1 ML/MIN Glucose 108 H (74-106) mg/dL Lactic Acid 1.9 (0.4-2.0) Calcium 9.3 (8.4-10.2) mg/dL Total Bilirubin 0.80 (0.2-1.3) mg/dL AST 26 (14-36) U/L ALT 19 (0-35) U/L Alkaline Phosphatase 77 (38-126) U/L Serum Total Protein 7.8 (6.3-8.2) g/dL Albumin 4.0 (3.5-5.0) g/dL Salicylates < 1.0 L (2-20) mg/dL Acetaminophen < 10 L (10-30) ug/ml Ethyl Alcohol < 10 (0-10) mg/dL - Radiology Impressions Radiology Exams & Impressions: Radiology Procedures Category Date Time Status CHEST 1 VIEW (PORTABLE) Stat Exams 06/01/24 18:43 Taken HEAD WITHOUT CONTRAST [CT] Stat Exams 06/01/24 18:43 Completed CXR - shallow inspiration, with bibasilar atelectasis, but no consolidation (images personally reviewed) - Other Procedures and Tests Respiratory Therapy 06/01/24 20:28 Respiratory Therapy Assessment DAILY 06/01/24 21:38 Oxygen Nasal Cannula 2 lpm Assessment/Plan (1) Poisoning by benzodiazepine, intentional self-harm Current Visit: Yes Status: Acute Assessment & Plan: 63 y/o F with h/o COPD, morbid obesity, DM2, HTN, and hypothyroidism, here after overdose of Xanax with acute (on chronic?) hypoxic respiratory failure. ## Xanax overdose - intentional, per report. Patient already on high doses of Xanax at home (1 mg QID), now took 4 mg at unspecified time this afternoon. At first responded well to flumazenil, but again appears lethargic, with shallow respiration. Dose of flumazenil was given about 3-4 hours earlier, and half-life of Flumazenil is only 1 hr. With a large dose of Xanax, likely still having some effects. - repeat flumazenil 0.5 - may need another repeat dosing in a few hours - will need mental health evaluation tomorrow when more alert ## Acute hypoxic respiratory failure - in patient with h/o COPD, and reportedly untreated DEVIN, but precipitated by benzo overdose. Exam and CXR findings consistent with shallow breathing from weakened respiratory drive from benzos. No evidence of consolidation/pneumonia. If she has DEVIN/compromised intrathoracic upper airway, sedation will only worsen that. Patient alert enough to refuse BiPAP at this time. - reverse benzo effect as above - monitor; expect SpO2 to improve with flumazenil, then decrease FiO2 to maintain SpO2 91-94% in patient with h/o COPD to maintain hypoxemic respiratory drive - if worsens, will need to consider for intubation - start DuoNeb q4h PRN ## DM2 - unable to confirm home medications at this time due to mental status, but last medication list has no insulin. However, review of notes from last admissions shows they were also unable to confirm patient's home medications on that visit. - place on moderate-dose sliding scale insulin, AC/HS accuchecks - hold off on home PO meds ## bipolar disorder - reported in history, and on Depakote and topamax at home, as well as the Xanax mentioned above (although unable to confirm home medications) - restart home depakote 500 BID, topamax 50 BID - check VPA levels - holding off on Xanax in setting of intentional overdose above ## Hypertension - BP controlled currently. As above, unable to confirm home medication list, but last list included amlodipine, Lopressor, Aldactone and Lasix - cautiously restart amlodipine 10 daily for now - can add back spironolactone 25, Lasix 40, Lopressor 25 qHS if further issues ## Hypothyroidism - resume presumed home dose of levothyroxine 75 daily (as above, unable to confirm home medications) Code status: Full code Prophylaxis: lovenox 40 Diet: Diabetic Code(s): T42.4X2A - POISONING BY BENZODIAZEPINES, INTENTIONAL SELF-HARM, INIT Telemedicine Encounter - Telemedicine Encounter Telemedicine Encounter: "The entirety of this encounter was performed via Telemedicine" This visit was performed using real-time audio and video connection between my location and thepatients locationwith the assistance of a surrogateat the patients location. Written or verbal consent was obtained from the patient/guardian to [facility] this [facility]. Any patient questions regarding the telemedicine interaction were answered.
[2024-06-02] MEDS: Sodium Chloride 0.9% 1000 ML 1,000 ML IV SCH (00:08)
[2024-06-02] MEDS: CLINDAMYCIN-D5W 900 MG/50 ML*** 900 MG/50 ML BAG IV SCH (00:08)
[2024-06-02 00:32] VITALS: BP 122/75; RESP 20; TEMP 97
[2024-06-02] MEDS: Dextrose 5%/Water IV Soln. 1000 ML 1,000 ML IV SCH (00:39)
[2024-06-02] MEDS ORDERED: Dextrose 5%/Water IV Soln. 1000 ML 1,000 ML IV ONE (00:39)
[2024-06-02 01:14] VITALS: PULSE 85; O2SAT 96
--- NOTE | 2024-06-02 08:36 | XRAY ---
Indication: Lethargy. Status post fall. Comparison: May 24, 2024 Portable chest less inflated crowding both lung bases. New lingula infiltrate versus atelectasis. Heart not enlarged. New small hiatal hernia. Bony thorax intact again with osteopenia and degenerative changes.
[2024-06-02] MEDS ORDERED: Protonix 40MG Tablet PO SCH (10:00)
[2024-06-02] MEDS ORDERED: NON-FORMULARY ITEM (Divalproex Sodium [Depakote] 500 MG Tablet.Dr) PO SCH (10:00)
[2024-06-02] MEDS ORDERED: SYNTHROID 75 MCG PO SCH (10:00)
[2024-06-02] MEDS ORDERED: NON-FORMULARY ITEM (Amlodipine Besylate [Amlodipine Besylate] 10 MG Tablet) PO SCH (10:00)
[2024-06-02] MEDS ORDERED: TOPIRAMATE PO SCH (10:00)
[2024-06-02] MEDS ORDERED: ECOTRIN 81 MG PO SCH (10:00)
[2024-06-02] MEDS ORDERED: Imdur 60MG PO SCH (10:00)
[2024-06-02] MEDS ORDERED: ENOXAPARIN SODIUM SQ SCH (10:00)
[2024-06-02] MEDS ORDERED: Singulair 10 MG PO SCH (22:00)
== END 2024-06-02 04:08 | disposition left against medical advice (07) ==
LOC: ED 17:47 → MED SURG 21:35
PROVIDERS: ADMIT Internal Medicine; ATTEND Internal Medicine
DX: T42.4X2A Poisoning by benzodiazepines, intentional self-harm, initial encounter (principal); J44.9 Chronic obstructive pulmonary disease, unspecified; E11.9 Type 2 diabetes mellitus without complications; I10 Essential (primary) hypertension; E03.9 Hypothyroidism, unspecified; J96.01 Acute respiratory failure with hypoxia; F31.9 Bipolar disorder, unspecified; E66.9 Obesity, unspecified; Z79.899 Other long term (current) drug therapy; Z85.828 Personal history of other malignant neoplasm of skin
CPT/HCPCS: 36415; 70450; 71045; 80053; 80143; 80179; 82077; 82947; 83605; 85025; 93005; 93268; 94640; 94762; 96365; 96374; 99285; J7609; Q3014; A9270-GY; G0378

== ENCOUNTER 2025-02-16 20:53 | Emergency (ER) | payer BC, MEDICARE ==
--- NOTE | 2025-02-16 20:58 | ERPHSYRPT ---
- History of Present Illness Time Seen by Provider: 02/16/25 20:57 Historian: patient, EMS, old records Exam Limitations: no limitations Physician History: This is a morbidly obese 64-year-old white female patient Dr. Woodard who arrives to the emergency department by the 3d specialist service for the complaint of chest pain that began at 7 PM. It is described as upper chest pain that radiates straight through to her back. She had episode of nausea and dizziness but no v omiting. She has a nonproductive cough but she has not had any fevers. Patient does see a pain specialist and saw the pain specialist today. Patient has a history of stage III CHF, morbid obesity, hyperlipidemia, hypertension, COPD, hypothyroidism, gastroesophageal reflux disease, anxiety, depression and migraine headaches. Patient had a negative cardiac catheterization in early December 2023. I reviewed a twelve-lead EKG that was performed on 06/01/2024. This had a heart rate of 89 and it was normal sinus rhythm and had right axis deviation. Patient is taking valproic acid. The paramedics provided the patient with 4 baby aspirin, a breathing treatment and 2 nitroglycerin sublingually Timing/Duration: today Quality: sharpness Location: other (Right upper chest) Chest Pain Radiation: back Severity of Pain-Max: moderate Severity of Pain-Current: mild Modifying Factors: Improves With: coughing (Nonproductive) Associated Symptoms: cough (Nonproductive), dizziness (Earlier today but none now), No nausea, No vomiting, No abdominal pain Prior Chest Pain/Cardiac Workup: cardiac cath (Negative cardiac cath early December 2023) Nitro Today/Relief: 0.4 mg x 2, provided by EMS, mild relief Aspirin Treatment Today: 81 mg x 4, provided by EMS Allergies/Adverse Reactions: Influenza Virus Vaccines [Influenza Virus Vaccine] Allergy (Intermediate, Verified 02/16/25 21:10) Swelling of Hands venom-honey bee [bee venom (honey bee)] Allergy (Verified 02/16/25 21:10) famotidine [From Pepcid] Adverse Reaction (Intermediate, Verified 02/16/25 21:10) hot, flushed, diaphoresis, and chest pain. tape Allergy (Uncoded 02/16/25 21:10) Home Medications: Aspirin [Lo-Dose Aspirin EC] 81 mg PO DAILY 11/17/21 [History] Levothyroxine Sodium 75 Mcg [Synthroid 75 Mcg] 88 mcg PO DAILY 10/12/22 [History] Hydrocodone/Acetaminophen [Hydrocodone-Acetamin 10-325 mg] 1 each PO Q4-6HPRN PRN 02/29/24 [History] Metoprolol Tartrate 25 mg [Lopressor 25MG Tab] 25 mg PO DAILY 02/29/24 [History] Albuterol 8 gm Mdi Hfa [Ventolin Hfa MDI] 1 neb IH TID PRN PRN 06/01/24 [History] Ferrous Sulfate 325 mg [Feosol 325 mg] 325 mg PO DAILY 06/01/24 [History] Nitroglycerin 0.4 mg SL Q5MIN PRN MR X 3 PRN 11/27/24 [History] SUMAtriptan succinate [Imitrex 50 mg] 50 mg PO DAILY PRN PRN 11/27/24 [History] Hx Tetanus, Diphtheria Vaccination/Date Given: No Hx Influenza Vaccination/Date Given: No Hx Pneumococcal Vaccination/Date Given: No Travel Risk - International Travel Have you traveled outside of the country in past 3 weeks: No - Emerging Infectious Disease Are you exhibiting symptoms associated with any current EIDs: No Symptoms: Cough: New Onset, Fever, Headaches/Body Aches/, Joint Pain - Review of Systems Constitutional: No Symptoms Eyes: No Symptoms Ears, Nose, & Throat: No Symptoms Respiratory: No Symptoms Cardiac: Chest Pain Abdominal/Gastrointestinal: No Symptoms Genitourinary Symptoms: No Symptoms Musculoskeletal: No Symptoms Skin: No Symptoms Neurological: No Symptoms Psychological: No Symptoms Endocrine: No Symptoms Hematologic/Lymphatic: No Symptoms Immunological/Allergic: No Symptoms All Other Systems: Reviewed and Negative - Past Medical History Pertinent Past Medical History: Yes Neurological History: No Pertinent History ENT History: Other Cardiac History: Congestive Heart Failure, High Cholesterol, Hypertension Respiratory History: CHF, COPD, Pneumonia, Sleep Apnea Endocrine Medical History: Diabetes Type II, Hypothyroidism Musculoskeletal History: No Pertinent History, Other GI Medical History: GERD, Gallbladder Disease, Ulcer, Other History: No Pertinent History Psycho-Social History: Anxiety, Bipolar, Depression Female Reproductive Disorders: No Pertinent History Other Medical History: stage IV skin cancer - Past Surgical History Past Surgical History: Yes Neuro Surgical History: No Pertinent History Cardiac: Cardiac Catheterization Respiratory: No Pertinent History Gastrointestinal: Appendectomy, Cholecystectomy Genitourinary: No Pertinent History Musculoskeletal: Other Female Surgical History: Hysterectomy Other Surgical History: negative cardiac cath 3 weeks ago, right rotator cuff repair Significant Family History: heart disease, diabetes, hypertension - Social History Drug Use: none - Social Determinants of Health Will the patient participate in the screening: Unable to obtain - Nursing Vital Signs Nursing Vital Signs: Initial Vital Signs O2 Sat by Pulse Oximetry 91 L 02/16/25 20:55 Pain Scale Pain Intensity 4 - Physical Exam General Appearance: no apparent distress, alert, anxiety, obese Eye Exam: PERRL/EOMI, eyes nml inspection Ears, Nose, Throat Exam: normal ENT inspection, moist mucous membranes Neck Exam: normal inspection, non-tender, supple, full range of motion Respiratory Exam: normal breath sounds, chest tenderness (Much improved), lungs clear, airway intact, No respiratory distress Cardiovascular Exam: regular rate/rhythm, normal heart sounds, normal peripheral pulses Gastrointestinal/Abdomen Exam: soft, normal bowel sounds, No tenderness Pelvic Exam: not done Rectal Exam: not done Back Exam: normal inspection, normal range of motion, No CVA tenderness, No vertebral tenderness Extremity Exam: normal inspection, normal range of motion, pelvis stable Neurologic Exam: alert, oriented x 3, cooperative, brand analyst II-XII nml as tested, sensation nml Skin Exam: normal color, warm, dry Lymphatic Exam: No adenopathy SpO2 Interpretation: borderline oxygenation O2 Delivery: Room Air - Course Nursing assessment & vital signs reviewed: Yes EKG Interpreted by Me: RATE (82), Sinus Rhythm, Right [place] Deviation, NORMAL INTERVALS, NORMAL QRS, Other (No acute ischemia on today's twelve-lead EKG. QTc is 427) Ordered Tests: Active Orders 24 hr Category Date Time Status CHEST 1 VIEW (PORTABLE) Stat Exams 02/16/25 21:30 Taken CBC W DIFF Stat Lab 02/16/25 21:10 Completed CK-Creatinine Phosphokinase Stat Lab 02/16/25 21:10 Completed CMP Stat Lab 02/16/25 21:10 Completed CULTURE,URINE Stat Lab 02/16/25 23:05 Received MAG [MAGNESIUM] Stat Lab 02/16/25 21:10 Completed NT PRO BNPII Stat Lab 02/16/25 21:10 Completed TROPONIN Q4H Lab 02/16/25 21:10 Completed TROPONIN Q4H Lab 02/17/25 00:10 Received TROPONIN Q4H Lab 02/17/25 05:00 Ordered UA W/RFX UR CULTURE Stat Lab 02/16/25 23:05 Completed Medication Summary Generic Name Dose Route Start Last Admin Trade Name Joey PRN Reason Stop Dose Admin Ceftriaxone Sodium 1 gm in 100 mls @ 200 mls/hr 02/17/25 00:03 02/17/25 00:09 Rocephin 1 Gm / 100 Ml Nacl IV 02/17/25 00:32 200 mls/hr STAT ONE 200 mls/hr Administration Discontinued Medications Generic Name Dose Route Start Last Admin Trade Name Freq PRN Reason Stop Dose Admin Aspirin 243 mg 02/16/25 20:58 02/16/25 21:24 Aspirin 81 Mg Tab.Chew PO 02/16/25 20:59 Not Given STAT ONE Aspirin Confirm 02/16/25 21:21 Aspirin 81 Mg Tab.Chew Administered 02/16/25 21:22 Dose 243 mg .ROUTE .STK-MED ONE Ceftriaxone Sodium Confirm 02/17/25 00:08 Rocephin 1 Gm / 100 Ml Nacl Administered 02/17/25 00:09 Dose 1 gm in 100 mls @ ud IV .STK-MED ONE Lab/Rad Data: Laboratory Result Diagrams 02/16/25 21:10 02/16/25 21:10 Laboratory Results 02/16/25 02/16/25 02/16/25 Range/Units 23:05 21:10 21:10 WBC (3.98-10.04) x10^3/uL RBC (3.93-5.22) x10^6/uL Hgb (11.2-15.7) g/dL Hct (34.1-44.9) % MCV (79.4-94.8) fL MCH (25.6-32.2) pg MCHC (32.2-35.5) g/dL RDW (11.7-14.4) % Plt Count (182-369) x10^3/uL MPV (9.4-12.3) fL Gran % (34.0-71.1) % Immature Gran % (Auto) (0.001-0.429) % Nucleat RBC Rel Count (0.00-0.2) % Eos # (Auto) (0.04-0.36) x10^3/uL Immature Gran # (Auto) (0.001-0.031) x10^3u/L Absolute Lymphs (auto) (1.18-3.74) x10^3/uL Absolute Monos (auto) (0.24-0.86) x10^3/uL Absolute Nucleated RBC (0.00-0.012) x10^3u/L Lymphocytes % (19.3-51.7) % Monocytes % (4.7-12.5) % Eosinophils % (0.7-5.8) % Basophils % (0.1-1.2) % Absolute Granulocytes (1.56-6.13) x10^3/uL Basophils # (0.01-0.08) x10^3/uL Sodium (135-145) mmol/L Potassium (3.5-5.1) mmol/L Chloride (98-107) mmol/L Carbon Dioxide (22-30) mmol/L Anion Gap (5-15) MEQ/L BUN (7-17) mg/dL Creatinine (0.52-1.04) mg/dL Estimated GFR ML/MIN Glucose (74-106) mg/dL Calcium (8.4-10.2) mg/dL Magnesium (1.6-2.3) mg/dL Total Bilirubin (0.2-1.3) mg/dL AST (14-36) U/L ALT (0-35) U/L Alkaline Phosphatase (38-126) U/L Creatine Kinase (30-135) U/L Troponin I (0.000-0.033) ng/mL NT-Pro-B Natriuret Pep (<300) pg/mL Serum Total Protein (6.3-8.2) g/dL Albumin (3.5-5.0) g/dL Urine Color Yellow (Yellow) Urine Appearance Clear (Clear) Urine pH 6.0 (4.6-8.0) Ur Specific [place] >=1.030 A (1.005-1.030) Urine Protein Negative (Negative) Urine Glucose (UA) Negative (Negative) mg/dL Urine Ketones Trace A (Negative) Urine Blood Negative (Negative) Urine Nitrite Negative (Negative) Urine Bilirubin Negative (Negative) Urine Urobilinogen 1.0 A (0.2) mg/dL Ur Leukocyte Esterase Trace A (Negative) U Hyaline Cast (Auto) NONE SEEN (0-2) /LPF Urine Microscopic RBC 0-2 (0-5) /HPF Urine Microscopic WBC 11-20 A (0-5) /HPF Ur Epithelial Cells Moderate A (None Seen) /HPF Urine Bacteria Moderate A (None Seen) /HPF Urine Culture Reflexed YES (NO) Valproic Acid < 10.0 L (50-100) ug/mL Influenza Type A Ag NEGATIVE (NEGATIVE) Influenza Type B Ag NEGATIVE (NEGATIVE) RSV (PCR) NEGATIVE (NEGATIVE) SARS-CoV-2 (PCR) NEGATIVE (NEGATIVE) 02/16/25 02/16/25 02/16/25 Range/Units 21:10 21:10 21:10 WBC 7.2 (3.98-10.04) x10^3/uL RBC 4.84 (3.93-5.22) x10^6/uL Hgb 14.3 (11.2-15.7) g/dL Hct 44.3 (34.1-44.9) % MCV 91.5 (79.4-94.8) fL MCH 29.5 (25.6-32.2) pg MCHC 32.3 (32.2-35.5) g/dL RDW 14.9 H (11.7-14.4) % Plt Count 194 (182-369) x10^3/uL MPV 9.7 (9.4-12.3) fL Gran % 60.4 (34.0-71.1) % Immature Gran % (Auto) 0.8 H (0.001-0.429) % Nucleat RBC Rel Count 0.0 (0.00-0.2) % Eos # (Auto) 0.13 (0.04-0.36) x10^3/uL Immature Gran # (Auto) 0.06 H (0.001-0.031) x10^3u/L Absolute Lymphs (auto) 1.93 (1.18-3.74) x10^3/uL Absolute Monos (auto) 0.70 (0.24-0.86) x10^3/uL Absolute Nucleated RBC 0.00 (0.00-0.012) x10^3u/L Lymphocytes % 26.9 (19.3-51.7) % Monocytes % 9.7 (4.7-12.5) % Eosinophils % 1.8 (0.7-5.8) % Basophils % 0.4 (0.1-1.2) % Absolute Granulocytes 4.33 (1.56-6.13) x10^3/uL Basophils # 0.03 (0.01-0.08) x10^3/uL Sodium 142 (135-145) mmol/L Potassium 4.2 (3.5-5.1) mmol/L Chloride 106 (98-107) mmol/L Carbon Dioxide 26 (22-30) mmol/L Anion Gap 14.3 (5-15) MEQ/L BUN 19 H (7-17) mg/dL Creatinine 0.80 (0.52-1.04) mg/dL Estimated GFR 82.2 ML/MIN Glucose 99 (74-106) mg/dL Calcium 9.1 (8.4-10.2) mg/dL Magnesium 2.0 (1.6-2.3) mg/dL Total Bilirubin 0.70 (0.2-1.3) mg/dL AST 24 (14-36) U/L ALT 22 (0-35) U/L Alkaline Phosphatase 89 (38-126) U/L Creatine Kinase 40 (30-135) U/L Troponin I < 0.012 (0.000-0.033) ng/mL NT-Pro-B Natriuret Pep 46.4 (<300) pg/mL Serum Total Protein 7.1 (6.3-8.2) g/dL Albumin 4.1 (3.5-5.0) g/dL Urine Color (Yellow) Urine Appearance (Clear) Urine pH (4.6-8.0) Ur Specific [place] (1.005-1.030) Urine Protein (Negative) Urine Glucose (UA) (Negative) mg/dL Urine Ketones (Negative) Urine Blood (Negative) Urine Nitrite (Negative) Urine Bilirubin (Negative) Urine Urobilinogen (0.2) mg/dL Ur Leukocyte Esterase (Negative) U Hyaline Cast (Auto) (0-2) /LPF Urine Microscopic RBC (0-5) /HPF Urine Microscopic WBC (0-5) /HPF Ur Epithelial Cells (None Seen) /HPF Urine Bacteria (None Seen) /HPF Urine Culture Reflexed (NO) Valproic Acid (50-100) ug/mL Influenza Type A Ag (NEGATIVE) Influenza Type B Ag (NEGATIVE) RSV (PCR) (NEGATIVE) SARS-CoV-2 (PCR) (NEGATIVE) - Progress Progress: improved, re-examined Air Movement: good Progress Note: 02/16/25 21:36 My medical decision making and the assignment of moderate complexity to this patient's medical issue today is based on review of the patient's past medical history, review the patient's medication list, reviewed patient drug allergy list, history present illness and physical findings on examination. The workup in this patient includes placement of intravenous line, CBC, CMP, magnesium level, troponin level, BNP, chest x-ray, twelve-lead EKG, viral swabs. Differential diagnosis includes but is not limited to muscle skeletal pain, myocardial infarction, arrhythmia, electrolyte abnormalities, upper respiratory infection, pneumonia 02/17/25 00:23 I interpreted the patient's laboratory data results. Based on the laboratory data results, the patient has a significant urinary tract infection. There are no other acute, emergent medical issues. The portable chest x-ray preliminary report was interpreted by me. There is evidence of a mild/early right perihilar/right lower lobe infiltrate. Reexamination of the patient reveals the lungs to be clear. Her room air oxygen saturation level is 95%. She has no more chest pain. 02/17/25 00:25 I interpreted the second twelve-lead EKG that was performed on 02/17/2025 at 001 6-hour. Heart rate is 86 bpm it is normal sinus rhythm. There is right axis deviation. There is normal intervals and normal QRS. QTc is 442. There is no evidence of any acute ischemia. 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 Monitor your blood sugar closely. 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 Take your antibiotics and other medications as prescribed. Prescriptions: Cefdinir 300 mg PO BID #14 cap
[2025-02-16 21:02] VITALS: TEMP 96.9
[2025-02-16] MEDS ORDERED: BABY ASPIRIN 81 MG CHEW ONE (21:21)
[2025-02-16] MEDS: BABY ASPIRIN 81 MG CHEW PO ONE (21:24)
[2025-02-16 21:28] LABS: Absolute Neutrophil Ct (ANC) 4.33 x10^3/uL (1.56-6.13); BASOPHIL % 0.4 % (0.1-1.2); Basophil (Absolute #) 0.03 x10^3/uL (0.01-0.08); Eosinophil % 1.8 % (0.7-5.8); Eosinophil (Absolute #) 0.13 x10^3/uL (0.04-0.36); Hematocrit 44.3 % (34.1-44.9); Hemoglobin 14.3 g/dL (11.2-15.7); IMMATURE GRAN # 0.06 x10^3u/L (0.001-0.031); IMMATURE GRAN % 0.8 % (0.001-0.429); Lymphocyte (Absolute #) 1.93 x10^3/uL (1.18-3.74); Lymphocytes % 26.9 % (19.3-51.7); Mean Cell Volume 91.5 fL (79.4-94.8); Mean Corpuscular Hemoglobin 29.5 pg (25.6-32.2); Mean Corpuscular Hgb Concent. 32.3 g/dL (32.2-35.5); Mean Platelet Volume 9.7 fL (9.4-12.3); Monocytes % 9.7 % (4.7-12.5); Neutrophil % 60.4 % (34.0-71.1); Platelet Count 194 x10^3/uL (182-369); Red Blood Count 4.84 x10^6/uL (3.93-5.22); Red Cell Distribution Width 14.9 % (11.7-14.4); White Blood Count 7.2 x10^3/uL (3.98-10.04)
[2025-02-16 21:48] LABS: ALBUMIN 4.1 g/dL (3.5-5.0); ANION GAP 14.3 MEQ/L (5-15); BILIRUBIN,TOTAL 0.7 mg/dL (0.2-1.3); Calcium 9.1 mg/dL (8.4-10.2); Creatinine 1 0.8 mg/dL (0.52-1.04); EST GLOMERULAR FILTRATION RATE 82.2 ML/MIN; Potassium 4.2 mmol/L (3.5-5.1); Total Protein 7.1 g/dL (6.3-8.2)
[2025-02-16 22:03] LABS: NT PRO BNPII 46.4 pg/mL (<300); TROPONIN < 0.012 ng/mL (0.000-0.033)
[2025-02-16 22:17] LABS: INFLUENZA A NEGATIVE (NEGATIVE); INFLUENZA B NEGATIVE (NEGATIVE); RESPIRATORY SYNCTIAL VIRUS NEGATIVE (NEGATIVE); SARS-CoV-2 Xpert Express NEGATIVE (NEGATIVE)
[2025-02-16 23:05] VITALS: O2SAT 97
[2025-02-16 23:17] LABS: Appearance Clear (Clear); Bacteria Moderate /HPF (None Seen); Bilirubin Negative (Negative); Blood Negative (Negative); Epithelial Cells Moderate /HPF (None Seen); Glucose, Urine Negative (Negative); Hyaline Casts NONE SEEN /LPF (0-2); Ketones Trace (Negative); Leukocyte Esterase Trace (Negative); Nitrite Negative (Negative); Protein,Urine Dip Negative (Negative); RBC 0-2 /HPF (0-5); Specific Gravity >=1.030 (1.005-1.030)
[2025-02-17 00:03] VITALS: BP 122/69; PULSE 90; RESP 22
[2025-02-17] MEDS ORDERED: ROCEPHIN 1 GM / 100 ML NaCl 1 GM/100 ML IVPB IV ONE (00:08)
[2025-02-17] MEDS: ROCEPHIN 1 GM / 100 ML NaCl 1 GM/100 ML IVPB IV ONE (00:09)
--- NOTE | 2025-02-17 08:44 | XRAY ---
Indication: Cough. Comparison: June 01, 2024 Portable chest again demonstrates mild bibasilar infiltrates/atelectasis, less than before. Remaining heart and upper lungs unremarkable. Bony thorax intact again with osteopenia and degenerative changes. No new cardiopulmonary abnormalities.
== END 2025-02-17 00:56 | disposition home or self-care (01) ==
LOC: ED 20:53
DX: N39.0 Urinary tract infection, site not specified (principal); R91.8 Other nonspecific abnormal finding of lung field; R07.9 Chest pain, unspecified; R05.9 Cough, unspecified; I11.0 Hypertensive heart disease with heart failure; I50.9 Heart failure, unspecified; E78.5 Hyperlipidemia, unspecified; E11.9 Type 2 diabetes mellitus without complications; Z79.899 Other long term (current) drug therapy
CPT/HCPCS: 0241U; 36415; 71045; 80053; 80164; 81001; 82550; 83735; 83880; 84484; 85025; 87077; 87086; 87186; 93005; 96374; 99285; 99284; J0696; A9270-GY

== ENCOUNTER 2025-03-30 19:05 | Observation (INO) | payer BC, MEDICARE ==
[2025-03-30] MEDS ORDERED: PROVENTIL 2.5 MG/3 ML NEB IH ONE ×2 (19:21→20:41)
[2025-03-30] MEDS ORDERED: DUONEB 0.5-3 MG/3 ml Neb IH ONE (19:21)
[2025-03-30] MEDS: PROVENTIL Solution 2.5 MG/0.5 ML IH ONE ×2 (19:27→20:43)
[2025-03-30] MEDS: DUONEB 0.5-3 MG/3 ml Neb IH ONE (19:27)
[2025-03-30 19:28] LABS: Absolute Neutrophil Ct (ANC) 5.89 x10^3/uL (1.56-6.13); BASOPHIL % 0.9 % (0.1-1.2); Basophil (Absolute #) 0.09 x10^3/uL (0.01-0.08); Eosinophil % 1.3 % (0.7-5.8); Eosinophil (Absolute #) 0.12 x10^3/uL (0.04-0.36); Hematocrit 45.6 % (34.1-44.9); Hemoglobin 14.8 g/dL (11.2-15.7); IMMATURE GRAN % 3.1 % (0.001-0.429); Mean Cell Volume 93.3 fL (79.4-94.8); Mean Corpuscular Hemoglobin 30.3 pg (25.6-32.2); Mean Corpuscular Hgb Concent. 32.5 g/dL (32.2-35.5); Mean Platelet Volume 9.5 fL (9.4-12.3); Monocytes % 9.4 % (4.7-12.5); Neutrophil % 61.3 % (34.0-71.1); Platelet Count 187 x10^3/uL (182-369); Red Blood Count 4.89 x10^6/uL (3.93-5.22); Red Cell Distribution Width 14.6 % (11.7-14.4); White Blood Count 9.6 x10^3/uL (3.98-10.04)
--- NOTE | 2025-03-30 19:34 | ERPHSYRPT ---
- History of Present Illness Source: patient, baker pie Patient Subjective Stated Complaint: sob, cough Triage Nursing Assessment: Pt brought back by wheelchair, alert and oriented x4. Pt c/o sob and a non prod cough. Pt has had this off and on x2 months, went to [facility] on Sunday but yesterday started feeling worse. Lungs wheezy bilat ant and post, heart tones reg, no edema noted. Pt received a steroid shot on sunday at [facility], and was prescribed amoxicillin-clav and azithromycin. Physician History: Patient has a history of COPD. She has been having an exacerbation over the last few days. She was seen by her primary doctor who thought she may have a pneumonia and put her on amoxicillin and Zithromax. She has just finished a course of prednisone. She take Breztri and albuterol MDI at home. She does not have an inhaler. She quit smoking 10 years ago but has pretty significant COPD. Exertion makes symptoms worse nothing makes it better. She does not have any chest pain. The cough has been nonproductive but she thinks it she feels like there is some material in there. She has been eating and drinking well. She does not have any fever or chills at this time. Exertion makes the symptoms worse nothing really makes it better. Allergies/Adverse Reactions: Influenza Virus Vaccines [Influenza Virus Vaccine] Allergy (Intermediate, Verified 03/30/25 19:20) Swelling of Hands venom-honey bee [bee venom (honey bee)] Allergy (Verified 03/30/25 19:20) famotidine [From Pepcid] Adverse Reaction (Intermediate, Verified 03/30/25 19:20) hot, flushed, diaphoresis, and chest pain. tape Allergy (Uncoded 02/16/25 21:10) Home Medications: Aspirin [Lo-Dose Aspirin EC] 81 mg PO DAILY 11/17/21 [History] Levothyroxine Sodium 75 Mcg [Synthroid 75 Mcg] 88 mcg PO DAILY 10/12/22 [History] Metoprolol Tartrate 25 mg [Lopressor 25MG Tab] 25 mg PO DAILY 02/29/24 [History] Albuterol 8 gm Mdi Hfa [Ventolin Hfa MDI] 1 neb IH TID PRN PRN 06/01/24 [History] Ferrous Sulfate 325 mg [Feosol 325 mg] 325 mg PO DAILY 06/01/24 [History] Nitroglycerin 0.4 mg SL Q5MIN PRN MR X 3 PRN 11/27/24 [History] SUMAtriptan succinate [Imitrex 50 mg] 50 mg PO DAILY PRN PRN 11/27/24 [History] Amoxicillin/Potassium Clav [Amox-Clav 875-125 mg Tablet] 1 each PO BID 03/30/25 [History] Azithromycin 250 mg [Zithromax 250 MG TABLET] 1 tab PO DAILY 03/30/25 [History] Hx Tetanus, Diphtheria Vaccination/Date Given: Yes Hx Influenza Vaccination/Date Given: No (allergic) Hx Pneumococcal Vaccination/Date Given: No (allergic) Travel Risk - International Travel Have you traveled outside of the country in past 3 weeks: No - Emerging Infectious Disease Are you exhibiting symptoms associated with any current EIDs: Yes Symptoms: Cough: New Onset, Shortness of Breath - Review of Systems Constitutional: No Symptoms Eyes: No Symptoms Respiratory: Cough, Dyspnea on Exertion (PEÑA), Wheezing Cardiac: No Symptoms Abdominal/Gastrointestinal: No Symptoms Genitourinary Symptoms: No Symptoms Musculoskeletal: No Symptoms Skin: No Symptoms All Other Systems: Reviewed and Negative - Past Medical History Pertinent Past Medical History: Yes Neurological History: No Pertinent History ENT History: Other Cardiac History: Congestive Heart Failure, High Cholesterol, Hypertension Respiratory History: CHF, COPD, Pneumonia, Sleep Apnea Endocrine Medical History: Diabetes Type II, Hypothyroidism Musculoskeletal History: No Pertinent History, Other GI Medical History: GERD, Gallbladder Disease, Ulcer, Other History: No Pertinent History Psycho-Social History: Anxiety, Bipolar, Depression Female Reproductive Disorders: No Pertinent History Other Medical History: stage IV skin cancer - Past Surgical History Past Surgical History: Yes Neuro Surgical History: No Pertinent History Cardiac: Cardiac Catheterization Respiratory: No Pertinent History Gastrointestinal: Appendectomy, Cholecystectomy Genitourinary: No Pertinent History Musculoskeletal: Other Female Surgical History: Hysterectomy Other Surgical History: negative cardiac cath 3 weeks ago, right rotator cuff repair Significant Family History: heart disease, diabetes, hypertension - Social History Smoking Status: Former smoker Exposure to second hand smoke: No Drug Use: none - Social Determinants of Health Will the patient participate in the screening: Yes Do you worry about a steady place to live?: No Do you have any problems with any of the following?: No known problems In the past 12 months,have you had to go without utilities?: No Transportation Issues: No Has anyone in your support network made you feel unsafe?: No Have you or anyone in your house had to go w/o enough food: No - Nursing Vital Signs Nursing Vital Signs: Initial Vital Signs Pulse Rate 79 03/30/25 19:07 Respiratory Rate 26 H 03/30/25 19:07 Blood Pressure 209/90 03/30/25 19:07 O2 Sat by Pulse Oximetry 98 03/30/25 19:07 Pain Scale Pain Intensity 0 - Physical Exam General Appearance: mild distress Eye Exam: PERRL/EOMI Ears, Nose, Throat Exam: hearing grossly normal Neck Exam: normal inspection Respiratory Exam: diminished breath sounds, crackles/rales, wheezing Cardiovascular/Chest Exam: normal heart sounds, regular rate/rhythm Abdominal/Gastrointestinal Exam: soft, No tenderness, No distention Extremity Exam: non-tender, normal range of motion, normal inspection Neurologic Exam: alert, oriented x 3, cooperative Skin Exam: normal color, warm, dry SpO2 Interpretation: normal SpO2: 97 O2 Delivery: Room Air - Course Nursing assessment & vital signs reviewed: Yes Ordered Tests: Active Orders 24 hr Category Date Time Status CHEST 1 VIEW (PORTABLE) Stat Exams 03/30/25 19:17 Taken BMP Stat Lab 03/30/25 19:25 Completed CBC W DIFF Stat Lab 03/30/25 19:25 Completed UA W/RFX UR CULTURE Stat Lab 03/30/25 20:00 Completed VENOUS BLOOD GAS Stat Lab 03/30/25 19:17 Completed Respiratory Therapy Assessment DAILY RT 03/30/25 19:28 Active Medication Summary Discontinued Medications Generic Name Dose Route Start Last Admin Trade Name Freq PRN Reason Stop Dose Admin Albuterol Sulfate 2.5 mg 03/30/25 19:17 03/30/25 19:27 Albuterol Solution 2.5 Mg/0.5 Ml Ud Solution IH 03/30/25 19:18 2.5 mg STAT ONE Administration Albuterol Sulfate Confirm 03/30/25 19:21 Albuterol Sulfate 2.5 Mg/3 Ml Neb Administered 03/30/25 19:22 Dose 2.5 mg IH .STK-MED ONE Albuterol Sulfate 2.5 mg 03/30/25 20:36 03/30/25 20:43 Albuterol Sulfate 2.5 Mg/3 Ml Neb 03/30/25 20:37 2.5 mg STAT ONE Administration Albuterol Sulfate 2.5 mg 03/30/25 20:36 03/30/25 20:43 Albuterol Solution 2.5 Mg/0.5 Ml Ud Solution 03/30/25 20:37 2.5 mg STAT ONE Administration Albuterol Sulfate Confirm 03/30/25 20:41 Albuterol Sulfate 2.5 Mg/3 Ml Neb Administered 03/30/25 20:42 Dose 5 mg IH .STK-MED ONE Albuterol/Ipratropium 3 ml 03/30/25 19:17 03/30/25 19:27 Ipratropium/Albuterol Sulfate 3 Ml Ampul.Neb 03/30/25 19:18 3 ml STAT ONE Administration Albuterol/Ipratropium Confirm 03/30/25 19:21 Ipratropium/Albuterol Sulfate 3 Ml Ampul.Neb Administered 03/30/25 19:22 Dose 3 ml IH .STK-MED ONE Lab/Rad Data: Laboratory Result Diagrams 03/30/25 19:25 03/30/25 19:25 Laboratory Results 03/30/25 03/30/25 03/30/25 Range/Units 20:00 19:25 19:25 WBC 9.6 (3.98-10.04) x10^3/uL RBC 4.89 (3.93-5.22) x10^6/uL Hgb 14.8 (11.2-15.7) g/dL Hct 45.6 H (34.1-44.9) % MCV 93.3 (79.4-94.8) fL MCH 30.3 (25.6-32.2) pg MCHC 32.5 (32.2-35.5) g/dL RDW 14.6 H (11.7-14.4) % Plt Count 187 (182-369) x10^3/uL MPV 9.5 (9.4-12.3) fL Gran % 61.3 (34.0-71.1) % Immature Gran % (Auto) 3.1 H (0.001-0.429) % Nucleat RBC Rel Count 0.0 (0.00-0.2) % Eos # (Auto) 0.12 (0.04-0.36) x10^3/uL Immature Gran # (Auto) 0.30 H (0.001-0.031) x10^3u/L Absolute Lymphs (auto) 2.30 (1.18-3.74) x10^3/uL Absolute Monos (auto) 0.90 H (0.24-0.86) x10^3/uL Absolute Nucleated RBC 0.00 (0.00-0.012) x10^3u/L Lymphocytes % 24.0 (19.3-51.7) % Monocytes % 9.4 (4.7-12.5) % Eosinophils % 1.3 (0.7-5.8) % Basophils % 0.9 (0.1-1.2) % Absolute Granulocytes 5.89 (1.56-6.13) x10^3/uL Basophils # 0.09 H (0.01-0.08) x10^3/uL pO2/FiO2 Ratio % VBG pH (7.32-7.42) VBG pCO2 at Pat Temp (42-55) mm/Hg VBG pO2 at Pat Temp (25-40) mm/Hg VBG HCO3 (22-28) meq/L VBG O2 Sat (Kristina) (95-100) VBG Base Excess (-2.0-2.0) VBG Hemoglobin VBG Carboxyhemoglobin (0.0-6.9) % T HGB POC Potassium (3.5-5.1) Sodium 137 (135-145) mmol/L Potassium 3.9 (3.5-5.1) mmol/L Chloride 101 (98-107) mmol/L Carbon Dioxide 25 (22-30) mmol/L Anion Gap 14.9 (5-15) MEQ/L BUN 19 H (7-17) mg/dL Creatinine 0.60 (0.52-1.04) mg/dL Estimated GFR 100.2 ML/MIN Glucose 147 H (74-106) mg/dL Calcium 9.5 (8.4-10.2) mg/dL Urine Color Yellow (Yellow) Urine Appearance Clear (Clear) Urine pH 6.0 (4.6-8.0) Ur Specific [place] 1.010 (1.005-1.030) Urine Protein Negative (Negative) Urine Glucose (UA) Negative (Negative) mg/dL Urine Ketones Negative (Negative) Urine Blood Negative (Negative) Urine Nitrite Negative (Negative) Urine Bilirubin Negative (Negative) Urine Urobilinogen 0.2 (0.2) mg/dL Ur Leukocyte Esterase Negative (Negative) U Hyaline Cast (Auto) NONE SEEN (0-2) /LPF Urine Microscopic RBC 0-2 (0-5) /HPF Urine Microscopic WBC 0-2 (0-5) /HPF Ur Epithelial Cells None Seen (None Seen) /HPF Urine Bacteria None Seen (None Seen) /HPF Urine Culture Reflexed NO (NO) 03/30/25 Range/Units 19:17 WBC (3.98-10.04) x10^3/uL RBC (3.93-5.22) x10^6/uL Hgb (11.2-15.7) g/dL Hct (34.1-44.9) % MCV (79.4-94.8) fL MCH (25.6-32.2) pg MCHC (32.2-35.5) g/dL RDW (11.7-14.4) % Plt Count (182-369) x10^3/uL MPV (9.4-12.3) fL Gran % (34.0-71.1) % Immature Gran % (Auto) (0.001-0.429) % Nucleat RBC Rel Count (0.00-0.2) % Eos # (Auto) (0.04-0.36) x10^3/uL Immature Gran # (Auto) (0.001-0.031) x10^3u/L Absolute Lymphs (auto) (1.18-3.74) x10^3/uL Absolute Monos (auto) (0.24-0.86) x10^3/uL Absolute Nucleated RBC (0.00-0.012) x10^3u/L Lymphocytes % (19.3-51.7) % Monocytes % (4.7-12.5) % Eosinophils % (0.7-5.8) % Basophils % (0.1-1.2) % Absolute Granulocytes (1.56-6.13) x10^3/uL Basophils # (0.01-0.08) x10^3/uL pO2/FiO2 Ratio 21.0 % VBG pH 7.46 H (7.32-7.42) VBG pCO2 at Pat Temp 39 L (42-55) mm/Hg VBG pO2 at Pat Temp 97 H (25-40) mm/Hg VBG HCO3 27.7 (22-28) meq/L VBG O2 Sat (Kristina) 98.7 (95-100) VBG Base Excess 3.7 H (-2.0-2.0) VBG Hemoglobin 15.5 VBG Carboxyhemoglobin 5.5 (0.0-6.9) % T HGB POC Potassium 3.9 (3.5-5.1) Sodium (135-145) mmol/L Potassium (3.5-5.1) mmol/L Chloride (98-107) mmol/L Carbon Dioxide (22-30) mmol/L Anion Gap (5-15) MEQ/L BUN (7-17) mg/dL Creatinine (0.52-1.04) mg/dL Estimated GFR ML/MIN Glucose (74-106) mg/dL Calcium (8.4-10.2) mg/dL Urine Color (Yellow) Urine Appearance (Clear) Urine pH (4.6-8.0) Ur Specific [place] (1.005-1.030) Urine Protein (Negative) Urine Glucose (UA) (Negative) mg/dL Urine Ketones (Negative) Urine Blood (Negative) Urine Nitrite (Negative) Urine Bilirubin (Negative) Urine Urobilinogen (0.2) mg/dL Ur Leukocyte Esterase (Negative) U Hyaline Cast (Auto) (0-2) /LPF Urine Microscopic RBC (0-5) /HPF Urine Microscopic WBC (0-5) /HPF Ur Epithelial Cells (None Seen) /HPF Urine Bacteria (None Seen) /HPF Urine Culture Reflexed (NO) - Progress Progress: improved Air Movement: fair Progress Note: Patient got a combination albuterol DuoNeb treatment upon arrival. That helped her out quite a bit. We then waited for a bit and gave her a second nebulizer it was a double albuterol treatment. That helped her somewhat. She was still very tight. She was not in anything other than maybe some very mild respiratory distress but she was not moving air very well. She was not requiring oxygen. A chest x-ray was done as interpreted by me. It did not really show any acute changes. Her lab work all looked good. She is already on antibiotics I think we should probably keep her on that. I went to go ahead and give her a dose of Solu-Medrol as well. I spoke with Dr. Deleon he agreed to admit the patient. 03/30/25 21:56 Discussed with : Jay Will see patient in: hospital (observation) Medical Desision Making - External Record(s) Reviewed Records reviewed as a part of evaluation & management: Inpatient - Discussion of managment Care discussed with:: hospitalist Agreed on:: Treatment plan Will see patient: in hospital - Diagnostic Testing Diagnostic test were ordered, analyzed, and reviewed by me: Yes Radiological Interpretation: Interpreted by me - Risk of complications Low Risk: Low risk of morbidity from additional dx testing or treatment - Departure Departure Disposition: Observation Clinical Impression: COPD exacerbation Condition: Good Critical Care Time: No Referrals: CECE WOODARD MD [Primary Care Provider, [facility]] - Follow up/PCP as directed
[2025-03-30 19:45] LABS: VBG BASE EXCESS 3.7 (-2.0-2.0); VBG CARBOXYHEMOGLOBIN 5.5 % T HGB (0.0-6.9); VBG HCO3- 27.7 meq/L (22-28); VBG HEMOGLOBIN 15.5; VBG O2 SATURATION 98.7 (95-100); VBG POTASSIUM 3.9 (3.5-5.1); VBG pH 7.46 (7.32-7.42)
[2025-03-30 19:45] LABS: ANION GAP 14.9 MEQ/L (5-15); Calcium 9.5 mg/dL (8.4-10.2); Creatinine 1 0.6 mg/dL (0.52-1.04); EST GLOMERULAR FILTRATION RATE 100.2 ML/MIN; Potassium 3.9 mmol/L (3.5-5.1)
[2025-03-30 20:11] LABS: Appearance Clear (Clear); Bacteria None Seen /HPF (None Seen); Bilirubin Negative (Negative); Blood Negative (Negative); Epithelial Cells None Seen /HPF (None Seen); Glucose, Urine Negative (Negative); Hyaline Casts NONE SEEN /LPF (0-2); Ketones Negative (Negative); Leukocyte Esterase Negative (Negative); Nitrite Negative (Negative); Protein,Urine Dip Negative (Negative); RBC 0-2 /HPF (0-5); Urobilinogen 0.2 mg/dL (0.2); WBC 0-2 /HPF (0-5)
[2025-03-30] MEDS: PROVENTIL 2.5 MG/3 ML NEB IH ONE (20:43)
[2025-03-30] MEDS ORDERED: Nitrostat 0.4 MG Tablet SL PRN (23:27)
[2025-03-30] MEDS ORDERED: NON-FORMULARY ITEM (Sumatriptan Succinate [Imitrex 50 Mg] 50 MG Tablet) PO PRN (23:27)
[2025-03-30] MEDS ORDERED: TYLENOL 325 MG PO PRN (23:30)
[2025-03-30] MEDS ORDERED: Zofran 4 MG/2 ML VIAL IV PRN (23:30)
[2025-03-30] MEDS ORDERED: MILK OF MAGNESIA 30 ML PO PRN (23:30)
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
[2025-03-30] MEDS ORDERED: HUMALOG SQ PRN (23:57)
[2025-03-31] MEDS ORDERED: Sodium Chloride 0.9% 1000 ML 1,000 ML ONE (00:12)
[2025-03-31] MEDS: Sodium Chloride 0.9% 1000 ML 1,000 ML IV SCH (00:16)
[2025-03-31] MEDS: Restoril 15 MG PO PRN (00:16)
[2025-03-31] MEDS ORDERED: Sterile H2O 10 ml IJ ONE ×2 (00:27→05:34)
[2025-03-31] MEDS ORDERED: solu-MEDROL ONE ×2 (00:27→05:34)
[2025-03-31] MEDS ORDERED: ROCEPHIN 1 GM / 100 ML NaCl 1 GM/100 ML IVPB IV ONE (00:28)
[2025-03-31] MEDS: solu-MEDROL 40 MG, Sterile H2O 10 ml 1 ML IV SCH ×2 (00:29→09:43)
[2025-03-31] MEDS: ROCEPHIN 1 GM / 100 ML NaCl 1 GM/100 ML IVPB IV SCH (00:30)
[2025-03-31] MEDS: DUONEB 0.5-3 MG/3 ml Neb IH SCH (01:03)
[2025-03-31 04:48] LABS: Absolute Neutrophil Ct (ANC) 7.38 x10^3/uL (1.56-6.13); BASOPHIL % 0.9 % (0.1-1.2); Basophil (Absolute #) 0.08 x10^3/uL (0.01-0.08); Eosinophil % 0.3 % (0.7-5.8); Eosinophil (Absolute #) 0.03 x10^3/uL (0.04-0.36); Hematocrit 44.4 % (34.1-44.9); Hemoglobin 14.1 g/dL (11.2-15.7); IMMATURE GRAN # 0.39 x10^3u/L (0.001-0.031); IMMATURE GRAN % 4.2 % (0.001-0.429); Lymphocyte (Absolute #) 1.12 x10^3/uL (1.18-3.74); Lymphocytes % 11.9 % (19.3-51.7); Mean Cell Volume 94.1 fL (79.4-94.8); Mean Corpuscular Hemoglobin 29.9 pg (25.6-32.2); Mean Corpuscular Hgb Concent. 31.8 g/dL (32.2-35.5); Mean Platelet Volume 9.7 fL (9.4-12.3); Monocyte (Absolute #) 0.39 x10^3/uL (0.24-0.86); Monocytes % 4.2 % (4.7-12.5); Neutrophil % 78.5 % (34.0-71.1); Platelet Count 178 x10^3/uL (182-369); Red Blood Count 4.72 x10^6/uL (3.93-5.22); Red Cell Distribution Width 14.8 % (11.7-14.4); White Blood Count 9.4 x10^3/uL (3.98-10.04)
[2025-03-31 05:09] LABS: ANION GAP 17.5 MEQ/L (5-15); Calcium 9.5 mg/dL (8.4-10.2); Creatinine 1 1.05 mg/dL (0.52-1.04); EST GLOMERULAR FILTRATION RATE 59.3 ML/MIN; Potassium 4.4 mmol/L (3.5-5.1)
[2025-03-31] MEDS: PROVENTIL 2.5 MG/3 ML NEB IH PRN (05:15)
[2025-03-31] MEDS ORDERED: MEDICATION INTERVENTION MC SCH (07:30)
[2025-03-31 07:40] VITALS: RESP 16
[2025-03-31] MEDS ORDERED: Sodium Chloride 0.9% 1000 ML 1,000 ML IV SCH (08:00)
--- NOTE | 2025-03-31 08:53 | XRAY ---
Indication: Dyspnea. Comparison: February 16, 2025 Portable chest demonstrates worsening mild right base infiltrate/atelectasis. Stable left base subsegmental atelectasis/scarring. Remaining heart and upper lungs unremarkable. Bony thorax intact again with osteopenia and degenerative changes.
[2025-03-31] MEDS: FEOSOL 325 MG PO SCH (09:41)
[2025-03-31] MEDS: Lopressor 25MG Tab PO SCH (09:41)
[2025-03-31] MEDS: ECOTRIN 81 MG PO SCH (09:41)
[2025-03-31] MEDS: Acidophilus TABLET PO SCH (09:41)
[2025-03-31] MEDS: Mucinex 600MG ER Tabs PO SCH (09:41)
[2025-03-31] MEDS: ENOXAPARIN SODIUM SQ SCH (09:42)
[2025-03-31] MEDS: SYNTHROID 88 MCG PO SCH (09:45)
[2025-03-31] MEDS ORDERED: Zithromax 250 MG TABLET PO SCH (10:00)
[2025-03-31] MEDS ORDERED: Augmentin 875-125 Tablet PO SCH (10:00)
[2025-03-31] MEDS ORDERED: SYNTHROID 75 MCG PO SCH (10:00)
--- NOTE | 2025-03-31 10:21 | PCM.DS ---
Discharge Summary Date of Admission: 03/30/25 22:33 Date of Discharge: 03/31/25 Admitting Physician: LIDYA RIVERA MD Consults: Consults on Case 03/30/25 23:44 Case Management [facility] Needs Assessment ROUTINE Primary Care Provider: CECE WOODARD Allergies Allergies Influenza Virus Vaccines [Influenza Virus Vaccine] Allergy (Intermediate, Verified 03/30/25 19:20) Swelling of Hands venom-honey bee [bee venom (honey bee)] Allergy (Verified 03/30/25 19:20) famotidine [From Pepcid] Adverse Reaction (Intermediate, Verified 03/30/25 19:20) hot, flushed, diaphoresis, and chest pain. tape Allergy (Uncoded 02/16/25 21:10) Hospital Summary - Hospital Course Hospital Course: A 64-year-old female with a history of COPD (followed by Dr. Tiwari), prior tobacco use, hypertension, diabetes, and congestive heart failure presented to the ED with worsening dyspnea following a recent outpatient diagnosis of pneumonia, for which she was prescribed antibiotics and oral prednisone. She reported green sputum production and cough but denied hemoptysis, chest pain, fevers, or chills. Her dyspnea was noted to worsen with exertion. In the ED, she exhibited persistent bronchospasm despite nebulizer treatments and IV steroids. She is DNR. As of 03/31, the patient reports feeling improved and expressed a desire to return home. She requested a new nebulizer machine, which will be sent to the pharmacy. She continues to have some wheezing in the left upper lung. She was instructed to discontinue her current antibiotics, and new prescriptions were provided for a COPD exacerbation. She denied any additional concerns at this time. - Vitals & Intake/Output Vital Signs: Vital Signs Temperature 98.0 F 03/31/25 07:40 Pulse Rate 87 03/31/25 07:40 Respiratory Rate 16 03/31/25 07:40 Blood Pressure 122/60 03/31/25 07:40 O2 Sat by Pulse Oximetry 94 L 03/31/25 07:40 Intake & Output: Intake & Output 03/28/25 03/29/25 03/30/25 03/31/25 11:59 11:59 11:59 11:59 Intake Total 780 Balance 780 Weight 124 kg - Lab Result Diagrams: 03/31/25 04:44 03/31/25 04:44 Lab Results-Last 24 Hrs: Lab Results-Last 24 Hours 03/30/25 03/30/25 03/30/25 Range/Units 19:17 19:25 19:25 WBC 9.6 (3.98-10.04) x10^3/uL RBC 4.89 (3.93-5.22) x10^6/uL Hgb 14.8 (11.2-15.7) g/dL Hct 45.6 H (34.1-44.9) % MCV 93.3 (79.4-94.8) fL MCH 30.3 (25.6-32.2) pg MCHC 32.5 (32.2-35.5) g/dL RDW 14.6 H (11.7-14.4) % Plt Count 187 (182-369) x10^3/uL MPV 9.5 (9.4-12.3) fL Gran % 61.3 (34.0-71.1) % Immature Gran % (Auto) 3.1 H (0.001-0.429) % Nucleat RBC Rel Count 0.0 (0.00-0.2) % Eos # (Auto) 0.12 (0.04-0.36) x10^3/uL Immature Gran # (Auto) 0.30 H (0.001-0.031) x10^3u/L Absolute Lymphs (auto) 2.30 (1.18-3.74) x10^3/uL Absolute Monos (auto) 0.90 H (0.24-0.86) x10^3/uL Absolute Nucleated RBC 0.00 (0.00-0.012) x10^3u/L Lymphocytes % 24.0 (19.3-51.7) % Monocytes % 9.4 (4.7-12.5) % Eosinophils % 1.3 (0.7-5.8) % Basophils % 0.9 (0.1-1.2) % Absolute Granulocytes 5.89 (1.56-6.13) x10^3/uL Basophils # 0.09 H (0.01-0.08) x10^3/uL pO2/FiO2 Ratio 21.0 % VBG pH 7.46 H (7.32-7.42) VBG pCO2 at Pat Temp 39 L (42-55) mm/Hg VBG pO2 at Pat Temp 97 H (25-40) mm/Hg VBG HCO3 27.7 (22-28) meq/L VBG O2 Sat (Kristina) 98.7 (95-100) VBG Base Excess 3.7 H (-2.0-2.0) VBG Hemoglobin 15.5 VBG Carboxyhemoglobin 5.5 (0.0-6.9) % T HGB POC Potassium 3.9 (3.5-5.1) Sodium 137 (135-145) mmol/L Potassium 3.9 (3.5-5.1) mmol/L Chloride 101 (98-107) mmol/L Carbon Dioxide 25 (22-30) mmol/L Anion Gap 14.9 (5-15) MEQ/L BUN 19 H (7-17) mg/dL Creatinine 0.60 (0.52-1.04) mg/dL Estimated GFR 100.2 ML/MIN Glucose 147 H (74-106) mg/dL POC Glucometer (74 to 106) mg/dL Calcium 9.5 (8.4-10.2) mg/dL Urine Color (Yellow) Urine Appearance (Clear) Urine pH (4.6-8.0) Ur Specific Blessing (1.005-1.030) Urine Protein (Negative) Urine Glucose (UA) (Negative) mg/dL Urine Ketones (Negative) Urine Blood (Negative) Urine Nitrite (Negative) Urine Bilirubin (Negative) Urine Urobilinogen (0.2) mg/dL Ur Leukocyte Esterase (Negative) U Hyaline Cast (Auto) (0-2) /LPF Urine Microscopic RBC (0-5) /HPF Urine Microscopic WBC (0-5) /HPF Ur Epithelial Cells (None Seen) /HPF Urine Bacteria (None Seen) /HPF Urine Culture Reflexed (NO) 03/30/25 03/31/25 03/31/25 Range/Units 20:00 04:44 04:44 WBC 9.4 (3.98-10.04) x10^3/uL RBC 4.72 (3.93-5.22) x10^6/uL Hgb 14.1 (11.2-15.7) g/dL Hct 44.4 (34.1-44.9) % MCV 94.1 (79.4-94.8) fL MCH 29.9 (25.6-32.2) pg MCHC 31.8 L (32.2-35.5) g/dL RDW 14.8 H (11.7-14.4) % Plt Count 178 L (182-369) x10^3/uL MPV 9.7 (9.4-12.3) fL Gran % 78.5 H (34.0-71.1) % Immature Gran % (Auto) 4.2 H (0.001-0.429) % Nucleat RBC Rel Count 0.0 (0.00-0.2) % Eos # (Auto) 0.03 L (0.04-0.36) x10^3/uL Immature Gran # (Auto) 0.39 H (0.001-0.031) x10^3u/L Absolute Lymphs (auto) 1.12 L (1.18-3.74) x10^3/uL Absolute Monos (auto) 0.39 (0.24-0.86) x10^3/uL Absolute Nucleated RBC 0.00 (0.00-0.012) x10^3u/L Lymphocytes % 11.9 L (19.3-51.7) % Monocytes % 4.2 L (4.7-12.5) % Eosinophils % 0.3 L (0.7-5.8) % Basophils % 0.9 (0.1-1.2) % Absolute Granulocytes 7.38 H (1.56-6.13) x10^3/uL Basophils # 0.08 (0.01-0.08) x10^3/uL pO2/FiO2 Ratio % VBG pH (7.32-7.42) VBG pCO2 at Pat Temp (42-55) mm/Hg VBG pO2 at Pat Temp (25-40) mm/Hg VBG HCO3 (22-28) meq/L VBG O2 Sat (Kristina) (95-100) VBG Base Excess (-2.0-2.0) VBG Hemoglobin VBG Carboxyhemoglobin (0.0-6.9) % T HGB POC Potassium (3.5-5.1) Sodium 138 (135-145) mmol/L Potassium 4.4 (3.5-5.1) mmol/L Chloride 103 (98-107) mmol/L Carbon Dioxide 22 (22-30) mmol/L Anion Gap 17.5 H (5-15) MEQ/L BUN 22 H (7-17) mg/dL Creatinine 1.05 H (0.52-1.04) mg/dL Estimated GFR 59.3 ML/MIN Glucose 249 H (74-106) mg/dL POC Glucometer (74 to 106) mg/dL Calcium 9.5 (8.4-10.2) mg/dL Urine Color Yellow (Yellow) Urine Appearance Clear (Clear) Urine pH 6.0 (4.6-8.0) Ur Specific Blessing 1.010 (1.005-1.030) Urine Protein Negative (Negative) Urine Glucose (UA) Negative (Negative) mg/dL Urine Ketones Negative (Negative) Urine Blood Negative (Negative) Urine Nitrite Negative (Negative) Urine Bilirubin Negative (Negative) Urine Urobilinogen 0.2 (0.2) mg/dL Ur Leukocyte Esterase Negative (Negative) U Hyaline Cast (Auto) NONE SEEN (0-2) /LPF Urine Microscopic RBC 0-2 (0-5) /HPF Urine Microscopic WBC 0-2 (0-5) /HPF Ur Epithelial Cells None Seen (None Seen) /HPF Urine Bacteria None Seen (None Seen) /HPF Urine Culture Reflexed NO (NO) 03/31/25 Range/Units 07:17 WBC (3.98-10.04) x10^3/uL RBC (3.93-5.22) x10^6/uL Hgb (11.2-15.7) g/dL Hct (34.1-44.9) % MCV (79.4-94.8) fL MCH (25.6-32.2) pg MCHC (32.2-35.5) g/dL RDW (11.7-14.4) % Plt Count (182-369) x10^3/uL MPV (9.4-12.3) fL Gran % (34.0-71.1) % Immature Gran % (Auto) (0.001-0.429) % Nucleat RBC Rel Count (0.00-0.2) % Eos # (Auto) (0.04-0.36) x10^3/uL Immature Gran # (Auto) (0.001-0.031) x10^3u/L Absolute Lymphs (auto) (1.18-3.74) x10^3/uL Absolute Monos (auto) (0.24-0.86) x10^3/uL Absolute Nucleated RBC (0.00-0.012) x10^3u/L Lymphocytes % (19.3-51.7) % Monocytes % (4.7-12.5) % Eosinophils % (0.7-5.8) % Basophils % (0.1-1.2) % Absolute Granulocytes (1.56-6.13) x10^3/uL Basophils # (0.01-0.08) x10^3/uL pO2/FiO2 Ratio % VBG pH (7.32-7.42) VBG pCO2 at Pat Temp (42-55) mm/Hg VBG pO2 at Pat Temp (25-40) mm/Hg VBG HCO3 (22-28) meq/L VBG O2 Sat (Kristina) (95-100) VBG Base Excess (-2.0-2.0) VBG Hemoglobin VBG Carboxyhemoglobin (0.0-6.9) % T HGB POC Potassium (3.5-5.1) Sodium (135-145) mmol/L Potassium (3.5-5.1) mmol/L Chloride (98-107) mmol/L Carbon Dioxide (22-30) mmol/L Anion Gap (5-15) MEQ/L BUN (7-17) mg/dL Creatinine (0.52-1.04) mg/dL Estimated GFR ML/MIN Glucose (74-106) mg/dL POC Glucometer 299 H (74 to 106) mg/dL Calcium (8.4-10.2) mg/dL Urine Color (Yellow) Urine Appearance (Clear) Urine pH (4.6-8.0) Ur Specific Blessing (1.005-1.030) Urine Protein (Negative) Urine Glucose (UA) (Negative) mg/dL Urine Ketones (Negative) Urine Blood (Negative) Urine Nitrite (Negative) Urine Bilirubin (Negative) Urine Urobilinogen (0.2) mg/dL Ur Leukocyte Esterase (Negative) U Hyaline Cast (Auto) (0-2) /LPF Urine Microscopic RBC (0-5) /HPF Urine Microscopic WBC (0-5) /HPF Ur Epithelial Cells (None Seen) /HPF Urine Bacteria (None Seen) /HPF Urine Culture Reflexed (NO) Micro Results-Entire Visit: Accuchecks Date 03/31/25 Time 07:39 - Radiology Exams Ordered Rad Exams-Entire Visit: Radiology Procedures Category Date Time Status CHEST 1 VIEW (PORTABLE) Stat Exams 03/30/25 19:17 Completed - Procedures and Test Procedures and Tests throughout Hospitalization: Therapy Orders & Screens 03/30/25 19:28 Respiratory Therapy Assessment DAILY Comment: 03/30/25 23:30 PT Eval & Treat ( Order) ONCE Reason for Eval:: ambulatory oxygen assessment Diagnosis: COPD exacerbation 03/31/25 09:23 Qualify for Home Oxygen TODAY Comment: WALK PATIENT PLEASE TO SEE IF O2 IS NEEDED Diagnosis: COPD exacerbation Discharge Exam General Appearance: no apparent distress, alert, obese Neurologic Exam: alert, oriented x 3, cooperative, normal mood/affect, nml cerebellar function, sensation nml, No motor deficits Eye Exam: PERRL, EOMI, eyes nml inspection Ears, Nose, Throat Exam: normal ENT inspection, pharynx normal, moist mucous membranes Neck Exam: normal inspection, non-tender, supple, full range of motion Respiratory Exam: wheezing (LUANA), No respiratory distress Cardiovascular Exam: regular rate/rhythm, normal heart sounds Gastrointestinal/Abdomen Exam: soft, No tenderness, No mass Pelvic Exam: deferred Rectal Exam: deferred Back Exam: normal inspection, normal range of motion, No CVA tenderness, No vertebral tenderness Extremity Exam: normal inspection, normal range of motion Skin Exam: normal color, warm, dry Final Diagnosis/Problem List - Final Discharge Diagnosis/Problem (1) Pneumonia Current Visit: Yes Status: Acute Assessment & Plan: - CXR: Worsening mid right base infiltrate - RA 94% - Will d/c with Levaquin 750 daily for 5 days and steroids BID - See COPD plan while IP - CBC, CMP reviewed Code(s): J18.9 - PNEUMONIA, UNSPECIFIED ORGANISM (2) COPD exacerbation Current Visit: Yes Status: Acute Assessment & Plan: -Antibiotic, steroids, nebs. - RA 94% - PT eval for ambulatory oxygen assessment. - Per RT pt did well and O2 did not drop. - Sent in nebulizer equipment and nebs to pharmacy. Code(s): J44.1 - CHRONIC OBSTRUCTIVE PULMONARY DISEASE W (ACUTE) EXACERBATION (3) Acute bronchitis Current Visit: Yes Status: Acute Assessment & Plan: -Continue antibiotic. - CXR reviewed. - Sputum culture pending. - Mucinex. Code(s): J20.9 - ACUTE BRONCHITIS, UNSPECIFIED (4) CHF (congestive heart failure) Current Visit: No Status: Chronic Assessment & Plan: -Clinically euvolemic at this time. No leg edema. Monitor volume status. Code(s): I50.9 - HEART FAILURE, UNSPECIFIED (5) Failure of outpatient treatment Current Visit: No Status: Acute Assessment & Plan: - Neb machine with treatments sent in to pharmacy. Code(s): Z78.9 - OTHER SPECIFIED HEALTH STATUS (6) Dehydration Current Visit: Yes Status: Acute Assessment & Plan: - IVF - Anion Gap 17.05 - Encouraged oral intake OP Code(s): E86.0 - DEHYDRATION (7) Diabetes mellitus Current Visit: No Status: Chronic Assessment & Plan: - A1C 01/01/25 5.83- controlled - Accuchecks AC/HS - Humalog S/S Code(s): E11.9 - TYPE 2 DIABETES MELLITUS WITHOUT COMPLICATIONS (8) Morbid obesity with BMI of 45.0-49.9, adult Current Visit: Yes Status: Chronic Assessment & Plan: - Advised ADA diet and exercise control Code(s): E66.01 - MORBID (SEVERE) OBESITY DUE TO EXCESS CALORIES; Z68.42 - BODY MASS INDEX [BMI] 45.0-49.9, ADULT - Discharge Discharge Date: 03/31/25 Disposition: Home, Self-Care Condition: Good Prescriptions: Continue Aspirin [Lo-Dose Aspirin EC] 81 mg PO DAILY Levothyroxine Sodium 75 Mcg [Synthroid 75 Mcg] 88 mcg PO DAILY Metoprolol Tartrate 25 mg [Lopressor 25MG Tab] 25 mg PO DAILY Ferrous Sulfate 325 mg [Feosol 325 mg] 325 mg PO DAILY Albuterol 8 gm Mdi Hfa [Ventolin Hfa MDI] 1 neb IH TID PRN PRN PRN Reason: Shortness Of Breath SUMAtriptan succinate [Imitrex 50 mg] 50 mg PO DAILY PRN PRN PRN Reason: migraines Nitroglycerin 0.4 mg SL Q5MIN PRN MR X 3 PRN PRN Reason: Chest Pain Discontinued Amoxicillin/Potassium Clav [Amox-Clav 875-125 mg Tablet] 1 each PO BID Azithromycin 250 mg [Zithromax 250 MG TABLET] 1 tab PO DAILY Follow up with: CECE WOODARD MD [Primary Care Provider, [facility]]
[2025-03-31 13:16] VITALS: BP 144/67; PULSE 96; TEMP 98.2; O2SAT 93
[2025-03-31] MEDS ORDERED: ROCEPHIN 1 GM / 100 ML NaCl 1 GM/100 ML IVPB IV SCH (22:00)
== END 2025-03-31 12:00 | disposition home or self-care (01) ==
LOC: ED 19:05 → MED SURG 22:33
PROVIDERS: ADMIT Internal Medicine; ATTEND Internal Medicine
DX: J18.9 Pneumonia, unspecified organism (principal); J44.1 Chronic obstructive pulmonary disease with (acute) exacerbation; Z59.48 Other specified lack of adequate food; J20.9 Acute bronchitis, unspecified; I11.0 Hypertensive heart disease with heart failure; I50.9 Heart failure, unspecified; Z78.9 Other specified health status; E86.0 Dehydration; E11.9 Type 2 diabetes mellitus without complications; E66.01 Morbid (severe) obesity due to excess calories; Z68.42 Body mass index [BMI] 45.0-49.9, adult; Z79.899 Other long term (current) drug therapy; Z85.828 Personal history of other malignant neoplasm of skin; Z87.891 Personal history of nicotine dependence
CPT/HCPCS: 36415; 71045; 80048; 81001; 82805; 82947; 85025; 93005; 94640; 94760; 99285; G0378; Q3014; J0696; J1650; J2919; J7609; A9270-GY